=== PATIENT | male | born 1940 | race Caucasian/White ===

== ENCOUNTER 2022-03-16 10:32 | Outpatient (RCR) | payer MEDICARE, BC, SELFPAY ==
[2022-03-16 12:08] LABS: Albumin* 4.2 g/dL (3.3-5.0); Chloride* 103 mmol/L (96-114); Sodium* 138 mmol/L (135-149)
[2022-03-16 12:09] LABS: Potassium* 4.4 mmol/L (3.6-5.1)
[2022-03-16 12:11] LABS: Aspartate Amino Transferase* 19 U/L (12-35); Bilirubin Total* 0.5 mg/dL (0.1-1.5); Carbon Dioxide* 29 mmol/L (20-32); Creatinine* 1.4 mg/dL (0.5-1.5); Estimated Glomerular Filt Rate 50.18
[2022-03-16 12:12] LABS: Alanine Aminotransferase* 16 U/L (4-50); Alkaline Phosphatase* 149 U/L (40-150); Blood Urea Nitrogen* 24 mg/dL (7-30); Calcium* 9.8 mg/dL (8.4-10.6); Glucose* 114 mg/dL (60-115); Total Protein* 6.8 g/dL (6.0-8.3)
[2022-03-16 12:31] LABS: Hematocrit 33.7 % (37.0-53.0); Hemoglobin* 11.2 gm/dL (13.5-17.5); Lymphocytes Percent Auto 25.9 % (20-44); Mean Corpuscular HGB Conc 33 gm/dL (32-36); Mean Corpuscular Hemoglobin 31 pg (26-34); Mean Corpuscular Volume 92 fL (80-100); Monocytes Percent Auto 9.8 % (0.0-11.0); Neutrophils Percent Auto 61.7 % (42.0-72.0); Platelet Count* 242 K/uL (140-440); RDW Coefficient of Variation % 14.4 % (11.5-15.5); Red Blood Count 3.66 m/uL (4.30-5.90); White Blood Count* 7.65 K/uL (4.50-11.00)
[2022-03-16 12:32] LABS: Basophils Percent Auto 0.5 % (0.0-3.0); Slide Review Reflex No
[2022-03-16 21:57] LABS: PSA Diagnostic* 0.08 ng/mL (0.10-4.00)
--- NOTE | 2022-03-17 15:01 | ONC.NURNOTE ---
Patient called after hours 03/[address] Jacobson to call his doctor. Dr. Jacobson had already left for the day. attempted to call pt x4 to let him know. line busy x4.
== END 2022-04-03 23:59 | disposition home or self-care (01) ==
LOC: CCIC 10:32
PROVIDERS: PCP Surgery; Visit Provider Internal Medicine Hematology & Oncology
DX: C61 Malignant neoplasm of prostate (principal); C79.51 Secondary malignant neoplasm of bone; G47.00 Insomnia, unspecified; K86.9 Disease of pancreas, unspecified; R63.4 Abnormal weight loss
CPT/HCPCS: 36415; 80053; 84153; 85025; 99212; 99214

== ENCOUNTER 2022-05-23 13:31 | Outpatient (CLI) | payer MEDICARE, BC, SELFPAY ==
--- NOTE | 2022-05-23 13:45 | CRLHL7_ITS ---
For Patients: As a result of the Cures Act, medical imaging exams and procedure reports are released immediately into your electronic medical record. You may view this report before your referring provider. If you have questions, please contact your health care provider. INDICATION: Cystic lesion pancreas; followup. Comparison : MRCP and MRI of the abdomen January 28, 2022. TECHNIQUE: Precontrast T1 and T2 weighted imaging; T2 haste imaging; diffusion weighted imaging; in and out of phase imaging; postcontrast imaging. FINDINGS: A 2.2 x 1.4 cm septated cystic lesion with high signal on the T2 haste imaging involving the mid body of the pancreas. No nodularity or enhancement after intravenous injection of gadolinium. No clear-cut communication to the main pancreatic duct. No evidence of pancreatic ductal dilatation. No focal hepatic or splenic pathology. No peripancreatic inflammatory changes. Gallbladder is unremarkable. No adrenal pathology. Kidneys are unremarkable. Extrarenal pelves bilateral. Cortical cyst left kidney. No evidence of abdominal ascites. IMPRESSION: 1. A 2.2 x 1.4 cm septated cystic lesion midbody of the pancreas; rule out side branch IPMN; stable when compared to January 2022; followup MRCP and MRI of the pancreas in 12 months duration suggested. 2. Negative MR of the abdomen without and with intravenous gadolinium otherwise. Dictated by Yasmani Gusman MD @ 05/24/2022 1:56:38 PM (Electronically Signed)
== END 2022-05-23 13:32 | disposition home or self-care (01) ==
LOC: MRI 13:32
PROVIDERS: PCP Surgery; Visit Provider Internal Medicine Hematology & Oncology
DX: K86.89 Other specified diseases of pancreas (principal)
CPT/HCPCS: 74183; A9575

== ENCOUNTER 2022-09-07 11:00 | Outpatient (RCR) | payer MEDICARE, BC, SELFPAY ==
[2022-04-07 11:17] LABS: Basophils Absolute Auto 0.04 K/uL (0.00-0.30); Basophils Percent Auto 0.8 % (0.0-3.0); Eosinophils Absolute Auto 0.15 K/uL (0.00-0.50); Eosinophils Percent Auto 2.8 % (0.0-7.0); Hematocrit 35.2 % (37.0-53.0); Hemoglobin* 11.7 gm/dL (13.5-17.5); Immature Granulocytes Abs Auto 0.03 K/uL (0.00-0.30); Lymphocytes Absolute Auto 1.64 K/uL (0.90-2.90); Lymphocytes Percent Auto 30.8 % (20-44); Mean Corpuscular HGB Conc 33 gm/dL (32-36); Mean Corpuscular Hemoglobin 31 pg (26-34); Mean Corpuscular Volume 93 fL (80-100); Monocytes Percent Auto 9.4 % (0.0-11.0); Neutrophils Absolute Auto 2.97 K/uL (1.7-7.0); Neutrophils Percent Auto 55.6 % (42.0-72.0); Platelet Count* 254 K/uL (140-440); RDW Coefficient of Variation % 13.8 % (11.5-15.5); Red Blood Count 3.79 m/uL (4.30-5.90); White Blood Count* 5.33 K/uL (4.50-11.00)
[2022-04-07 11:33] LABS: Slide Review Reflex No
[2022-04-07 11:51] LABS: Albumin* 4.2 g/dL (3.3-5.0); Chloride* 105 mmol/L (96-114); Potassium* 4.4 mmol/L (3.6-5.1); Sodium* 137 mmol/L (135-149)
[2022-04-07 11:53] LABS: Bilirubin Total* 0.2 mg/dL (0.1-1.5); Creatinine* 1.2 mg/dL (0.5-1.5); Estimated Glomerular Filt Rate 60 ml/min
[2022-04-07 11:54] LABS: Alanine Aminotransferase* 17 U/L (4-50); Alkaline Phosphatase* 124 U/L (40-150); Aspartate Amino Transferase* 22 U/L (12-35); Blood Urea Nitrogen* 25 mg/dL (7-30); Calcium* 9.8 mg/dL (8.4-10.6); Carbon Dioxide* 26 mmol/L (20-32); Glucose* 160 mg/dL (60-115); Total Protein* 7.1 g/dL (6.0-8.3)
--- NOTE | 2022-04-07 13:32 | ONC.NURNOTE ---
Patient here one week early for scheduled monthly lab draw labs done and reviewed by RN to be called to [facility] for Dr Jacobson review next week calendar for next appts given to and patient
--- NOTE | 2022-04-11 13:58 | ONC.NURNOTE ---
Addendum entered by Sheyla Olvera RN 04/12/22 13:34: Dental release received from Oral Surgeon Original Note: Dental clearance form faxed to Oral Surgeon to complete [phone]
[2022-04-14 14:34] VITALS: BP 153/75; PULSE 77; RESP 16; TEMP 36.1; O2SAT 97
[2022-04-14] MEDS: DENOSUMAB 120 MG inj SUBCUT (14:51)
[2022-05-11 12:56] LABS: Basophils Absolute Auto 0.03 K/uL (0.00-0.30); Basophils Percent Auto 0.4 % (0.0-3.0); Eosinophils Absolute Auto 0.24 K/uL (0.00-0.50); Eosinophils Percent Auto 3.5 % (0.0-7.0); Hematocrit 37.4 % (37.0-53.0); Hemoglobin* 12.4 gm/dL (13.5-17.5); Immature Granulocytes Abs Auto 0.01 K/uL (0.00-0.30); Lymphocytes Absolute Auto 1.84 K/uL (0.90-2.90); Lymphocytes Percent Auto 26.6 % (20-44); Mean Corpuscular HGB Conc 33 gm/dL (32-36); Mean Corpuscular Hemoglobin 31 pg (26-34); Mean Corpuscular Volume 94 fL (80-100); Monocytes Percent Auto 8.7 % (0.0-11.0); Neutrophils Absolute Auto 4.19 K/uL (1.7-7.0); Neutrophils Percent Auto 60.7 % (42.0-72.0); Platelet Count* 246 K/uL (140-440); White Blood Count* 6.91 K/uL (4.50-11.00)
[2022-05-11 12:58] LABS: Slide Review Reflex No
[2022-05-11 13:12] LABS: Albumin* 4.5 g/dL (3.3-5.0); Chloride* 102 mmol/L (96-114)
[2022-05-11 13:13] LABS: Potassium* 4.5 mmol/L (3.6-5.1); Sodium* 140 mmol/L (135-149)
[2022-05-11 13:15] LABS: Aspartate Amino Transferase* 23 U/L (12-35); Bilirubin Total* 0.3 mg/dL (0.1-1.5); Carbon Dioxide* 28 mmol/L (20-32); Creatinine* 1.4 mg/dL (0.5-1.5); Estimated Glomerular Filt Rate 50 ml/min; Total Protein* 7.3 g/dL (6.0-8.3)
[2022-05-11 13:16] LABS: Alanine Aminotransferase* 20 U/L (4-50); Alkaline Phosphatase* 91 U/L (40-150); Blood Urea Nitrogen* 27 mg/dL (7-30); Calcium* 9.3 mg/dL (8.4-10.6); Glucose* 155 mg/dL (60-115)
[2022-05-11 14:04] LABS: PSA Diagnostic* < 0.06 ng/mL (0.10-4.00)
[2022-05-17 11:03] VITALS: BP 134/78; PULSE 76; RESP 16; TEMP 35.8; O2SAT 95
[2022-05-17] MEDS: DENOSUMAB 120 MG inj SUBCUT (11:16)
--- NOTE | 2022-06-01 15:11 | ONC.NURNOTE ---
Dr. Jacobson reviewed MRI done on 05/23/22. Per Dr. Jacobson scan is stable. Bulk Driver called pt with update.
--- NOTE | 2022-06-10 11:43 | ONC.NURNOTE ---
Authorization: User: Mare Salinas Date: 02/09/22 14:08 Type: Eligibility Determination Note... REceived request for prior auth for Denosumab ([id number]). Pt has medicare and [place]. Prior authorization is not required as services are based on medical necessity and follow medicare guidelines.
[2022-06-14 11:30] LABS: Basophils Absolute Auto 0.03 K/uL (0.00-0.30); Basophils Percent Auto 0.5 % (0.0-3.0); Eosinophils Absolute Auto 0.21 K/uL (0.00-0.50); Eosinophils Percent Auto 3.3 % (0.0-7.0); Hematocrit 38.9 % (37.0-53.0); Hemoglobin* 12.8 gm/dL (13.5-17.5); Immature Granulocytes Abs Auto 0.02 K/uL (0.00-0.30); Lymphocytes Absolute Auto 2.01 K/uL (0.90-2.90); Lymphocytes Percent Auto 31.8 % (20-44); Mean Corpuscular HGB Conc 33 gm/dL (32-36); Mean Corpuscular Hemoglobin 31 pg (26-34); Mean Corpuscular Volume 93 fL (80-100); Neutrophils Absolute Auto 3.48 K/uL (1.7-7.0); Neutrophils Percent Auto 55.1 % (42.0-72.0); Platelet Count* 263 K/uL (140-440); RDW Coefficient of Variation % 12.6 % (11.5-15.5); Red Blood Count 4.19 m/uL (4.30-5.90); White Blood Count* 6.32 K/uL (4.50-11.00)
[2022-06-14 11:34] VITALS: BP 125/80; PULSE 100; RESP 16; TEMP 35.5; O2SAT 96
[2022-06-14 11:38] LABS: Albumin* 4.6 g/dL (3.3-5.0); Chloride* 101 mmol/L (96-114); Potassium* 4.6 mmol/L (3.6-5.1); Sodium* 139 mmol/L (135-149)
[2022-06-14 11:40] LABS: Bilirubin Total* 0.4 mg/dL (0.1-1.5); Creatinine* 1.4 mg/dL (0.5-1.5); Estimated Glomerular Filt Rate 50 ml/min; Slide Review Reflex No
[2022-06-14 11:41] LABS: Alanine Aminotransferase* 19 U/L (4-50); Alkaline Phosphatase* 63 U/L (40-150); Aspartate Amino Transferase* 21 U/L (12-35); Blood Urea Nitrogen* 22 mg/dL (7-30); Calcium* 9.6 mg/dL (8.4-10.6); Carbon Dioxide* 29 mmol/L (20-32); Glucose* 185 mg/dL (60-115); Total Protein* 7.6 g/dL (6.0-8.3)
[2022-06-14] MEDS: DENOSUMAB 120 MG inj SUBCUT (12:26)
--- NOTE | 2022-06-15 14:22 | ONC.NURNOTE ---
Labs reviewed by Dr Jacobson and called to [facility] as stable continue same dosing XTANDI lab/Shankar/Dr Jacobson on 07/13/22 Patient offers no questions or concerns regarding Xtandi
[2022-07-13 12:59] LABS: Basophils Absolute Auto 0.03 K/uL (0.00-0.30); Basophils Percent Auto 0.4 % (0.0-3.0); Eosinophils Absolute Auto 0.14 K/uL (0.00-0.50); Eosinophils Percent Auto 2.1 % (0.0-7.0); Hematocrit 37.2 % (37.0-53.0); Hemoglobin* 12.3 gm/dL (13.5-17.5); Immature Granulocytes Abs Auto 0.02 K/uL (0.00-0.30); Immature Granulocytes Pct Auto 0.3 %; Lymphocytes Absolute Auto 1.97 K/uL (0.90-2.90); Lymphocytes Percent Auto 29.5 % (20-44); Mean Corpuscular HGB Conc 33 gm/dL (32-36); Mean Corpuscular Hemoglobin 30 pg (26-34); Mean Corpuscular Volume 92 fL (80-100); Monocytes Percent Auto 10.2 % (0.0-11.0); Neutrophils Absolute Auto 3.84 K/uL (1.7-7.0); Neutrophils Percent Auto 57.5 % (42.0-72.0); Platelet Count* 272 K/uL (140-440); Red Blood Count 4.04 m/uL (4.30-5.90); White Blood Count* 6.68 K/uL (4.50-11.00)
[2022-07-13 13:01] LABS: Slide Review Reflex No
[2022-07-13 13:15] LABS: Albumin* 4.5 g/dL (3.3-5.0); Chloride* 102 mmol/L (96-114)
[2022-07-13 13:16] LABS: Potassium* 4.6 mmol/L (3.6-5.1); Sodium* 138 mmol/L (135-149)
[2022-07-13 13:18] LABS: Aspartate Amino Transferase* 23 U/L (12-35); Bilirubin Total* 0.5 mg/dL (0.1-1.5); Carbon Dioxide* 26 mmol/L (20-32); Creatinine* 1.2 mg/dL (0.5-1.5); Estimated Glomerular Filt Rate 60 ml/min; Total Protein* 7.5 g/dL (6.0-8.3)
[2022-07-13 13:19] LABS: Alanine Aminotransferase* 23 U/L (4-50); Alkaline Phosphatase* 65 U/L (40-150); Blood Urea Nitrogen* 24 mg/dL (7-30); Calcium* 9.7 mg/dL (8.4-10.6); Glucose* 152 mg/dL (60-115)
[2022-07-13 13:51] LABS: PSA Diagnostic* < 0.06 ng/mL (0.10-4.00)
[2022-07-13] MEDS: DENOSUMAB 120 MG inj SUBCUT (14:32)
--- NOTE | 2022-07-21 16:11 | ONC.NURNOTE ---
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
[2022-08-10 11:15] VITALS: BP 151/79; TEMP 35.5
[2022-08-10 11:27] LABS: Basophils Absolute Auto 0.03 K/uL (0.00-0.30); Basophils Percent Auto 0.5 % (0.0-3.0); Eosinophils Absolute Auto 0.32 K/uL (0.00-0.50); Eosinophils Percent Auto 5.2 % (0.0-7.0); Hematocrit 35.3 % (37.0-53.0); Immature Granulocytes Abs Auto 0.02 K/uL (0.00-0.30); Immature Granulocytes Pct Auto 0.3 %; Lymphocytes Absolute Auto 1.93 K/uL (0.90-2.90); Lymphocytes Percent Auto 31.3 % (20-44); Mean Corpuscular HGB Conc 34 gm/dL (32-36); Mean Corpuscular Hemoglobin 31 pg (26-34); Mean Corpuscular Volume 91 fL (80-100); Monocytes Percent Auto 8.3 % (0.0-11.0); Neutrophils Absolute Auto 3.36 K/uL (1.7-7.0); Neutrophils Percent Auto 54.4 % (42.0-72.0); Platelet Count* 270 K/uL (140-440); RDW Coefficient of Variation % 13.2 % (11.5-15.5); Red Blood Count 3.87 m/uL (4.30-5.90); White Blood Count* 6.17 K/uL (4.50-11.00)
[2022-08-10 11:28] LABS: Slide Review Reflex No
[2022-08-10 11:44] LABS: Chloride* 106 mmol/L (96-114)
[2022-08-10 11:45] LABS: Albumin* 4.5 g/dL (3.3-5.0); Potassium* 4.8 mmol/L (3.6-5.1); Sodium* 139 mmol/L (135-149)
[2022-08-10 11:47] LABS: Creatinine* 1.3 mg/dL (0.5-1.5); Estimated Glomerular Filt Rate 55 ml/min
[2022-08-10 11:48] VITALS: BP 151/79; PULSE 86; RESP 16; TEMP 35.4; O2SAT 94
[2022-08-10 11:48] LABS: Alanine Aminotransferase* 23 U/L (4-50); Alkaline Phosphatase* 64 U/L (40-150); Aspartate Amino Transferase* 21 U/L (12-35); Bilirubin Total* 0.4 mg/dL (0.1-1.5); Blood Urea Nitrogen* 22 mg/dL (7-30); Carbon Dioxide* 26 mmol/L (20-32); Glucose* 193 mg/dL (60-115); Total Protein* 7.3 g/dL (6.0-8.3)
[2022-08-10 11:49] LABS: Calcium* 9.3 mg/dL (8.4-10.6)
[2022-08-10] MEDS: DENOSUMAB 120 MG inj SUBCUT (12:12)
[2022-08-10 12:26] LABS: PSA Diagnostic* < 0.06 ng/mL (0.10-4.00)
--- NOTE | 2022-08-15 09:22 | ONC.NURNOTE ---
Re enrolled in [employer] PAP from 07/27-09/03/23 will continue to receive Xtandi through the [facility] ph [phone]
[2022-09-07 11:11] LABS: Basophils Absolute Auto 0.03 K/uL (0.00-0.30); Basophils Percent Auto 0.4 % (0.0-3.0); Eosinophils Absolute Auto 0.24 K/uL (0.00-0.50); Eosinophils Percent Auto 3.2 % (0.0-7.0); Hematocrit 36.8 % (37.0-53.0); Hemoglobin* 12.4 gm/dL (13.5-17.5); Immature Granulocytes Abs Auto 0.06 K/uL (0.00-0.30); Immature Granulocytes Pct Auto 0.8 %; Lymphocytes Absolute Auto 1.95 K/uL (0.90-2.90); Mean Corpuscular HGB Conc 34 gm/dL (32-36); Mean Corpuscular Hemoglobin 31 pg (26-34); Mean Corpuscular Volume 92 fL (80-100); Monocytes Percent Auto 10.1 % (0.0-11.0); Neutrophils Absolute Auto 4.45 K/uL (1.7-7.0); Neutrophils Percent Auto 59.5 % (42.0-72.0); Platelet Count* 306 K/uL (140-440); RDW Coefficient of Variation % 13.1 % (11.5-15.5); Red Blood Count 4.02 m/uL (4.30-5.90); White Blood Count* 7.49 K/uL (4.50-11.00)
[2022-09-07 11:13] LABS: Slide Review Reflex No
[2022-09-07 11:20] LABS: Albumin* 4.6 g/dL (3.3-5.0); Chloride* 104 mmol/L (96-114)
[2022-09-07 11:21] LABS: Potassium* 4.7 mmol/L (3.6-5.1); Sodium* 139 mmol/L (135-149)
[2022-09-07 11:23] LABS: Aspartate Amino Transferase* 21 U/L (12-35); Bilirubin Total* 0.5 mg/dL (0.1-1.5); Carbon Dioxide* 27 mmol/L (20-32); Creatinine* 1.3 mg/dL (0.5-1.5); Estimated Glomerular Filt Rate 55 ml/min; Total Protein* 7.7 g/dL (6.0-8.3)
[2022-09-07 11:24] LABS: Alanine Aminotransferase* 22 U/L (4-50); Alkaline Phosphatase* 60 U/L (40-150); Blood Urea Nitrogen* 24 mg/dL (7-30); Calcium* 9.8 mg/dL (8.4-10.6); Glucose* 121 mg/dL (60-115)
[2022-09-07 11:54] VITALS: BP 151/82; PULSE 84; RESP 16; TEMP 36.5; O2SAT 96
[2022-09-07 12:01] LABS: PSA Diagnostic* < 0.06 ng/mL (0.10-4.00)
[2022-09-07] MEDS: DENOSUMAB 120 MG inj SUBCUT (12:08)
== END 2022-10-04 23:59 | disposition home or self-care (01) ==
LOC: CCIC 11:00
PROVIDERS: Clinical Nurse Specialist; PCP Surgery; Referring Provider Surgery; Visit Provider Internal Medicine Hematology & Oncology
DX: C61 Malignant neoplasm of prostate (principal); C79.51 Secondary malignant neoplasm of bone
CPT/HCPCS: 36415; 80053; 84153; 85025; 96372; 96401; 99212; 99214; J0897

== ENCOUNTER 2023-03-21 14:00 | Outpatient (RCR) | payer MEDICARE, BC, SELFPAY ==
[2022-10-05 11:13] LABS: Basophils Absolute Auto 0.04 K/uL (0.00-0.30); Basophils Percent Auto 0.6 % (0.0-3.0); Eosinophils Percent Auto 6.9 % (0.0-7.0); Hematocrit 38.8 % (37.0-53.0); Hemoglobin* 12.7 gm/dL (13.5-17.5); Immature Granulocytes Abs Auto 0.01 K/uL (0.00-0.30); Immature Granulocytes Pct Auto 0.1 %; Lymphocytes Absolute Auto 2.05 K/uL (0.90-2.90); Lymphocytes Percent Auto 28.3 % (20-44); Mean Corpuscular HGB Conc 33 gm/dL (32-36); Mean Corpuscular Hemoglobin 30 pg (26-34); Mean Corpuscular Volume 93 fL (80-100); Monocytes Percent Auto 9.4 % (0.0-11.0); Neutrophils Absolute Auto 3.96 K/uL (1.7-7.0); Neutrophils Percent Auto 54.7 % (42.0-72.0); Platelet Count* 276 K/uL (140-440); RDW Coefficient of Variation % 13.3 % (11.5-15.5); Red Blood Count 4.19 m/uL (4.30-5.90); White Blood Count* 7.24 K/uL (4.50-11.00)
[2022-10-05 11:16] LABS: Slide Review Reflex No
[2022-10-05 11:23] VITALS: BP 153/88; PULSE 72; RESP 20; TEMP 36.3; O2SAT 97
[2022-10-05 11:27] LABS: Albumin* 4.4 g/dL (3.3-5.0); Chloride* 103 mmol/L (96-114)
[2022-10-05 11:28] LABS: Potassium* 4.4 mmol/L (3.6-5.1); Sodium* 140 mmol/L (135-149)
[2022-10-05 11:30] VITALS: BP 123/76
[2022-10-05 11:30] LABS: Alkaline Phosphatase* 48 U/L (40-150); Aspartate Amino Transferase* 22 U/L (12-35); Bilirubin Total* 0.4 mg/dL (0.1-1.5); Carbon Dioxide* 30 mmol/L (20-32); Creatinine* 1.5 mg/dL (0.5-1.5); Est. Creatinine Clearance* 27.75; Estimated Glomerular Filt Rate 46 ml/min; Total Protein* 7.7 g/dL (6.0-8.3)
[2022-10-05 11:31] LABS: Alanine Aminotransferase* 23 U/L (4-50); Blood Urea Nitrogen* 31 mg/dL (7-30); Calcium* 9.7 mg/dL (8.4-10.6); Glucose* 165 mg/dL (60-115)
[2022-10-05] MEDS: DENOSUMAB 120 MG inj SUBCUT (11:54)
[2022-11-02 11:51] LABS: Basophils Absolute Auto 0.03 K/uL (0.00-0.30); Basophils Percent Auto 0.4 % (0.0-3.0); Eosinophils Absolute Auto 0.27 K/uL (0.00-0.50); Hematocrit 36.5 % (37.0-53.0); Hemoglobin* 12.2 gm/dL (13.5-17.5); Immature Granulocytes Abs Auto 0.03 K/uL (0.00-0.30); Immature Granulocytes Pct Auto 0.4 %; Lymphocytes Absolute Auto 1.83 K/uL (0.90-2.90); Mean Corpuscular HGB Conc 33 gm/dL (32-36); Mean Corpuscular Hemoglobin 30 pg (26-34); Mean Corpuscular Volume 90 fL (80-100); Monocytes Percent Auto 8.3 % (0.0-11.0); Neutrophils Absolute Auto 4.05 K/uL (1.7-7.0); Neutrophils Percent Auto 59.9 % (42.0-72.0); Platelet Count* 254 K/uL (140-440); Red Blood Count 4.05 m/uL (4.30-5.90); White Blood Count* 6.77 K/uL (4.50-11.00)
[2022-11-02 11:55] LABS: Slide Review Reflex No
[2022-11-02 11:59] VITALS: BP 136/81; PULSE 80; RESP 16; TEMP 36.2; O2SAT 97
[2022-11-02 12:04] LABS: Chloride* 104 mmol/L (96-114)
[2022-11-02 12:05] LABS: Albumin* 4.2 g/dL (3.3-5.0); Potassium* 4.5 mmol/L (3.6-5.1); Sodium* 137 mmol/L (135-149)
[2022-11-02 12:08] LABS: Alanine Aminotransferase* 24 U/L (4-50); Alkaline Phosphatase* 45 U/L (40-150); Aspartate Amino Transferase* 20 U/L (12-35); Bilirubin Total* 0.4 mg/dL (0.1-1.5); Blood Urea Nitrogen* 17 mg/dL (7-30); Calcium* 9.8 mg/dL (8.4-10.6); Carbon Dioxide* 27 mmol/L (20-32); Creatinine* 1.2 mg/dL (0.5-1.5); Estimated Glomerular Filt Rate 60 ml/min; Glucose* 162 mg/dL (60-115); Total Protein* 7.4 g/dL (6.0-8.3)
[2022-11-02] MEDS: DENOSUMAB 120 MG inj SUBCUT (12:37)
[2022-12-01 10:45] LABS: Basophils Absolute Auto 0.05 K/uL (0.00-0.30); Basophils Percent Auto 0.6 % (0.0-3.0); Eosinophils Absolute Auto 0.26 K/uL (0.00-0.50); Eosinophils Percent Auto 3.3 % (0.0-7.0); Hematocrit 39.2 % (37.0-53.0); Immature Granulocytes Abs Auto 0.08 K/uL (0.00-0.30); Lymphocytes Absolute Auto 1.81 K/uL (0.90-2.90); Lymphocytes Percent Auto 23.3 % (20-44); Mean Corpuscular HGB Conc 33 gm/dL (32-36); Mean Corpuscular Hemoglobin 30 pg (26-34); Mean Corpuscular Volume 91 fL (80-100); Monocytes Percent Auto 8.6 % (0.0-11.0); Neutrophils Percent Auto 63.2 % (42.0-72.0); Platelet Count* 283 K/uL (140-440); RDW Coefficient of Variation % 13.2 % (11.5-15.5); Red Blood Count 4.31 m/uL (4.30-5.90); White Blood Count* 7.77 K/uL (4.50-11.00)
[2022-12-01 10:52] LABS: Slide Review Reflex No
[2022-12-01 10:59] LABS: Albumin* 4.5 g/dL (3.3-5.0)
[2022-12-01 11:00] LABS: Chloride* 102 mmol/L (96-114); Potassium* 4.4 mmol/L (3.6-5.1); Sodium* 139 mmol/L (135-149)
[2022-12-01 11:02] LABS: Aspartate Amino Transferase* 22 U/L (12-35); Bilirubin Total* 0.5 mg/dL (0.1-1.5); Carbon Dioxide* 29 mmol/L (20-32); Creatinine* 1.3 mg/dL (0.5-1.5); Est. Creatinine Clearance* 45.24; Estimated Glomerular Filt Rate 55 ml/min; Total Protein* 7.9 g/dL (6.0-8.3)
[2022-12-01 11:03] LABS: Alanine Aminotransferase* 24 U/L (4-50); Alkaline Phosphatase* 50 U/L (40-150); Blood Urea Nitrogen* 25 mg/dL (7-30); Calcium* 10.1 mg/dL (8.4-10.6); Glucose* 180 mg/dL (60-115)
[2022-12-01 11:29] LABS: PSA Diagnostic* < 0.06 ng/mL (0.10-4.00)
[2022-12-01] MEDS: DENOSUMAB 120 MG inj SUBCUT (12:26)
[2023-03-02] MEDS: DENOSUMAB 120 MG inj SUBCUT (12:30)
[2023-03-02 12:38] LABS: Basophils Absolute Auto 0.02 K/uL (0.00-0.30); Basophils Percent Auto 0.4 % (0.0-3.0); Eosinophils Absolute Auto 0.28 K/uL (0.00-0.50); Eosinophils Percent Auto 5.1 % (0.0-7.0); Hematocrit 36.8 % (37.0-53.0); Hemoglobin* 12.3 gm/dL (13.5-17.5); Immature Granulocytes Abs Auto 0.01 K/uL (0.00-0.30); Immature Granulocytes Pct Auto 0.2 %; Lymphocytes Absolute Auto 1.87 K/uL (0.90-2.90); Lymphocytes Percent Auto 34.3 % (20-44); Mean Corpuscular HGB Conc 33 gm/dL (32-36); Mean Corpuscular Hemoglobin 30 pg (26-34); Mean Corpuscular Volume 91 fL (80-100); Monocytes Percent Auto 9.5 % (0.0-11.0); Neutrophils Absolute Auto 2.75 K/uL (1.7-7.0); Neutrophils Percent Auto 50.5 % (42.0-72.0); Platelet Count* 228 K/uL (140-440); RDW Coefficient of Variation % 13.5 % (11.5-15.5); Red Blood Count 4.06 m/uL (4.30-5.90); White Blood Count* 5.45 K/uL (4.50-11.00)
[2023-03-02 12:43] LABS: Slide Review Reflex No
[2023-03-02 12:58] LABS: Albumin* 4.3 g/dL (3.3-5.0)
[2023-03-02 12:59] LABS: Chloride* 102 mmol/L (96-114); Potassium* 4.4 mmol/L (3.6-5.1); Sodium* 140 mmol/L (135-149)
[2023-03-02 13:01] LABS: Creatinine* 1.3 mg/dL (0.5-1.5); Est. Creatinine Clearance* 44.46; Estimated Glomerular Filt Rate 55 ml/min
[2023-03-02 13:02] LABS: Alanine Aminotransferase* 22 U/L (4-50); Alkaline Phosphatase* 46 U/L (40-150); Aspartate Amino Transferase* 22 U/L (12-35); Bilirubin Total* 0.5 mg/dL (0.1-1.5); Blood Urea Nitrogen* 26 mg/dL (7-30); Calcium* 9.8 mg/dL (8.4-10.6); Carbon Dioxide* 30 mmol/L (20-32); Glucose* 118 mg/dL (60-115); Total Protein* 7.4 g/dL (6.0-8.3)
[2023-03-03 13:56] LABS: Testosterone, Adult Male <3 ng/dL (300-720)
--- NOTE | 2023-03-08 10:54 | ONC.NURNOTE ---
[employer] faxed lab orders to [facility] per patients request.
--- NOTE | 2023-03-17 11:19 | URNOTE ---
Request received for authorization for Shivam ([id number]). Prior authorization is not required as services are based on medical necessity and follow Medicare guidelines.
--- NOTE | 2023-03-17 12:55 | ONC.NURNOTE ---
Dr[facility]. Pt aware.
[2023-03-21 14:45] VITALS: PULSE 66; RESP 18; TEMP 36.2; O2SAT 95
== END 2023-04-03 23:59 | disposition home or self-care (01) ==
LOC: CCIC 14:00
PROVIDERS: Clinical Nurse Specialist; Internal Medicine Hematology & Oncology; PCP Surgery; Referring Provider Surgery; Visit Provider Physician Assistant
DX: C61 Malignant neoplasm of prostate (principal)
CPT/HCPCS: 36415; 80053; 84153; 84403; 85025; 96372; 96401; 99212; 99214; 99215; J0897; J9217

== ENCOUNTER 2023-05-23 12:39 | Outpatient (CLI) | payer MEDICARE, BC, SELFPAY ==
--- NOTE | 2023-05-23 13:00 | CRLHL7_ITS ---
For Patients: As a result of the Century Cures Act, medical imaging exams and procedure reports are released immediately into your electronic medical record. You may view this report before your referring provider. If you have questions, please contact your health care provider. INDICATION: Pancreatic cyst; followup. COMPARISON: MRI of the abdomen January 28, 2022 and May 23, 2022. TECHNIQUE: MRCP; precontrast T1 and T2 weighted imaging; T2 haste imaging; diffusion weighted imaging; in and out of phase imaging; postcontrast imaging including subtraction ; 20 cc of dotarem contrast was injected. Findings: A 1.8 x 1.2 cm septated cystic lesion distal body of the pancreas ; High signal on the precontrast T2 haste imaging and low signal on the precontrast T1 weighted imaging without any enhancement postcontrast administration. No evidence of pancreatic ductal dilatation. Diffuse fatty infiltration of the liver. No focal hepatic or splenic pathology. No pancreatic ductal dilatation. Gallbladder is unremarkable. No adrenal pathology. Cortical cyst is both kidneys. IMPRESSION: 1. cystic lesions tail of the pancreas measuring 1.8 x 1.2 cm ; Side branch IPMN ; Followup MRCP and MRI of the abdomen in 12 months duration suggested. 2. Fatty infiltration of the liver. Dictated by Yasmani Gusman MD @ 05/28/2023 1:54:43 PM (Electronically Signed)
== END 2023-05-23 12:40 | disposition home or self-care (01) ==
LOC: MRI 12:44
PROVIDERS: PCP Surgery; Visit Provider Physician Assistant
DX: D49.0 Neoplasm of unspecified behavior of digestive system (principal); K86.2 Cyst of pancreas; K76.0 Fatty (change of) liver, not elsewhere classified
CPT/HCPCS: 74183; A9575

== ENCOUNTER 2023-07-02 12:34 | Observation (INO) | payer MEDICARE, BC, SELFPAY ==
[2023-07-02] VITALS (37 sets, daily range): BP systolic 118–169; BP diastolic 58–98; PULSE 92–132; RESP 18–29; TEMP 36.4–36.7; O2SAT 88–97; BMI 34.2; BMI 34.7
--- NOTE | 2023-07-02 13:00 | CRLHL7_ITS ---
For Patients: As a result of the Cures Act, medical imaging exams and procedure reports are released immediately into your electronic medical record. You may view this report before your referring provider. If you have questions, please contact your health care provider. INDICATION: 01/11/2017 COMPARISON: None. TECHNIQUE: PA and lateral 2 view chest radiograph. FINDINGS: The lungs are well expanded. No focal consolidations. No pulmonary edema. No pleural effusion. No pneumothorax. No pneumomediastinum. Normal cardiomediastinal silhouette. Atherosclerotic vascular calcifications. Median sternotomy wires. Bones: L1 superior endplate compression fracture with about 30 percent loss of height anteriorly. This is unchanged compared to prior. No acute appearing worrisome abnormalities in the bones. IMPRESSION: Lungs are clear. No acute findings. Dictated by Jeannine Jenkins MD @ 07/02/2023 1:55:06 PM (Electronically Signed)
--- NOTE | 2023-07-02 13:42 | ED.GENADULT ---
HPI - General Adult General Chief complaint: Weakness Stated complaint: No energy, cant sleep Time Seen by Provider: 07/02/23 12:36 Source: patient and family Limitations: no limitations History of Present Illness HPI narrative: 83-year-old male presenting today with concerns about weakness and not sleeping well. Patient states that he did not sleep at all last night was tossing and turning most of the night and today he felt so weak needed help getting around which is unusual for him. He denies chest pain but he does feel short of breath. No fevers or chills. No recent illnesses. Appetite has been normal and he has been drinking need usual amount which is about a qt of ice tea per day. His states that he is not himself. She states that he seems weaker, has no energy like he usually does and she just feels like something is off. He denies any abdominal discomfort. States that he had 2 episodes of diarrhea couple days ago otherwise normal bowel movement. He denies any urinary symptoms. Medical history is complex and significant for prostate cancer with bony metastasis, coronary artery disease, diabetes, hypertension. Related Data Home Medications Medication Instructions Recorded Confirmed amlodipine 10 mg tablet 10 mg PO DAILY 03/14/22 07/02/23 furosemide 20 mg tablet 20 mg PO DAILY 03/14/22 07/02/23 losartan 100 mg tablet 100 mg PO DAILY 03/14/22 07/02/23 rosuvastatin 10 mg tablet 10 mg PO HS 03/14/22 07/02/23 metformin 1,000 mg tablet 1,000 mg PO BID 05/11/22 07/02/23 multivitamin 1 tab PO QAM 05/11/22 07/02/23 calcium carbonate 600 mg-vitamin 1 tab PO BID 07/13/22 07/02/23 D3 10 mcg (400 unit) tablet (Calcium with Vitamin D) spironolactone 25 mg tablet 25 mg PO QAM 10/05/22 07/02/23 ammonium lactate 12 % topical cream 1 applic topical DAILY PRN 07/02/23 07/02/23 carvedilol 12.5 mg tablet 12.5 mg PO BID 07/02/23 07/02/23 cetirizine 10 mg tablet 10 mg PO DAILY PRN 07/02/23 07/02/23 cinnamon bark 500 mg capsule 500 mg PO BID 07/02/23 07/02/23 glucosamine-chondroitin 250 mg-200 2 tab PO DAILY 07/02/23 07/02/23 mg tablet (Osteo Bi-Flex) magnesium oxide 400 mg PO DAILY 07/02/23 07/02/23 melatonin 1 mg tablet 1 mg PO HS PRN 07/02/23 07/02/23 mirtazapine 15 mg tablet 15 mg PO QPM 07/02/23 07/02/23 Previous Rx's Medication Instructions Recorded enzalutamide 40 mg capsule 160 mg (4 x 40 mg) PO Q24H #120 06/19/23 caps Allergies Allergy/AdvReac Type Severity Reaction Status Date / Time house dust Allergy Verified 03/02/23 13:05 cocaine Allergy Uncoded 05/17/22 11:15 feathers Allergy Uncoded 05/17/22 11:15 flu shot Allergy Uncoded 05/17/22 11:15 grain/feed dust Allergy Uncoded 05/17/22 11:15 tobacco Allergy Uncoded 05/17/22 11:15 Review of Systems Status of ROS: Reports: 10 or more systems reviewed and unremarkable except as noted in History and below [facility] Medical History Bone metastasis ?C79.51 - Secondary malignant neoplasm of bone (ICD-10) Social History Smoking Status: Former smoker Do you use any of these nicotine containing products: None Second hand tobacco smoke exposure: No How often do you have a drink containing alcohol: 2-4 times a month How many standard drinks containing alcohol do you have on a typical day: 1 or 2 How often do you have six or more drinks on one occasion: Never AUDIT-C Alcohol total score: 2 Non-prescribed substance use: denies use service: No Exam Narrative: Exam Narrative: Overweight, well-developed patient. Alert and oriented x3. Answers questions appropriately but is not a very good historian. He has trouble describing symptoms. Mood is normal, affect is slightly flat. Thoughts are goal oriented and rational. No tangential or magical thinking noted. Patient speaks in full sentences without needing to catch his breath. HEENT: Normocephalic atraumatic. Pupils are equally round reactive to light. Extraocular muscles are intact. Conjunctivae are moist without any icterus noted. Very dry mucous membranes. Posterior pharynx is normal. Neck is soft. Cardiovascular: Tachycardic but regular rhythm. S1-S2 present without murmurs. Lungs: Clear to auscultation bilaterally no wheezes rhonchi or rales are appreciated. Patient takes deep breaths without any discomfort. Abdomen: Soft and nontender nondistended with normal bowel sounds. Protuberant. Extremities: Right lower extremity has trace edema, left lower extremity without edema. Skin: Well perfused without any obvious rashes. Const: Vital Signs, click to edit/add: Vital Signs - 24 hr 07/02/23 12:47 07/02/23 13:00 07/02/23 13:00 Pulse Rate 128 H Pulse Rate [Femora l] 129 H Respiratory Rate 29 H Blood Pressure Blood Pressure [Ri ght Upper Arm] 160/98 H Pulse Oximetry 91 90 92 Oxygen Delivery Me thod Room Air Oxygen Flow Rate 07/02/23 13:02 07/02/23 13:24 07/02/23 13:39 Pulse Rate 130 H 131 H 123 H Pulse Rate [Femora l] Respiratory Rate Blood Pressure 168/92 H Blood Pressure [Ri ght Upper Arm] Pulse Oximetry 92 90 95 Oxygen Delivery Me thod Oxygen Flow Rate 07/02/23 13:51 07/02/23 13:53 07/02/23 14:00 Pulse Rate 132 H 130 H 124 H Pulse Rate [Femora l] Respiratory Rate Blood Pressure 169/85 H Blood Pressure [Ri ght Upper Arm] Pulse Oximetry 92 93 94 Oxygen Delivery Me thod Oxygen Flow Rate 07/02/23 14:02 07/02/23 14:15 07/02/23 14:23 Pulse Rate 123 H 120 H 122 H Pulse Rate [Femora l] Respiratory Rate Blood Pressure 131/65 153/70 H Blood Pressure [Ri ght Upper Arm] Pulse Oximetry 94 95 95 Oxygen Delivery Me thod Oxygen Flow Rate 07/02/23 14:30 07/02/23 14:32 07/02/23 14:33 Pulse Rate 113 H 115 H 115 H Pulse Rate [Femora l] Respiratory Rate Blood Pressure 135/62 Blood Pressure [Ri ght Upper Arm] Pulse Oximetry 96 96 97 Oxygen Delivery Me thod Oxygen Flow Rate 07/02/23 14:45 07/02/23 15:12 07/02/23 15:15 Pulse Rate 110 H 114 H 111 H Pulse Rate [Femora l] Respiratory Rate Blood Pressure Blood Pressure [Ri ght Upper Arm] Pulse Oximetry 97 94 96 Oxygen Delivery Me thod Oxygen Flow Rate 07/02/23 15:29 07/02/23 15:30 07/02/23 15:32 Pulse Rate 111 H 109 H Pulse Rate [Femora l] Respiratory Rate Blood Pressure 121/61 Blood Pressure [Ri ght Upper Arm] Pulse Oximetry 95 97 96 Oxygen Delivery Me thod Nasal Cannula Oxygen Flow Rate 2 07/02/23 15:48 07/02/23 16:00 07/02/23 16:02 Pulse Rate 109 H 104 H 107 H Pulse Rate [Femora l] Respiratory Rate Blood Pressure 128/58 L Blood Pressure [Ri ght Upper Arm] Pulse Oximetry 96 96 96 Oxygen Delivery Me thod Oxygen Flow Rate Course Course ED Course: EKG, read by me, shows sinus tachycardia with PVCs and fusion complexes, pulse 129. IV is established fluids were started. 1 L of normal saline ordered over 2 hours. Chest x-ray, read by me, does not show any acute pathology. He does have a known L1 compression fracture. Initial point of care troponin 0.1. White blood cell count is elevated at 18.55. Lactate is elevated at 2.2. CRP elevated at 3.3. D-dimer slightly elevated at 0.63. Triple swab negative. Because his abnormal blood work we did proceed with both a chest and abdominal CT: Both unremarkable for any evidence of PE or for infection. He does have bony lesions that are thought to be secondary to metastasis, these were recently discovered at an Oncology appointment. Patient did respond to fluids, his pulse went down to the low 100s. He was slightly hypoxic ranging from 90-92% on room air, therefore he was placed on 2 L nasal cannula and remain in the mid to upper 90s. Repeat EKG showing sinus tachycardia with a pulse of 108, repeat troponin 0.02. At this time patient will be admitted for further management. Vital Signs Vital signs: Initial Vital Signs Temperature Source Temporal Artery Scan 07/02/23 12:47 Pulse Rate 129 H 07/02/23 12:47 Pulse Rhythm Regular 07/02/23 12:47 Respiratory Rate 29 H 07/02/23 12:47 Blood Pressure 160/98 H 07/02/23 12:47 Blood Pressure Mean 118 H 07/02/23 12:47 Blood Pressure Position Supine 07/02/23 12:47 Pulse Oximetry 91 07/02/23 12:47 Oxygen Delivery Method Room Air 07/02/23 12:47 Vital Signs Pulse Rate 129 H 07/02/23 12:47 Respiratory Rate 29 H 07/02/23 12:47 Blood Pressure 160/98 H 07/02/23 12:47 Pulse Oximetry 91 07/02/23 12:47 Oxygen Delivery Method Room Air 07/02/23 12:47 Pulse Rate 107 H 07/02/23 16:02 Respiratory Rate 29 H 07/02/23 12:47 Blood Pressure 128/58 L 07/02/23 16:02 Pulse Oximetry 96 07/02/23 16:02 Oxygen Delivery Method Nasal Cannula 07/02/23 15:29 Oxygen Flow Rate 2 07/02/23 15:29 Medical Decision Making MDM Narrative Medical decision making narrative: 83-year-old male with weakness, leukocytosis of unclear etiology. Blood cultures and urine cultures pending at this time. Patient will be admitted for further management. Medical Records Medical records reviewed: Yes I reviewed the patient's medical records Lab Data Lab results reviewed: Yes I reviewed the patient's lab results Labs: Lab Results 07/02/23 07/02/23 07/02/23 Range/Units 13:01 13:35 13:35 WBC 18.55 H (4.50-11.00) K/uL RBC 4.32 (4.30-5.90) m/uL Hgb 13.3 L (13.5-17.5) gm/dL Hct 39.0 (37.0-53.0) % MCV 90 (80-100) fL MCH 31 (26-34) pg MCHC 34 (32-36) gm/dL RDW Coeff of Abrahan 13.4 (11.5-15.5) % Plt Count 234 (140-440) K/uL Neut % (Auto) 91.5 H (42.0-72.0) % Lymph % (Auto) 3.4 L (20-44) % [facility] % (Auto) 3.8 (0.0-11.0) % Eos % (Auto) 0.1 (0.0-7.0) % Baso % (Auto) 0.1 (0.0-3.0) % Neut # (Auto) 17.00 H (1.7-7.0) K/uL Lymph # (Auto) 0.60 L (0.90-2.90) K/uL [facility] # (Auto) 0.70 (0.00-0.90) K/UL Eos # (Auto) 0.00 (0.00-0.50) K/uL Baso # (Auto) 0.00 (0.00-0.30) K/uL Abs Immat Gran (auto) 0.20 (0.00-0.30) K/uL Imm/Tot Granulo (auto) 1.1 % D-Dimer Quant (PE/DVT) 0.63 H (0.00-0.50) ug/ml VBG pH 7.441 H Cancelled (7.32-7.43) VBG pCO2 40 (40-50) mmHG VBG pO2 (25-47) mmHG VBG HCO3 (21-28) mmol/L Sodium (135-149) mmol/L Potassium (3.6-5.1) mmol/L Chloride (96-114) mmol/L Carbon Dioxide (20-32) mmol/L Anion Gap (7-15) mEq/L BUN (7-30) mg/dL Creatinine (0.5-1.5) mg/dL Estimated Creat Clear Estimated GFR ml/min Glucose (60-115) mg/dL Lactate (0.5-1.9) mmol/L Calcium (8.4-10.6) mg/dL Magnesium (1.5-2.6) mg/dL Total Bilirubin (0.1-1.5) mg/dL Direct Bilirubin (0.0-0.5) mg/dL AST (12-35) U/L ALT (4-50) U/L Alkaline Phosphatase (40-150) U/L Troponin I (0.01-0.04) ng/mL C-Reactive Protein (0.5-1.0) mg/dL NT-Pro-B Natriuret Pep pg/mL Total Protein (6.0-8.3) g/dL Albumin (3.3-5.0) g/dL Urine Color (Yellow) Urine Appearance (Clear) Urine pH (5.0-8.5) Ur Specific [place] (1.000-1.030) Urine Protein (Negative) Urine Glucose (UA) (Negative) Urine Ketones (Negative) Urine Blood (Negative) Urine Nitrite (Negative) Urine Bilirubin (Negative) Urine Urobilinogen (0.2-1.0) Ur Leukocyte Esterase (Negative) Urine RBC (0-2) Urine WBC (0-5) Ur Squamous Epith Cells (None-Few) Urine Bacteria (None) SARS-CoV-2 (PCR) (Negative) Influenza Type A (PCR) (Negative) Influenza Type B (PCR) (Negative) RSV (PCR) (Negative) POC Troponin I 0.01 (0.01-0.04) ng/ml 07/02/23 07/02/23 07/02/23 Range/Units 13:35 13:35 13:35 WBC (4.50-11.00) K/uL RBC (4.30-5.90) m/uL Hgb (13.5-17.5) gm/dL Hct (37.0-53.0) % MCV (80-100) fL MCH (26-34) pg MCHC (32-36) gm/dL RDW Coeff of Abrahan (11.5-15.5) % Plt Count (140-440) K/uL Neut % (Auto) (42.0-72.0) % Lymph % (Auto) (20-44) % [facility] % (Auto) (0.0-11.0) % Eos % (Auto) (0.0-7.0) % Baso % (Auto) (0.0-3.0) % Neut # (Auto) (1.7-7.0) K/uL Lymph # (Auto) (0.90-2.90) K/uL [facility] # (Auto) (0.00-0.90) K/UL Eos # (Auto) (0.00-0.50) K/uL Baso # (Auto) (0.00-0.30) K/uL Abs Immat Gran (auto) (0.00-0.30) K/uL Imm/Tot Granulo (auto) % D-Dimer Quant (PE/DVT) (0.00-0.50) ug/ml VBG pH (7.32-7.43) VBG pCO2 Cancelled (40-50) mmHG VBG pO2 56.7 H Cancelled (25-47) mmHG VBG HCO3 27 Cancelled (21-28) mmol/L Sodium 136 (135-149) mmol/L Potassium 4.6 (3.6-5.1) mmol/L Chloride 102 (96-114) mmol/L Carbon Dioxide 26 (20-32) mmol/L Anion Gap 8 (7-15) mEq/L BUN 27 (7-30) mg/dL Creatinine 1.1 (0.5-1.5) mg/dL Estimated Creat Clear 50.88 Estimated GFR 67 ml/min Glucose 190 H (60-115) mg/dL Lactate 2.2 H (0.5-1.9) mmol/L Calcium 10.0 (8.4-10.6) mg/dL Magnesium 2.1 (1.5-2.6) mg/dL Total Bilirubin 0.9 (0.1-1.5) mg/dL Direct Bilirubin 0.1 (0.0-0.5) mg/dL AST 39 H (12-35) U/L ALT 21 (4-50) U/L Alkaline Phosphatase 39 L (40-150) U/L Troponin I < 0.01 L (0.01-0.04) ng/mL C-Reactive Protein 3.3 H (0.5-1.0) mg/dL NT-Pro-B Natriuret Pep 426 pg/mL Total Protein 8.0 (6.0-8.3) g/dL Albumin 4.5 (3.3-5.0) g/dL Urine Color (Yellow) Urine Appearance (Clear) Urine pH (5.0-8.5) Ur Specific [place] (1.000-1.030) Urine Protein (Negative) Urine Glucose (UA) (Negative) Urine Ketones (Negative) Urine Blood (Negative) Urine Nitrite (Negative) Urine Bilirubin (Negative) Urine Urobilinogen (0.2-1.0) Ur Leukocyte Esterase (Negative) Urine RBC (0-2) Urine WBC (0-5) Ur Squamous Epith Cells (None-Few) Urine Bacteria (None) SARS-CoV-2 (PCR) (Negative) Influenza Type A (PCR) (Negative) Influenza Type B (PCR) (Negative) RSV (PCR) (Negative) POC Troponin I (0.01-0.04) ng/ml 10/29/23 10/29/23 Range/Units 13:50 15:35 WBC (4.50-11.00) K/uL RBC (4.30-5.90) m/uL Hgb (13.5-17.5) gm/dL Hct (37.0-53.0) % MCV (80-100) fL MCH (26-34) pg MCHC (32-36) gm/dL RDW Coeff of Abrahan (11.5-15.5) % Plt Count (140-440) K/uL Neut % (Auto) (42.0-72.0) % Lymph % (Auto) (20-44) % [facility] % (Auto) (0.0-11.0) % Eos % (Auto) (0.0-7.0) % Baso % (Auto) (0.0-3.0) % Neut # (Auto) (1.7-7.0) K/uL Lymph # (Auto) (0.90-2.90) K/uL [facility] # (Auto) (0.00-0.90) K/UL Eos # (Auto) (0.00-0.50) K/uL Baso # (Auto) (0.00-0.30) K/uL Abs Immat Gran (auto) (0.00-0.30) K/uL Imm/Tot Granulo (auto) % D-Dimer Quant (PE/DVT) (0.00-0.50) ug/ml VBG pH (7.32-7.43) VBG pCO2 (40-50) mmHG VBG pO2 (25-47) mmHG VBG HCO3 (21-28) mmol/L Sodium (135-149) mmol/L Potassium (3.6-5.1) mmol/L Chloride (96-114) mmol/L Carbon Dioxide (20-32) mmol/L Anion Gap (7-15) mEq/L BUN (7-30) mg/dL Creatinine (0.5-1.5) mg/dL Estimated Creat Clear Estimated GFR ml/min Glucose (60-115) mg/dL Lactate (0.5-1.9) mmol/L Calcium (8.4-10.6) mg/dL Magnesium (1.5-2.6) mg/dL Total Bilirubin (0.1-1.5) mg/dL Direct Bilirubin (0.0-0.5) mg/dL AST (12-35) U/L ALT (4-50) U/L Alkaline Phosphatase (40-150) U/L Troponin I (0.01-0.04) ng/mL C-Reactive Protein (0.5-1.0) mg/dL NT-Pro-B Natriuret Pep pg/mL Total Protein (6.0-8.3) g/dL Albumin (3.3-5.0) g/dL Urine Color Yellow (Yellow) Urine Appearance Clear (Clear) Urine pH 6.5 (5.0-8.5) Ur Specific [place] 1.015 (1.000-1.030) Urine Protein Negative (Negative) Urine Glucose (UA) Negative (Negative) Urine Ketones Negative (Negative) Urine Blood Trace-intact A (Negative) Urine Nitrite Negative (Negative) Urine Bilirubin Negative (Negative) Urine Urobilinogen 0.2 (0.2-1.0) Ur Leukocyte Esterase Negative (Negative) Urine RBC 0-2 (0-2) Urine WBC 0-2 (0-5) Ur Squamous Epith Cells Few (None-Few) Urine Bacteria None (None) SARS-CoV-2 (PCR) Negative SARS-CoV-2 (Negative) Influenza Type A (PCR) Negative PCR FLU A (Negative) Influenza Type B (PCR) Negative PCR FLU B (Negative) RSV (PCR) Negative PCR RSV (Negative) POC Troponin I 0.02 (0.01-0.04) ng/ml Imaging Data Chest x-ray: Attestation: I have reviewed the pertinent imaging results. Radiologist's impression: TECHNIQUE: PA and lateral 2 view chest radiograph. FINDINGS: The lungs are well expanded. No focal consolidations. No pulmonary edema. No pleural effusion. No pneumothorax. No pneumomediastinum. Normal cardiomediastinal silhouette. Atherosclerotic vascular calcifications. Median sternotomy wires. Bones: L1 superior endplate compression fracture with about 30 percent loss of height anteriorly. This is unchanged compared to prior. No acute appearing worrisome abnormalities in the bones. IMPRESSION: Lungs are clear. No acute findings. CT scan - abdomen: Attestation: I have reviewed the pertinent imaging results. Radiologist's impression: CT of the abdomen pelvis. Coronal/sagittal reconstruction images. 116 cc of [id number] IV. FINDINGS: Lung bases: Dense coronary artery calcifications. There is no pleural or pericardial effusion. Partially visualized median sternotomy changes. There is no acute airspace disease at either lung base. There is no basilar pneumothorax. Abdomen/pelvis: Liver morphology is non cirrhotic. There is no perihepatic ascites. No solid liver lesion. No inflammatory changes adjacent to the gallbladder. No adrenal mass. Spleen size is normal. 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 This is seen in the body of the pancreas, and is unchanged from previous. It measures 9 mm on image 50, series 2. No adrenal mass. No portal vein thrombosis. The hepatic veins, IVC, SMV, and splenic vein are patent. Benign left renal cyst. There is no solid renal mass. There is no perinephric fluid collection. Circumferential wall thickening of the urinary bladder, mild. Prostate appears absent. There is no evidence on CT for a small bowel or colonic obstruction. There is no mural thickening. There is no perienteric edema. There is no transition point. The appendix is normal. There is no inguinal or pelvic sidewall lymphadenopathy. Nonenlarged retroperitoneal and pelvic sidewall lymph nodes are present. No gastrohepatic ligament or jodie hepatis lymphadenopathy. Blastic bone lesions are present throughout the axial skeleton. 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 There is a fracture deformity involving the L1 vertebral body, which may be pathologic, given a large sclerotic lesion in the anterior aspect of the vertebral body, measuring 19 millimeters in craniocaudad dimension. Impression: 1. Osteoblastic metastases throughout the axial skeleton. These are presumably from prostate cancer. 2. There is no bowel obstruction, pneumoperitoneum, or drainable fluid collection in the abdomen/pelvis. 3. Results of the chest CT and CT of the abdomen and pelvis were discussed with Dr. Goddard, ED, 07/02/23, [address] scan - chest: Attestation: I have reviewed the pertinent imaging results. Radiologist's impression: COMPARISON: MRI of the abdomen, 05/23/2023. Technique: CT pulmonary angiogram. Coronal/sagittal reconstruction images. 116 cc of Isovue 370 IV. Findings: The thyroid gland is symmetric. Postoperative changes of a median sternotomy, coronary artery bypass graft. There are extensive calcifications of the [place] epicardial coronary arteries. No findings to indicate an acute aortic syndrome. The brachiocephalic trunk, left common carotid artery, subclavian artery are normal. No mass at the thoracic inlet. Nonenlarged mediastinal lymph nodes. There is no mediastinal, hilar, or axillary lymphadenopathy by size criteria. No pulmonary emboli are demonstrated. There is no evidence to indicate right heart strain. There is no pleural or pericardial effusion. The lung windows demonstrate debris in the intrathoracic trachea. No endobronchial mass. There is no bronchiectasis. There is no peripheral reticulation. There is no honeycomb formation. There is no traction bronchiectasis. There is a calcified granuloma in the left upper lobe, which measures 5 millimeters on series 7, image 61. Mild centrilobular emphysema. There is no suspicious pulmonary nodule or acute airspace disease. Evaluation of the upper abdomen demonstrates a non cirrhotic liver morphology. There is no upper abdominal lymphadenopathy or ascites. Spleen size is normal. The bone windows demonstrate degenerative disc disease. No evidence to indicate a sternal dehiscence. No sternal wire fracture or migration is seen. Nonspecific left posterior rib lesion, which is indeterminate. This measures 8 millimeters on series 6, image 127. No pathologic fracture or soft tissue component. Additional sclerotic bone lesions in the lower thoracic spine, suspicious for blastic metastases. See series 3, image 188. Largest lesion measures 16 millimeters in dimension. Additional sclerotic bone lesions in the bilateral ribs, also suspicious for blastic metastases. Impression: 1. No pulmonary emboli. 2. No evidence on CT for right heart strain. No pulmonary infarct. 3. Sclerotic bone lesions throughout the axial skeleton. These are consistent with blastic metastases. This should be correlated with any history of prostate adenocarcinoma. ECG Data Attestation: I personally reviewed and interpreted this ECG as follows: Discharge Plan Discharge Clinical Impression: Leukocytosis, Weakness Patient Disposition: Admitted As Observation Condition: Stable Prescriptions: No Action multivitamin Tablet 1 tab PO QAM calcium carbonate-vitamin D3 [Calcium with Vitamin D] 600 mg-10 mcg (400 unit) tablet 1 tab PO BID furosemide 20 mg tablet 20 mg PO DAILY Patient Comments: Take 1 Tablet (20 mg) by mouth every morning. losartan 100 mg tablet 100 mg PO DAILY Patient Comments: Take 1 Tablet (100 mg) by mouth once daily. rosuvastatin 10 mg tablet 10 mg PO HS Patient Comments: Take 1 Tablet (10 mg) by mouth at bedtime. amlodipine 10 mg tablet 10 mg PO DAILY metformin 1,000 mg tablet 1,000 mg PO BID Patient Comments: Take 1 Tablet (1,000 mg) by mouth 2 times daily with meals. Rx Instructions: with meals carvedilol 12.5 mg tablet 12.5 mg PO BID mirtazapine 15 mg tablet 15 mg PO QPM ammonium lactate 12 % cream 1 applic topical DAILY PRN glucosamine-chondroitin [Osteo Bi-Flex] 250-200 mg tablet 2 tab PO DAILY Rx Instructions: give after food/meal melatonin 1 mg tablet 1 mg PO HS PRN magnesium oxide 400 mg magnesium tablet 400 mg PO DAILY cinnamon bark 500 mg capsule 500 mg PO BID cetirizine 10 mg tablet 10 mg PO DAILY PRN spironolactone 25 mg tablet 25 mg PO QAM Patient Comments: Take 1 Tablet (25 mg) by mouth every morning. enzalutamide 40 mg capsule 160 mg PO Q24H Qty: 120 11RF Follow Up/Referrals: Adria Valentine MD [Primary Care Provider] -
[2023-07-02 13:48] LABS: HCO3 VBG 27 mmol/L (21-28); Lactate* 2.2 mmol/L (0.5-1.9); PCO2 VBG 40 mmHG (40-50); PO2 VBG 56.7 mmHG (25-47); pH VBG 7.441 (7.32-7.43)
[2023-07-02 13:52] LABS: Basophils Percent Auto 0.1 % (0.0-3.0); Eosinophils Percent Auto 0.1 % (0.0-7.0); Hemoglobin* 13.3 gm/dL (13.5-17.5); Immature Granulocytes Pct Auto 1.1 %; Lymphocytes Percent Auto 3.4 % (20-44); Mean Corpuscular HGB Conc 34 gm/dL (32-36); Mean Corpuscular Hemoglobin 31 pg (26-34); Mean Corpuscular Volume 90 fL (80-100); Monocytes Percent Auto 3.8 % (0.0-11.0); Neutrophils Percent Auto 91.5 % (42.0-72.0); Platelet Count* 234 K/uL (140-440); RDW Coefficient of Variation % 13.4 % (11.5-15.5); Red Blood Count 4.32 m/uL (4.30-5.90); White Blood Count* 18.55 K/uL (4.50-11.00)
[2023-07-02 13:55] LABS: Slide Review Reflex No
[2023-07-02 13:57] LABS: Appearance Urine Clear (Clear); Bilirubin Urine Negative (Negative); Blood Urine Trace-intact (Negative); Color Urine Yellow (Yellow); Glucose Urine Negative (Negative); Ketones Urine Negative (Negative); Leukocyte Esterase Urine Negative (Negative); Nitrite Urine Negative (Negative); Protein Urine Negative (Negative); Specific Gravity Urine 1.015 (1.000-1.030); Urobilinogen Urine 0.2 (0.2-1.0); pH Urine 6.5 (5.0-8.5)
[2023-07-02 14:06] LABS: Albumin* 4.5 g/dL (3.3-5.0); Chloride* 102 mmol/L (96-114)
--- NOTE | 2023-07-02 14:06 | CRLHL7_ITS ---
For Patients: As a result of the 21st Century Cures Act, medical imaging exams and procedure reports are released immediately into your electronic medical record. You may view this report before your referring provider. If you have questions, please contact your health care provider. INDICATION: SOB WEAKNESS HISTORY: Shortness of breath and weakness. COMPARISON: MRI of the abdomen, 05/23/2023. Technique: CT pulmonary angiogram. Coronal/sagittal reconstruction images. 116 cc of Isovue 370 IV. Findings: The thyroid gland is symmetric. Postoperative changes of a median sternotomy, coronary artery bypass graft. There are extensive calcifications of the [place] epicardial coronary arteries. No findings to indicate an acute aortic syndrome. The brachiocephalic trunk, left common carotid artery, subclavian artery are normal. No mass at the thoracic inlet. Nonenlarged mediastinal lymph nodes. There is no mediastinal, hilar, or axillary lymphadenopathy by size criteria. No pulmonary emboli are demonstrated. There is no evidence to indicate right heart strain. There is no pleural or pericardial effusion. The lung windows demonstrate debris in the intrathoracic trachea. No endobronchial mass. There is no bronchiectasis. There is no peripheral reticulation. There is no honeycomb formation. There is no traction bronchiectasis. There is a calcified granuloma in the left upper lobe, which measures 5 millimeters on series 7, image 61. Mild centrilobular emphysema. There is no suspicious pulmonary nodule or acute airspace disease. Evaluation of the upper abdomen demonstrates a non cirrhotic liver morphology. There is no upper abdominal lymphadenopathy or ascites. Spleen size is normal. The bone windows demonstrate degenerative disc disease. No evidence to indicate a sternal dehiscence. No sternal wire fracture or migration is seen. Nonspecific left posterior rib lesion, which is indeterminate. This measures 8 millimeters on series 6, image 127. No pathologic fracture or soft tissue component. Additional sclerotic bone lesions in the lower thoracic spine, suspicious for blastic metastases. See series 3, image 188. Largest lesion measures 16 millimeters in dimension. Additional sclerotic bone lesions in the bilateral ribs, also suspicious for blastic metastases. Impression: 1. No pulmonary emboli. 2. No evidence on CT for right heart strain. No pulmonary infarct. 3. Sclerotic bone lesions throughout the axial skeleton. These are consistent with blastic metastases. This should be correlated with any history of prostate adenocarcinoma. Dictated by Gerardo Muniz MD @ 07/02/2023 4:09:26 PM Please note that all CT scans at this facility use dose modulation, iterative reconstruction, and/or weight-based dosing when appropriate to reduce radiation dose to as low as reasonably achievable. Dictated by: Gerardo Muniz MD @ 07/02/2023 16:09:32 (Electronically Signed)
[2023-07-02 14:07] LABS: Potassium* 4.6 mmol/L (3.6-5.1); Sodium* 136 mmol/L (135-149)
[2023-07-02] MEDS: ASPIRIN 81 MG TAB.CHEW 324 MG PO (14:07)
[2023-07-02] MEDS: 0.9 % SODIUM CHLORIDE 1000 ml 1,000 ML 500 ML IV (14:07)
--- NOTE | 2023-07-02 14:07 | CRLHL7_ITS ---
For Patients: As a result of the 21st Century Cures Act, medical imaging exams and procedure reports are released immediately into your electronic medical record. You may view this report before your referring provider. If you have questions, please contact your health care provider. INDICATION: SOB WEAKNESS HISTORY: Shortness of breath and weakness. Abdominal pain. COMPARISON: MRI of the abdomen, 05/23/2023. TECHNIQUE: CT of the abdomen pelvis. Coronal/sagittal reconstruction images. 116 cc of Isovue-370 IV. FINDINGS: Lung bases: Dense coronary artery calcifications. There is no pleural or pericardial effusion. Partially visualized median sternotomy changes. There is no acute airspace disease at either lung base. There is no basilar pneumothorax. Abdomen/pelvis: Liver morphology is non cirrhotic. There is no perihepatic ascites. No solid liver lesion. No inflammatory changes adjacent to the gallbladder. No adrenal mass. Spleen size is normal. 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 This is seen in the body of the pancreas, and is unchanged from previous. It measures 9 mm on image 50, series 2. No adrenal mass. No portal vein thrombosis. The hepatic veins, IVC, SMV, and splenic vein are patent. Benign left renal cyst. There is no solid renal mass. There is no perinephric fluid collection. Circumferential wall thickening of the urinary bladder, mild. Prostate appears absent. There is no evidence on CT for a small bowel or colonic obstruction. There is no mural thickening. There is no perienteric edema. There is no transition point. The appendix is normal. There is no inguinal or pelvic sidewall lymphadenopathy. Nonenlarged retroperitoneal and pelvic sidewall lymph nodes are present. No gastrohepatic ligament or jodie hepatis lymphadenopathy. Blastic bone lesions are present throughout the axial skeleton. 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 There is a fracture deformity involving the L1 vertebral body, which may be pathologic, given a large sclerotic lesion in the anterior aspect of the vertebral body, measuring 19 millimeters in craniocaudad dimension. Impression: 1. Osteoblastic metastases throughout the axial skeleton. These are presumably from prostate cancer. 2. There is no bowel obstruction, pneumoperitoneum, or drainable fluid collection in the abdomen/pelvis. 3. Results of the chest CT and CT of the abdomen and pelvis were discussed with Dr. Goddard, RADHA, 07/02/23, 1612 hours. Dictated by Gerardo Muniz MD @ 07/02/2023 4:17:31 PM Please note that all CT scans at this facility use dose modulation, iterative reconstruction, and/or weight-based dosing when appropriate to reduce radiation dose to as low as reasonably achievable. Dictated by: Gerardo Muniz MD @ 07/02/2023 16:17:37 (Electronically Signed)
[2023-07-02 14:09] LABS: Alanine Aminotransferase* 21 U/L (4-50); Alkaline Phosphatase* 39 U/L (40-150); Aspartate Amino Transferase* 39 U/L (12-35); Bilirubin Direct* 0.1 mg/dL (0.0-0.5); Bilirubin Total* 0.9 mg/dL (0.1-1.5); Creatinine* 1.1 mg/dL (0.5-1.5); Est. Creatinine Clearance* 50.88; Estimated Glomerular Filt Rate 67 ml/min; Magnesium* 2.1 mg/dL (1.5-2.6)
[2023-07-02 14:10] LABS: Anion Gap 8 mEq/L (7-15); Blood Urea Nitrogen* 27 mg/dL (7-30); Carbon Dioxide* 26 mmol/L (20-32); Glucose* 190 mg/dL (60-115)
[2023-07-02 14:12] LABS: D Dimer Quantitative* 0.63 ug/ml (0.00-0.50)
[2023-07-02 14:13] LABS: C Reactive Protein* 3.3 mg/dL (0.5-1.0)
[2023-07-02 14:21] LABS: NT Pro B Type NatriureticPept* 426 pg/mL; Troponin I* < 0.01 ng/mL (0.01-0.04)
[2023-07-02 14:24] LABS: RBC Urine 0-2 (0-2); Squamous Epithelial Cell Urine Few (None-Few); WBC Urine 0-2 (0-5)
[2023-07-02 14:27] LABS: Troponin, Point-of-Care* 0.01 ng/ml (0.01-0.04)
[2023-07-02 14:34] LABS: PCR FLU A Negative PCR FLU A (Negative); PCR FLU B Negative PCR FLU B (Negative); PCR RSV Negative PCR RSV (Negative)
[2023-07-02 14:35] LABS: SARS PCR* Negative SARS-CoV-2 (Negative)
[2023-07-02 16:09] LABS: Troponin, Point-of-Care* 0.02 ng/ml (0.01-0.04)
--- NOTE | 2023-07-02 18:02 | P.IMHP_ITS ---
Hospitalist- H&P: HPI History of Present Illness Time Seen by Provider: 17:45 Date Seen: 07/02/23 Chief complaint: No energy, can't sleep, weak Narrative: Hermann Garrett is a 83 year old man presents with roughly a 24 history of weakness such that he is hardly able to transfer or ambulate. Notes he could hardly sleep last night. Has chronic insomnia. Does use CPAP at night for his obstructive sleep apnea. insisted that he come to the emergency department for further assessment. No recent trauma or injury. No recent fall. No recent fevers, rigors, diaphoresis. Denies dysuria, urgency, frequency, hematuria. Acknowledges occasional urgency incontinence, which is chronic. Denies diarrhea, constipation, nausea, vomiting, abdominal pain, dyspepsia, dysphagia, odynophagia. Denies angina, anginal equivalent, syncope, near syncope. Denies orthostasis, dizziness, vertigo. Denies palpitations or chest fluttering. States appetite is fair. Even so, has not had anything to eat all day today. Denies myalgias or arthralgias. Denies any rashes or wounds. No focal motor neurologic deficits. Acknowledges baseline weakness with at times difficulty walking. Can usually walk around his home. Review of Systems Status of ROS: Reports: 10 or more systems reviewed and unremarkable except as noted in History and below Narrative: No recent travel. No recent illnesses. Blood sugars have been well controlled. No hypoglycemic agents. Denies hyperglycemia. No night sweats or weight loss. Following with his oncologist. Last PSA was 0.07 on 05/31/2023, prior to that it was 0.06. [facility] Medical History Former smoker, stopped smoking in distant past ?Z87.891 - Personal history of nicotine dependence (ICD-10) Obesity (BMI 30.0-34.9) ?E66.9 - Obesity, unspecified (ICD-10) Allergic rhinitis ?J30.9 - Allergic rhinitis, unspecified (ICD-10) Rhinitis medicamentosa ?J31.0 - Chronic rhinitis (ICD-10) ?T48.5X5A - Adverse effect of other [id number] drugs, initial encounter (ICD-10) Chronic systolic heart failure ?I50.22 - Chronic systolic (congestive) heart failure (ICD-10) Diabetes mellitus type 2 in obese ?E11.69 - Type 2 diabetes mellitus with other specified complication (ICD-10) ?E66.9 - Obesity, unspecified (ICD-10) History of atrial fibrillation ?Z86.79 - Personal history of other diseases of the circulatory system (ICD-10) Obstructive sleep apnea on CPAP ?G47.33 - Obstructive sleep apnea (adult) (pediatric) (ICD-10) Colon polyps ?K63.5 - Polyp of colon (ICD-10) Mixed hyperlipidemia ?E78.2 - Mixed hyperlipidemia (ICD-10) Essential hypertension ?I10 - Essential (primary) hypertension (ICD-10) Low back pain ?M54.50 - Low back pain, unspecified (ICD-10) Right hip pain ?M25.551 - Pain in right hip (ICD-10) Hydronephrosis, bilateral ?N13.30 - Unspecified hydronephrosis (ICD-10) IPMN (intraductal papillary mucinous neoplasm) ?D49.0 - Neoplasm of unspecified behavior of digestive system (ICD-10) Bone metastasis ?C79.51 - Secondary malignant neoplasm of bone (ICD-10) Surgical History History of vasectomy ?Z98.52 - Vasectomy status (ICD-10) History of radical prostatectomy ?Z90.79 - Acquired absence of other genital organ(s) (ICD-10) History of ankle surgery ?Z98.890 - Other specified postprocedural states (ICD-10) S/P hip replacement ?Z96.649 - Presence of unspecified artificial hip joint (ICD-10) H/O colonoscopy with polypectomy ?Z98.890 - Other specified postprocedural states (ICD-10) ?Z86.010 - Personal history of colonic polyps (ICD-10) Status post coronary artery bypass graft ?Z95.1 - Presence of aortocoronary bypass graft (ICD-10) Family History Mother Lung cancer Paternal Grandmother Leukemia Maternal Grandmother Diabetes Brother Heart disease Social History (Updated 07/02/23 @ 18:43 by Yunior Valdez MD) Narrative: for 62 years. Lives with , Brenda, whom he designates as his power of senior attorney for health should that be required. Desires full resuscitation in event of cardiopulmonary demise. Primary care physician is Dr. Adria Valentine. What is your current living situation?: I presently have a place to live Problems where you live: no known problems Problems where you live details: None noted In the past 12 months, utilities in danger of being shut off: no In past 12 months, lack of transportation kept you from medical appts, meetings, work, or getting things needed for daily living: no In the past 12 mos, have been you worried that your food would run out before you had money to buy more?: never true In the past 12 mos, the food you bought just didn't last and you didn't have money to buy more?: never true Highest level of school completed/degree received: 12th grade, no diploma Smoking Status: Former smoker What tobacco products do you use: cigarettes Smoking quit date/years: >15 years ago Do you use any of these nicotine containing products: None Second hand tobacco smoke exposure: No How often do you have a drink containing alcohol: 2-4 times a month Alcohol type: beer How many standard drinks containing alcohol do you have on a typical day: 1 or 2 How often do you have six or more drinks on one occasion: Never AUDIT-C Alcohol total score: 2 Non-prescribed substance use: denies use Caffeine: No How often does anyone, including family, friends and others, physically hurt you : never How often does anyone, including family, friends and others, insult or talk down to you: never How often does anyone, including family, friends and others, threaten you with harm: never How often does anyone, including family, friends and others, scream or curse at you: never service: No Meds Home Medications and Allergies Home Medications Medication Instructions Recorded Confirmed Type amlodipine 10 mg tablet 10 mg PO DAILY 03/14/22 07/02/23 History furosemide 20 mg tablet 20 mg PO DAILY 03/14/22 07/02/23 History losartan 100 mg tablet 100 mg PO DAILY 03/14/22 07/02/23 History rosuvastatin 10 mg tablet 10 mg PO HS 03/14/22 07/02/23 History metformin 1,000 mg tablet 1,000 mg PO BID 05/11/22 07/02/23 History multivitamin 1 tab PO QAM 05/11/22 07/02/23 History calcium carbonate 600 mg-vitamin 1 tab PO BID 07/13/22 07/02/23 History D3 10 mcg (400 unit) tablet (Calcium with Vitamin D) spironolactone 25 mg tablet 25 mg PO QAM 10/05/22 07/02/23 History ammonium lactate 12 % topical cream 1 applic topical DAILY PRN 07/02/23 07/02/23 History carvedilol 12.5 mg tablet 12.5 mg PO BID 07/02/23 07/02/23 History cetirizine 10 mg tablet 10 mg PO DAILY PRN 07/02/23 07/02/23 History cinnamon bark 500 mg capsule 500 mg PO BID 07/02/23 07/02/23 History glucosamine-chondroitin 250 mg-200 2 tab PO DAILY 07/02/23 07/02/23 History mg tablet (Osteo Bi-Flex) magnesium oxide 400 mg PO DAILY 07/02/23 07/02/23 History melatonin 1 mg tablet 1 mg PO HS PRN 07/02/23 07/02/23 History mirtazapine 15 mg tablet 15 mg PO QPM 07/02/23 07/02/23 History Allergies Allergy/AdvReac Type Severity Reaction Status Date / Time house dust Allergy Verified 03/02/23 13:05 cocaine Allergy Uncoded 05/17/22 11:15 feathers Allergy Uncoded 05/17/22 11:15 flu shot Allergy Uncoded 05/17/22 11:15 grain/feed dust Allergy Uncoded 05/17/22 11:15 tobacco Allergy Uncoded 05/17/22 11:15 Exam 2 Narrative: Exam Narrative: Examined patient emergency department. Appears comfortable and in no acute distress. Vision and hearing are adequate. Has received IV fluids in the emergency department, with heart rates decreasing from 130 down to 110 with this intervention. Has normal sinus rhythm. Room air oxygen saturations at rest 90% when he 1st presents. Continues to saturate well afterward. Alert and oriented to self, place, time, and in part to situation. Tells me he wants to go back home because he feels so much better, yet he can hardly transfer without assist of 1. Friendly, cooperative, articulate. Normal tympanic membranes bilaterally. Does not have icterus or conjunctival injection. Pupils equally round and reactive to light and accommodation. Conjugate gaze. Midline nasal septum. Dentition in fair repair. Dry buccal mucosa. Neck is supple. Midline trachea. No head and neck lymphadenopathy. No JVD or hepatojugular reflux. No carotid bruits. Lungs are clear to auscultation without wheezing, rhonchi, or rales. Chest wall excursions are full. Tachycardia with normal S1-S2, without murmur, gallop, rub. PMI not laterally displaced. Abdomen with active bowel sounds, soft, nontender. Obese. No rebound or guarding. Extremities without edema. Capillary refill less than 3 seconds in upper extremities. Moves all 4 extremities. Strength testing normal in upper and lower extremities. I do not have the patient stand at this time. No tremor, or asterixis, or ataxia. Cranial nerves 3-12 grossly normal. Vision is well preserved. Skin is warm, dry, intact without rashes, petechiae, cyanosis, or jaundice. Does have pale complexion. Const: Vital Signs, click to edit/add: Vital Signs - 24 hr 07/02/23 12:47 07/02/23 13:00 07/02/23 13:00 Pulse Rate 128 H Pulse Rate [Femora l] 129 H Respiratory Rate 29 H Blood Pressure Blood Pressure [Ri ght Upper Arm] 160/98 H Pulse Oximetry 91 90 92 Oxygen Delivery Me thod Room Air Oxygen Flow Rate 07/02/23 13:02 07/02/23 13:24 07/02/23 13:39 Pulse Rate 130 H 131 H 123 H Pulse Rate [Femora l] Respiratory Rate Blood Pressure 168/92 H Blood Pressure [Ri ght Upper Arm] Pulse Oximetry 92 90 95 Oxygen Delivery Me thod Oxygen Flow Rate 07/02/23 13:51 07/02/23 13:53 07/02/23 14:00 Pulse Rate 132 H 130 H 124 H Pulse Rate [Femora l] Respiratory Rate Blood Pressure 169/85 H Blood Pressure [Ri ght Upper Arm] Pulse Oximetry 92 93 94 Oxygen Delivery Me thod Oxygen Flow Rate 07/02/23 14:02 07/02/23 14:15 07/02/23 14:23 Pulse Rate 123 H 120 H 122 H Pulse Rate [Femora l] Respiratory Rate Blood Pressure 131/65 153/70 H Blood Pressure [Ri ght Upper Arm] Pulse Oximetry 94 95 95 Oxygen Delivery Me thod Oxygen Flow Rate 07/02/23 14:30 07/02/23 14:32 07/02/23 14:33 Pulse Rate 113 H 115 H 115 H Pulse Rate [Femora l] Respiratory Rate Blood Pressure 135/62 Blood Pressure [Ri ght Upper Arm] Pulse Oximetry 96 96 97 Oxygen Delivery Me thod Oxygen Flow Rate 07/02/23 14:45 07/02/23 15:12 07/02/23 15:15 Pulse Rate 110 H 114 H 111 H Pulse Rate [Femora l] Respiratory Rate Blood Pressure Blood Pressure [Ri ght Upper Arm] Pulse Oximetry 97 94 96 Oxygen Delivery Me thod Oxygen Flow Rate 07/02/23 15:29 07/02/23 15:30 07/02/23 15:32 Pulse Rate 111 H 109 H Pulse Rate [Femora l] Respiratory Rate Blood Pressure 121/61 Blood Pressure [Ri ght Upper Arm] Pulse Oximetry 95 97 96 Oxygen Delivery Me thod Nasal Cannula Oxygen Flow Rate 2 07/02/23 15:48 07/02/23 16:00 07/02/23 16:02 Pulse Rate 109 H 104 H 107 H Pulse Rate [Femora l] Respiratory Rate Blood Pressure 128/58 L Blood Pressure [Ri ght Upper Arm] Pulse Oximetry 96 96 96 Oxygen Delivery Me thod Oxygen Flow Rate 07/02/23 16:03 07/02/23 16:17 07/02/23 16:30 Pulse Rate 107 H 114 H 107 H Pulse Rate [Femora l] Respiratory Rate Blood Pressure Blood Pressure [Ri ght Upper Arm] Pulse Oximetry 96 96 96 Oxygen Delivery Me thod Oxygen Flow Rate 07/02/23 16:32 07/02/23 16:45 07/02/23 17:00 Pulse Rate 108 H 110 H 107 H Pulse Rate [Femora l] Respiratory Rate Blood Pressure 118/63 Blood Pressure [Ri ght Upper Arm] Pulse Oximetry 96 96 96 Oxygen Delivery Me thod Oxygen Flow Rate 07/02/23 17:02 07/02/23 17:15 Pulse Rate 106 H 108 H Pulse Rate [Femora l] Respiratory Rate Blood Pressure 121/64 Blood Pressure [Ri ght Upper Arm] Pulse Oximetry 96 97 Oxygen Delivery Me thod Oxygen Flow Rate Documenting provider has reviewed patient's vital signs: yes Hospitalist - H&P: Result Labs Labs: Short CBC 07/02/23 Range/Units 13:35 WBC 18.55 H (4.50-11.00) K/uL Hgb 13.3 L (13.5-17.5) gm/dL Hct 39.0 (37.0-53.0) % Plt Count 234 (140-440) K/uL BMP 07/02/23 13:35 Sodium 136 Potassium 4.6 Chloride 102 Carbon Dioxide 26 BUN 27 Creatinine 1.1 Glucose 190 H Calcium 10.0 Cardiac Enzymes 07/02/23 Range/Units 13:35 Troponin I < 0.01 L (0.01-0.04) ng/mL Liver Function 07/02/23 Range/Units 13:35 Total Bilirubin 0.9 (0.1-1.5) mg/dL Direct Bilirubin 0.1 (0.0-0.5) mg/dL AST 39 H (12-35) U/L ALT 21 (4-50) U/L Alkaline Phosphatase 39 L (40-150) U/L Albumin 4.5 (3.3-5.0) g/dL Urine 07/02/23 Range/Units 13:50 Urine Color Yellow (Yellow) Urine Appearance Clear (Clear) Urine pH 6.5 (5.0-8.5) Ur Specific [place] 1.015 (1.000-1.030) Urine Protein Negative (Negative) Urine Glucose (UA) Negative (Negative) ECG Attestation: I personally reviewed and interpreted this ECG as follows: ECG interpretation date: 07/02/23 ECG interpretation time: 17:45 Interpretation: Sinus tachycardia, 1st ECG with rate of about 132nd ECG with rate of about 110. Imaging CT scan of abdomen and pelvis: Attestation: I have reviewed the pertinent imaging results. Radiologist's impression: Impression: 1. Osteoblastic metastases throughout the axial skeleton. These are presumably from prostate cancer. 2. There is no bowel obstruction, pneumoperitoneum, or drainable fluid collection in the abdomen/pelvis. CT scan - chest: Attestation: I have reviewed the pertinent imaging results. Radiologist's impression: Impression: 1. No pulmonary emboli. 2. No evidence on CT for right heart strain. No pulmonary infarct. 3. Sclerotic bone lesions throughout the axial skeleton. These are consistent with blastic metastases. This should be correlated with any history of prostate adenocarcinoma. Chest x-ray: Attestation: I have reviewed the pertinent imaging results. Radiologist's impression: IMPRESSION: Lungs are clear. No acute findings. Assessment and Plan Assessment and plan (1) Weakness: Problem comment: - Multifactorial: Baseline physical debility, acute dehydration, consider adrenal insufficiency. - rehydrate, monitor orthostatic blood pressures and pulses, monitor weight. - physical therapy and occupational therapy consultation. - cosyntropin stim test in the morning with cortisol levels at 0, 30, and 60 minutes. Also measure baseline ACTH level at 0 minutes. Status: Acute (2) Dehydration: Problem comment: - Multifactorial from decreased oral intake and continued use of diuretics. - telemetry overnight, orthostatic blood pressures and pulses, hold furosemide and spironolactone tomorrow morning. Status: Acute (3) Sinus tachycardia: Problem comment: - Appropriate for level of dehydration. - telemetry overnight. Status: Acute (4) Leukocytosis: Problem comment: Presumably from dehydration, consider other causes, cultures obtained. Status: Acute (5) Prostate cancer metastatic to multiple sites: Problem comment: pT2b Nx Mx, [place] 3+4 = 7, S/P RRP, per Dr. Henry 07/02/01. Follows with oncology, Dr. Sera Jacobson. Last dose leuprolide 03/21/2023. Xtandi injections monthly. Enzlalutamide 160 mg daily - hold while in hospital. Xgeva injections every 3 months for bony metastases, last dose 05/31/23. Status: Acute (6) Bone metastasis: Problem comment: - CT scan of abdomen and pelvis 07/02/2023: FINDINGS: ... Blastic bone lesions are present throughout the axial skeleton. 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 There is a fracture deformity involving the L1 vertebral body, which may be pathologic, given a large sclerotic lesion in the anterior aspect of the vertebral body, measuring 19 millimeters in craniocaudad dimension. Impression: 1. Osteoblastic metastases throughout the axial skeleton. These are presumably from prostate cancer. - consider discussing with his oncologist. Status: Acute (7) Obesity (BMI 30.0-34.9): Status: Acute Plan 1. Reviewed with patient and . Answered their questions. 2. The agreeable with above stated plans and recommendations. 3. Consider outpatient PT and OT versus home care if warranted.
[2023-07-02 18:04] LABS: Lactate* 1.9 mmol/L (0.5-1.9)
[2023-07-02 18:37] LABS: Troponin I* 0.01 ng/mL (0.01-0.04)
--- NOTE | 2023-07-02 18:53 | PC.NURSE ---
End of Shift: Pt admitted to [facility] from ED with chief complaint of generalized weakness and difficulty sleeping, onset 07/01. [place] and is a [facility] pt. O2 saturations 91%. Ambulates well, steady, denies use of walker or cane at home. Denies pain. Tele ordered, sinus tach. Hx of left hip replacement. AO, some forgetfulness.
[2023-07-02 19:20] LABS: PSA Diagnostic* 0.12 ng/mL (0.10-4.00)
[2023-07-02] MEDS: MELATONIN 3 MG TABLET PO (21:29)
[2023-07-02] MEDS: carvediloL 6.25 MG TABLET 12.5 MG PO (21:29)
[2023-07-02] MEDS: ROSUVASTATIN CALCIUM 10 MG TABLET PO (21:29)
[2023-07-02] MEDS: ENOXAPARIN 30 MG/0.3ML INJ SUBCUT (21:30)
[2023-07-02] MEDS: MIRTAZAPINE 15 MG TABLET PO (21:30)
[2023-07-02] MEDS: SODIUM CHLORIDE 0.9 % (FLUSH) 10 ML SYRINGE 5 ML IVF (21:31)
[2023-07-02] MEDS: 0.9 % SODIUM CHLORIDE 1000 ml 1,000 ML 125 ML IV (21:35)
[2023-07-03 03:46] VITALS: BP 118/56; PULSE 101; RESP 18; TEMP 35.9; O2SAT 88
--- NOTE | 2023-07-03 06:25 | PC.NURSE ---
End of shift [id number]: A&O, pleasant and cooperative. VSS. Denies SOB. SBA. CPAP was not brought in for pt. Maintained sats on RA overnight. Denies pain. Pt appeared to rest comfortably throughout shift
[2023-07-03 06:42] LABS: HCO3 VBG 28 mmol/L (21-28); Lactate* 1.2 mmol/L (0.5-1.9); PCO2 VBG 43 mmHG (40-50); PO2 VBG 39.6 mmHG (25-47); pH VBG 7.418 (7.32-7.43)
[2023-07-03 06:46] LABS: Basophils Percent Auto 0.2 % (0.0-3.0); Hemoglobin* 11.5 gm/dL (13.5-17.5); Immature Granulocytes Pct Auto 0.2 %; Lymphocytes Percent Auto 11.1 % (20-44); Mean Corpuscular HGB Conc 33 gm/dL (32-36); Mean Corpuscular Hemoglobin 31 pg (26-34); Mean Corpuscular Volume 94 fL (80-100); Monocytes Percent Auto 4.4 % (0.0-11.0); Neutrophils Percent Auto 83.1 % (42.0-72.0); Platelet Count* 206 K/uL (140-440); RDW Coefficient of Variation % 13.9 % (11.5-15.5); Red Blood Count 3.74 m/uL (4.30-5.90); White Blood Count* 12.56 K/uL (4.50-11.00)
[2023-07-03 07:00] VITALS: BP 112/65; PULSE 92; RESP 20; TEMP 36.9; O2SAT 92
[2023-07-03 07:10] LABS: Slide Review Reflex No
[2023-07-03 07:11] LABS: Chloride* 106 mmol/L (96-114); Potassium* 4.1 mmol/L (3.6-5.1); Sodium* 137 mmol/L (135-149)
[2023-07-03 07:14] LABS: Anion Gap 6 mEq/L (7-15); Aspartate Amino Transferase* 33 U/L (12-35); Blood Urea Nitrogen* 24 mg/dL (7-30); Carbon Dioxide* 25 mmol/L (20-32); Creatinine* 1.2 mg/dL (0.5-1.5); Est. Creatinine Clearance* 46.64; Estimated Glomerular Filt Rate 60 ml/min; Glucose* 127 mg/dL (60-115); Phosphorus* 3.7 mg/dL (2.5-4.5)
[2023-07-03 07:15] LABS: Calcium* 9.1 mg/dL (8.4-10.6); Magnesium* 2.3 mg/dL (1.5-2.6)
[2023-07-03 07:25] LABS: Troponin I* 0.02 ng/mL (0.01-0.04)
[2023-07-03] MEDS: COSYNTROPIN 0.25 MG VIAL IVP (07:59)
[2023-07-03 08:12] VITALS: PULSE 91
[2023-07-03] MEDS: carvediloL 6.25 MG TABLET 12.5 MG PO (08:44)
[2023-07-03] MEDS: MAGNESIUM OXIDE 400 MG TABLET PO (08:44)
[2023-07-03] MEDS: LOSARTAN POTASSIUM 50 MG TABLET 100 MG PO (08:44)
[2023-07-03] MEDS: AMLODIPINE 10 MG TABLET PO (08:45)
[2023-07-03 09:00] VITALS: BP 120/62; BP 131/55; BP 135/60; PULSE 86; PULSE 91; PULSE 99
[2023-07-03] MEDS: METFORMIN 1,000 MG TABLET 1000 MG PO (10:12)
[2023-07-03] MEDS: SPIRONOLACTONE 25 MG TABLET PO (10:13)
[2023-07-03 11:00] VITALS: BP 131/55; PULSE 91
--- NOTE | 2023-07-03 11:48 | P.DS_ITS ---
DS: Providers Provider Date Seen: 07/03/23 Date of admission: 07/02/23 17:32 Primary care physician: Adria Valentine MD Admitting Clinician: Sarah Goddard MD Consults: 1 Attending Physician on discharge: Adams York MD Date of Discharge: 07/03/23 DS: Diagnosis Discharge Diagnosis (1) Weakness: Status: Acute Problem details: - Multifactorial: Baseline physical debility, acute dehydration, consider adrenal insufficiency, testing is pending. - rehydrate, monitor orthostatic blood pressures and pulses, monitor weight. On discharge patient reports being back to baseline. - physical therapy and occupational therapy consultation. Physical therapy deems the patient is back to baseline and independently ambulatory. (2) Insomnia: Status: Acute Problem details: Longstanding problem for the patient. He has CPAP but has not been using it is in the last couple days. Two nights ago he had a very poor night of sleep at home. Last night he slept poorly, but normal for him, in the hospital. (3) Sinus tachycardia: Status: Acute Problem details: On admission had sinus tachycardia. Suspected to be due to dehydration He was continued on his normal home meds including carvedilol. Vital signs are normal today. (4) Dehydration: Status: Acute Problem details: - Multifactorial from decreased oral intake and continued use of diuretics. - telemetry overnight, orthostatic blood pressures and pulses, hold furosemide and spironolactone tomorrow morning. (5) Leukocytosis: Status: Acute Problem details: On admission patient had a white count of 18.5, neutrophil predominant. Today white count is 12.5. There was no identified infection and no fever and no empiric treatment for infection (6) Prostate cancer metastatic to multiple sites: Status: Acute Problem details: pT2b Nx Mx, Adonis 3+4 = 7, S/P RRP, per Dr. Henry 07/02/01. Follows with oncology, Dr. Sera Jacobson. I reviewed his situation with Dr. Jacobson. He has metastatic disease with a low PSA. Fatigue and weakness could both be related to prostate cancer or his treatment for prostate cancer. Unlikely that this would cause acute changes however. He was acutely worse 2 days ago and acutely better today. He has follow-up to be arranged in oncology clinic this month. Last dose leuprolide 03/21/2023. Xtandi injections monthly. Enzlalutamide 160 mg daily - hold while in hospital. Xgeva injections every 3 months for bony metastases, last dose 05/31/23. (7) Obesity (BMI 30.0-34.9): Status: Acute DS: Summary Hospital Course Hospital Course: 83-year-old male admitted to the hospital with fatigue and weakness with onset approximately a day prior to admission. The night before admission he had not slept at all. He normally has insomnia and sleep apnea. Yesterday he was profoundly weak and tired leading to coming to the hospital. On admission he was found to be mildly tachycardic with an elevated white count. CT chest abdomen pelvis did not show any acute changes but did show metastatic prostate cancer. This had been known about in the past. His PSA has gone from 0.07-0.12 in the last month. He has had no recent change of therapy for his prostate cancer. Overnight in the hospital he reported having a normal night's sleep though by his description he only slept about 4 hours. He reports feeling like he is back to baseline today. His vitals are normal. He is eating normally. He he is having no significant symptoms of illness or pain today. He does report chronic low back/hip pain which is thought due to metastatic disease. I spoke at length with the patient and his about his current health status. The cause of his acute change in the last couple days is not entirely clear. Certainly not sleeping for a night is a significant contributor to his symptoms of being tired and weak. It is not clear that this is related to his cancer or cancer therapy as his symptoms acutely got worse and quickly got better without any obvious illness. His only treatment in the hospital with some IV fluids. No change in his medications on discharge. I did strongly encourage him to be more physically active turned the day which will help his sleep at night as well as his anticipated ongoing long-term decline from fatigue and weakness which I expect as a likely result of his cancer and cancer treatment. Status at Discharge Functional status at discharge: independent ambulation Overall status at discharge: patient is back to baseline Time Spent with Patient Time attestation: Total time spent providing and/or coordinating discharge services: Time spent: Greater than 30 minutes Exam Narrative: Exam Narrative: He is alert and appears in no distress. He is oriented to his circumstances and gives his own history with some additional details given by his . Head is normal eyes normal oropharynx with small airway otherwise normal neck is supple without mass or adenopathy. Respirations are clear to auscultation. Cardiovascular: S1, S2, regular rate and rhythm. No murmur gallop or rub. Abd omen is soft without tenderness or mass. Extremities without edema. He moves all 4 extremities well. No rash. Const: Vital Signs, click to edit/add: Vital Signs - 24 hr 07/02/23 12:47 07/02/23 13:00 07/02/23 13:00 Temperature Pulse Rate 128 H Pulse Rate [Femora l] 129 H Pulse Rate [Left P ulse Oximeter] Pulse Rate [orthos tatic lying Pulse Oximeter] Pulse Rate [orthos tatic sitting Puls e Oximeter] Pulse Rate [orthos tatic standing Pul se Oximeter] Respiratory Rate 29 H Blood Pressure Blood Pressure [Le ft Arm] Blood Pressure [Ri ght Upper Arm] 160/98 H Blood Pressure [or thostatic lying] Blood Pressure [or thostatic sitting] Blood Pressure [or thostatic standing ] Pulse Oximetry 91 90 92 Oxygen Delivery Me thod Room Air Oxygen Flow Rate 07/02/23 13:02 07/02/23 13:24 07/02/23 13:39 Temperature Pulse Rate 130 H 131 H 123 H Pulse Rate [Femora l] Pulse Rate [Left P ulse Oximeter] Pulse Rate [orthos tatic lying Pulse Oximeter] Pulse Rate [orthos tatic sitting Puls e Oximeter] Pulse Rate [orthos tatic standing Pul se Oximeter] Respiratory Rate Blood Pressure 168/92 H Blood Pressure [Le ft Arm] Blood Pressure [Ri ght Upper Arm] Blood Pressure [or thostatic lying] Blood Pressure [or thostatic sitting] Blood Pressure [or thostatic standing ] Pulse Oximetry 92 90 95 Oxygen Delivery Me thod Oxygen Flow Rate 07/02/23 13:51 07/02/23 13:53 07/02/23 14:00 Temperature Pulse Rate 132 H 130 H 124 H Pulse Rate [Femora l] Pulse Rate [Left P ulse Oximeter] Pulse Rate [orthos tatic lying Pulse Oximeter] Pulse Rate [orthos tatic sitting Puls e Oximeter] Pulse Rate [orthos tatic standing Pul se Oximeter] Respiratory Rate Blood Pressure 169/85 H Blood Pressure [Le ft Arm] Blood Pressure [Ri ght Upper Arm] Blood Pressure [or thostatic lying] Blood Pressure [or thostatic sitting] Blood Pressure [or thostatic standing ] Pulse Oximetry 92 93 94 Oxygen Delivery Me thod Oxygen Flow Rate 07/02/23 14:02 07/02/23 14:15 07/02/23 14:23 Temperature Pulse Rate 123 H 120 H 122 H Pulse Rate [Femora l] Pulse Rate [Left P ulse Oximeter] Pulse Rate [orthos tatic lying Pulse Oximeter] Pulse Rate [orthos tatic sitting Puls e Oximeter] Pulse Rate [orthos tatic standing Pul se Oximeter] Respiratory Rate Blood Pressure 131/65 153/70 H Blood Pressure [Le ft Arm] Blood Pressure [Ri ght Upper Arm] Blood Pressure [or thostatic lying] Blood Pressure [or thostatic sitting] Blood Pressure [or thostatic standing ] Pulse Oximetry 94 95 95 Oxygen Delivery Me thod Oxygen Flow Rate 07/02/23 14:30 07/02/23 14:32 07/02/23 14:33 Temperature Pulse Rate 113 H 115 H 115 H Pulse Rate [Femora l] Pulse Rate [Left P ulse Oximeter] Pulse Rate [orthos tatic lying Pulse Oximeter] Pulse Rate [orthos tatic sitting Puls e Oximeter] Pulse Rate [orthos tatic standing Pul se Oximeter] Respiratory Rate Blood Pressure 135/62 Blood Pressure [Le ft Arm] Blood Pressure [Ri ght Upper Arm] Blood Pressure [or thostatic lying] Blood Pressure [or thostatic sitting] Blood Pressure [or thostatic standing ] Pulse Oximetry 96 96 97 Oxygen Delivery Me thod Oxygen Flow Rate 07/02/23 14:45 07/02/23 15:12 07/02/23 15:15 Temperature Pulse Rate 110 H 114 H 111 H Pulse Rate [Femora l] Pulse Rate [Left P ulse Oximeter] Pulse Rate [orthos tatic lying Pulse Oximeter] Pulse Rate [orthos tatic sitting Puls e Oximeter] Pulse Rate [orthos tatic standing Pul se Oximeter] Respiratory Rate Blood Pressure Blood Pressure [Le ft Arm] Blood Pressure [Ri ght Upper Arm] Blood Pressure [or thostatic lying] Blood Pressure [or thostatic sitting] Blood Pressure [or thostatic standing ] Pulse Oximetry 97 94 96 Oxygen Delivery Me thod Oxygen Flow Rate 07/02/23 15:29 07/02/23 15:30 07/02/23 15:32 Temperature Pulse Rate 111 H 109 H Pulse Rate [Femora l] Pulse Rate [Left P ulse Oximeter] Pulse Rate [orthos tatic lying Pulse Oximeter] Pulse Rate [orthos tatic sitting Puls e Oximeter] Pulse Rate [orthos tatic standing Pul se Oximeter] Respiratory Rate Blood Pressure 121/61 Blood Pressure [Le ft Arm] Blood Pressure [Ri ght Upper Arm] Blood Pressure [or thostatic lying] Blood Pressure [or thostatic sitting] Blood Pressure [or thostatic standing ] Pulse Oximetry 95 97 96 Oxygen Delivery Me thod Nasal Cannula Oxygen Flow Rate 2 07/02/23 15:48 07/02/23 16:00 07/02/23 16:02 Temperature Pulse Rate 109 H 104 H 107 H Pulse Rate [Femora l] Pulse Rate [Left P ulse Oximeter] Pulse Rate [orthos tatic lying Pulse Oximeter] Pulse Rate [orthos tatic sitting Puls e Oximeter] Pulse Rate [orthos tatic standing Pul se Oximeter] Respiratory Rate Blood Pressure 128/58 L Blood Pressure [Le ft Arm] Blood Pressure [Ri ght Upper Arm] Blood Pressure [or thostatic lying] Blood Pressure [or thostatic sitting] Blood Pressure [or thostatic standing ] Pulse Oximetry 96 96 96 Oxygen Delivery Me thod Oxygen Flow Rate 07/02/23 16:03 07/02/23 16:17 07/02/23 16:30 Temperature Pulse Rate 107 H 114 H 107 H Pulse Rate [Femora l] Pulse Rate [Left P ulse Oximeter] Pulse Rate [orthos tatic lying Pulse Oximeter] Pulse Rate [orthos tatic sitting Puls e Oximeter] Pulse Rate [orthos tatic standing Pul se Oximeter] Respiratory Rate Blood Pressure Blood Pressure [Le ft Arm] Blood Pressure [Ri ght Upper Arm] Blood Pressure [or thostatic lying] Blood Pressure [or thostatic sitting] Blood Pressure [or thostatic standing ] Pulse Oximetry 96 96 96 Oxygen Delivery Me thod Oxygen Flow Rate 07/02/23 16:32 07/02/23 16:45 07/02/23 17:00 Temperature Pulse Rate 108 H 110 H 107 H Pulse Rate [Femora l] Pulse Rate [Left P ulse Oximeter] Pulse Rate [orthos tatic lying Pulse Oximeter] Pulse Rate [orthos tatic sitting Puls e Oximeter] Pulse Rate [orthos tatic standing Pul se Oximeter] Respiratory Rate Blood Pressure 118/63 Blood Pressure [Le ft Arm] Blood Pressure [Ri ght Upper Arm] Blood Pressure [or thostatic lying] Blood Pressure [or thostatic sitting] Blood Pressure [or thostatic standing ] Pulse Oximetry 96 96 96 Oxygen Delivery Me thod Oxygen Flow Rate 07/02/23 17:02 07/02/23 17:15 07/02/23 17:44 Temperature Pulse Rate 106 H 108 H 114 H Pulse Rate [Femora l] Pulse Rate [Left P ulse Oximeter] Pulse Rate [orthos tatic lying Pulse Oximeter] Pulse Rate [orthos tatic sitting Puls e Oximeter] Pulse Rate [orthos tatic standing Pul se Oximeter] Respiratory Rate Blood Pressure 121/64 Blood Pressure [Le ft Arm] Blood Pressure [Ri ght Upper Arm] Blood Pressure [or thostatic lying] Blood Pressure [or thostatic sitting] Blood Pressure [or thostatic standing ] Pulse Oximetry 96 97 Oxygen Delivery Me thod Oxygen Flow Rate 07/02/23 18:17 07/02/23 18:17 07/02/23 19:27 Temperature 98.1 F Pulse Rate Pulse Rate [Femora l] Pulse Rate [Left P ulse Oximeter] 108 H 108 H Pulse Rate [orthos tatic lying Pulse Oximeter] Pulse Rate [orthos tatic sitting Puls e Oximeter] Pulse Rate [orthos tatic standing Pul se Oximeter] Respiratory Rate 18 18 18 Blood Pressure Blood Pressure [Le ft Arm] 124/67 118/65 Blood Pressure [Ri ght Upper Arm] Blood Pressure [or thostatic lying] Blood Pressure [or thostatic sitting] Blood Pressure [or thostatic standing ] Pulse Oximetry 91 91 94 Oxygen Delivery Me thod Room Air Room Air Room Air Oxygen Flow Rate 07/02/23 19:28 07/02/23 23:00 07/02/23 23:00 Temperature 97.6 F Pulse Rate Pulse Rate [Femora l] Pulse Rate [Left P ulse Oximeter] 100 Pulse Rate [orthos tatic lying Pulse Oximeter] 108 H Pulse Rate [orthos tatic sitting Puls e Oximeter] 108 H Pulse Rate [orthos tatic standing Pul se Oximeter] 115 H Respiratory Rate 18 18 Blood Pressure Blood Pressure [Le ft Arm] 122/65 Blood Pressure [Ri ght Upper Arm] Blood Pressure [or thostatic lying] 118/65 Blood Pressure [or thostatic sitting] 129/65 Blood Pressure [or thostatic standing ] 138/68 Pulse Oximetry 88 88 Oxygen Delivery Me thod Room Air Room Air Oxygen Flow Rate 07/02/23 23:52 07/03/23 03:46 07/03/23 07:00 Temperature 96.6 F L 98.5 F Pulse Rate 92 Pulse Rate [Femora l] Pulse Rate [Left P ulse Oximeter] 101 H 92 Pulse Rate [orthos tatic lying Pulse Oximeter] Pulse Rate [orthos tatic sitting Puls e Oximeter] Pulse Rate [orthos tatic standing Pul se Oximeter] Respiratory Rate 18 20 Blood Pressure Blood Pressure [Le ft Arm] 118/56 L 112/65 Blood Pressure [Ri ght Upper Arm] Blood Pressure [or thostatic lying] Blood Pressure [or thostatic sitting] Blood Pressure [or thostatic standing ] Pulse Oximetry 88 92 Oxygen Delivery Me thod Room Air Room Air Oxygen Flow Rate 07/03/23 07:00 07/03/23 08:12 07/03/23 09:00 Temperature Pulse Rate 91 Pulse Rate [Femora l] Pulse Rate [Left P ulse Oximeter] Pulse Rate [orthos tatic lying Pulse Oximeter] 86 Pulse Rate [orthos tatic sitting Puls e Oximeter] 91 Pulse Rate [orthos tatic standing Pul se Oximeter] 99 Respiratory Rate 20 Blood Pressure Blood Pressure [Le ft Arm] Blood Pressure [Ri ght Upper Arm] Blood Pressure [or thostatic lying] 120/62 Blood Pressure [or thostatic sitting] 131/55 L Blood Pressure [or thostatic standing ] 135/60 Pulse Oximetry 92 Oxygen Delivery Me thod Room Air Oxygen Flow Rate 07/03/23 11:00 Temperature Pulse Rate Pulse Rate [Femora l] Pulse Rate [Left P ulse Oximeter] 91 Pulse Rate [orthos tatic lying Pulse Oximeter] Pulse Rate [orthos tatic sitting Puls e Oximeter] Pulse Rate [orthos tatic standing Pul se Oximeter] Respiratory Rate Blood Pressure Blood Pressure [Le ft Arm] 131/55 L Blood Pressure [Ri ght Upper Arm] Blood Pressure [or thostatic lying] Blood Pressure [or thostatic sitting] Blood Pressure [or thostatic standing ] Pulse Oximetry Oxygen Delivery Me thod Oxygen Flow Rate Documenting provider has reviewed patient's vital signs: yes DS: Data Data Completed and Pending Labs on day of discharge: Labs from last 24 hours 07/03/23 07/03/23 07/03/23 09:15 08:28 05:43 WBC 12.56 H RBC 3.74 L Hgb 11.5 L Hct 35.0 L MCV 94 MCH 31 MCHC 33 RDW Coeff of Abrahan 13.9 Plt Count 206 Neut % (Auto) 83.1 H Lymph % (Auto) 11.1 L [place] % (Auto) 4.4 Eos % (Auto) 1.0 Baso % (Auto) 0.2 Neut # (Auto) 10.40 H Lymph # (Auto) 1.40 [place] # (Auto) 0.60 Eos # (Auto) 0.10 Baso # (Auto) 0.00 Abs Immat Gran (auto) 0.00 Imm/Tot Granulo (auto) 0.2 D-Dimer Quant (PE/DVT) VBG pH 7.418 VBG pCO2 43 VBG pO2 39.6 VBG HCO3 28 Sodium 137 Potassium 4.1 Chloride 106 Carbon Dioxide 25 Anion Gap 6 L BUN 24 Creatinine 1.2 Estimated Creat Clear 46.64 Estimated GFR 60 Glucose 127 H Lactate 1.2 Calcium 9.1 Phosphorus 3.7 Magnesium 2.3 Total Bilirubin Direct Bilirubin AST 33 ALT Alkaline Phosphatase Troponin I 0.02 C-Reactive Protein NT-Pro-B Natriuret Pep Total Protein Albumin PSA Diagnostic TSH 1.090 Cortisol Pending Cortisol 30 Minute Pending Cortisol 60 Minute Pending Urine Color Urine Appearance Urine pH Ur Specific [place] Urine Protein Urine Glucose (UA) Urine Ketones Urine Blood Urine Nitrite Urine Bilirubin Urine Urobilinogen Ur Leukocyte Esterase Urine RBC Urine WBC Ur Squamous Epith Cells Urine Bacteria SARS-CoV-2 (PCR) Influenza Type A (PCR) Influenza Type B (PCR) RSV (PCR) Lab Acknowledgement POC Troponin I 07/02/23 07/02/23 07/02/23 18:06 18:00 15:35 WBC RBC Hgb Hct MCV MCH MCHC RDW Coeff of Abrahan Plt Count Neut % (Auto) Lymph % (Auto) [place] % (Auto) Eos % (Auto) Baso % (Auto) Neut # (Auto) Lymph # (Auto) [place] # (Auto) Eos # (Auto) Baso # (Auto) Abs Immat Gran (auto) Imm/Tot Granulo (auto) D-Dimer Quant (PE/DVT) VBG pH VBG pCO2 VBG pO2 VBG HCO3 Sodium Potassium Chloride Carbon Dioxide Anion Gap BUN Creatinine Estimated Creat Clear Estimated GFR Glucose Lactate 1.9 Calcium Phosphorus Magnesium Total Bilirubin Direct Bilirubin AST ALT Alkaline Phosphatase Troponin I 0.01 C-Reactive Protein NT-Pro-B Natriuret Pep Total Protein Albumin PSA Diagnostic TSH Cortisol Cortisol 30 Minute Cortisol 60 Minute Urine Color Urine Appearance Urine pH Ur Specific [place] Urine Protein Urine Glucose (UA) Urine Ketones Urine Blood Urine Nitrite Urine Bilirubin Urine Urobilinogen Ur Leukocyte Esterase Urine RBC Urine WBC Ur Squamous Epith Cells Urine Bacteria SARS-CoV-2 (PCR) Influenza Type A (PCR) Influenza Type B (PCR) RSV (PCR) Lab Acknowledgement Test Added POC Troponin I 0.02 07/02/23 07/02/23 07/02/23 13:50 13:35 13:35 WBC RBC Hgb Hct MCV MCH MCHC RDW Coeff of Abrahan Plt Count Neut % (Auto) Lymph % (Auto) [place] % (Auto) Eos % (Auto) Baso % (Auto) Neut # (Auto) Lymph # (Auto) [place] # (Auto) Eos # (Auto) Baso # (Auto) Abs Immat Gran (auto) Imm/Tot Granulo (auto) D-Dimer Quant (PE/DVT) VBG pH VBG pCO2 VBG pO2 Cancelled VBG HCO3 Cancelled 27 Sodium 136 Potassium 4.6 Chloride 102 Carbon Dioxide 26 Anion Gap 8 BUN 27 Creatinine 1.1 Estimated Creat Clear 50.88 Estimated GFR 67 Glucose 190 H Lactate 2.2 H Calcium 10.0 Phosphorus Magnesium 2.1 Total Bilirubin 0.9 Direct Bilirubin 0.1 AST 39 H ALT 21 Alkaline Phosphatase 39 L Troponin I < 0.01 L C-Reactive Protein 3.3 H NT-Pro-B Natriuret Pep 426 Total Protein 8.0 Albumin 4.5 PSA Diagnostic 0.12 TSH Cortisol Cortisol 30 Minute Cortisol 60 Minute Urine Color Yellow Urine Appearance Clear Urine pH 6.5 Ur Specific [place] 1.015 Urine Protein Negative Urine Glucose (UA) Negative Urine Ketones Negative Urine Blood Trace-intact A Urine Nitrite Negative Urine Bilirubin Negative Urine Urobilinogen 0.2 Ur Leukocyte Esterase Negative Urine RBC 0-2 Urine WBC 0-2 Ur Squamous Epith Cells Few Urine Bacteria None SARS-CoV-2 (PCR) Negative SARS-CoV-2 Influenza Type A (PCR) Negative PCR FLU A Influenza Type B (PCR) Negative PCR FLU B RSV (PCR) Negative PCR RSV Lab Acknowledgement POC Troponin I 07/02/23 07/02/23 07/02/23 13:35 13:35 13:35 WBC 18.55 H RBC 4.32 Hgb 13.3 L Hct 39.0 MCV 90 MCH 31 MCHC 34 RDW Coeff of Abrahan 13.4 Plt Count 234 Neut % (Auto) 91.5 H Lymph % (Auto) 3.4 L [place] % (Auto) 3.8 Eos % (Auto) 0.1 Baso % (Auto) 0.1 Neut # (Auto) 17.00 H Lymph # (Auto) 0.60 L [place] # (Auto) 0.70 Eos # (Auto) 0.00 Baso # (Auto) 0.00 Abs Immat Gran (auto) 0.20 Imm/Tot Granulo (auto) 1.1 D-Dimer Quant (PE/DVT) 0.63 H VBG pH Cancelled 7.441 H VBG pCO2 Cancelled 40 VBG pO2 56.7 H VBG HCO3 Sodium Potassium Chloride Carbon Dioxide Anion Gap BUN Creatinine Estimated Creat Clear Estimated GFR Glucose Lactate Calcium Phosphorus Magnesium Total Bilirubin Direct Bilirubin AST ALT Alkaline Phosphatase Troponin I C-Reactive Protein NT-Pro-B Natriuret Pep Total Protein Albumin PSA Diagnostic TSH Cortisol Cortisol 30 Minute Cortisol 60 Minute Urine Color Urine Appearance Urine pH Ur Specific [place] Urine Protein Urine Glucose (UA) Urine Ketones Urine Blood Urine Nitrite Urine Bilirubin Urine Urobilinogen Ur Leukocyte Esterase Urine RBC Urine WBC Ur Squamous Epith Cells Urine Bacteria SARS-CoV-2 (PCR) Influenza Type A (PCR) Influenza Type B (PCR) RSV (PCR) Lab Acknowledgement POC Troponin I 07/02/23 13:01 WBC RBC Hgb Hct MCV MCH MCHC RDW Coeff of Abrahan Plt Count Neut % (Auto) Lymph % (Auto) [place] % (Auto) Eos % (Auto) Baso % (Auto) Neut # (Auto) Lymph # (Auto) [place] # (Auto) Eos # (Auto) Baso # (Auto) Abs Immat Gran (auto) Imm/Tot Granulo (auto) D-Dimer Quant (PE/DVT) VBG pH VBG pCO2 VBG pO2 VBG HCO3 Sodium Potassium Chloride Carbon Dioxide Anion Gap BUN Creatinine Estimated Creat Clear Estimated GFR Glucose Lactate Calcium Phosphorus Magnesium Total Bilirubin Direct Bilirubin AST ALT Alkaline Phosphatase Troponin I C-Reactive Protein NT-Pro-B Natriuret Pep Total Protein Albumin PSA Diagnostic TSH Cortisol Cortisol 30 Minute Cortisol 60 Minute Urine Color Urine Appearance Urine pH Ur Specific [place] Urine Protein Urine Glucose (UA) Urine Ketones Urine Blood Urine Nitrite Urine Bilirubin Urine Urobilinogen Ur Leukocyte Esterase Urine RBC Urine WBC Ur Squamous Epith Cells Urine Bacteria SARS-CoV-2 (PCR) Influenza Type A (PCR) Influenza Type B (PCR) RSV (PCR) Lab Acknowledgement POC Troponin I 0.01 Preliminary micro results at discharge 07/02/23 13:50 Urine Culture - Preliminary Urine,Clean Catch NO GROWTH AFTER [address] scan - abdomen: Radiologist's impression: INDICATION: SOB WEAKNESS HISTORY: Shortness of breath and weakness. Abdominal pain. COMPARISON: MRI of the abdomen, 05/23/2023. TECHNIQUE: CT of the abdomen pelvis. Coronal/sagittal reconstruction images. 116 cc of [id number] IV. FINDINGS: Lung bases: Dense coronary artery calcifications. There is no pleural or pericardial effusion. Partially visualized median sternotomy changes. There is no acute airspace disease at either lung base. There is no basilar pneumothorax. Abdomen/pelvis: Liver morphology is non cirrhotic. There is no perihepatic ascites. No solid liver lesion. No inflammatory changes adjacent to the gallbladder. No adrenal mass. Spleen size is normal. 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 This is seen in the body of the pancreas, and is unchanged from previous. It measures 9 mm on image 50, series 2. No adrenal mass. No portal vein thrombosis. The hepatic veins, IVC, SMV, and splenic vein are patent. Benign left renal cyst. There is no solid renal mass. There is no perinephric fluid collection. Circumferential wall thickening of the urinary bladder, mild. Prostate appears absent. There is no evidence on CT for a small bowel or colonic obstruction. There is no mural thickening. There is no perienteric edema. There is no transition point. The appendix is normal. There is no inguinal or pelvic sidewall lymphadenopathy. Nonenlarged retroperitoneal and pelvic sidewall lymph nodes are present. No gastrohepatic ligament or jodie hepatis lymphadenopathy. Blastic bone lesions are present throughout the axial skeleton. 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 There is a fracture deformity involving the L1 vertebral body, which may be pathologic, given a large sclerotic lesion in the anterior aspect of the vertebral body, measuring 19 millimeters in craniocaudad dimension. Impression: 1. Osteoblastic metastases throughout the axial skeleton. These are presumably from prostate cancer. 2. There is no bowel obstruction, pneumoperitoneum, or drainable fluid collection in the abdomen/pelvis. 3. Results of the chest CT and CT of the abdomen and pelvis were discussed with Dr. Goddard, ED, 07/02/23, [address] scan - chest: Radiologist's impression: INDICATION: SOB WEAKNESS HISTORY: Shortness of breath and weakness. COMPARISON: MRI of the abdomen, 05/23/2023. Technique: CT pulmonary angiogram. Coronal/sagittal reconstruction images. 116 cc of Isovue 370 IV. Findings: The thyroid gland is symmetric. Postoperative changes of a median sternotomy, coronary artery bypass graft. There are extensive calcifications of the [place] epicardial coronary arteries. No findings to indicate an acute aortic syndrome. The brachiocephalic trunk, left common carotid artery, subclavian artery are normal. No mass at the thoracic inlet. Nonenlarged mediastinal lymph nodes. There is no mediastinal, hilar, or axillary lymphadenopathy by size criteria. No pulmonary emboli are demonstrated. There is no evidence to indicate right heart strain. There is no pleural or pericardial effusion. The lung windows demonstrate debris in the intrathoracic trachea. No endobronchial mass. There is no bronchiectasis. There is no peripheral reticulation. There is no honeycomb formation. There is no traction bronchiectasis. There is a calcified granuloma in the left upper lobe, which measures 5 millimeters on series 7, image 61. Mild centrilobular emphysema. There is no suspicious pulmonary nodule or acute airspace disease. Evaluation of the upper abdomen demonstrates a non cirrhotic liver morphology. There is no upper abdominal lymphadenopathy or ascites. Spleen size is normal. The bone windows demonstrate degenerative disc disease. No evidence to indicate a sternal dehiscence. No sternal wire fracture or migration is seen. Nonspecific left posterior rib lesion, which is indeterminate. This measures 8 millimeters on series 6, image 127. No pathologic fracture or soft tissue component. Additional sclerotic bone lesions in the lower thoracic spine, suspicious for blastic metastases. See series 3, image 188. Largest lesion measures 16 millimeters in dimension. Additional sclerotic bone lesions in the bilateral ribs, also suspicious for blastic metastases. Impression: 1. No pulmonary emboli. 2. No evidence on CT for right heart strain. No pulmonary infarct. 3. Sclerotic bone lesions throughout the axial skeleton. These are consistent with blastic metastases. This should be correlated with any history of prostate adenocarcinoma. Discharge Plan Discharge Disposition: Home, Self-Care Date of Admission: 07/02/23 17:32 Attending Provider on Discharge: Fabien York Primary Care Provider: Adria Valentine Condition: Stable Anticipated Discharge Date/Time: 07/03/23 11:21 Discharge Medications: Continued multivitamin Tablet 1 tab PO QAM calcium carbonate-vitamin D3 [Calcium with Vitamin D] 600 mg-10 mcg (400 unit) tablet 1 tab PO BID furosemide 20 mg tablet 20 mg PO DAILY Patient Comments: Take 1 Tablet (20 mg) by mouth every morning. losartan 100 mg tablet 100 mg PO DAILY Patient Comments: Take 1 Tablet (100 mg) by mouth once daily. rosuvastatin 10 mg tablet 10 mg PO HS Patient Comments: Take 1 Tablet (10 mg) by mouth at bedtime. amlodipine 10 mg tablet 10 mg PO DAILY metformin 1,000 mg tablet 1,000 mg PO BID Patient Comments: Take 1 Tablet (1,000 mg) by mouth 2 times daily with meals. Rx Instructions: with meals carvedilol 12.5 mg tablet 12.5 mg PO BID mirtazapine 15 mg tablet 15 mg PO HS ammonium lactate 12 % cream 1 applic topical DAILY PRN glucosamine-chondroitin [Osteo Bi-Flex] 250-200 mg tablet 2 tab PO DAILY Rx Instructions: give after food/meal melatonin 1 mg tablet 1 mg PO HS PRN magnesium oxide 400 mg magnesium tablet 400 mg PO DAILY cinnamon bark 500 mg capsule 500 mg PO BID cetirizine 10 mg tablet 10 mg PO DAILY PRN Eligard (6 month) 45 mg syringe 45 mg subcut [id number] Xgeva 120 mg/1.7 mL (70 mg/mL) solution 120 mg subcut Q90D spironolactone 25 mg tablet 25 mg PO QAM Patient Comments: Take 1 Tablet (25 mg) by mouth every morning. enzalutamide 40 mg capsule 160 mg PO Q24H Qty: 120 11RF Discharge Orders: Discharge Order (Routine); Ordered 07/03/23 Ordered By: Fabien York Patient Education: Weakness (DC) Additional Instructions: The cancer clinic will call you to arrange an appointment this month. You should also see your doctor about your insomnia. Stay as active as you can. Your cancer and treatment for cancer will cause fatigue. The more physical activity you do during the day the more you will help your fatigue and weakness. Physical activity will also help your insomnia. Activity Level: No Restrictions Discharge Diet: Regular Follow Up Appointments: Adria Valentine MD [Primary Care Provider] - 07/18/23 11:45 am (Kemal Le for follow-up.) Forms: [employer] Info Instructions
--- NOTE | 2023-07-03 11:52 | PC.NURSE ---
Addendum entered by Grace Chau RN 07/03/23 12:06: pt discharge at 12:05 Original Note: discharge- Pt alert, oriented, and cooperative during shift. Patient up with standby assist. Continent of bowel and bladder. Pt tolerating regular diet and RA. Pt discharging to home with .
== END 2023-07-03 12:05 | disposition home or self-care (01) ==
LOC: ED 16:57 → MEDSURG 17:37
PROVIDERS: Admitting Provider Family Medicine; Emergency Provider Family Medicine; PCP Surgery; Visit Provider Internal Medicine
DX: R53.1 Weakness (principal); E86.0 Dehydration; R00.0 Tachycardia, unspecified; D72.829 Elevated white blood cell count, unspecified; C61 Malignant neoplasm of prostate; C79.51 Secondary malignant neoplasm of bone; E66.9 Obesity, unspecified
CPT/HCPCS: 36415; 71046; 71275; 74177; 80048; 80076; 81001; 82533; 82803; 82962; 83605; 83735; 83880; 84100; 84153; 84443; 84450; 84484; 85025; 85379; 86140; 87040; 87086; 87631; 93005; 94761; 96361; 96372; 96374; 97116; 97162; 97165; 99285; G0378; A9270; J0834; J1650; J7030; Q9967

== ENCOUNTER 2023-11-20 13:45 | Outpatient (RCR) | payer MEDICARE, BC, SELFPAY ==
--- NOTE | 2023-05-15 14:41 | ONC.NURNOTE ---
lab results called to patient and no PSA since February- to do next month when he gets his labs here
[2023-05-31 13:42] LABS: Basophils Absolute Auto 0.03 K/uL (0.00-0.30); Basophils Percent Auto 0.5 % (0.0-3.0); Eosinophils Absolute Auto 0.14 K/uL (0.00-0.50); Eosinophils Percent Auto 2.4 % (0.0-7.0); Hematocrit 37.8 % (37.0-53.0); Hemoglobin* 12.6 gm/dL (13.5-17.5); Immature Granulocytes Abs Auto 0.01 K/uL (0.00-0.30); Immature Granulocytes Pct Auto 0.2 %; Lymphocytes Percent Auto 29.7 % (20-44); Mean Corpuscular HGB Conc 33 gm/dL (32-36); Mean Corpuscular Hemoglobin 30 pg (26-34); Mean Corpuscular Volume 91 fL (80-100); Monocytes Percent Auto 7.7 % (0.0-11.0); Neutrophils Percent Auto 59.5 % (42.0-72.0); Platelet Count* 237 K/uL (140-440); RDW Coefficient of Variation % 13.1 % (11.5-15.5); Red Blood Count 4.15 m/uL (4.30-5.90); White Blood Count* 5.72 K/uL (4.50-11.00)
[2023-05-31 13:49] LABS: Slide Review Reflex No
[2023-05-31 13:55] LABS: Albumin* 4.5 g/dL (3.3-5.0); Chloride* 101 mmol/L (96-114); Potassium* 4.5 mmol/L (3.6-5.1); Sodium* 140 mmol/L (135-149)
[2023-05-31 13:57] LABS: Anion Gap 11 mEq/L (7-15); Bilirubin Total* 0.6 mg/dL (0.1-1.5); Carbon Dioxide* 28 mmol/L (20-32); Creatinine* 1.3 mg/dL (0.5-1.5); Estimated Glomerular Filt Rate 55 ml/min
[2023-05-31 13:58] LABS: Alanine Aminotransferase* 23 U/L (4-50); Alkaline Phosphatase* 45 U/L (40-150); Aspartate Amino Transferase* 24 U/L (12-35); Blood Urea Nitrogen* 25 mg/dL (7-30); Calcium* 10.3 mg/dL (8.4-10.6); Glucose* 156 mg/dL (60-115); Total Protein* 7.8 g/dL (6.0-8.3)
[2023-05-31 14:22] VITALS: BP 135/81; PULSE 65; RESP 16; TEMP 36; O2SAT 96
[2023-05-31 14:29] LABS: PSA Diagnostic* 0.07 ng/mL (0.10-4.00)
[2023-05-31] MEDS: DENOSUMAB 120 MG inj SUBCUT (14:46)
--- NOTE | 2023-06-19 12:36 | ONC.NURNOTE ---
[employer] re enrollment for 2023 completed by submitting eRX by Dr Jacobson to [facility] per instructions on fax received from [employer]
[2023-06-29 09:17] LABS: Basophils Absolute Auto 0.03 K/uL (0.00-0.30); Basophils Percent Auto 0.5 % (0.0-3.0); Eosinophils Absolute Auto 0.17 K/uL (0.00-0.50); Eosinophils Percent Auto 2.9 % (0.0-7.0); Hematocrit 39.8 % (37.0-53.0); Immature Granulocytes Abs Auto 0.01 K/uL (0.00-0.30); Immature Granulocytes Pct Auto 0.2 %; Lymphocytes Absolute Auto 2.11 K/uL (0.90-2.90); Mean Corpuscular HGB Conc 33 gm/dL (32-36); Mean Corpuscular Hemoglobin 30 pg (26-34); Mean Corpuscular Volume 93 fL (80-100); Monocytes Percent Auto 8.7 % (0.0-11.0); Neutrophils Absolute Auto 3.03 K/uL (1.7-7.0); Neutrophils Percent Auto 51.7 % (42.0-72.0); Platelet Count* 226 K/uL (140-440); RDW Coefficient of Variation % 13.3 % (11.5-15.5); White Blood Count* 5.86 K/uL (4.50-11.00)
[2023-06-29 09:18] LABS: Slide Review Reflex No
[2023-06-29 09:26] LABS: Albumin* 4.2 g/dL (3.3-5.0); Chloride* 105 mmol/L (96-114); Sodium* 139 mmol/L (135-149)
[2023-06-29 09:27] LABS: Potassium* 4.2 mmol/L (3.6-5.1)
[2023-06-29 09:29] LABS: Alanine Aminotransferase* 19 U/L (4-50); Alkaline Phosphatase* 45 U/L (40-150); Anion Gap 9 mEq/L (7-15); Aspartate Amino Transferase* 32 U/L (12-35); Bilirubin Total* 0.5 mg/dL (0.1-1.5); Blood Urea Nitrogen* 28 mg/dL (7-30); Carbon Dioxide* 25 mmol/L (20-32); Creatinine* 1.1 mg/dL (0.5-1.5); Estimated Glomerular Filt Rate 67 ml/min; Glucose* 153 mg/dL (60-115); Total Protein* 7.4 g/dL (6.0-8.3)
[2023-06-29 09:30] LABS: Calcium* 9.4 mg/dL (8.4-10.6)
--- NOTE | 2023-07-06 13:27 | ONC.NURNOTE ---
Pt recently hospitalized. Rebeca Rangel PA-C would like pt to follow up with [facility] within a month vs 2 months. Pt called and scheduled. Urology referral faxed to [facility]. Pt has seen Dr. Reeder in the past, however, they do not want to drive to [facility].
--- NOTE | 2023-07-06 14:22 | ONC.NURNOTE ---
[employer] reenrolled thru 09/03/2024
--- NOTE | 2023-09-01 15:18 | URNOTE ---
Request received for authorization for Denosumab ([id number]), Eligard ([id number]). Prior authorization is not required as services are based on medical necessity and follow Medicare guidelines.
[2023-09-06 13:38] LABS: Basophils Absolute Auto 0.03 K/uL (0.00-0.30); Basophils Percent Auto 0.3 % (0.0-3.0); Eosinophils Absolute Auto 0.14 K/uL (0.00-0.50); Eosinophils Percent Auto 1.6 % (0.0-7.0); Hematocrit 37.9 % (37.0-53.0); Hemoglobin* 12.5 gm/dL (13.5-17.5); Immature Granulocytes Abs Auto 0.01 K/uL (0.00-0.30); Immature Granulocytes Pct Auto 0.1 %; Lymphocytes Absolute Auto 2.08 K/uL (0.90-2.90); Lymphocytes Percent Auto 23.5 % (20-44); Mean Corpuscular HGB Conc 33 gm/dL (32-36); Mean Corpuscular Hemoglobin 30 pg (26-34); Mean Corpuscular Volume 90 fL (80-100); Monocytes Percent Auto 7.1 % (0.0-11.0); Neutrophils Absolute Auto 5.95 K/uL (1.7-7.0); Neutrophils Percent Auto 67.4 % (42.0-72.0); Platelet Count* 288 K/uL (140-440); RDW Coefficient of Variation % 13.4 % (11.5-15.5); Red Blood Count 4.21 m/uL (4.30-5.90); Slide Review Reflex No; White Blood Count* 8.84 K/uL (4.50-11.00)
[2023-09-06 13:44] VITALS: BP 169/78; PULSE 88; RESP 16; TEMP 35.9; O2SAT 92
[2023-09-06 13:51] LABS: Albumin* 4.3 g/dL (3.3-5.0)
[2023-09-06 13:52] LABS: Chloride* 104 mmol/L (96-114); Potassium* 3.7 mmol/L (3.6-5.1); Sodium* 139 mmol/L (135-149)
[2023-09-06 13:54] LABS: Bilirubin Total* 0.6 mg/dL (0.1-1.5); Creatinine* 1.3 mg/dL (0.5-1.5); Estimated Glomerular Filt Rate 55 ml/min
[2023-09-06 13:55] LABS: Alanine Aminotransferase* 18 U/L (4-50); Alkaline Phosphatase* 59 U/L (40-150); Anion Gap 7 mEq/L (7-15); Aspartate Amino Transferase* 18 U/L (12-35); Blood Urea Nitrogen* 20 mg/dL (7-30); Calcium* 10.4 mg/dL (8.4-10.6); Carbon Dioxide* 28 mmol/L (20-32); Glucose* 159 mg/dL (60-115); Total Protein* 7.7 g/dL (6.0-8.3)
[2023-09-06 14:26] LABS: PSA Diagnostic* 0.34 ng/mL (0.10-4.00)
[2023-09-06] MEDS: DENOSUMAB 120 MG inj SUBCUT (14:30)
[2023-11-20 13:59] LABS: Basophils Absolute Auto 0.02 K/uL (0.00-0.30); Basophils Percent Auto 0.3 % (0.0-3.0); Eosinophils Absolute Auto 0.14 K/uL (0.00-0.50); Hematocrit 39.5 % (37.0-53.0); Immature Granulocytes Abs Auto 0.02 K/uL (0.00-0.30); Immature Granulocytes Pct Auto 0.3 %; Lymphocytes Absolute Auto 1.99 K/uL (0.90-2.90); Lymphocytes Percent Auto 28.4 % (20-44); Mean Corpuscular HGB Conc 33 gm/dL (32-36); Mean Corpuscular Hemoglobin 30 pg (26-34); Mean Corpuscular Volume 91 fL (80-100); Monocytes Percent Auto 8.7 % (0.0-11.0); Neutrophils Absolute Auto 4.22 K/uL (1.7-7.0); Neutrophils Percent Auto 60.3 % (42.0-72.0); Platelet Count* 257 K/uL (140-440); RDW Coefficient of Variation % 13.6 % (11.5-15.5); Red Blood Count 4.36 m/uL (4.30-5.90)
[2023-11-20 14:04] LABS: Slide Review Reflex No
[2023-11-20 14:16] LABS: Albumin* 4.5 g/dL (3.3-5.0); Chloride* 102 mmol/L (96-114)
[2023-11-20 14:17] LABS: Potassium* 4.5 mmol/L (3.6-5.1); Sodium* 138 mmol/L (135-149)
[2023-11-20 14:19] LABS: Alkaline Phosphatase* 58 U/L (40-150); Anion Gap 4 mEq/L (7-15); Aspartate Amino Transferase* 18 U/L (12-35); Bilirubin Total* 0.5 mg/dL (0.1-1.5); Blood Urea Nitrogen* 26 mg/dL (7-30); Carbon Dioxide* 32 mmol/L (20-32); Creatinine* 1.2 mg/dL (0.5-1.5); Estimated Glomerular Filt Rate 60 ml/min; Total Protein* 8.8 g/dL (6.0-8.3)
[2023-11-20 14:20] LABS: Alanine Aminotransferase* 13 U/L (4-50); Calcium* 10.2 mg/dL (8.4-10.6); Glucose* 134 mg/dL (60-115)
[2023-11-20 14:50] LABS: PSA Diagnostic* 0.48 ng/mL (0.10-4.00)
== END 2023-11-27 23:59 | disposition home or self-care (01) ==
LOC: CCIC 13:45
PROVIDERS: Clinical Nurse Specialist; Physician Assistant; PCP Surgery; Referring Provider Surgery; Visit Provider Internal Medicine Hematology & Oncology
DX: C61 Malignant neoplasm of prostate (principal); C79.51 Secondary malignant neoplasm of bone; G47.00 Insomnia, unspecified; K86.2 Cyst of pancreas
CPT/HCPCS: 36415; 72100; 73502; 80053; 84153; 85025; 96372; 96376; 96401; 99212; 99214; 99215; G0463; J0897; J9217

== ENCOUNTER 2024-04-05 12:21 | Outpatient (CLI) | payer MEDICARE, BC, SELFPAY ==
--- NOTE | 2024-04-05 13:00 | CRLHL7_ITS ---
For Patients: As a result of the Century Cures Act, medical imaging exams and procedure reports are released immediately into your electronic medical record. You may view this report before your referring provider. If you have questions, please contact your health care provider. INDICATION: Prostate cancer. COMPARISON: MRI lumbar spine 04/01/2024. TECHNIQUE: Sagittal T1, T2, and STIR sequences. Axial T2/gradient sequences. Post gadolinium T1 weighted sequences. FINDINGS: Normal vertebral body facet alignment. Compared to the previous MRI of the lumbar spine, stable chronic compression fracture nature wedging of the L1 vertebral body. No fractures of the thoracic spine. There is abnormal low T1 and T2 signal intensity lesion of the T12 vertebral body with mild enhancement. Finds consistent with metastasis. Additional smaller less conspicuous low T1 and T2 signal intensity lesions of the T7 and T8 vertebral bodies and T5 spinous process also likely represent metastases. There is however no definite corresponding enhancement suggesting posttreatment changes. No tumor extending into the epidural space. Normal cord signal. No intradural mass or lesion. Thoracic spondylosis. No prominent disc protrusions or herniations. No spinal canal or neural foraminal narrowing at all levels of the thoracic spine. Normal paraspinal soft tissues. IMPRESSION: 1. Normal alignment. Stable old chronic compression fracture of L1. No fractures the thoracic vertebral bodies. 2. 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 3. Smaller less conspicuous low T1 and T2 signal intensity lesions of T7, T8 and T5 spinous process which also likely represent metastases. 4. No tumor within the epidural space. 5. Grossly normal cord signal. 6. No severe spinal canal and neural foraminal narrowing at all levels Dictated by Vaughn Gannon MD @ 04/08/2024 12:40:35 PM (Electronically Signed)
--- NOTE | 2024-04-05 14:00 | CRLHL7_ITS ---
For Patients: As a result of the Century Cures Act, medical imaging exams and procedure reports are released immediately into your electronic medical record. You may view this report before your referring provider. If you have questions, please contact your health care provider. INDICATION: Prostate cancer. Evaluate for cervical neoplastic involvement. TECHNIQUE: Cervical spine MRI with and without contrast. 20 cc of Dotarem gadolinium based contrast administered. COMPARISON: : None. FINDINGS: : Slight cervical kyphosis. No recent compression fracture or marrow replacing process. Posterior fossa structures are normal. Cervical cord signal is normal. No intradural lesion. No abnormal enhancement within the cervical spinal cord, or the imaged spinal column and skull base. No extraspinal soft tissue abnormalities. Discs/endplates: Moderate disc height loss/disc desiccation C5-6. Mild cervical and upper thoracic disc degeneration elsewhere. Findings at individual levels as follows: Craniocervical junction: Alignment is maintained. C2-C3: Right uncovertebral and facet arthrosis contributes to moderate right neural foraminal stenosis. Left-sided facet arthrosis. No left neural foraminal stenosis or spinal canal stenosis. C3-C4: Shallow disc osteophyte complex minimally flattens the thecal sac without spinal canal stenosis. Bilateral uncovertebral and facet arthrosis with mild bilateral neural foraminal stenosis. C4-C5: Shallow disc osteophyte complex minimally flattens the thecal sac without spinal canal stenosis. Minimal bilateral uncovertebral arthrosis. High-grade left facet arthrosis. Mild bilateral neural foraminal stenosis. No spinal canal stenosis. C5-C6: Shallow disc osteophyte complex flattens the thecal sac. Mild spinal canal stenosis. Bilateral uncovertebral and facet arthrosis results in moderately advanced bilateral foraminal stenosis with impingement of the exiting C6 nerve roots. C6-C7: Shallow disc osteophyte complex flattens the thecal sac. Mild spinal canal stenosis. Bilateral uncovertebral and facet arthrosis with moderately advanced bilateral neural foraminal stenosis. Impingement of the exiting C7 nerve roots. C7-T1: Shallow disc osteophyte complex flattens the thecal sac. Mild spinal canal stenosis. Bilateral uncovertebral arthrosis and high-grade left facet arthrosis. Mild right and moderate left neural foraminal stenosis. T1-2: 4 millimeters anterolisthesis. Bilateral facet arthrosis. Moderate bilateral neural foraminal stenosis. No spinal canal stenosis. T2-3: A shallow central protrusion flattens the thecal sac. No spinal canal stenosis. Bilateral facet arthrosis with mild bilateral foraminal stenosis. IMPRESSION: : 1. No evidence of osseous, intraspinal or paraspinal metastatic disease. 2. Widespread cervical spondylosis as detailed above. High-grade neural foraminal stenosis at C5-6 and C6-7 bilaterally. Mild to moderate elsewhere. 3. No high-grade spinal canal stenosis or extrinsic cord deformity at any cervical level. Cervical cord signal is normal. Dictated by Say Concepcion MD @ 04/08/2024 6:55:51 AM (Electronically Signed)
== END 2024-04-05 12:22 | disposition home or self-care (01) ==
PROVIDERS: PCP Surgery; Visit Provider Internal Medicine Hematology & Oncology
DX: C61 Malignant neoplasm of prostate (principal); M47.892 Other spondylosis, cervical region
CPT/HCPCS: 72156; 72157; A9575

== ENCOUNTER 2024-06-17 12:00 | Outpatient (RCR) | payer MEDICARE, BC, SELFPAY ==
[2023-12-26 12:07] LABS: Basophils Absolute Auto 0.01 K/uL (0.00-0.30); Basophils Percent Auto 0.1 % (0.0-3.0); Eosinophils Absolute Auto 0.12 K/uL (0.00-0.50); Eosinophils Percent Auto 1.7 % (0.0-7.0); Hemoglobin* 13.3 gm/dL (13.5-17.5); Immature Granulocytes Abs Auto 0.04 K/uL (0.00-0.30); Immature Granulocytes Pct Auto 0.6 %; Mean Corpuscular HGB Conc 33 gm/dL (32-36); Mean Corpuscular Hemoglobin 30 pg (26-34); Mean Corpuscular Volume 91 fL (80-100); Monocytes Percent Auto 8.9 % (0.0-11.0); Neutrophils Absolute Auto 4.11 K/uL (1.7-7.0); Neutrophils Percent Auto 59.7 % (42.0-72.0); Platelet Count* 267 K/uL (140-440); RDW Coefficient of Variation % 13.9 % (11.5-15.5); Red Blood Count 4.39 m/uL (4.30-5.90); White Blood Count* 6.89 K/uL (4.50-11.00)
[2023-12-26 12:08] LABS: Slide Review Reflex No
[2023-12-26 12:33] LABS: Albumin* 4.5 g/dL (3.3-5.0); Chloride* 104 mmol/L (96-114)
[2023-12-26 12:34] LABS: Potassium* 4.5 mmol/L (3.6-5.1); Sodium* 139 mmol/L (135-149)
[2023-12-26 12:36] LABS: Alanine Aminotransferase* 14 U/L (4-50); Alkaline Phosphatase* 52 U/L (40-150); Anion Gap 6 mEq/L (7-15); Aspartate Amino Transferase* 18 U/L (12-35); Bilirubin Total* 0.6 mg/dL (0.1-1.5); Blood Urea Nitrogen* 24 mg/dL (7-30); Carbon Dioxide* 29 mmol/L (20-32); Creatinine* 1.1 mg/dL (0.5-1.5); Estimated Glomerular Filt Rate 67 ml/min; Glucose* 116 mg/dL (60-115); Total Protein* 8.2 g/dL (6.0-8.3)
[2023-12-26 12:37] LABS: Calcium* 9.9 mg/dL (8.4-10.6)
[2023-12-26 12:59] LABS: PSA Diagnostic* 0.47 ng/mL (0.10-4.00)
[2023-12-27] MEDS: DENOSUMAB 120 MG inj SUBCUT (14:43)
--- NOTE | 2024-01-16 12:28 | ONC.NURNOTE ---
Follow up call to Hermann regarding message that he was seen by Dr Valentine for left sided hip/back pain Hermann is using voltaren cream and heat with enough relief that he is able to stay active. The pain is managed with these interventions, is not getting worse. Patient understands that MRI was offered by Dr Valentine- patient denies at this time Patient understands to call with any further concerns, appt is in [address] Jacobson
[2024-02-22 13:34] VITALS: BP 144/81; PULSE 78; RESP 16; TEMP 36.2; O2SAT 97
[2024-03-28 13:13] LABS: Basophils Absolute Auto 0.02 K/uL (0.00-0.30); Basophils Percent Auto 0.3 % (0.0-3.0); Eosinophils Percent Auto 1.7 % (0.0-7.0); Hematocrit 36.9 % (37.0-53.0); Hemoglobin* 12.1 gm/dL (13.5-17.5); Immature Granulocytes Abs Auto 0.01 K/uL (0.00-0.30); Immature Granulocytes Pct Auto 0.2 %; Lymphocytes Absolute Auto 1.61 K/uL (0.90-2.90); Lymphocytes Percent Auto 27.7 % (20-44); Mean Corpuscular HGB Conc 33 gm/dL (32-36); Mean Corpuscular Hemoglobin 30 pg (26-34); Mean Corpuscular Volume 92 fL (80-100); Neutrophils Absolute Auto 3.55 K/uL (1.7-7.0); Neutrophils Percent Auto 61.1 % (42.0-72.0); Platelet Count* 252 K/uL (140-440); RDW Coefficient of Variation % 13.2 % (11.5-15.5); Red Blood Count 4.03 m/uL (4.30-5.90); White Blood Count* 5.81 K/uL (4.50-11.00)
[2024-03-28 13:18] LABS: Slide Review Reflex No
[2024-03-28 13:26] LABS: Albumin* 4.5 g/dL (3.3-5.0)
[2024-03-28 13:27] LABS: Chloride* 101 mmol/L (96-114); Potassium* 4.2 mmol/L (3.6-5.1); Sodium* 137 mmol/L (135-149)
[2024-03-28 13:29] LABS: Anion Gap 7 mEq/L (7-15); Aspartate Amino Transferase* 20 U/L (12-35); Bilirubin Total* 0.6 mg/dL (0.1-1.5); Carbon Dioxide* 29 mmol/L (20-32); Creatinine* 1.3 mg/dL (0.5-1.5); Estimated Glomerular Filt Rate 54 ml/min; Total Protein* 7.4 g/dL (6.0-8.3)
[2024-03-28 13:30] LABS: Alanine Aminotransferase* 17 U/L (4-50); Alkaline Phosphatase* 64 U/L (40-150); Blood Urea Nitrogen* 27 mg/dL (7-30); Calcium* 9.8 mg/dL (8.4-10.6); Glucose* 174 mg/dL (60-115)
[2024-03-28 14:00] LABS: PSA Diagnostic* 1.42 ng/mL (0.10-4.00)
[2024-04-01 14:36] LABS: Basophils Absolute Auto 0.01 K/uL (0.00-0.30); Basophils Percent Auto 0.2 % (0.0-3.0); Eosinophils Absolute Auto 0.01 K/uL (0.00-0.50); Eosinophils Percent Auto 0.2 % (0.0-7.0); Hematocrit 37.3 % (37.0-53.0); Hemoglobin* 12.3 gm/dL (13.5-17.5); Immature Granulocytes Abs Auto 0.02 K/uL (0.00-0.30); Immature Granulocytes Pct Auto 0.3 %; Lymphocytes Percent Auto 8.8 % (20-44); Mean Corpuscular HGB Conc 33 gm/dL (32-36); Mean Corpuscular Hemoglobin 30 pg (26-34); Mean Corpuscular Volume 91 fL (80-100); Monocytes Percent Auto 13.1 % (0.0-11.0); Neutrophils Percent Auto 77.4 % (42.0-72.0); Platelet Count* 202 K/uL (140-440); RDW Coefficient of Variation % 13.2 % (11.5-15.5); Red Blood Count 4.08 m/uL (4.30-5.90); White Blood Count* 6.48 K/uL (4.50-11.00)
[2024-04-01 14:48] LABS: Albumin* 4.7 g/dL (3.3-5.0)
[2024-04-01 14:49] LABS: Chloride* 101 mmol/L (96-114); Potassium* 4.1 mmol/L (3.6-5.1); Sodium* 137 mmol/L (135-149)
[2024-04-01 14:51] LABS: Anion Gap 9 mEq/L (7-15); Aspartate Amino Transferase* 32 U/L (12-35); Bilirubin Total* 0.5 mg/dL (0.1-1.5); Carbon Dioxide* 27 mmol/L (20-32); Creatinine* 1.3 mg/dL (0.5-1.5); Estimated Glomerular Filt Rate 54 ml/min
[2024-04-01 14:52] LABS: Alanine Aminotransferase* 19 U/L (4-50); Alkaline Phosphatase* 85 U/L (40-150); Blood Urea Nitrogen* 19 mg/dL (7-30); Calcium* 9.6 mg/dL (8.4-10.6); Glucose* 145 mg/dL (60-115); Total Protein* 7.8 g/dL (6.0-8.3)
[2024-04-01 14:56] LABS: Appearance Urine Clear (Clear); Bilirubin Urine Negative (Negative); Blood Urine Trace-intact (Negative); Color Urine Yellow (Yellow); Glucose Urine Negative (Negative); Ketones Urine Negative (Negative); Leukocyte Esterase Urine Negative (Negative); Nitrite Urine Negative (Negative); Protein Urine 1+ (Negative); Specific Gravity Urine 1.025 (1.000-1.030); Urobilinogen Urine 0.2 (0.2-1.0)
[2024-04-01 15:09] LABS: Slide Review Reflex No
[2024-04-01 16:27] LABS: WBC Urine 0-2 (0-5)
[2024-04-25 16:11] LABS: Basophils Absolute Auto 0.03 K/uL (0.00-0.30); Basophils Percent Auto 0.5 % (0.0-3.0); Eosinophils Percent Auto 3.4 % (0.0-7.0); Hematocrit 36.1 % (37.0-53.0); Hemoglobin* 11.6 gm/dL (13.5-17.5); Immature Granulocytes Abs Auto 0.02 K/uL (0.00-0.30); Immature Granulocytes Pct Auto 0.3 %; Lymphocytes Absolute Auto 1.34 K/uL (0.90-2.90); Lymphocytes Percent Auto 22.8 % (20-44); Mean Corpuscular HGB Conc 32 gm/dL (32-36); Mean Corpuscular Hemoglobin 29 pg (26-34); Mean Corpuscular Volume 91 fL (80-100); Monocytes Percent Auto 11.9 % (0.0-11.0); Neutrophils Absolute Auto 3.58 K/uL (1.7-7.0); Neutrophils Percent Auto 61.1 % (42.0-72.0); Platelet Count* 251 K/uL (140-440); RDW Coefficient of Variation % 13.9 % (11.5-15.5); Red Blood Count 3.95 m/uL (4.30-5.90); White Blood Count* 5.87 K/uL (4.50-11.00)
[2024-04-25 16:20] LABS: Slide Review Reflex No
[2024-04-25 16:26] LABS: Albumin* 4.5 g/dL (3.3-5.0); Chloride* 103 mmol/L (96-114)
[2024-04-25 16:27] LABS: Potassium* 4.3 mmol/L (3.6-5.1); Sodium* 137 mmol/L (135-149)
[2024-04-25 16:29] LABS: Alkaline Phosphatase* 81 U/L (40-150); Anion Gap 8 mEq/L (7-15); Aspartate Amino Transferase* 24 U/L (12-35); Bilirubin Total* 0.5 mg/dL (0.1-1.5); Blood Urea Nitrogen* 24 mg/dL (7-30); Carbon Dioxide* 26 mmol/L (20-32); Creatinine* 1.3 mg/dL (0.5-1.5); Estimated Glomerular Filt Rate 54 ml/min; Total Protein* 7.7 g/dL (6.0-8.3)
[2024-04-25 16:30] LABS: Alanine Aminotransferase* 16 U/L (4-50); Calcium* 9.6 mg/dL (8.4-10.6); Glucose* 143 mg/dL (60-115)
[2024-04-25 17:02] LABS: PSA Diagnostic* 2.11 ng/mL (0.10-4.00)
[2024-05-01] MEDS: DENOSUMAB 120 MG inj SUBCUT (11:19)
--- NOTE | 2024-05-03 12:36 | ONC.NURNOTE ---
Medication change to Erleada 240 mg/day New Rx faxed to [facility] approved 09/04/23-09/03/24 copay reported to be $3305.80 This was called to patient/ [facility] will be contacting patient on Monday if available copay grants for prostate cancer if none available then patient will need to be enrolled in [employer] free drug program
--- NOTE | 2024-05-13 15:30 | ONC.NURNOTE ---
Application faxed to [employer] Program on 05/10 Application refaxed today at fax # [phone] Copay is over $3000 and there are no foundations with available funding for prostate cancer
--- NOTE | 2024-05-16 12:08 | ONC.NURNOTE ---
Addendum entered by Sheyla Olvera RN 05/20/24 13:48: Erleada shipping from manufactorer today He is taking last dose of Xtandi today, and will start Erleada when he receives it either Monday or Monday Addendum entered by Sheyla Olvera RN 05/16/24 12:13: [facility] to dispense Original Note: Erleada/apalutamide enrolled in [facility] PAP for free drug [facility] PAP 05/16/24- 09/03/24 [phone] [facility] [phone] fax
--- NOTE | 2024-05-23 11:23 | PC.NURSE ---
Addendum entered by Jonelle Mendzoa RN 05/28/24 14:22: Called pt again today. No concerns. Confirmed next lab and NANCIE visit on 06/17. Encouraged pt to call with any questions or concerns. Original Note: Called pt to check after restarting his Erleada. Pt states no problems. He will call if anything arises. RN will call pt early next week to check in again.
[2024-06-17 12:35] LABS: Basophils Absolute Auto 0.03 K/uL (0.00-0.30); Basophils Percent Auto 0.5 % (0.0-3.0); Eosinophils Percent Auto 7.1 % (0.0-7.0); Hematocrit 33.4 % (37.0-53.0); Immature Granulocytes Abs Auto 0.02 K/uL (0.00-0.30); Immature Granulocytes Pct Auto 0.4 %; Lymphocytes Percent Auto 15.4 % (20-44); Mean Corpuscular HGB Conc 33 gm/dL (32-36); Mean Corpuscular Hemoglobin 31 pg (26-34); Mean Corpuscular Volume 93 fL (80-100); Monocytes Percent Auto 10.4 % (0.0-11.0); Neutrophils Absolute Auto 3.75 K/uL (1.7-7.0); Neutrophils Percent Auto 66.2 % (42.0-72.0); Platelet Count* 229 K/uL (140-440); RDW Coefficient of Variation % 15.4 % (11.5-15.5); White Blood Count* 5.66 K/uL (4.50-11.00)
[2024-06-17 12:41] LABS: Slide Review Reflex No
[2024-06-17 12:57] LABS: Albumin* 4.2 g/dL (3.3-5.0); Chloride* 102 mmol/L (96-114); Sodium* 136 mmol/L (135-149)
[2024-06-17 13:00] LABS: Alanine Aminotransferase* 16 U/L (4-50); Alkaline Phosphatase* 83 U/L (40-150); Anion Gap 8 mEq/L (7-15); Aspartate Amino Transferase* 19 U/L (12-35); Bilirubin Total* 0.1 mg/dL (0.1-1.5); Blood Urea Nitrogen* 21 mg/dL (7-30); Carbon Dioxide* 26 mmol/L (20-32); Creatinine* 1.3 mg/dL (0.5-1.5); Est. Creatinine Clearance* 43.68; Estimated Glomerular Filt Rate 54 ml/min; Total Protein* 7.1 g/dL (6.0-8.3)
[2024-06-17 13:01] LABS: Calcium* 9.1 mg/dL (8.4-10.6); Glucose* 180 mg/dL (60-115)
[2024-06-17 13:31] LABS: PSA Diagnostic* 1.78 ng/mL (0.10-4.00)
== END 2024-06-23 23:59 | disposition home or self-care (01) ==
LOC: CCIC 12:00
PROVIDERS: Clinical Nurse Specialist; Internal Medicine Hematology & Oncology; PCP Surgery; Referring Provider Surgery; Visit Provider Physician Assistant
DX: C61 Malignant neoplasm of prostate (principal); C79.51 Secondary malignant neoplasm of bone; Z19.2 Hormone resistant malignancy status; G47.00 Insomnia, unspecified; G47.33 Obstructive sleep apnea (adult) (pediatric)
CPT/HCPCS: 36415; 72158; 80053; 81001; 81003; 84153; 85025; 96372; 96401; 99214; 99215; G0463; A9575; J0897; J9217

== ENCOUNTER 2024-08-01 13:44 | Emergency (ER) | payer MEDICARE, BC, SELFPAY ==
[2024-08-01 13:52] VITALS: BP 189/108; PULSE 86; RESP 22; TEMP 35.8; O2SAT 96; BMI 35.0
--- NOTE | 2024-08-01 14:03 | CRLHL7_ITS ---
For Patients: As a result of the Century Cures Act, medical imaging exams and procedure reports are released immediately into your electronic medical record. You may view this report before your referring provider. If you have questions, please contact your health care provider. INDICATION: FALL, TRAUMA TO FACE TECHNIQUE: CT of the head without contrast. Coronal and sagittal reformats. Bone and soft tissue algorithms. COMPARISON: 01/28/2022 MRI FINDINGS: No acute intracranial hemorrhage or extra-axial collection. No evidence of acute cortical infarction. Chronic infarct in the left caudate nucleus. Prominent perivascular space in the right basal ganglia. No mass effect or midline shift. Moderate generalized parenchymal volume loss. Diffuse regions of decreased attenuation within the periventricular and subcortical white matter of both cerebral hemispheres most likely reflect chronic microvascular ischemic disease and age related change in this patient. Vascular calcifications within the carotid siphons. Orbital contents are normal. No calvarial fractures. No lytic or sclerotic osseous lesions within the calvarium or skull base. Scalp and other imaged soft tissue structures are normal. Mastoid air cells are clear. IMPRESSION: 1. No acute intracranial abnormality. 2. 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 3. Moderate parenchymal volume loss and chronic small vessel ischemic changes. Please note that all CT scans at this facility use dose modulation, iterative reconstruction, and/or weight-based dosing when appropriate to reduce radiation dose to as low as reasonably achievable. Dictated by Reinier Correa MD @ 08/01/2024 2:47:18 PM (Electronically Signed)
--- NOTE | 2024-08-01 14:06 | ED_ITS ---
HPI - General Adult General Chief complaint: Fall/Minor Trauma Stated complaint: fell from standing height, face lacerations Time Seen by Provider: 08/01/24 13:46 History of Present Illness HPI narrative: comes to ed with concerns of the effects of a fall. had tripped over a air hose that was close to his house. son brought him here. has abrasions ans laceration on his right side of his forehead and nose. abrasion on the right area below nose. did attempt to break the fall with his right hand which is a little sore. denies any loc. denies any other injuries. no blood thinners. is alert and oriented. gcs 15/15. 84-year-old man presenting to the emergency department after a fall. He is clear that he had tripped over an air hose and went down. He did try to catch himself with his right hand. He has sustained lacerations to his face. He denies loss of consciousness. Does have trouble with balance historically. Denies significant pain. Denies neck or back pain. Eyes chest pain or shortness of breath. Denies that this was a near syncopal event. He is not a nticoagulated. Teeth feel normal. Related Data Home Medications ?Medication ?Instructions ?Recorded ?Confirmed amlodipine 10 mg tablet 10 mg PO DAILY 03/14/22 08/05/24 losartan 100 mg tablet 100 mg PO DAILY 03/14/22 08/05/24 rosuvastatin 10 mg tablet 10 mg PO HS 03/14/22 08/05/24 metformin 1,000 mg tablet 1,000 mg PO BID 05/11/22 08/05/24 multivitamin 1 tab PO QAM 05/11/22 08/05/24 calcium 600 mg (as 1 tab PO BID 07/13/22 08/05/24 carbonate)-vitamin D3 10 mcg (400 unit) tablet (Calcium with Vitamin D) spironolactone 25 mg tablet 25 mg PO QAM 10/05/22 08/05/24 carvedilol 12.5 mg tablet 12.5 mg PO BID 07/02/23 08/05/24 cinnamon bark 500 mg capsule 500 mg PO BID 07/02/23 08/05/24 glucosamine-chondroitin 250 mg-200 2 tab PO DAILY 07/02/23 08/05/24 mg tablet (Osteo Bi-Flex) melatonin 1 mg tablet 1 mg PO HS PRN 07/02/23 08/05/24 denosumab 120 mg/1.7 mL (70 mg/mL) 120 mg subcut Q90D 07/03/23 08/05/24 subcutaneous solution (Xgeva) leuprolide acetate (6 month) 45 mg 45 mg subcut [id number] 07/03/23 08/05/24 (6 month) subcutaneous syringe (Eligard) magnesium oxide 400 mg PO BID 10/16/23 08/05/24 acetaminophen 500 mg tablet 1,000 - 2,000 mg PO Q6H PRN 01/30/24 08/05/24 (Tylenol Extra Strength) fexofenadine 60 mg tablet (Taya 60 mg PO DAILY 02/22/24 08/05/24 Allergy) furosemide 20 mg tablet 20 mg PO QDAY 06/17/24 08/05/24 Previous Rx's ?Medication ?Instructions ?Recorded mecobalamin (vitamin B12) 1,000 1,000 mcg PO QDAY #90 tabs 12/27/23 mcg chewable tablet apalutamide 60 mg tablet 240 mg (4 x 60 mg) PO QDAY #120 05/01/24 tabs Allergies Allergy/AdvReac Type Severity Reaction Status Date / Time house dust Allergy Verified 08/05/24 10:39 cocaine Allergy Uncoded 05/17/22 11:15 feathers Allergy Uncoded 05/17/22 11:15 flu shot Allergy Uncoded 05/17/22 11:15 grain/feed dust Allergy Uncoded 05/17/22 11:15 tobacco Allergy Uncoded 05/17/22 11:15 Review of Systems Status of ROS: Reports: 6 or more systems reviewed and unremarkable except as noted in History and below [facility] Medical History IPMN (intraductal papillary mucinous neoplasm) ?D49.0 - Neoplasm of unspecified behavior of digestive system (ICD-10) Insomnia ?G47.00 - Insomnia, unspecified (ICD-10) Former smoker, stopped smoking in distant past ?Z87.891 - Personal history of nicotine dependence (ICD-10) Obesity (BMI 30.0-34.9) ?E66.9 - Obesity, unspecified (ICD-10) Allergic rhinitis ?J30.9 - Allergic rhinitis, unspecified (ICD-10) Rhinitis medicamentosa ?J31.0 - Chronic rhinitis (ICD-10) ?T48.5X5A - Adverse effect of other [id number] drugs, initial encounter (ICD-10) Chronic systolic heart failure ?I50.22 - Chronic systolic (congestive) heart failure (ICD-10) Diabetes mellitus type 2 in obese ?E11.69 - Type 2 diabetes mellitus with other specified complication (ICD-10) ?E66.9 - Obesity, unspecified (ICD-10) History of atrial fibrillation ?Z86.79 - Personal history of other diseases of the circulatory system (ICD- 10) Obstructive sleep apnea on CPAP ?G47.33 - Obstructive sleep apnea (adult) (pediatric) (ICD-10) Colon polyps ?K63.5 - Polyp of colon (ICD-10) Mixed hyperlipidemia ?E78.2 - Mixed hyperlipidemia (ICD-10) Essential hypertension ?I10 - Essential (primary) hypertension (ICD-10) Low back pain ?M54.50 - Low back pain, unspecified (ICD-10) Right hip pain ?M25.551 - Pain in right hip (ICD-10) Hydronephrosis, bilateral ?N13.30 - Unspecified hydronephrosis (ICD-10) Surgical History History of vasectomy ?Z98.52 - Vasectomy status (ICD-10) History of radical prostatectomy ?Z90.79 - Acquired absence of other genital organ(s) (ICD-10) History of ankle surgery ?Z98.890 - Other specified postprocedural states (ICD-10) S/P hip replacement ?Z96.649 - Presence of unspecified artificial hip joint (ICD-10) H/O colonoscopy with polypectomy ?Z98.890 - Other specified postprocedural states (ICD-10) ?Z86.010 - Personal history of colonic polyps (ICD-10) Status post coronary artery bypass graft ?Z95.1 - Presence of aortocoronary bypass graft (ICD-10) Family History Mother Lung cancer Paternal Grandmother Leukemia Maternal Grandmother Diabetes Brother Heart disease Social History Narrative: for 62 years. 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 Desires full resuscitation in event of cardiopulmonary demise. Primary care physician is Dr. Adria Valentine. What is your current living situation?: I presently have a place to live Problems where you live: no known problems Problems where you live details: None noted In the past 12 months, utilities in danger of being shut off: no In the past 12 mos, have been you worried that your food would run out before you had money to buy more?: never true In the past 12 mos, the food you bought just didn't last and you didn't have money to buy more?: never true Highest level of school completed/degree received: 12th grade, no diploma Smoking Status: Former smoker What tobacco products do you use: cigarettes Smoking quit date/years: >15 years ago Do you use any of these nicotine containing products: None Second hand tobacco smoke exposure: No How often do you have a drink containing alcohol: 2-4 times a month Alcohol type: beer How many standard drinks containing alcohol do you have on a typical day: 1 or 2 How often do you have six or more drinks on one occasion: Never AUDIT-C Alcohol total score: 2 Non-prescribed substance use: denies use Caffeine: No How often does anyone, including family, friends and others, physically hurt you : never How often does anyone, including family, friends and others, insult or talk down to you: never How often does anyone, including family, friends and others, threaten you with harm: never How often does anyone, including family, friends and others, scream or curse at you: never service: No Exam Narrative: Exam Narrative: Pleasant. NAD. Breathing easily. There is dried blood about his face. There is a 1/2 inch laceration over the bridge of the nose. Bridge is not depressed. No septal hematoma. Inch and 1/2 inch laceration gapping at the right mid lateral brow, mostly horizontal. Musculature here looks intact. Eyebrow raise intact. Opens and closes eye without difficulty. Pupils are equal and appropriately reactive. Extraocular movements are intact. There is a quarter sized laceration at the right upper lip. Not bleeding. Dentition looks intact. No TMJ area pain. External ear canals are free of fluid. No Ortiz sign. Neck is supple nontender. Back nontender. Is sore to palpation about the right hand but no discrete a/isolated area of tenderness. Opens and closes all joints without difficulty. No pain to palpation of the clavicles or shoulder. Abdomen is soft nontender. Heart in regular rate and rhythm. Distant. Denies pain to palpation lower extremities. Lungs with trace clearing basilar crepitus Const: Vital Signs, click to edit/add: Vital Signs - 24 hr 08/01/24 13:52 Temperature 96.5 F L Pulse Rate [Pulse Oximeter] 86 Respiratory Rate 22 Blood Pressure [Ri ght Upper Arm] 189/108 H Pulse Oximetry 96 Oxygen Delivery Me thod Room Air Documenting provider has reviewed patient's vital signs: yes Course Vital Signs Vital signs: Initial Vital Signs Temperature 96.5 F L 08/01/24 13:52 Temperature Source Temporal Artery Scan 08/01/24 13:52 Pulse Rate 86 08/01/24 13:52 Pulse Rhythm Regular 08/01/24 13:52 Respiratory Rate 22 08/01/24 13:52 Blood Pressure 189/108 H 08/01/24 13:52 Blood Pressure Mean 135 H 08/01/24 13:52 Blood Pressure Position Supine 08/01/24 13:52 Pulse Oximetry 96 08/01/24 13:52 Oxygen Delivery Method Room Air 08/01/24 13:52 Vital Signs Temperature 96.5 F L 08/01/24 13:52 Pulse Rate 86 08/01/24 13:52 Respiratory Rate 22 08/01/24 13:52 Blood Pressure 189/108 H 08/01/24 13:52 Pulse Oximetry 96 08/01/24 13:52 Oxygen Delivery Method Room Air 08/01/24 13:52 Temperature 96.5 F L 08/01/24 13:52 Pulse Rate 75 08/01/24 15:42 Respiratory Rate 18 08/01/24 15:42 Blood Pressure 179/91 H 08/01/24 15:42 Pulse Oximetry 96 08/01/24 15:42 Oxygen Delivery Method Room Air 08/01/24 13:52 Medical Decision Making MDM Narrative Medical decision making narrative: Clearly alert enough to claim pain but notes a very high pain tolerance historically. Would face and head though. Would have concerns about nasal bone fracture as well. I do not feel disruption in the bone at the brow or in the maxilla. This does appear to have been a trip and fall event. Does have significant past medical though had blood work drawn 2 days ago with normal chemistries and hemoglobin. I review these. CT imaging of head and facial bones independently reviewed by me does show nondepressed, slightly displaced fracture of the nasal bone. Lacerations evident also the nose and the right brow. CT of head is without acute abnormality/bleed. Intact calvarium. Returned to anesthetize with lidocaine to the laceration at the nose and lidocaine with epinephrine into the brow. Very good anesthesia is achieved. Has already been cleaned with Hibiclens solution. I cleansed further with Shur- Clens. Closed these wounds with combination of 5 0 and 6 0 Ethilon interrupted sutures. Very good wound approximation and controlled bleeding achieved. Radiology over-reads as below Technique: Helical axial sections were obtained through the facial skeleton, mandible and adjacent structures without intravenous contrast material. Comparison: None Findings: Minimally displaced bilateral nasal bone fractures (series 6 image 118) and (series 6 image 106). Small laceration along the right anterior nose. There is a 1-2 millimeter focus of hyperattenuation in the subcutaneous fat adjacent to the laceration suggestive of radiopaque foreign body (series 2, image 123). Right forehead laceration and hematoma in the medial right forehead and periorbital soft tissues. The orbits and their contents are normal in appearance. There is no evidence for penetrating injury to the ocular globes. The lenses are situated in their normally expected anterior locations. No radiodense or metallic foreign body is demonstrated. No significant abnormality is demonstrated in the sinonasal cavities or adjacent structures. The sinonasal cavities are clear. The ostiomeatal complexes on each side are structurally normal and widely patent. Cerumen in the right external ear canal and left external ear canal. Unremarkable temporomandibular joints. The visualized portions of the brain are normal in appearance. Atherosclerotic calcifications at the carotid bifurcations. Multilevel cervical facet arthrosis. Impression: 1. Minimally displaced bilateral nasal bone fractures. 2. Small laceration along the right anterior nose. There is a 1-2 millimeter focus of hyperattenuation in the subcutaneous fat adjacent to the laceration suggestive of radiopaque foreign body (series 2, image 123). 3. Right forehead laceration and hematoma in the medial right forehead and periorbital soft tissues. TECHNIQUE: CT of the head without contrast. Coronal and sagittal reformats. Bone and soft tissue algorithms. COMPARISON: 01/28/2022 MRI FINDINGS: No acute intracranial hemorrhage or extra-axial collection. No evidence of acute cortical infarction. Chronic infarct in the left caudate nucleus. Prominent perivascular space in the right basal ganglia. No mass effect or midline shift. Moderate generalized parenchymal volume loss. Diffuse regions of decreased attenuation within the periventricular and subcortical white matter of both cerebral hemispheres most likely reflect chronic microvascular ischemic disease and age related change in this patient. Vascular calcifications within the carotid siphons. Orbital contents are normal. No calvarial fractures. No lytic or sclerotic osseous lesions within the calvarium or skull base. Scalp and other imaged soft tissue structures are normal. Mastoid air cells are clear. IMPRESSION: 1. No acute intracranial abnormality. 2. 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 3. Moderate parenchymal volume loss and chronic small vessel ischemic changes. No further events during time in the emergency department. Blood pressure was up just a little bit. Tolerated cares well. Anxious to leave. See patient discharge plan for further discussion Ice areas that hurt a few times daily over the next few days. sutures out in 7 days. antibiotic ointment for 4 days and then to a dry dressing. ok to get wet but try not to soak while sutures are in. for further scar reduction/wound healing if desired -- after the scab falls off, can apply daily vitamin e oil or something like maderma or silicone-containing ointments or bandaids daily. especially protect from sun exposure for the first 9 - 12 months. Watch for spreading redness after 2 days accompanied by heat, swelling, marked increase in pain, purulent drainage. Signs or symptoms of a concussion might be nausea or headache upon exertion which can also be an indication to back off that level of activity and reassess in a week.? Concussion can also be represented by smoldering nausea or smoldering headache, difficulty with concentration, mood lability, general somnolence, sense of persistent fog or dizziness/lightheadedness.? If these symptoms are becoming apparent and continuing beyond 7-10 days, be re-evaluated for further recommendations. Medical Records Medical records reviewed: Yes I reviewed the patient's medical records Discharge Plan Discharge Clinical Impression: Fracture of nasal bone, Closed head injury, Laceration of nose, Laceration of brow without complication, Abrasion Patient Disposition: Home w/ Parent or Adult Condition: Improved Instructions: Nasal Fracture (ED), Laceration (ED), Head Injury (ED) Additional Instructions: Ice areas that hurt a few times daily over the next few days. sutures out in 7 days. antibiotic ointment for 4 days and then to a dry dressing. ok to get wet but try not to soak while sutures are in. for further scar reduction/wound healing if desired -- after the scab falls off, can apply daily vitamin e oil or something like maderma or silicone-containing ointments or bandaids daily. especially protect from sun exposure for the first 9 - 12 months. Watch for spreading redness after 2 days accompanied by heat, swelling, marked increase in pain, purulent drainage. Signs or symptoms of a concussion might be nausea or headache upon exertion which can also be an indication to back off that level of activity and reassess in a week.? Concussion can also be represented by smoldering nausea or smoldering headache, difficulty with concentration, mood lability, general somnolence, sense of persistent fog or dizziness/lightheadedness.? If these symptoms are becoming apparent and continuing beyond 7-10 days, be re-evaluated for further recommendations. Prescriptions: No Action multivitamin Tablet 1 tab PO QAM acetaminophen [Tylenol Extra Strength] 500 mg tablet 1,000 - 2,000 mg PO Q6H PRN calcium carbonate-vitamin D3 [Calcium with Vitamin D] 600 mg-10 mcg (400 unit) tablet 1 tab PO BID mecobalamin (vitamin B12) 1,000 mcg tablet,chewable 1,000 mcg PO QDAY Qty: 90 1RF apalutamide 60 mg tablet 240 mg PO QDAY Qty: 120 1RF losartan 100 mg tablet 100 mg PO DAILY Patient Comments: Take 1 Tablet (100 mg) by mouth once daily. rosuvastatin 10 mg tablet 10 mg PO HS Patient Comments: Take 1 Tablet (10 mg) by mouth at bedtime. amlodipine 10 mg tablet 10 mg PO DAILY metformin 1,000 mg tablet 1,000 mg PO BID Patient Comments: Take 1 Tablet (1,000 mg) by mouth 2 times daily with meals. Rx Instructions: with meals furosemide 20 mg tablet 20 mg PO QDAY carvedilol 12.5 mg tablet 12.5 mg PO BID glucosamine-chondroitin [Osteo Bi-Flex] 250-200 mg tablet 2 tab PO DAILY Rx Instructions: give after food/meal melatonin 1 mg tablet 1 mg PO HS PRN cinnamon bark 500 mg capsule 500 mg PO BID Eligard (6 month) 45 mg syringe 45 mg subcut [id number] Xgeva 120 mg/1.7 mL (70 mg/mL) solution 120 mg subcut Q90D magnesium oxide 400 mg magnesium tablet 400 mg PO BID fexofenadine [Taya Allergy] 60 mg tablet 60 mg PO DAILY spironolactone 25 mg tablet 25 mg PO QAM Patient Comments: Take 1 Tablet (25 mg) by mouth every morning. Follow Up/Referrals: Adria Valentine MD [Primary Care Provider] - Stand Alone Forms: [facility] Info Instructions
--- NOTE | 2024-08-01 14:12 | CRLHL7_ITS ---
For Patients: As a result of the Century Cures Act, medical imaging exams and procedure reports are released immediately into your electronic medical record. You may view this report before your referring provider. If you have questions, please contact your health care provider. Indication: FALL, TRAUMA TO FACE Technique: Helical axial sections were obtained through the facial skeleton, mandible and adjacent structures without intravenous contrast material. Comparison: None Findings: Minimally displaced bilateral nasal bone fractures (series 6 image 118) and (series 6 image 106). Small laceration along the right anterior nose. There is a 1-2 millimeter focus of hyperattenuation in the subcutaneous fat adjacent to the laceration suggestive of radiopaque foreign body (series 2, image 123). Right forehead laceration and hematoma in the medial right forehead and periorbital soft tissues. The orbits and their contents are normal in appearance. There is no evidence for penetrating injury to the ocular globes. The lenses are situated in their normally expected anterior locations. No radiodense or metallic foreign body is demonstrated. No significant abnormality is demonstrated in the sinonasal cavities or adjacent structures. The sinonasal cavities are clear. The ostiomeatal complexes on each side are structurally normal and widely patent. Cerumen in the right external ear canal and left external ear canal. Unremarkable temporomandibular joints. The visualized portions of the brain are normal in appearance. Atherosclerotic calcifications at the carotid bifurcations. Multilevel cervical facet arthrosis. Impression: 1. Minimally displaced bilateral nasal bone fractures. 2. Small laceration along the right anterior nose. There is a 1-2 millimeter focus of hyperattenuation in the subcutaneous fat adjacent to the laceration suggestive of radiopaque foreign body (series 2, image 123). 3. Right forehead laceration and hematoma in the medial right forehead and periorbital soft tissues. Please note that all CT scans at this facility use dose modulation, iterative reconstruction, and/or weight-based dosing when appropriate to reduce radiation dose to as low as reasonably achievable. Dictated by Reinier Correa MD @ 08/01/2024 2:53:57 PM (Electronically Signed)
[2024-08-01 15:42] VITALS: BP 179/91; PULSE 75; RESP 18; O2SAT 96
== END 2024-08-01 15:52 | disposition home or self-care (01) ==
PROVIDERS: Emergency Provider Family Medicine; PCP Surgery
DX: S02.2XXB Fracture of nasal bones, initial encounter for open fracture (principal); S01.111A Laceration without foreign body of right eyelid and periocular area, initial encounter; S00.511A Abrasion of lip, initial encounter; W01.0XXA Fall on same level from slipping, tripping and stumbling without subsequent striking against object, initial encounter
CPT/HCPCS: 12011; 70450; 70486; 99283; 99284

== ENCOUNTER 2024-08-22 10:54 | Inpatient (IN) | payer MEDICARE, BC, SELFPAY ==
[2024-08-22] VITALS (23 sets, daily range): BP systolic 102–193; BP diastolic 42–94; PULSE 86–118; RESP 22–44; TEMP 36.6–37.2; O2SAT 85–95; BMI 35.1; BMI 30.7
--- NOTE | 2024-08-22 11:17 | ED_ITS ---
HPI - SOB/Dyspnea General Time Seen by Provider: 11:18 Date Seen: 08/22/24 Chief Complaint: Shortness of Breath/Dyspnea Stated Complaint: Shortness of Breath Time Seen by Provider: 08/22/24 11:11 Source: patient and RN notes reviewed Mode of arrival: ambulatory Limitations: no limitations History of Present Illness HPI Narrative: This 84-year-old male is coming in accompanied by and son with shortness of breath that started this morning. He notes that the shortness of breath started to come on this morning, notes dyspnea on exertion, symptoms were worsening. He notes no chest pain, no pain anywhere. He does have a baseline cough but has long-term seasonal allergies. His does not feel his cough is any different from his routine seasonal allergies. He fell to shortness of breath was worsening around 10:00 a.m. and they decided to make their way in here. He lives independently with his . He notes he slept poorly last night, is somewhat of a poor historian. He was noted to be incontinent of urine on arrival per nursing staff. Nursing staff noted that he has had a history of anemia that has required transfusion; he tells me that he does not recollect this. He is undergoing treatment for prostate cancer. He does have chronic heart failure as well. He has a history of atrial fibrillation but is not anticoagulated. 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 He is currently on Erleada and Lupron. He notes no leg swelling. He has not had any chills overnight. Denies any abdominal bloating, no abdominal symptoms. MD elicited complaint: shortness of breath Related Data Home Medications ?Medication ?Instructions ?Recorded ?Confirmed amlodipine 10 mg tablet 10 mg PO DAILY 03/14/22 08/05/24 losartan 100 mg tablet 100 mg PO DAILY 03/14/22 08/05/24 rosuvastatin 10 mg tablet 10 mg PO HS 03/14/22 08/05/24 metformin 1,000 mg tablet 1,000 mg PO BID 05/11/22 08/05/24 multivitamin 1 tab PO QAM 05/11/22 08/05/24 calcium 600 mg (as 1 tab PO BID 07/13/22 08/05/24 carbonate)-vitamin D3 10 mcg (400 unit) tablet (Calcium with Vitamin D) spironolactone 25 mg tablet 25 mg PO QAM 10/05/22 08/05/24 carvedilol 12.5 mg tablet 12.5 mg PO BID 07/02/23 08/05/24 cinnamon bark 500 mg capsule 500 mg PO BID 07/02/23 08/05/24 glucosamine-chondroitin 250 mg-200 2 tab PO DAILY 07/02/23 08/05/24 mg tablet (Osteo Bi-Flex) melatonin 1 mg tablet 1 mg PO HS PRN 07/02/23 08/05/24 denosumab 120 mg/1.7 mL (70 mg/mL) 120 mg subcut Q90D 07/03/23 08/05/24 subcutaneous solution (Xgeva) leuprolide acetate (6 month) 45 mg 45 mg subcut [id number] 07/03/23 08/05/24 (6 month) subcutaneous syringe (Eligard) magnesium oxide 400 mg PO BID 10/16/23 08/05/24 acetaminophen 500 mg tablet 1,000 - 2,000 mg PO Q6H PRN 01/30/24 08/05/24 (Tylenol Extra Strength) fexofenadine 60 mg tablet (Taya 60 mg PO DAILY 02/22/24 08/05/24 Allergy) furosemide 20 mg tablet 20 mg PO QDAY 06/17/24 08/05/24 Previous Rx's ?Medication ?Instructions ?Recorded mecobalamin (vitamin B12) 1,000 1,000 mcg PO QDAY #90 tabs 12/27/23 mcg chewable tablet apalutamide 60 mg tablet 240 mg (4 x 60 mg) PO QDAY #120 05/01/24 tabs Allergies Allergy/AdvReac Type Severity Reaction Status Date / Time house dust Allergy Verified 08/22/24 12:17 cocaine Allergy Uncoded 08/22/24 12:17 feathers Allergy Uncoded 08/22/24 12:17 flu shot Allergy Uncoded 08/22/24 12:17 grain/feed dust Allergy Uncoded 08/22/24 12:17 tobacco Allergy Uncoded 08/22/24 12:17 Review of Systems Status of ROS: Reports: 6 or more systems reviewed and unremarkable except as noted in History and below [facility] Medical History IPMN (intraductal papillary mucinous neoplasm) ?D49.0 - Neoplasm of unspecified behavior of digestive system (ICD-10) Insomnia ?G47.00 - Insomnia, unspecified (ICD-10) Former smoker, stopped smoking in distant past ?Z87.891 - Personal history of nicotine dependence (ICD-10) Obesity (BMI 30.0-34.9) ?E66.9 - Obesity, unspecified (ICD-10) Allergic rhinitis ?J30.9 - Allergic rhinitis, unspecified (ICD-10) Rhinitis medicamentosa ?J31.0 - Chronic rhinitis (ICD-10) ?T48.5X5A - Adverse effect of other [id number] drugs, initial encounter (ICD-10) Chronic systolic heart failure ?I50.22 - Chronic systolic (congestive) heart failure (ICD-10) Diabetes mellitus type 2 in obese ?E11.69 - Type 2 diabetes mellitus with other specified complication (ICD-10) ?E66.9 - Obesity, unspecified (ICD-10) History of atrial fibrillation ?Z86.79 - Personal history of other diseases of the circulatory system (ICD- 10) Obstructive sleep apnea on CPAP ?G47.33 - Obstructive sleep apnea (adult) (pediatric) (ICD-10) Colon polyps ?K63.5 - Polyp of colon (ICD-10) Mixed hyperlipidemia ?E78.2 - Mixed hyperlipidemia (ICD-10) Essential hypertension ?I10 - Essential (primary) hypertension (ICD-10) Low back pain ?M54.50 - Low back pain, unspecified (ICD-10) Right hip pain ?M25.551 - Pain in right hip (ICD-10) Hydronephrosis, bilateral ?N13.30 - Unspecified hydronephrosis (ICD-10) Surgical History History of vasectomy ?Z98.52 - Vasectomy status (ICD-10) History of radical prostatectomy ?Z90.79 - Acquired absence of other genital organ(s) (ICD-10) History of ankle surgery ?Z98.890 - Other specified postprocedural states (ICD-10) S/P hip replacement ?Z96.649 - Presence of unspecified artificial hip joint (ICD-10) H/O colonoscopy with polypectomy ?Z98.890 - Other specified postprocedural states (ICD-10) ?Z86.010 - Personal history of colonic polyps (ICD-10) Status post coronary artery bypass graft ?Z95.1 - Presence of aortocoronary bypass graft (ICD-10) Family History Mother Lung cancer Paternal Grandmother Leukemia Maternal Grandmother Diabetes Brother Heart disease Social History Narrative: for 62 years. Lives with , Brenda, whom he designates as his power of assistant prosecuting attorney for health should that be required. Desires full resuscitation in event of cardiopulmonary demise. Primary care physician is Dr. Adria Valentine. What is your current living situation?: I presently have a place to live Problems where you live: no known problems Problems where you live details: None noted In the past 12 months, utilities in danger of being shut off: no In past 12 months, lack of transportation kept you from medical appts, meetings, work, or getting things needed for daily living: no In the past 12 mos, have been you worried that your food would run out before you had money to buy more?: never true In the past 12 mos, the food you bought just didn't last and you didn't have money to buy more?: never true Highest level of school completed/degree received: 12th grade, no diploma Smoking Status: Former smoker What tobacco products do you use: cigarettes Smoking quit date/years: >15 years ago Do you use any of these nicotine containing products: None Second hand tobacco smoke exposure: No How often do you have a drink containing alcohol: 2-4 times a month Alcohol type: beer How many standard drinks containing alcohol do you have on a typical day: 1 or 2 How often do you have six or more drinks on one occasion: Never AUDIT-C Alcohol total score: 2 Non-prescribed substance use: denies use Caffeine: No How often does anyone, including family, friends and others, physically hurt you : never How often does anyone, including family, friends and others, insult or talk down to you: never How often does anyone, including family, friends and others, threaten you with harm: never How often does anyone, including family, friends and others, scream or curse at you: never service: No Exam Const: Vital Signs, click to edit/add: Vital Signs - 24 hr 08/22/24 11:11 08/22/24 11:20 08/22/24 11:30 Temperature 98.7 F Pulse Rate 117 H 118 H Pulse Rate [Pulse Oximeter] 117 H Respiratory Rate 44 H 32 H Blood Pressure Blood Pressure [Le ft Upper Arm] 193/94 H Pulse Oximetry 89 89 95 Oxygen Delivery Me thod Room Air Oxygen Flow Rate 08/22/24 11:34 08/22/24 11:45 08/22/24 12:09 Temperature Pulse Rate 97 114 H Pulse Rate [Pulse Oximeter] Respiratory Rate 29 H Blood Pressure Blood Pressure [Le ft Upper Arm] Pulse Oximetry 91 92 85 L Oxygen Delivery Me thod Room Air Oxygen Flow Rate 08/22/24 12:13 08/22/24 12:14 08/22/24 12:15 Temperature Pulse Rate 111 H 111 H 108 H Pulse Rate [Pulse Oximeter] Respiratory Rate Blood Pressure 154/73 H Blood Pressure [Le ft Upper Arm] Pulse Oximetry 86 L 86 L 86 L Oxygen Delivery Me thod Oxygen Flow Rate 2 2 08/22/24 12:30 08/22/24 12:49 Temperature Pulse Rate 102 H 102 H Pulse Rate [Pulse Oximeter] Respiratory Rate Blood Pressure Blood Pressure [Le ft Upper Arm] Pulse Oximetry 93 88 Oxygen Delivery Me thod Oxygen Flow Rate 2 2 This 84-year-old gentleman is resting in bed, mildly tachypneic, speaking in short phrases, voice is not hoarse. Sclera clear, conjugate gaze, symmetrical facial function. Neck supple, do not appreciate significant jugular venous distension, no neck masses noted. He is able to sit up with some assistance, lungs sound clear, no wheezing or crackles. No accessory muscle use noted. CV is fast, sounds regular, no significant murmur noted. Abdomen is soft, nontender, nondistended, no organomegaly. He has absolutely no lower extremity edema. Patient was 89% on arrival but was ambulating in, at rest in bed he is in the low 90s with a good waveform. Will continue to monitor. Documenting provider has reviewed patient's vital signs: yes Course Course ED Course: This is an 84-year-old male with increasing shortness of breath, tachycardia w ithout any subjective symptoms of infection. Will consider infectious etiology with such things as COVID, influenza, will do triple viral swab. Will proceed with chest CT PE protocol which will look at thromboembolic disease given his active prostate cancer treatment, will look at the lung parenchyma closely. Will get full complement of labs including proBNP. His chest CT imaging will certainly help us delineate congestive heart failure. Patient minimally hypoxic with exertion on coming in, will continue to monitor his pulse oximetry. Reevaluation(s) Time of Reevaluation #1: 12:25 Reevaluation #1: Nursing staff reports that when patient came back from CT, oxygen saturation was 85%; placed on nasal cannula oxygen with slow return per report, respiratory therapy has been called to evaluate as well. D dimer is elevated, awaiting chest CT to be read. Respiratory therapy was in to see patient. Patient is known obstructive sleep apnea, long-term noncompliance with CPAP, does not want to use it. Time of Reevaluation #2: 13:59 Reevaluation #2: Have updated patient and his . He is known diabetic and believes that he is on metformin. Reviewed that his HA1C is 7.6%. We have reviewed his CT imaging is not showing any evidence of infection, no pulmonary embolus. I do think his worsening shortness of breath and hypoxia may be from congestive heart failure. I do recommend hospitalization as we cannot get him oxygen at home and doubt he will do well with his oxygens as low as they have been. Will talk to the hospitalist. Consultations Consultation #1: Spoke with Dr. Carlton. She accepts patient. We will try 40 mg IV Lasix, see he is on 20 mg baseline per our notes. Time: 14:12 Vital Signs Vital signs: Initial Vital Signs Respiratory Effort Labored, Short of Breath, Tachypnea 08/22/24 10:59 Respiratory Depth Shallow 08/22/24 10:59 Respiratory Pattern Tachypnea 08/22/24 10:59 Vital Signs Temperature 98.7 F 08/22/24 11:11 Pulse Rate 117 H 08/22/24 11:11 Respiratory Rate 44 H 08/22/24 11:11 Blood Pressure 193/94 H 08/22/24 11:11 Pulse Oximetry 89 08/22/24 11:11 Oxygen Delivery Method Room Air 08/22/24 11:11 Temperature 98.7 F 08/22/24 11:11 Pulse Rate 102 H 08/22/24 12:49 Respiratory Rate 29 H 08/22/24 12:09 Blood Pressure 154/73 H 08/22/24 12:13 Pulse Oximetry 88 08/22/24 12:49 Oxygen Delivery Method Room Air 08/22/24 12:09 Oxygen Flow Rate 2 08/22/24 12:49 MDM - SOB/Dyspnea Lab Data Attestation: I reviewed the patient's lab results. Labs: Lab Results 08/22/24 08/22/24 Range/Units 11:50 12:54 WBC 13.96 H (4.50-11.00) K/uL RBC 3.83 L (4.30-5.90) m/uL Hgb 11.7 L (13.5-17.5) gm/dL Hct 36.0 L (37.0-53.0) % MCV 94 (80-100) fL MCH 31 (26-34) pg MCHC 33 (32-36) gm/dL RDW Coeff of Abrahan 13.6 (11.5-15.5) % Plt Count 253 (140-440) K/uL Neut % (Auto) 92.2 H (42.0-72.0) % Lymph % (Auto) 3.1 L (20-44) % Harlan % (Auto) 3.6 (0.0-11.0) % Eos % (Auto) 0.5 (0.0-7.0) % Baso % (Auto) 0.1 (0.0-3.0) % Neut # (Auto) 12.90 H (1.7-7.0) K/uL Lymph # (Auto) 0.40 L (0.90-2.90) K/uL Harlan # (Auto) 0.50 (0.00-0.90) K/UL Eos # (Auto) 0.10 (0.00-0.50) K/uL Baso # (Auto) 0.00 (0.00-0.30) K/uL Abs Immat Gran (auto) 0.10 (0.00-0.30) K/uL Imm/Tot Granulo (auto) 0.5 % D-Dimer Quant (PE/DVT) 2.08 H (0.00-0.50) ug/ml VBG pH 7.433 H (7.32-7.43) VBG pCO2 43 (40-50) mmHG VBG pO2 68.7 H (25-47) mmHG VBG HCO3 29 H (21-28) mmol/L Sodium 135 (135-149) mmol/L Potassium 4.5 (3.6-5.1) mmol/L Chloride 98 (96-114) mmol/L Carbon Dioxide 29 (20-32) mmol/L Anion Gap 8 (7-15) mEq/L BUN 25 (7-30) mg/dL Creatinine 1.3 (0.5-1.5) mg/dL Estimated Creat Clear 42.30 Estimated GFR 54 ml/min Glucose 188 H (60-115) mg/dL Hemoglobin A1c 7.6 H (0-5.6) % Lactate 2.3 H (0.5-1.9) mmol/L Calcium 10.2 (8.4-10.6) mg/dL Total Bilirubin 0.5 (0.1-1.5) mg/dL AST 24 (12-35) U/L ALT 17 (4-50) U/L Alkaline Phosphatase 114 (40-150) U/L Troponin I < 0.01 L (0.01-0.04) ng/mL C-Reactive Protein 1.2 H (0.5-1.0) mg/dL NT-Pro-B Natriuret Pep 726 pg/mL Total Protein 7.4 (6.0-8.3) g/dL Albumin 4.3 (3.3-5.0) g/dL Procalcitonin 0.24 (<0.50) ng/mL SARS-CoV-2 (PCR) Negative SARS-CoV-2 (Negative) Influenza Type A (PCR) Negative PCR FLU A (Negative) Influenza Type B (PCR) Negative PCR FLU B (Negative) RSV (PCR) Negative PCR RSV (Negative) Lab Acknowledgement Test Added Imaging Data CT scan - chest: Attestation: I have reviewed the pertinent imaging results. Radiologist's impression: Patient: VALENTINO MONTANEZ Facility:?[facility] Patient ID:?[id number] Site Patient ID:?[id number]. Site :?[id number] Study:?CT-Chest Angio 95CC ISOVUE 370-08/22/2024 12:16:45 PM Ordering Physician:Cal Smith Final Report: INDICATION: SOB, tachycardia. TECHNIQUE: CT chest PE was acquired with 95 cc Isovue 370 IV contrast. COMPARISON: 07/02/2023, 01/28/2022. FINDINGS: Heart and vasculature: Contrast opacification of the pulmonary arterial tree is adequate. No sign of pulmonary embolism. Heart size is normal. Thoracic aorta and pulmonary artery are normal in caliber. Coronary artery calcifications. Atherosclerotic calcifications of the aorta and branch vessels. Lungs and pleura: No suspicious nodules or infiltrates. Calcified granulomas. Mild subsegmental atelectasis. No pleural effusions, pleural thickening, or pneumothorax. Lymph nodes/mediastinum: No pathologic mediastinal, hilar, or axillary adenopathy. Chest wall: No masses. Upper abdomen: No acute or significant findings. Calcified splenic granulomas. Bones: No acute findings. Multiple osseous sclerotic lesions seen most prominently in the spine that were present on the 07/02/2023 exam, but not seen on the 01/28/[address]22 exam. Sternal wires in place. IMPRESSION: 1. No acute findings. Specifically, no evidence of pulmonary embolism. 2. Multiple osseous sclerotic lesions consistent with known prostate cancer metastases. Findings communicated to MD Cornel (ordering provider) by MD Alex (radiology) at 12:45p by phone. Please note that all CT scans at this facility use dose modulation, iterative reconstruction, and/or weight-based dosing when appropriate to reduce radiation dose to as low as reasonably achievable. Dictated by Reinier Johnson MD @ 08/22/2024 12:50:59 PM (Electronic Signature) ECG Data Attestation: I personally reviewed and interpreted this ECG as follows: (Sinus tachycardia, 117 beats per minute. Right bundle branch block flipped T-waves laterally 1 in aVL.) ECG interpretation date: 08/22/24 ECG interpretation time: 11:23 Prior ECG tracings: available for review (Does not appear to be significantly different from 2022.) Discharge Plan Discharge Clinical Impression: Hypoxia, Shortness of breath Congestive heart failure Qualifiers: Heart failure type: unspecified Heart failure chronicity: acute on chronic Qualified Code(s): I50.9 - Heart failure, unspecified Patient Disposition: Admitted As Observation Prescriptions: No Action multivitamin Tablet 1 tab PO QAM acetaminophen [Tylenol Extra Strength] 500 mg tablet 1,000 - 2,000 mg PO Q6H PRN calcium carbonate-vitamin D3 [Calcium with Vitamin D] 600 mg-10 mcg (400 unit) tablet 1 tab PO BID mecobalamin (vitamin B12) 1,000 mcg tablet,chewable 1,000 mcg PO QDAY Qty: 90 1RF apalutamide 60 mg tablet 240 mg PO QDAY Qty: 120 1RF losartan 100 mg tablet 100 mg PO DAILY Patient Comments: Take 1 Tablet (100 mg) by mouth once daily. rosuvastatin 10 mg tablet 10 mg PO HS Patient Comments: Take 1 Tablet (10 mg) by mouth at bedtime. amlodipine 10 mg tablet 10 mg PO DAILY metformin 1,000 mg tablet 1,000 mg PO BID Patient Comments: Take 1 Tablet (1,000 mg) by mouth 2 times daily with meals. Rx Instructions: with meals furosemide 20 mg tablet 20 mg PO QDAY carvedilol 12.5 mg tablet 12.5 mg PO BID glucosamine-chondroitin [Osteo Bi-Flex] 250-200 mg tablet 2 tab PO DAILY Rx Instructions: give after food/meal melatonin 1 mg tablet 1 mg PO HS PRN cinnamon bark 500 mg capsule 500 mg PO BID Eligard (6 month) 45 mg syringe 45 mg subcut [id number] Xgeva 120 mg/1.7 mL (70 mg/mL) solution 120 mg subcut Q90D magnesium oxide 400 mg magnesium tablet 400 mg PO BID fexofenadine [Taya Allergy] 60 mg tablet 60 mg PO DAILY spironolactone 25 mg tablet 25 mg PO QAM Patient Comments: Take 1 Tablet (25 mg) by mouth every morning. Follow Up/Referrals: Adria Valentine MD [Primary Care Provider] -
--- NOTE | 2024-08-22 11:34 | CRLHL7_ITS ---
For Patients: As a result of the Century Cures Act, medical imaging exams and procedure reports are released immediately into your electronic medical record. You may view this report before your referring provider. If you have questions, please contact your health care provider. INDICATION: SOB, tachycardia. TECHNIQUE: CT chest PE was acquired with 95 cc Isovue 370 IV contrast. COMPARISON: 07/02/2023, 01/28/2022. FINDINGS: Heart and vasculature: Contrast opacification of the pulmonary arterial tree is adequate. No sign of pulmonary embolism. Heart size is normal. Thoracic aorta and pulmonary artery are normal in caliber. Coronary artery calcifications. Atherosclerotic calcifications of the aorta and branch vessels. Lungs and pleura: No suspicious nodules or infiltrates. Calcified granulomas. Mild subsegmental atelectasis. No pleural effusions, pleural thickening, or pneumothorax. Lymph nodes/mediastinum: No pathologic mediastinal, hilar, or axillary adenopathy. Chest wall: No masses. Upper abdomen: No acute or significant findings. Calcified splenic granulomas. Bones: No acute findings. Multiple osseous sclerotic lesions seen most prominently in the spine that were present on the 07/02/2023 exam, but not seen on the 01/28/[address]22 exam. Sternal wires in place. IMPRESSION: 1. No acute findings. Specifically, no evidence of pulmonary embolism. 2. Multiple osseous sclerotic lesions consistent with known prostate cancer metastases. Findings communicated to MD Cornel (ordering provider) by MD Alex (radiology) at 12:45p by phone. Please note that all CT scans at this facility use dose modulation, iterative reconstruction, and/or weight-based dosing when appropriate to reduce radiation dose to as low as reasonably achievable. Dictated by Reinier Johnson MD @ 08/22/2024 12:50:59 PM (Electronically Signed)
[2024-08-22 12:04] LABS: Basophils Percent Auto 0.1 % (0.0-3.0); Eosinophils Percent Auto 0.5 % (0.0-7.0); Hemoglobin* 11.7 gm/dL (13.5-17.5); Immature Granulocytes Pct Auto 0.5 %; Lymphocytes Percent Auto 3.1 % (20-44); Mean Corpuscular HGB Conc 33 gm/dL (32-36); Mean Corpuscular Hemoglobin 31 pg (26-34); Mean Corpuscular Volume 94 fL (80-100); Monocytes Percent Auto 3.6 % (0.0-11.0); Neutrophils Percent Auto 92.2 % (42.0-72.0); Platelet Count* 253 K/uL (140-440); RDW Coefficient of Variation % 13.6 % (11.5-15.5); Red Blood Count 3.83 m/uL (4.30-5.90); White Blood Count* 13.96 K/uL (4.50-11.00)
[2024-08-22 12:05] LABS: Slide Review Reflex No
[2024-08-22 12:07] LABS: HCO3 VBG 29 mmol/L (21-28); Lactate* 2.3 mmol/L (0.5-1.9); PCO2 VBG 43 mmHG (40-50); PO2 VBG 68.7 mmHG (25-47); pH VBG 7.433 (7.32-7.43)
[2024-08-22 12:16] LABS: Albumin* 4.3 g/dL (3.3-5.0); Chloride* 98 mmol/L (96-114); Sodium* 135 mmol/L (135-149)
[2024-08-22 12:17] LABS: Potassium* 4.5 mmol/L (3.6-5.1)
[2024-08-22 12:18] LABS: Creatinine* 1.3 mg/dL (0.5-1.5); Estimated Glomerular Filt Rate 54 ml/min
[2024-08-22 12:19] LABS: Alanine Aminotransferase* 17 U/L (4-50); Alkaline Phosphatase* 114 U/L (40-150); Anion Gap 8 mEq/L (7-15); Aspartate Amino Transferase* 24 U/L (12-35); Bilirubin Total* 0.5 mg/dL (0.1-1.5); Blood Urea Nitrogen* 25 mg/dL (7-30); Carbon Dioxide* 29 mmol/L (20-32); Total Protein* 7.4 g/dL (6.0-8.3)
[2024-08-22 12:20] LABS: Calcium* 10.2 mg/dL (8.4-10.6); Glucose* 188 mg/dL (60-115)
[2024-08-22 12:22] LABS: C Reactive Protein* 1.2 mg/dL (0.5-1.0); D Dimer Quantitative* 2.08 ug/ml (0.00-0.50)
[2024-08-22 12:35] LABS: NT Pro B Type NatriureticPept* 726 pg/mL; Troponin I* < 0.01 ng/mL (0.01-0.04)
[2024-08-22 12:36] LABS: Procalcitonin* 0.24 ng/mL (<0.50)
[2024-08-22 12:44] LABS: PCR FLU A Negative PCR FLU A (Negative); PCR FLU B Negative PCR FLU B (Negative); PCR RSV Negative PCR RSV (Negative); SARS PCR* Negative SARS-CoV-2 (Negative)
[2024-08-22 13:25] LABS: Hemoglobin A1C* 7.6 % (0-5.6)
--- NOTE | 2024-08-22 14:30 | P.IMHP_ITS ---
Hospitalist- H&P: HPI History of Present Illness Date Seen: 08/22/24 Chief complaint: Shortness of Breath Narrative: Hermann Garrett is a 84 year old male who presented to the ER with dyspnea. States he's had a hard time catching his breath today. Wasn't doing anything specific when symptoms started. No accompanying chest pain, no cough, no nausea or other GI symptoms. No recent travel, no sick contacts, no concerning LE edema. History of HFpEF and VI (intolerant of CPAP, poor sleep chronically). Known prostate cancer with bone metastases, stable. ER Course and Findings: - 85% on RA - negative troponin, BNP 726 (was 246 06/26) - sinus tachycardia on EKG, nonspecific T-wave changes, RBBB - no acute abnormalities on CTA of chest - WBC 13, 92% PMNs Admitted for acute hypoxic respiratory failure with concern for CHF exacerbation. Histories reviewed, PCP is Dr. Valentine at the [facility]. Review of Systems Narrative: - chronic back pain, unchanged - chronically poor sleep, occasional orthopnea PFSH [facility] Medical History (Updated 08/22/24 @ 18:22 by Ivon Carlton MD) Metastasis to bone ?C79.51 - Secondary malignant neoplasm of bone (ICD-10) (HFpEF) heart failure with preserved ejection fraction ?I50.30 - Unspecified diastolic (congestive) heart failure (ICD-10) IPMN (intraductal papillary mucinous neoplasm) ?D49.0 - Neoplasm of unspecified behavior of digestive system (ICD-10) Insomnia ?G47.00 - Insomnia, unspecified (ICD-10) Former smoker, stopped smoking in distant past ?Z87.891 - Personal history of nicotine dependence (ICD-10) Obesity (BMI 30.0-34.9) ?E66.9 - Obesity, unspecified (ICD-10) Allergic rhinitis ?J30.9 - Allergic rhinitis, unspecified (ICD-10) Rhinitis medicamentosa ?J31.0 - Chronic rhinitis (ICD-10) ?T48.5X5A - Adverse effect of other chdt-gdrfdk-tjbu drugs, initial encounter (ICD-10) Diabetes mellitus type 2 in obese ?E11.69 - Type 2 diabetes mellitus with other specified complication (ICD-10) ?E66.9 - Obesity, unspecified (ICD-10) History of atrial fibrillation ?Z86.79 - Personal history of other diseases of the circulatory system (ICD- 10) Obstructive sleep apnea on CPAP ?G47.33 - Obstructive sleep apnea (adult) (pediatric) (ICD-10) Colon polyps ?K63.5 - Polyp of colon (ICD-10) Mixed hyperlipidemia ?E78.2 - Mixed hyperlipidemia (ICD-10) Essential hypertension ?I10 - Essential (primary) hypertension (ICD-10) Low back pain ?M54.50 - Low back pain, unspecified (ICD-10) Right hip pain ?M25.551 - Pain in right hip (ICD-10) Hydronephrosis, bilateral ?N13.30 - Unspecified hydronephrosis (ICD-10) Surgical History History of vasectomy ?Z98.52 - Vasectomy status (ICD-10) History of radical prostatectomy ?Z90.79 - Acquired absence of other genital organ(s) (ICD-10) History of ankle surgery ?Z98.890 - Other specified postprocedural states (ICD-10) S/P hip replacement ?Z96.649 - Presence of unspecified artificial hip joint (ICD-10) H/O colonoscopy with polypectomy ?Z98.890 - Other specified postprocedural states (ICD-10) ?Z86.010 - Personal history of colonic polyps (ICD-10) Status post coronary artery bypass graft ?Z95.1 - Presence of aortocoronary bypass graft (ICD-10) Family History Mother Lung cancer Paternal Grandmother Leukemia Maternal Grandmother Diabetes Brother Heart disease Social History Narrative: for 62 years. 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 Desires full resuscitation in event of cardiopulmonary demise. Primary care physician is Dr. Adria Valentine. What is your current living situation?: I presently have a place to live Problems where you live: no known problems Problems where you live details: N/A In the past 12 months, utilities in danger of being shut off: no In past 12 months, lack of transportation kept you from medical appts, meetings, work, or getting things needed for daily living: no In the past 12 mos, have been you worried that your food would run out before you had money to buy more?: never true In the past 12 mos, the food you bought just didn't last and you didn't have money to buy more?: never true Highest level of school completed/degree received: 12th grade, no diploma Smoking Status: Former smoker What tobacco products do you use: cigarettes Smoking quit date/years: >15 years ago Do you use any of these nicotine containing products: None Second hand tobacco smoke exposure: No How often do you have a drink containing alcohol: 2-4 times a month Alcohol type: beer How many standard drinks containing alcohol do you have on a typical day: 1 or 2 How often do you have six or more drinks on one occasion: Never AUDIT-C Alcohol total score: 2 Non-prescribed substance use: denies use Caffeine: No How often does anyone, including family, friends and others, physically hurt you : never How often does anyone, including family, friends and others, insult or talk down to you: never How often does anyone, including family, friends and others, threaten you with harm: never How often does anyone, including family, friends and others, scream or curse at you: never service: No Meds Home Medications and Allergies Home Medications ?Medication ?Instructions ?Recorded ?Confirmed ?Type losartan 100 mg tablet 100 mg PO DAILY 03/14/22 08/22/24 History metformin 1,000 mg tablet 1,000 mg PO BID 05/11/22 08/22/24 History multivitamin 1 tab PO QAM 05/11/22 08/22/24 History calcium 600 mg (as 1 tab PO BID 07/13/22 08/22/24 History carbonate)-vitamin D3 10 mcg (400 unit) tablet (Calcium with Vitamin D) spironolactone 25 mg tablet 25 mg PO QAM 10/05/22 08/22/24 History carvedilol 12.5 mg tablet 12.5 mg PO BID 07/02/23 08/22/24 History cinnamon bark 500 mg capsule 500 mg PO BID 07/02/23 08/22/24 History glucosamine-chondroitin 250 mg-200 2 tab PO DAILY 07/02/23 08/22/24 History mg tablet (Osteo Bi-Flex) denosumab 120 mg/1.7 mL (70 mg/mL) 120 mg subcut Q90D 07/03/23 08/22/24 History subcutaneous solution (Xgeva) leuprolide acetate (6 month) 45 mg 45 mg subcut [id number] 07/03/23 08/22/24 History (6 month) subcutaneous syringe (Eligard) magnesium oxide 400 mg PO DAILY 10/16/23 08/22/24 History acetaminophen 500 mg tablet 1,000 mg PO Q6H PRN 01/30/24 08/22/24 History (Tylenol Extra Strength) fexofenadine 60 mg tablet (Taya 60 mg PO HS 02/22/24 08/22/24 History Allergy) furosemide 20 mg tablet 40 mg PO DAILY 06/17/24 08/22/24 History apalutamide 60 mg tablet 240 mg PO DAILY 08/22/24 08/22/24 History diphenhydramine HCl 25 mg capsule 50 mg PO HS 08/22/24 08/22/24 History (Banophen) fluticasone propionate 50 1 spray intranasal HS 08/22/24 08/22/24 History mcg/actuation nasal spray,suspension (Allergy Relief (fluticasone)) ramelteon 8 mg tablet 8 mg PO HS 08/22/24 08/22/24 History rosuvastatin 20 mg tablet 20 mg PO HS 08/22/24 08/22/24 History Allergies Allergy/AdvReac Type Severity Reaction Status Date / Time house dust Allergy Verified 08/22/24 12:17 cocaine Allergy Uncoded 08/22/24 12:17 feathers Allergy Uncoded 08/22/24 12:17 flu shot Allergy Uncoded 08/22/24 12:17 grain/feed dust Allergy Uncoded 08/22/24 12:17 tobacco Allergy Uncoded 08/22/24 12:17 Exam Narrative: Exam Narrative: GEN: Alert and oriented, nontoxic, sitting comfortably in bedside chair and breathing normally HEENT: Normal external ears, EOMIs bilaterally, no scleral icterus CV: Heart rate in the 80s, irregular rhythm, no concerning murmurs R: Fine bibasilar crackles, no wheezing, air movement adequate Ext: wwp, trace ankle edema Skin: Scattered SKs, no other concerning skin lesions or rashes on exposed skin Neuro: Nonfocal Psych: Appropriate Const: Vital Signs, click to edit/add: Vital Signs - 24 hr 08/22/24 11:11 08/22/24 11:20 08/22/24 11:30 Temperature 98.7 F Pulse Rate 117 H 118 H Pulse Rate [Pulse Oximeter] 117 H Respiratory Rate 44 H 32 H Blood Pressure Blood Pressure [Le ft Upper Arm] 193/94 H Pulse Oximetry 89 89 95 Oxygen Delivery Me thod Room Air Oxygen Flow Rate 08/22/24 11:34 08/22/24 11:45 08/22/24 12:09 Temperature Pulse Rate 97 114 H Pulse Rate [Pulse Oximeter] Respiratory Rate 29 H Blood Pressure Blood Pressure [Le ft Upper Arm] Pulse Oximetry 91 92 85 L Oxygen Delivery Me thod Room Air Oxygen Flow Rate 08/22/24 12:13 08/22/24 12:14 08/22/24 12:15 Temperature Pulse Rate 111 H 111 H 108 H Pulse Rate [Pulse Oximeter] Respiratory Rate Blood Pressure 154/73 H Blood Pressure [Le ft Upper Arm] Pulse Oximetry 86 L 86 L 86 L Oxygen Delivery Me thod Oxygen Flow Rate 2 2 08/22/24 12:30 08/22/24 12:49 Temperature Pulse Rate 102 H 102 H Pulse Rate [Pulse Oximeter] Respiratory Rate Blood Pressure Blood Pressure [Le ft Upper Arm] Pulse Oximetry 93 88 Oxygen Delivery Me thod Oxygen Flow Rate 2 2 Hospitalist - H&P: Result Labs Labs: Short CBC 08/22/24 Range/Units 11:50 WBC 13.96 H (4.50-11.00) K/uL Hgb 11.7 L (13.5-17.5) gm/dL Hct 36.0 L (37.0-53.0) % Plt Count 253 (140-440) K/uL BMP 08/22/24 11:50 Sodium 135 Potassium 4.5 Chloride 98 Carbon Dioxide 29 BUN 25 Creatinine 1.3 Glucose 188 H Calcium 10.2 Cardiac Enzymes 08/22/24 Range/Units 11:50 Troponin I < 0.01 L (0.01-0.04) ng/mL Liver Function 08/22/24 Range/Units 11:50 Total Bilirubin 0.5 (0.1-1.5) mg/dL AST 24 (12-35) U/L ALT 17 (4-50) U/L Alkaline Phosphatase 114 (40-150) U/L Albumin 4.3 (3.3-5.0) g/dL Assessment and Plan Assessment and plan (1) Acute hypoxic respiratory failure: Problem comment: - likely CHF exacerbation, VI also a consideration - no evidence of PE, pleural effusion, or PNA on imaging - reassuring EKG and negative troponin, no chest pain - repeat TTE, follow on telemetry, PT/OT/Respiratory therapy evaluations - supplemental oxygen as needed - received 40mg IV Lasix in ER 08/22, will add an additional 20mg of Furosemide daily to home doses of Furosemide (40mg daily) and Spironolactone (25mg daily) - daily weights, Is/Os, lytes Status: Acute (2) (HFpEF) heart failure with preserved ejection fraction: Problem comment: - previous TTE 04/2024 below, will update given change in status - on BB, Losartan, Spironolactone as GDMT Final Impressions: 1. Normal LV size, mildly increased wall thickness, normal global systolic function with an estimated EF of 55 - 60%. 2. Entire apex is abnormal. 3. Echo contrast was administered to enhance visualization of all left ventricular segments. 4. Right ventricular cavity size is moderately enlarged, global systolic RV function is mildly reduced. 5. Normal left atrium size. 6. The aortic valve is sclerotic, no stenosis and trivial regurgitation. 7. The mitral valve is mild mitral annular calcification (posterior), trace mitral regurgitation. 8. Tricuspid valve is normal. 9. No pericardial effusion. Status: Acute (3) Diabetes mellitus type 2 in obese: Problem comment: - last A1C 7.6 on 08/22/24 - accuchecks and SSI - continue home dose of Metformin while eating/drinking normally Status: Acute (4) Prostate cancer metastatic to multiple sites: Problem comment: - pT2b Nx Mx, [place] 3+4 = 7, S/P RRP, per Dr. Henry 07/02/01 - on Apalutamide daily, Eligard R6gmceps, Xgeva Q90 days Status: Acute Plan - per above - Lovenox and SCD for ppx Total Time Spent Total Time Spent: 62 minutes in total, including patient interview, review of outside records, ER data, plan of care
[2024-08-22] MEDS: FUROSEMIDE 10 MG/ML inj 40 MG IVP (14:49)
[2024-08-22] MEDS: INSULIN ASPART 100 UNIT/ML SUBCUT ×2 (18:16→21:52)
[2024-08-22] MEDS: ROSUVASTATIN CALCIUM 10 MG TABLET 20 MG PO (21:50)
[2024-08-22] MEDS: SODIUM CHLORIDE 0.9 % (FLUSH) 10 ML SYRINGE 5 ML IVF (21:51)
[2024-08-22] MEDS: carvediloL 6.25 MG TABLET 12.5 MG PO (21:51)
[2024-08-22] MEDS: METFORMIN 1,000 MG TABLET 1000 MG PO (21:51)
[2024-08-22] MEDS: FLUTICASONE PROPIONATE NASAL 1 SPRAY NOSTRIL-B (21:51)
[2024-08-23] VITALS (9 sets, daily range): BP systolic 125–149; BP diastolic 67–82; PULSE 72–101; RESP 18–20; TEMP 36.3–36.6; O2SAT 91–96
--- NOTE | 2024-08-23 05:42 | PC.NURSE ---
End of shift report [id number]: Alert and oriented x 4. Denies any pain, shortness of breath or chest pain this shift. O2 sats maintained >90% on RA throughout the night. Lung sounds clear bilaterally with fine crackles in bases. Bowel sounds active x 4 quadrants, denies any nausea or vomiting. Transfers and ambulates with SBA with walker and gait belt. Reports insomnia, patient has been followed by sleep specialist, Dr. Carlton updated with patient's reports of difficultly sleeping. No new orders at this time.
[2024-08-23 06:48] LABS: HCO3 VBG 30 mmol/L (21-28); PCO2 VBG 44 mmHG (40-50); PO2 VBG 47.2 mmHG (25-47); pH VBG 7.443 (7.32-7.43)
[2024-08-23 07:01] LABS: Basophils Absolute Auto 0.02 K/uL (0.00-0.30); Basophils Percent Auto 0.2 % (0.0-3.0); Eosinophils Absolute Auto 0.17 K/uL (0.00-0.50); Eosinophils Percent Auto 1.9 % (0.0-7.0); Hematocrit 31.3 % (37.0-53.0); Hemoglobin* 10.3 gm/dL (13.5-17.5); Immature Granulocytes Abs Auto 0.02 K/uL (0.00-0.30); Immature Granulocytes Pct Auto 0.2 %; Lymphocytes Percent Auto 9.4 % (20-44); Mean Corpuscular HGB Conc 33 gm/dL (32-36); Mean Corpuscular Hemoglobin 31 pg (26-34); Mean Corpuscular Volume 93 fL (80-100); Neutrophils Percent Auto 82.3 % (42.0-72.0); Platelet Count* 233 K/uL (140-440); RDW Coefficient of Variation % 13.9 % (11.5-15.5); Red Blood Count 3.35 m/uL (4.30-5.90); White Blood Count* 9.16 K/uL (4.50-11.00)
[2024-08-23 07:02] LABS: Slide Review Reflex No
[2024-08-23 07:14] LABS: Chloride* 97 mmol/L (96-114); Sodium* 133 mmol/L (135-149)
[2024-08-23 07:15] LABS: Potassium* 3.8 mmol/L (3.6-5.1)
[2024-08-23 07:17] LABS: Anion Gap 9 mEq/L (7-15); Carbon Dioxide* 27 mmol/L (20-32); Creatinine* 1.8 mg/dL (0.5-1.5); Est. Creatinine Clearance* 30.55; Estimated Glomerular Filt Rate 37 ml/min
[2024-08-23 07:18] LABS: Blood Urea Nitrogen* 38 mg/dL (7-30); Calcium* 9.1 mg/dL (8.4-10.6); Glucose* 147 mg/dL (60-115)
[2024-08-23 07:29] LABS: NT Pro B Type NatriureticPept* 1650 pg/mL
[2024-08-23 08:24] LABS: Lactate* 1.4 mmol/L (0.5-1.9)
[2024-08-23] MEDS: SPIRONOLACTONE 25 MG TABLET PO (09:52)
[2024-08-23] MEDS: carvediloL 6.25 MG TABLET 12.5 MG PO ×2 (09:52→21:02)
[2024-08-23] MEDS: FUROSEMIDE 20 MG TABLET 60 MG PO (09:52)
[2024-08-23] MEDS: LOSARTAN POTASSIUM 50 MG TABLET 100 MG PO (09:52)
[2024-08-23] MEDS: METFORMIN 1,000 MG TABLET 1000 MG PO (09:52)
[2024-08-23] MEDS: SODIUM CHLORIDE 0.9 % (FLUSH) 10 ML SYRINGE 5 ML IVF ×2 (09:56→20:59)
--- NOTE | 2024-08-23 09:57 | PM.IMPN1 ---
Progress Note: A&P Assessment and plan (1) Acute hypoxic respiratory failure: Problem details: - likely CHF exacerbation, known untreated VI also a consideration - no evidence of PE, pleural effusion, or PNA on imaging - reassuring EKG and negative troponin, no chest pain - repeat TTE (pending), follow on telemetry, PT/OT/Respiratory therapy evaluations - supplemental oxygen as needed - received 40mg IV Lasix in ER 08/22, will add an additional 20mg of Furosemide daily to home doses of Furosemide (40mg daily) and Spironolactone (25mg daily) - Cr increased today, see below. May be new normal with increased diuretic dose. Recheck in am. If stable, can probably discharge home tomorrow. - daily weights, Is/Os, lytes Status: Resolved (2) (HFpEF) heart failure with preserved ejection fraction: Problem details: - previous TTE 04/2024 below, will update given change in status - on BB, Losartan, Spironolactone as GDMT Final Impressions: 1. Normal LV size, mildly increased wall thickness, normal global systolic function with an estimated EF of 55 - 60%. 2. Entire apex is abnormal. 3. Echo contrast was administered to enhance visualization of all left ventricular segments. 4. Right ventricular cavity size is moderately enlarged, global systolic RV function is mildly reduced. 5. Normal left atrium size. 6. The aortic valve is sclerotic, no stenosis and trivial regurgitation. 7. The mitral valve is mild mitral annular calcification (posterior), trace mitral regurgitation. 8. Tricuspid valve is normal. 9. No pericardial effusion. Status: Acute (3) Diabetes mellitus type 2 in obese: Problem details: - last A1C 7.6 on 08/22/24 - accuchecks and SSI - holding Metformin due to increase in Cr Status: Acute (4) Prostate cancer metastatic to multiple sites: Problem details: - pT2b Nx Mx, [place] 3+4 = 7, S/P RRP, per Dr. Henry 07/02/01 - on Apalutamide daily, Eligard [id number], Xgeva Q90 days Status: Chronic (5) Obstructive sleep apnea on CPAP: Problem details: - not compliant with CPAP, pre-contemplative - I've asked RT to see patient and for him to f/u with sleep medicine as outpatient to restart CPAP (may need readjustment) Status: Chronic (6) Essential hypertension: Problem details: - continue home meds Status: Chronic (7) Renal failure (ARF), acute on chronic: Problem details: - CKD stage 3, baseline Cr: 06/21/24 Cr 1.49 ([facility]) 07/30/24 Cr 1.3 08/22/24 Cr 1.3, was given extra furosemide and had CTA (IV contrast) - Cr elevated today 08/23/24 Cr 1.8. Maybe secondary to extra diuretic and IV contrast given yesterday vs new normal now with CHF, need for increased diuretic. Continue current diuretic doses (slight increase of oral furosemide from home dosing, already given this morning). Hold metformin for now and recheck Cr in am. Status: Acute Time Spent With Patient Total time spent: Today I spent 50minutes seeing the patient, reviewing [facility] and EPIC notes/diagnostics/labs, discussing the care plan with our care time that includes social work, PT/OT, pharmacy, RT, jail and documenting my impressions and plan in the medical record. I also called his and spoke with her, answered her questions and went back to see the patient to speak with him about my discussion with his . Subjective Time Seen by Provider: 08:55 Date Seen: 08/23/24 Interval history: Erv said he feels better and told me that he wants to go home and his is adamant that he go home today (she was not here yet today). We discussed hypoxia (which has resolved), ARF on CKD, CHF, VI, CPAP use. Exam Narrative: Exam Narrative: Weight noted, but appears to be inaccurate. General: No acute distress. Awake, alert, oriented x3. No pallor. No jaundice. Not currently on oxygen. Oropharynx: Clear. Mucous membranes moist. Cardiovascular: RRR. No murmurs, gallops, or rubs. Respiratory: No respiratory distress. Able to talk in complete sentences. Clear to auscultation bilaterally. No wheezes or crackles. Abdomen: Bowel sounds present. Soft, nondistended, nontender. Extremities: No lower extremity edema. Const: Vital Signs, click to edit/add: Vital Signs - 24 hr 08/22/24 11:11 08/22/24 11:20 08/22/24 11:30 Temperature 98.7 F Pulse Rate 117 H 118 H Pulse Rate [Pulse Oximeter] 117 H Pulse Rate [Radial ] Respiratory Rate 44 H 32 H Blood Pressure Blood Pressure [Le ft Arm] Blood Pressure [Le ft Upper Arm] 193/94 H Pulse Oximetry 89 89 95 Oxygen Delivery Me thod Room Air Oxygen Flow Rate 08/22/24 11:34 08/22/24 11:45 08/22/24 12:09 Temperature Pulse Rate 97 114 H Pulse Rate [Pulse Oximeter] Pulse Rate [Radial ] Respiratory Rate 29 H Blood Pressure Blood Pressure [Le ft Arm] Blood Pressure [Le ft Upper Arm] Pulse Oximetry 91 92 85 L Oxygen Delivery Me thod Room Air Oxygen Flow Rate 08/22/24 12:13 08/22/24 12:14 08/22/24 12:15 Temperature Pulse Rate 111 H 111 H 108 H Pulse Rate [Pulse Oximeter] Pulse Rate [Radial ] Respiratory Rate Blood Pressure 154/73 H Blood Pressure [Le ft Arm] Blood Pressure [Le ft Upper Arm] Pulse Oximetry 86 L 86 L 86 L Oxygen Delivery Me thod Oxygen Flow Rate 2 2 08/22/24 12:30 08/22/24 12:49 08/22/24 13:00 Temperature Pulse Rate 102 H 102 H 103 H Pulse Rate [Pulse Oximeter] Pulse Rate [Radial ] Respiratory Rate Blood Pressure Blood Pressure [Le ft Arm] Blood Pressure [Le ft Upper Arm] Pulse Oximetry 93 88 89 Oxygen Delivery Me thod Oxygen Flow Rate 2 2 08/22/24 13:15 08/22/24 13:30 08/22/24 13:45 Temperature Pulse Rate 88 107 H 90 Pulse Rate [Pulse Oximeter] Pulse Rate [Radial ] Respiratory Rate Blood Pressure Blood Pressure [Le ft Arm] Blood Pressure [Le ft Upper Arm] Pulse Oximetry 89 89 90 Oxygen Delivery Me thod Oxygen Flow Rate 08/22/24 14:00 08/22/24 14:44 08/22/24 14:45 Temperature Pulse Rate 101 H 94 Pulse Rate [Pulse Oximeter] Pulse Rate [Radial ] Respiratory Rate Blood Pressure 134/78 Blood Pressure [Le ft Arm] Blood Pressure [Le ft Upper Arm] Pulse Oximetry 90 88 Oxygen Delivery Me thod Oxygen Flow Rate 08/22/24 15:00 08/22/24 16:29 08/22/24 16:29 Temperature 97.8 F Pulse Rate 91 Pulse Rate [Pulse Oximeter] Pulse Rate [Radial ] 104 H Respiratory Rate 28 H 28 H Blood Pressure Blood Pressure [Le ft Arm] 142/78 H Blood Pressure [Le ft Upper Arm] Pulse Oximetry 89 91 91 Oxygen Delivery Me thod Room Air Room Air Oxygen Flow Rate 2 08/22/24 18:27 08/22/24 20:29 08/22/24 23:00 Temperature 99.0 F Pulse Rate 107 H 94 Pulse Rate [Pulse Oximeter] Pulse Rate [Radial ] 96 Respiratory Rate 22 Blood Pressure Blood Pressure [Le ft Arm] 115/66 Blood Pressure [Le ft Upper Arm] Pulse Oximetry 92 Oxygen Delivery Me thod Room Air Oxygen Flow Rate 08/22/24 23:00 08/22/24 23:00 08/22/24 23:00 Temperature 99.0 F Pulse Rate Pulse Rate [Pulse Oximeter] Pulse Rate [Radial ] 96 86 Respiratory Rate 22 22 22 Blood Pressure Blood Pressure [Le ft Arm] 102/42 L Blood Pressure [Le ft Upper Arm] Pulse Oximetry 92 92 Oxygen Delivery Me thod Room Air Room Air Oxygen Flow Rate 08/23/24 03:00 08/23/24 07:43 Temperature 97.8 F Pulse Rate 94 Pulse Rate [Pulse Oximeter] Pulse Rate [Radial ] 94 Respiratory Rate 18 Blood Pressure Blood Pressure [Le ft Arm] 136/69 Blood Pressure [Le ft Upper Arm] Pulse Oximetry 91 Oxygen Delivery Me thod Room Air Oxygen Flow Rate Labs Labs: Laboratory Results - last 24 hr 08/22/24 08/22/24 08/23/24 11:50 12:54 06:31 WBC 13.96 H 9.16 RBC 3.83 L 3.35 L Hgb 11.7 L 10.3 L Hct 36.0 L 31.3 L MCV 94 93 MCH 31 31 MCHC 33 33 RDW Coeff of Abrahan 13.6 13.9 Plt Count 253 233 Neut % (Auto) 92.2 H 82.3 H Lymph % (Auto) 3.1 L 9.4 L [place] % (Auto) 3.6 6.0 Eos % (Auto) 0.5 1.9 Baso % (Auto) 0.1 0.2 Neut # (Auto) 12.90 H 7.50 H Lymph # (Auto) 0.40 L 0.90 [place] # (Auto) 0.50 0.50 Eos # (Auto) 0.10 0.17 Baso # (Auto) 0.00 0.02 Abs Immat Gran (auto) 0.10 0.02 Imm/Tot Granulo (auto) 0.5 0.2 D-Dimer Quant (PE/DVT) 2.08 H VBG pH 7.433 H 7.443 H VBG pCO2 43 44 VBG pO2 68.7 H 47.2 H VBG HCO3 29 H 30 H Sodium 135 133 L Potassium 4.5 3.8 Chloride 98 97 Carbon Dioxide 29 27 Anion Gap 8 9 BUN 25 38 H Creatinine 1.3 1.8 H Estimated Creat Clear 42.30 30.55 Estimated GFR 54 37 Glucose 188 H 147 H Hemoglobin A1c 7.6 H Lactate 2.3 H Calcium 10.2 9.1 Total Bilirubin 0.5 AST 24 ALT 17 Alkaline Phosphatase 114 Troponin I < 0.01 L C-Reactive Protein 1.2 H NT-Pro-B Natriuret Pep 726 1650 Total Protein 7.4 Albumin 4.3 Procalcitonin 0.24 SARS-CoV-2 (PCR) Negative SARS-CoV-2 Influenza Type A (PCR) Negative PCR FLU A Influenza Type B (PCR) Negative PCR FLU B RSV (PCR) Negative PCR RSV Lab Acknowledgement Test Added 08/23/24 08:10 WBC RBC Hgb Hct MCV MCH MCHC RDW Coeff of Abrahan Plt Count Neut % (Auto) Lymph % (Auto) [place] % (Auto) Eos % (Auto) Baso % (Auto) Neut # (Auto) Lymph # (Auto) [place] # (Auto) Eos # (Auto) Baso # (Auto) Abs Immat Gran (auto) Imm/Tot Granulo (auto) D-Dimer Quant (PE/DVT) VBG pH VBG pCO2 VBG pO2 VBG HCO3 Sodium Potassium Chloride Carbon Dioxide Anion Gap BUN Creatinine Estimated Creat Clear Estimated GFR Glucose Hemoglobin A1c Lactate 1.4 Calcium Total Bilirubin AST ALT Alkaline Phosphatase Troponin I C-Reactive Protein NT-Pro-B Natriuret Pep Total Protein Albumin Procalcitonin SARS-CoV-2 (PCR) Influenza Type A (PCR) Influenza Type B (PCR) RSV (PCR) Lab Acknowledgement
--- NOTE | 2024-08-23 10:26 | RESP.RT ---
Patient has been non compliant with CPAP therapy stating that he finds the CPAP mask uncomfortable and will not sleep with it on. We reviewed the benefits and trouble shooting options to make the CPAP more comfortable.
[2024-08-23] MEDS: PERFLUTREN LIPID MICROSPHERES 2 ML VIAL IVP (12:59)
[2024-08-23] MEDS: INSULIN ASPART 100 UNIT/ML SUBCUT ×3 (13:27→20:57)
[2024-08-23] MEDS: ACETAMINOPHEN 325 MG TABLET 975 MG PO (14:39)
[2024-08-23] MEDS: LIDOCAINE 5% PATCH 1 PATCH TRANSDERMA (18:08)
[2024-08-23] MEDS: ROSUVASTATIN CALCIUM 10 MG TABLET 20 MG PO (20:55)
[2024-08-23] MEDS: diphenhydrAMINE 25 MG CAPSULE 50 MG PO (20:56)
[2024-08-23] MEDS: FLUTICASONE PROPIONATE NASAL 1 SPRAY NOSTRIL-B (20:56)
[2024-08-23] MEDS: ENOXAPARIN 40 MG/0.4 ML INJ SUBCUT (21:02)
[2024-08-24 03:00] VITALS: BP 128/71; PULSE 99; RESP 18; TEMP 36.9; O2SAT 91
--- NOTE | 2024-08-24 05:38 | PC.NURSE ---
Shift note: Pt is doing well ambulating with SBA in room and A1 with walker in hallway. Alert and oriented. He appeared to gain about 3Lb compared to last night. Denied SOB, chest pain and palpitation. Pt has been on room air throughout the shift and tolerating well. Pain level rated at 2 and no PRN med requested. Patient's sleep was interrupted with urinary frequency. He was up early at 0400.
[2024-08-24 06:39] LABS: Basophils Absolute Auto 0.03 K/uL (0.00-0.30); Basophils Percent Auto 0.4 % (0.0-3.0); Eosinophils Absolute Auto 0.23 K/uL (0.00-0.50); Eosinophils Percent Auto 3.4 % (0.0-7.0); Hematocrit 33.4 % (37.0-53.0); Immature Granulocytes Abs Auto 0.02 K/uL (0.00-0.30); Immature Granulocytes Pct Auto 0.3 %; Mean Corpuscular HGB Conc 33 gm/dL (32-36); Mean Corpuscular Hemoglobin 31 pg (26-34); Mean Corpuscular Volume 93 fL (80-100); Monocytes Percent Auto 9.6 % (0.0-11.0); Neutrophils Percent Auto 74.3 % (42.0-72.0); Platelet Count* 270 K/uL (140-440); RDW Coefficient of Variation % 13.7 % (11.5-15.5); Red Blood Count 3.59 m/uL (4.30-5.90); White Blood Count* 6.86 K/uL (4.50-11.00)
[2024-08-24 06:44] LABS: Slide Review Reflex No
[2024-08-24 06:49] LABS: Chloride* 101 mmol/L (96-114); Potassium* 3.9 mmol/L (3.6-5.1); Sodium* 134 mmol/L (135-149)
[2024-08-24 06:52] LABS: Anion Gap 8 mEq/L (7-15); Blood Urea Nitrogen* 38 mg/dL (7-30); Carbon Dioxide* 25 mmol/L (20-32); Creatinine* 1.8 mg/dL (0.5-1.5); Est. Creatinine Clearance* 30.55; Estimated Glomerular Filt Rate 37 ml/min; Glucose* 162 mg/dL (60-115)
[2024-08-24 08:00] VITALS: BP 131/75; PULSE 97; RESP 18; TEMP 36.7; O2SAT 93
[2024-08-24] MEDS: INSULIN ASPART 100 UNIT/ML SUBCUT (08:28)
[2024-08-24] MEDS: carvediloL 6.25 MG TABLET 12.5 MG PO (08:29)
[2024-08-24] MEDS: MULTIVITAMIN/MINERALS 1 TABLET 1 TAB PO (08:29)
[2024-08-24] MEDS: LOSARTAN POTASSIUM 50 MG TABLET 100 MG PO (08:29)
[2024-08-24] MEDS: SPIRONOLACTONE 25 MG TABLET PO (08:29)
[2024-08-24] MEDS: MAGNESIUM OXIDE 400 MG TABLET PO (08:29)
[2024-08-24] MEDS: FUROSEMIDE 20 MG TABLET 60 MG PO (08:32)
--- NOTE | 2024-08-24 12:00 | PM.DS1 ---
DS: Providers Provider Date Seen: 08/24/24 Date of admission: 08/22/24 16:42 Primary care physician: Adria Valentine MD Admitting Clinician: Ivon Carlton MD Attending Physician on discharge: Adams York MD Date of Discharge: 08/24/24 DS: Diagnosis Discharge Diagnosis (1) Acute hypoxic respiratory failure: Status: Resolved Problem details: - likely CHF exacerbation, known untreated VI also a consideration - no evidence of PE, pleural effusion, or PNA on imaging - reassuring EKG and negative troponin, no chest pain - repeat TTE (pending), follow on telemetry, PT/OT/Respiratory therapy evaluations - supplemental oxygen as needed - received 40mg IV Lasix in ER 08/22, will add an additional 20mg of Furosemide daily to home doses of Furosemide (40mg daily) and Spironolactone (25mg daily) - Cr increased today, see below. May be new normal with increased diuretic dose. Recheck in am. If stable, can probably discharge home tomorrow. - daily weights, Is/Os, lytes (2) (HFpEF) heart failure with preserved ejection fraction: Status: Acute Problem details: - previous TTE 04/2024 below, will update given change in status - on BB, Losartan, Spironolactone as GDMT Final Impressions: 1. Normal LV size, mildly increased wall thickness, normal global systolic function with an estimated EF of 55 - 60%. 2. Entire apex is abnormal. 3. Echo contrast was administered to enhance visualization of all left ventricular segments. 4. Right ventricular cavity size is moderately enlarged, global systolic RV function is mildly reduced. 5. Normal left atrium size. 6. The aortic valve is sclerotic, no stenosis and trivial regurgitation. 7. The mitral valve is mild mitral annular calcification (posterior), trace mitral regurgitation. 8. Tricuspid valve is normal. 9. No pericardial effusion. (3) Obstructive sleep apnea on CPAP: Status: Chronic Problem details: Has fairly severe sleep apnea. He reports very poor sleep and chronic daytime sleepiness and fatigue. Recent adjustments to pressures on CPAP have been done. He has not been compliant with CPAP. Does have an appointment with sleep medicine in the next week. (4) Renal failure (ARF), acute on chronic: Status: Acute Problem details: Baseline creatinine around 1.3. With diuresis increased to 1.8 and was stable. Close follow-up as an outpatient. This increase in creatinine appears to be related to diuresis. Reviewing records shows that he does have a history of bilateral hydronephrosis related to prostate cancer. If creatinine is not improving consider reimaging of his abdomen to evaluate for hydronephrosis. (5) Prostate cancer metastatic to multiple sites: Status: Chronic Problem details: - pT2b Nx Mx, [place] 3+4 = 7, S/P RRP, per Dr. Henry 07/02/01 - on Apalutamide daily, Eligard [id number], Xgeva Q90 days (6) Cancer associated pain: Status: Acute Problem details: Has ongoing back pain from metastatic prostate cancer. Very poor candidate for opioids given untreated sleep apnea. DS: Summary Hospital Course Hospital Course: Hermann Garrett is a 84 year old male who presented to the ER with dyspnea. States he's had a hard time catching his breath today. Wasn't doing anything specific when symptoms started. No accompanying chest pain, no cough, no nausea or other GI symptoms. No recent travel, no sick contacts, no concerning LE edema. History of HFpEF and VI (intolerant of CPAP, poor sleep chronically). Known prostate cancer with bone metastases, stable. Evaluation emergency department: - 85% on RA - negative troponin, BNP 726 (was 246 06/26) - sinus tachycardia on EKG, nonspecific T-wave changes, RBBB - no acute abnormalities on CTA of chest - WBC 13, 92% PMNs He was treated with intravenous furosemide for presumed heart failure. He had relatively rapid resolution of his hypoxia. On admission his creatinine was 1.3. With diuresis it went up to 1.8. It remained stable at 1.8 on discharge. Patient is discharged on increased dose of furosemide, increased from 40 mg to 60 mg daily. Close follow-up to reassess respiratory status, volume status and basic metabolic panel. Status at Discharge Overall status at discharge: patient is back to baseline Time Spent with Patient Time attestation: Total time spent providing and/or coordinating discharge services: 40 minutes in coordination of care on the day of discharge Time spent: Greater than 30 minutes Exam Narrative: Exam Narrative: He is alert and appears in no distress. Breathing room air. Respirations are clear to auscultation without wheezing rales or rhonchi. Cardiovascular: S1, S2, regular rate and rhythm. Abdomen is soft without tenderness. Extremities without edema. Const: Vital Signs, click to edit/add: Vital Signs - 24 hr 08/23/24 15:00 08/23/24 15:00 08/23/24 18:14 Temperature 98 F Pulse Rate 92 Pulse Rate [Radial ] 72 Respiratory Rate 20 18 Blood Pressure [Le ft Arm] 128/68 Pulse Oximetry 96 94 Oxygen Delivery Me thod Room Air Room Air Oxygen Flow Rate 08/23/24 19:00 08/23/24 22:42 08/23/24 22:42 Temperature 98 F Pulse Rate Pulse Rate [Radial ] 97 101 H Respiratory Rate 18 18 18 Blood Pressure [Le ft Arm] 149/70 H Pulse Oximetry 93 91 Oxygen Delivery Me thod Room Air Room Air Oxygen Flow Rate 2 08/23/24 22:42 08/23/24 23:00 08/24/24 03:00 Temperature 98 F 98.4 F Pulse Rate 99 Pulse Rate [Radial ] 101 H 99 Respiratory Rate 18 18 Blood Pressure [Le ft Arm] 125/67 128/71 Pulse Oximetry 91 91 Oxygen Delivery Me thod Room Air Room Air Oxygen Flow Rate Documenting provider has reviewed patient's vital signs: yes DS: Data Data Completed and Pending Labs on day of discharge: Labs from last 24 hours 08/24/24 06:31 WBC 6.86 RBC 3.59 L Hgb 11.0 L Hct 33.4 L MCV 93 MCH 31 MCHC 33 RDW Coeff of Abrahan 13.7 Plt Count 270 Neut % (Auto) 74.3 H Lymph % (Auto) 12.0 L Collin % (Auto) 9.6 Eos % (Auto) 3.4 Baso % (Auto) 0.4 Neut # (Auto) 5.10 Lymph # (Auto) 0.80 L Collin # (Auto) 0.70 Eos # (Auto) 0.23 Baso # (Auto) 0.03 Abs Immat Gran (auto) 0.02 Imm/Tot Granulo (auto) 0.3 Sodium 134 L Potassium 3.9 Chloride 101 Carbon Dioxide 25 Anion Gap 8 BUN 38 H Creatinine 1.8 H Estimated Creat Clear 30.55 Estimated GFR 37 Glucose 162 H Calcium 9.[address] scan - chest: Radiologist's impression: INDICATION: SOB, tachycardia. TECHNIQUE: CT chest PE was acquired with 95 cc Isovue 370 IV contrast. COMPARISON: 07/02/2023, 01/28/2022. FINDINGS: Heart and vasculature: Contrast opacification of the pulmonary arterial tree is adequate. No sign of pulmonary embolism. Heart size is normal. Thoracic aorta and pulmonary artery are normal in caliber. Coronary artery calcifications. Atherosclerotic calcifications of the aorta and branch vessels. Lungs and pleura: No suspicious nodules or infiltrates. Calcified granulomas. Mild subsegmental atelectasis. No pleural effusions, pleural thickening, or pneumothorax. Lymph nodes/mediastinum: No pathologic mediastinal, hilar, or axillary adenopathy. Chest wall: No masses. Upper abdomen: No acute or significant findings. Calcified splenic granulomas. Bones: No acute findings. Multiple osseous sclerotic lesions seen most prominently in the spine that were present on the 07/02/2023 exam, but not seen on the 01/28/[address]22 exam. Sternal wires in place. IMPRESSION: 1. No acute findings. Specifically, no evidence of pulmonary embolism. 2. Multiple osseous sclerotic lesions consistent with known prostate cancer metastases. Discharge Plan Discharge Disposition: Home, Self-Care Date of Admission: 08/22/24 16:42 Attending Provider on Discharge: Fabien York Primary Care Provider: Adria Valentine Condition: Improved Anticipated Discharge Date/Time: 08/24/24 10:00 Discharge Medications: New furosemide 20 mg Tablet 60 mg PO DAILY Qty: 90 0RF Continued multivitamin Tablet 1 tab PO QAM acetaminophen [Tylenol Extra Strength] 500 mg tablet 1,000 mg PO Q6H PRN Rx Instructions: TAKES 2 TABS IN THE EVENING OFTEN AND SOMETIMES 3 TABLETS, UNSURE OF STRENGHT OF TABLET calcium carbonate-vitamin D3 [Calcium with Vitamin D] 600 mg-10 mcg (400 unit) tablet 1 tab PO BID mecobalamin (vitamin B12) 1,000 mcg tablet,chewable 1,000 mcg PO QDAY Qty: 90 1RF losartan 100 mg tablet 100 mg PO DAILY Patient Comments: Take 1 Tablet (100 mg) by mouth once daily. metformin 1,000 mg tablet 1,000 mg PO BID Patient Comments: Take 1 Tablet (1,000 mg) by mouth 2 times daily with meals. Rx Instructions: with meals furosemide 20 mg tablet 40 mg PO DAILY carvedilol 12.5 mg tablet 12.5 mg PO BID glucosamine-chondroitin [Osteo Bi-Flex] 250-200 mg tablet 2 tab PO DAILY Rx Instructions: give after food/meal cinnamon bark 500 mg capsule 500 mg PO BID Eligard (6 month) 45 mg syringe 45 mg subcut [id number] Xgeva 120 mg/1.7 mL (70 mg/mL) solution 120 mg subcut Q90D magnesium oxide 400 mg magnesium tablet 400 mg PO DAILY fexofenadine [Taya Allergy] 60 mg tablet 60 mg PO HS Rx Instructions: UNSURE OF STRENGTH spironolactone 25 mg tablet 25 mg PO QAM Patient Comments: Take 1 Tablet (25 mg) by mouth every morning. rosuvastatin 20 mg tablet 20 mg PO HS apalutamide 60 mg tablet 240 mg PO DAILY ramelteon 8 mg tablet 8 mg PO HS fluticasone propionate [Allergy Relief (fluticasone)] 50 mcg/actuation spray,suspension 1 spray intranasal HS Rx Instructions: administer into each nostril diphenhydramine HCl [Banophen] 25 mg capsule 50 mg PO HS Discharge Orders: Discharge Order (Routine); Ordered 08/24/24 Ordered By: Fabien York Patient Education: Furosemide (By mouth), Heart Failure (DC) Additional Instructions: I have increased your furosemide dose from 40 mg to 60 mg daily. Please check your weight every day in the morning when you wake up and keep a record of this weight to show to your doctor. If your weight goes up 2 lb in a day or 3 lb in a week it may mean you are retaining fluid. I think your sleep apnea is the primary cause of your fatigue. If you can get your CPAP to work better and use it regularly I believe you will feel much better during the day and sleep better at night. Work with your doctor to get your CPAP working for you. Activity Level: Activity as Tolerated Discharge Diet: 2 gm Sodium Follow Up Appointments: Maico Feliz MD [Referring] - 08/26/24 11:15 am ([facility] for follow up and BMP draw. PCP was unavailable during desired time frame ) Adria Valentine MD [Primary Care Provider] - () Trav Guerrier MD [Referring] - () Forms: [facility] Info Instructions
== END 2024-08-24 11:07 | disposition home or self-care (01) | DRG 291 ==
LOC: ED 14:15 → MEDSURG 15:08
PROVIDERS: Family Medicine; Student in an Organized Health Care Education/Training Program; Admitting Provider Family Medicine; Emergency Provider Family Medicine; PCP Surgery; Visit Provider Family Medicine
DX: I13.0 Hypertensive heart and chronic kidney disease with heart failure and stage 1 through stage 4 chronic kidney disease, or unspecified chronic kidney disease (principal); I50.33 Acute on chronic diastolic (congestive) heart failure; J96.01 Acute respiratory failure with hypoxia; C79.51 Secondary malignant neoplasm of bone; N17.9 Acute kidney failure, unspecified; G47.33 Obstructive sleep apnea (adult) (pediatric); N18.9 Chronic kidney disease, unspecified; E11.22 Type 2 diabetes mellitus with diabetic chronic kidney disease; R32 Unspecified urinary incontinence; Z99.89 Dependence on other enabling machines and devices; C61 Malignant neoplasm of prostate; I48.91 Unspecified atrial fibrillation; E66.9 Obesity, unspecified; Z79.84 Long term (current) use of oral hypoglycemic drugs; Z87.891 Personal history of nicotine dependence; I45.10 Unspecified right bundle-branch block; E78.2 Mixed hyperlipidemia; G89.3 Neoplasm related pain (acute) (chronic)
CPT/HCPCS: 36415; 71275; 80048; 80053; 82803; 82962; 83036; 83605; 83880; 84145; 84484; 85025; 85379; 86140; 87631; 93005; 93306; 93308; 93321; 93325; 94761; 97116; 97161; 97165; 97535; 99284; 99285; A9153; A9270; J1650; J1940; Q9957; Q9967

== ENCOUNTER 2024-09-18 20:44 | Outpatient (CLI) | payer MEDICARE, BC, SELFPAY | END 2024-09-18 20:45 | disposition home or self-care (01) | LOC: SLEEP 20:45 | PROVIDERS: PCP Surgery; Visit Provider Internal Medicine | DX: G47.33 Obstructive sleep apnea (adult) (pediatric) (principal); R00.0 Tachycardia, unspecified | CPT/HCPCS: 95811; A9270 ==

== ENCOUNTER 2024-09-27 01:10 | Outpatient (CLI) | payer MEDICARE, BC, SELFPAY | END 2024-09-27 01:11 | disposition home or self-care (01) | LOC: AMB 10-06 05:28 | PROVIDERS: PCP Surgery; Visit Provider Internal Medicine | DX: R07.81 Pleurodynia (principal); R53.1 Weakness | CPT/HCPCS: A0425; A0427 ==

== ENCOUNTER 2024-09-27 01:44 | Emergency (ER) | payer MEDICARE, BC, SELFPAY ==
--- NOTE | 2024-09-27 01:56 | CRLHL7_ITS ---
For Patients: As a result of the Cures Act, medical imaging exams and procedure reports are released immediately into your electronic medical record. You may view this report before your referring provider. If you have questions, please contact your health care provider. INDICATION: Chest pain TECHNIQUE: Chest radiograph 1 view COMPARISON: 07/02/2023 FINDINGS: The sensitivity and specificity of the exam are severely limited by the patient`s body habitus. Mediastinum: Previous median sternotomy and coronary artery bypass grafting (CABG) noted. The heart silhouette is normal in size and morphology. Lung: There is a 4 mm calcified granuloma present in the left lobe without change. Small lung volumes are present with mild left basilar atelectasis and pulmonary vascular congestion. No sign of pleural effusion seen. No pneumothorax is identified. Bone and Soft tissue: Unremarkable for age. IMPRESSION: 1. Small lung volumes are present with mild left basilar atelectasis and pulmonary vascular congestion. Dictated by Glenn Bustos MD @ 09/27/2024 2:21:42 AM Dictated by: Glenn Bustos MD @ 09/27/2024 02:21:43 (Electronically Signed)
--- NOTE | 2024-09-27 01:57 | ED_ITS ---
HPI - General Adult General Chief complaint: Weakness Stated complaint: Weakness Time Seen by Provider: 09/27/24 01:56 History of Present Illness HPI narrative: Patient is a 84-year-old gentleman who presents after having chest pain 2 hours ago while on the toilet. Patient has a history of coronary disease as well as heart failure with preserved ejection fraction. He does use CPAP for sleep apnea has renal insufficiency. The pain is severe and right-sided in the lower chest wall. He was able take some deep breaths and with assistance get off the toilet. Patient called for an ambulance and upon arrival his pain began to subside significantly. Initially the pain was just with motion. He had no overt chest pain shortness a breath orthopnea no PND no nausea no vomiting. Patient now is feeling fine he can move his chest without any difficulty. EKG upon arrival upon my review shows no acute ST or T-wave changes. Chronic appearing right bundle branch block noted. Related Data Home Medications ?Medication ?Instructions ?Recorded ?Confirmed losartan 100 mg tablet 100 mg PO DAILY 03/14/22 09/16/24 metformin 1,000 mg tablet 1,000 mg PO BID 05/11/22 09/16/24 multivitamin 1 tab PO QAM 05/11/22 09/16/24 calcium 600 mg (as 1 tab PO BID 07/13/22 09/16/24 carbonate)-vitamin D3 10 mcg (400 unit) tablet (Calcium with Vitamin D) spironolactone 25 mg tablet 25 mg PO QAM 10/05/22 09/16/24 carvedilol 12.5 mg tablet 12.5 mg PO BID 07/02/23 09/16/24 cinnamon bark 500 mg capsule 500 mg PO BID 07/02/23 09/16/24 glucosamine-chondroitin 250 mg-200 2 tab PO DAILY 07/02/23 09/16/24 mg tablet (Osteo Bi-Flex) denosumab 120 mg/1.7 mL (70 mg/mL) 120 mg subcut Q90D 07/03/23 09/16/24 subcutaneous solution (Xgeva) leuprolide acetate (6 month) 45 mg 45 mg subcut [id number] 07/03/23 09/16/24 (6 month) subcutaneous syringe (E[employer]) magnesium oxide 400 mg PO DAILY 10/16/23 09/16/24 acetaminophen 500 mg tablet 1,000 mg PO Q6H PRN 01/30/24 09/16/24 (Tylenol Extra Strength) fexofenadine 60 mg tablet (Taya 60 mg PO HS 02/22/24 09/16/24 Allergy) apalutamide 60 mg tablet 240 mg PO DAILY 08/22/24 09/16/24 diphenhydramine HCl 25 mg capsule 50 mg PO HS 08/22/24 09/16/24 (Banophen) fluticasone propionate 50 1 spray intranasal HS 08/22/24 09/16/24 mcg/actuation nasal spray,suspension (Allergy Relief (fluticasone)) ramelteon 8 mg tablet 8 mg PO HS 08/22/24 09/16/24 rosuvastatin 20 mg tablet 20 mg PO HS 08/22/24 09/16/24 Previous Rx's ?Medication ?Instructions ?Recorded mecobalamin (vitamin B12) 1,000 1,000 mcg PO QDAY #90 tabs 12/27/23 mcg chewable tablet furosemide 20 mg tablet 60 mg (3 x 20 mg) PO DAILY #90 tabs 08/24/24 Allergies Allergy/AdvReac Type Severity Reaction Status Date / Time house dust Allergy Verified 09/16/24 14:31 cocaine Allergy Uncoded 08/22/24 12:17 feathers Allergy Uncoded 08/22/24 12:17 flu shot Allergy Uncoded 08/22/24 12:17 grain/feed dust Allergy Uncoded 08/22/24 12:17 tobacco Allergy Uncoded 08/22/24 12:17 Review of Systems Status of ROS: Reports: 10 or more systems reviewed and unremarkable except as noted in History and below [facility] Medical History Metastasis to bone ?C79.51 - Secondary malignant neoplasm of bone (ICD-10) (HFpEF) heart failure with preserved ejection fraction ?I50.30 - Unspecified diastolic (congestive) heart failure (ICD-10) IPMN (intraductal papillary mucinous neoplasm) ?D49.0 - Neoplasm of unspecified behavior of digestive system (ICD-10) Insomnia ?G47.00 - Insomnia, unspecified (ICD-10) Former smoker, stopped smoking in distant past ?Z87.891 - Personal history of nicotine dependence (ICD-10) Obesity (BMI 30.0-34.9) ?E66.9 - Obesity, unspecified (ICD-10) Allergic rhinitis ?J30.9 - Allergic rhinitis, unspecified (ICD-10) Rhinitis medicamentosa ?J31.0 - Chronic rhinitis (ICD-10) ?T48.5X5A - Adverse effect of other xfbo-vlajpm-wyuf drugs, initial encounter (ICD-10) Diabetes mellitus type 2 in obese ?E11.69 - Type 2 diabetes mellitus with other specified complication (ICD-10) ?E66.9 - Obesity, unspecified (ICD-10) History of atrial fibrillation ?Z86.79 - Personal history of other diseases of the circulatory system (ICD- 10) Obstructive sleep apnea on CPAP ?G47.33 - Obstructive sleep apnea (adult) (pediatric) (ICD-10) Colon polyps ?K63.5 - Polyp of colon (ICD-10) Mixed hyperlipidemia ?E78.2 - Mixed hyperlipidemia (ICD-10) Essential hypertension ?I10 - Essential (primary) hypertension (ICD-10) Low back pain ?M54.50 - Low back pain, unspecified (ICD-10) Right hip pain ?M25.551 - Pain in right hip (ICD-10) Hydronephrosis, bilateral ?N13.30 - Unspecified hydronephrosis (ICD-10) Surgical History History of vasectomy ?Z98.52 - Vasectomy status (ICD-10) History of radical prostatectomy ?Z90.79 - Acquired absence of other genital organ(s) (ICD-10) History of ankle surgery ?Z98.890 - Other specified postprocedural states (ICD-10) S/P hip replacement ?Z96.649 - Presence of unspecified artificial hip joint (ICD-10) H/O colonoscopy with polypectomy ?Z98.890 - Other specified postprocedural states (ICD-10) ?Z86.010 - Personal history of colonic polyps (ICD-10) Status post coronary artery bypass graft ?Z95.1 - Presence of aortocoronary bypass graft (ICD-10) Family History Mother Lung cancer Paternal Grandmother Leukemia Maternal Grandmother Diabetes Brother Heart disease Social History Narrative: for 62 years. Lives with , Brenda, whom he designates as his power of criminal attorney for health should that be required. Desires full resuscitation in event of cardiopulmonary demise. Primary care physician is Dr. Adria Valentine. What is your current living situation?: I presently have a place to live Problems where you live: no known problems Problems where you live details: N/A In the past 12 months, utilities in danger of being shut off: no In past 12 months, lack of transportation kept you from medical appts, meetings, work, or getting things needed for daily living: no In the past 12 mos, have been you worried that your food would run out before you had money to buy more?: never true In the past 12 mos, the food you bought just didn't last and you didn't have money to buy more?: never true Highest level of school completed/degree received: 12th grade, no diploma Smoking Status: Former smoker What tobacco products do you use: cigarettes Smoking quit date/years: >15 years ago Do you use any of these nicotine containing products: None Second hand tobacco smoke exposure: No How often do you have a drink containing alcohol: 2-4 times a month Alcohol type: beer How many standard drinks containing alcohol do you have on a typical day: 1 or 2 How often do you have six or more drinks on one occasion: Never AUDIT-C Alcohol total score: 2 Non-prescribed substance use: denies use Caffeine: No How often does anyone, including family, friends and others, physically hurt you : never How often does anyone, including family, friends and others, insult or talk down to you: never How often does anyone, including family, friends and others, threaten you with harm: never How often does anyone, including family, friends and others, scream or curse at you: never service: No Exam Narrative: Exam Narrative: EXAM GENERAL: Patient appears comfortable and well. EYES: No scleral icterus. ENT: Tympanic membranes and oropharynx normal. THYROID: no thyroid nodules or thyromegaly. LYMPH: No supraclavicular or cervical lymphadenopathy. SKIN: Visible skin seen during exam normal or with benign process only. EXT: No dependent lower extremity pedal edema. HEART: Regular rate and rhythm with no murmurs, rubs, or gallops. LUNGS: Clear to auscultation bilaterally with no crackles or wheezes. ABD: Soft, non tender, non distended. PSYCH: Good eye contact, speech is not pressured. Const: Vital Signs, click to edit/add: Vital Signs - 24 hr 09/27/24 02:01 Temperature 97.9 F Pulse Rate [Pulse Oximeter] 85 Respiratory Rate 16 Blood Pressure [Ri ght Upper Arm] 146/89 H Pulse Oximetry 97 Oxygen Delivery Me thod Room Air Course Course ED Course: Troponin CBC basic metabolic panel chest x-ray pending. Vital Signs Vital signs: Initial Vital Signs Temperature 97.9 F 09/27/24 02:01 Temperature Source Temporal Artery Scan 09/27/24 02:01 Pulse Rate 85 09/27/24 02:01 Respiratory Rate 16 09/27/24 02:01 Blood Pressure 146/89 H 09/27/24 02:01 Blood Pressure Mean 108 H 09/27/24 02:01 Blood Pressure Position Supine 09/27/24 02:01 Pulse Oximetry 97 09/27/24 02:01 Oxygen Delivery Method Room Air 09/27/24 02:01 Vital Signs Temperature 97.9 F 09/27/24 02:01 Pulse Rate 85 09/27/24 02:01 Respiratory Rate 16 09/27/24 02:01 Blood Pressure 146/89 H 09/27/24 02:01 Pulse Oximetry 97 09/27/24 02:01 Oxygen Delivery Method Room Air 09/27/24 02:01 Temperature 97.9 F 09/27/24 02:01 Pulse Rate 85 09/27/24 02:01 Respiratory Rate 16 09/27/24 02:01 Blood Pressure 146/89 H 09/27/24 02:01 Pulse Oximetry 97 09/27/24 02:01 Oxygen Delivery Method Room Air 09/27/24 02:01 Medical Decision Making [facility] Narrative Medical decision making narrative: Patient presents with transient right-sided chest pain occurred while he is sitting on the toilet. He has had resolution of his symptoms now feels well. His symptoms occurred approximately 2 hours prior to coming in and troponin was negative EKG showed no acute abnormalities electrolytes and CBC were stable. I gave no medication and he is asymptomatic. No other concerns noted. Differential diagnosis includes but not limited to muscle strain cardiac pain chest wall strain pulmonary embolism pneumonia pneumothorax. I did not do a D- dimer as the patient has chronic renal sufficiency a think the clinical scenario does not fit with pulmonary embolism. Who treated symptomatically plenty of rest Tylenol Motrin follow-up as needed. Lab Data Labs: Lab Results 09/27/24 09/27/24 Range/Units 01:59 02:07 WBC 6.01 (4.50-11.00) K/uL RBC 3.36 L (4.30-5.90) m/uL Hgb 10.3 L (13.5-17.5) gm/dL Hct 31.4 L (37.0-53.0) % MCV 94 (80-100) fL MCH 31 (26-34) pg MCHC 33 (32-36) gm/dL RDW Coeff of Abrahan 13.8 (11.5-15.5) % Plt Count 220 (140-440) K/uL Neut % (Auto) 68.2 (42.0-72.0) % Lymph % (Auto) 17.3 L (20-44) % [place] % (Auto) 11.3 H (0.0-11.0) % Eos % (Auto) 2.0 (0.0-7.0) % Baso % (Auto) 0.5 (0.0-3.0) % Neut # (Auto) 4.10 (1.7-7.0) K/uL Lymph # (Auto) 1.00 (0.90-2.90) K/uL [place] # (Auto) 0.70 (0.00-0.90) K/UL Eos # (Auto) 0.12 (0.00-0.50) K/uL Baso # (Auto) 0.03 (0.00-0.30) K/uL Abs Immat Gran (auto) 0.04 (0.00-0.30) K/uL Imm/Tot Granulo (auto) 0.7 % Sodium 139 (135-149) mmol/L Potassium 3.9 (3.6-5.1) mmol/L Chloride 100 (96-114) mmol/L Carbon Dioxide 32 (20-32) mmol/L Anion Gap 7 (7-15) mEq/L BUN 30 (7-30) mg/dL Creatinine 1.5 (0.5-1.5) mg/dL Estimated Creat Clear 36.66 Estimated GFR 46 ml/min Glucose 132 H (60-115) mg/dL Calcium 9.6 (8.4-10.6) mg/dL Troponin I < 0.01 L (0.01-0.04) ng/mL SARS-CoV-2 (PCR) Negative SARS-CoV-2 (Negative) Influenza Type A (PCR) Negative PCR FLU A (Negative) Influenza Type B (PCR) Negative PCR FLU B (Negative) RSV (PCR) Negative PCR RSV (Negative) Discharge Plan Discharge Clinical Impression: Acute chest wall pain Patient Disposition: Home, Self-Care Condition: Stable Instructions: Chest Wall Pain (ED) Additional Instructions: Tylenol Ice Rest Follow-up as needed. Activity Level: No Restrictions Discharge Diet: Regular Prescriptions: No Action multivitamin Tablet 1 tab PO QAM acetaminophen [Tylenol Extra Strength] 500 mg tablet 1,000 mg PO Q6H PRN Rx Instructions: TAKES 2 TABS IN THE EVENING OFTEN AND SOMETIMES 3 TABLETS, UNSURE OF STRENGHT OF TABLET calcium carbonate-vitamin D3 [Calcium with Vitamin D] 600 mg-10 mcg (400 unit) tablet 1 tab PO BID mecobalamin (vitamin B12) 1,000 mcg tablet,chewable 1,000 mcg PO QDAY Qty: 90 1RF losartan 100 mg tablet 100 mg PO DAILY Patient Comments: Take 1 Tablet (100 mg) by mouth once daily. metformin 1,000 mg tablet 1,000 mg PO BID Patient Comments: Take 1 Tablet (1,000 mg) by mouth 2 times daily with meals. Rx Instructions: with meals carvedilol 12.5 mg tablet 12.5 mg PO BID glucosamine-chondroitin [Osteo Bi-Flex] 250-200 mg tablet 2 tab PO DAILY Rx Instructions: give after food/meal cinnamon bark 500 mg capsule 500 mg PO BID Eligard (6 month) 45 mg syringe 45 mg subcut [id number] Xgeva 120 mg/1.7 mL (70 mg/mL) solution 120 mg subcut Q90D magnesium oxide 400 mg magnesium tablet 400 mg PO DAILY fexofenadine [Taya Allergy] 60 mg tablet 60 mg PO HS Rx Instructions: UNSURE OF STRENGTH spironolactone 25 mg tablet 25 mg PO QAM Patient Comments: Take 1 Tablet (25 mg) by mouth every morning. rosuvastatin 20 mg tablet 20 mg PO HS apalutamide 60 mg tablet 240 mg PO DAILY ramelteon 8 mg tablet 8 mg PO HS fluticasone propionate [Allergy Relief (fluticasone)] 50 mcg/actuation spray,suspension 1 spray intranasal HS Rx Instructions: administer into each nostril diphenhydramine HCl [Banophen] 25 mg capsule 50 mg PO HS furosemide 20 mg Tablet 60 mg PO DAILY Qty: 90 0RF Follow Up/Referrals: Adria Valentine MD [Primary Care Provider] - Stand Alone Forms: Recurve Info Instructions
[2024-09-27 02:01] VITALS: BP 146/89; PULSE 85; RESP 16; TEMP 36.6; O2SAT 97; BMI 32.5
[2024-09-27 02:10] LABS: Basophils Absolute Auto 0.03 K/uL (0.00-0.30); Basophils Percent Auto 0.5 % (0.0-3.0); Eosinophils Absolute Auto 0.12 K/uL (0.00-0.50); Hematocrit 31.4 % (37.0-53.0); Hemoglobin* 10.3 gm/dL (13.5-17.5); Immature Granulocytes Abs Auto 0.04 K/uL (0.00-0.30); Immature Granulocytes Pct Auto 0.7 %; Lymphocytes Percent Auto 17.3 % (20-44); Mean Corpuscular HGB Conc 33 gm/dL (32-36); Mean Corpuscular Hemoglobin 31 pg (26-34); Mean Corpuscular Volume 94 fL (80-100); Monocytes Percent Auto 11.3 % (0.0-11.0); Neutrophils Percent Auto 68.2 % (42.0-72.0); Platelet Count* 220 K/uL (140-440); RDW Coefficient of Variation % 13.8 % (11.5-15.5); Red Blood Count 3.36 m/uL (4.30-5.90); White Blood Count* 6.01 K/uL (4.50-11.00)
[2024-09-27 02:15] LABS: Slide Review Reflex No
[2024-09-27 02:28] LABS: Chloride* 100 mmol/L (96-114); Potassium* 3.9 mmol/L (3.6-5.1); Sodium* 139 mmol/L (135-149)
[2024-09-27 02:31] LABS: Anion Gap 7 mEq/L (7-15); Blood Urea Nitrogen* 30 mg/dL (7-30); Carbon Dioxide* 32 mmol/L (20-32); Creatinine* 1.5 mg/dL (0.5-1.5); Est. Creatinine Clearance* 36.66; Estimated Glomerular Filt Rate 46 ml/min
[2024-09-27 02:32] LABS: Calcium* 9.6 mg/dL (8.4-10.6); Glucose* 132 mg/dL (60-115)
[2024-09-27 02:37] LABS: PCR FLU A Negative PCR FLU A (Negative); PCR FLU B Negative PCR FLU B (Negative); PCR RSV Negative PCR RSV (Negative); SARS PCR* Negative SARS-CoV-2 (Negative)
[2024-09-27 02:45] LABS: Troponin I* < 0.01 ng/mL (0.01-0.04)
== END 2024-09-27 03:10 | disposition home or self-care (01) ==
PROVIDERS: Emergency Provider Internal Medicine; PCP Surgery
DX: R07.89 Other chest pain (principal)
CPT/HCPCS: 36415; 71045; 72197; 80048; 84484; 85025; 87631; 99283; 99284; A9575

== ENCOUNTER 2024-09-27 03:07 | Outpatient (CLI) | payer MEDICARE, BC, SELFPAY | END 2024-09-27 03:08 | disposition home or self-care (01) | LOC: AMB 10-16 07:29 | PROVIDERS: PCP Surgery; Visit Provider Family Medicine | DX: R07.89 Other chest pain (principal) | CPT/HCPCS: A0425; A0428 ==

== ENCOUNTER 2024-09-27 09:27 | Outpatient (CLI) | payer MEDICARE, BC, SELFPAY ==
--- NOTE | 2024-09-27 10:00 | CRLHL7_ITS ---
For Patients: As a result of the Century Cures Act, medical imaging exams and procedure reports are released immediately into your electronic medical record. You may view this report before your referring provider. If you have questions, please contact your health care provider. EXAM: MRI OF THE PELVIS, WITHOUT AND WITH IV CONTRAST CLINICAL INDICATION: Metastatic prostate carcinoma. COMPARISON PLAIN FILMS: 03/05/2014. COMPARISON CROSS-SECTIONAL IMAGING STUDIES: 07/09/2024 whole-body bone scan. 07/02/2023 CT abdomen pelvis. 11/05/2013 left hip MRI. TECHNICAL: Axial, sagittal and coronal T1, PD FS and STIR images of the pelvis precontrast. Postcontrast T1 weighted imaging with fat saturation. Contrast: Dotarem, 20 mL IV. FINDINGS: HIP JOINTS: Right: No joint effusion. No subchondral edema or cystic change. Left: Left hip arthroplasty. No joint effusion or juxta-articular fluid collection. OSSEOUS STRUCTURES: Multiple lesions throughout the lumbosacral spine, pelvis and right femur. Findings consistent with osseous metastases. The number of metastases has increased in the interval. There is a new lesion in the right intertrochanteric region that measures 3.7 x 1.8 x 1.4 cm in size and accounts for greater than half of the intramedullary width. No cortical involvement. Multiple additional smaller metastases in the femoral head and intertrochanteric region. The largest mass with soft tissue extension is present in the right ilium posteriorly. No pathologic fractures or stress reaction. No evidence for avascular necrosis. MUSCULOTENDINOUS STRUCTURES AND BURSAE: Gluteus Minimus and Medius: No tendon tear or tendinopathy. No muscle atrophy or edema. Bursae: No trochanteric or iliopsoas bursitis. Common Hamstrings: No tendon tear or tendinopathy. Other: Tendons and myotendinous junctions are intact. No muscle atrophy or edema. SOFT TISSUES: No subcutaneous edema, hematoma or fluid collection. OTHER JOINTS: Sacroiliac joints are maintained. Pubic symphysis is maintained. INTRAPELVIC CONTENTS: Prostatectomy and lymphadenectomy. No inguinal hernia. NEUROVASCULAR STRUCTURES: No abnormality of the proximal femoral or sciatic nerves. No aneurysmal dilatation of the visualize distal aorta. IMPRESSION: 1. Osseous metastases have increased since the prior bone scan. 2. New intramedullary metastases in the right intertrochanteric region. 3. No pathologic fracture or stress reaction. 4. Prostatectomy with lymphadenectomy. Dictated by Chico Dillon MD @ 09/30/2024 11:13:53 AM (Electronically Signed)
== END 2024-09-27 09:28 | disposition home or self-care (01) ==
LOC: MRI 09:28
PROVIDERS: PCP Surgery; Visit Provider Internal Medicine
DX: C79.51 Secondary malignant neoplasm of bone (principal)
CPT/HCPCS: 72197; A9575

== ENCOUNTER 2024-12-05 10:21 | Emergency (ER) | payer MEDICARE, BC, SELFPAY ==
--- OUTSIDE RECORDS SUMMARY | 2024-12-05 10:24 | XMS_ITS | Encounter Summary ---
Author Organization [facility] Address [address] [place] [address] Care Team Providers Care Hog Ringer Name Role Phone Unavailable Primary Care Provider Unavailabl e Encounter Details Date Type Department Care Team (Late st Contact Info) Description 10/14/2024 Orders Only Department of Radiation Oncology in [place], [place] [address] [place] [address] Yaya Zamudio M.D. 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 [address] [place] [address] 12/09/2024 1:30 PM CDT Appointment Department of Radiation Oncology in [place], [place] [address] [place] [phone] Yaya Zamudio M.D. [address] [place] [phone] 12/11/2024 2:30 PM CDT Appointment Department of Radiology in [place], [place] [address] [place] [phone] Yaya Zamudio M.D. [address] [place] [phone] documented as of this encounter Visit Diagnoses Not on filedocumented in this encounter
--- OUTSIDE RECORDS SUMMARY | 2024-12-05 10:24 | XMS_ITS | Encounter Summary ---
Author Organization [facility] Address [address] [place] [address] Care Team Providers Care Taker Off Braker Machine Name Role Phone Unavailable Primary Care Provider Unavailabl e Encounter Details Date Type Department Care Team (Latest Contact Info) Description 10/25/2024 2:51 PM TOPOGRAPHICAL ENGINEER - 10/25/2024 11:59 PM [facility] Hospital Encounter Department of Radiation Oncology in [place], [place] [address] [place] [phone] Peg Price M.D. [address] [place] [phone] Yaya Zamudio M.D. 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 carvediloL (COREG) 12.5 mg tablet Take 1 Tablet (12.5 mg) by mouth two times daily with meals.* cetirizine (ZyrTEC) 10 mg tablet Take 10 mg by mouth at bedtime as needed. cinnamon bark 500 mg capsule Take 1 capsule by mouth 2 (two) times a day. 11/04/2019 daridorexant 25 mg tablet Take 1 tablet by mouth at bedtime. 09/24/2024 denosumab (Xgeva) 120 mg/1.7 mL injection Inject 120 mg under the skin. 07/03/2023 diphenhydrAMINE (BENADRYL) 25 mg tablet Take 50 mg by mouth at bedtime as needed. 03/16/2015 Erleada 60 mg tablet Take 240 mg by mouth daily. fexofenadine-pseudo ephedrine (AGATHA-D 24) 180-240 mg per 24 hr tablet Take 1 tablet by mouth daily. 01/18/2022 furosemide (LASIX) 20 mg tablet 40 mg. glucosam-chondroit- C-manganese 500-400-2-0.33 mg capsule Take by mouth. 12/22/2020 hydrocortisone 2.5 % ointment Sparingly apply to lip TID. 05/24/2017 ketoconazole (NIZORAL) 2 % cream Apply to affected areas in armpits once to twice daily until resolved then as needed for flares. 30 day supply. 02/21/2020 leuprolide (Eligard 6 Month) 45 mg injection Inject 45 mg under the skin. 07/03/2023 LORazepam (Ativan) 0.5 mg tablet Take 1 tablet (0.5 mg total) by mouth See Admin Instructions. 1 tablet 1 hour before scans. Bring along to take 2nd tablet if needed for anxiety/claustr ophobia. 5 tablet 10/15/2024 losartan (COZAAR) 100 mg tablet Take 1 Tablet (100 mg) by mouth once daily.* magnesium 250 mg tablet Take 500 mg by mouth. mecobalamin, vitamin B12, 1,000 mcg tablet,chewable Chew. 12/27/2023 melatonin 10 mg tablet extended release Take by mouth. 11/12/2021 metFORMIN (GLUCOPHAGE) 1,000 mg tablet Take 1 Tablet (1,000 mg) by mouth two times daily with meals.* multivitamin tablet Take 1 tablet by mouth daily. ondansetron (Zofran) 4 mg tablet Take 1-2 tablets (4-8 mg total) by mouth every 8 (eight) hours as needed for nausea or vomiting. For treatment of and prevention of radiotherapy-in duced nausea/vomiting 10 tablet 04/17/2024 ondansetron ODT (ZOFRAN-ODT) 8 mg disintegrating tablet Dissolve 1 tablet (8 mg total) in the mouth every 8 (eight) hours as needed for nausea or vomiting. 4 tablet 09/28/2023 ramelteon (Rozerem) 8 mg tablet Take 8 mg by mouth at bedtime. 08/19/2024 rosuvastatin (CRESTOR) 10 mg tablet TAKE ONE TABLET BY MOUTH ONE TIME DAILY AT BEDTIME* spironolactone (ALDACTONE) 25 mg tablet Take 1 Tablet (25 mg) by mouth every morning.* tacrolimus (Protopic) 0.1 % ointment apply 1x daily to affected areas on the groin, ongoing.* 08/30/2024 triamcinolone (KENALOG) 0.1 % ointment 06/07/2018 turmeric root extract 500 mg capsule Take by mouth. 11/02/2016 documented as of this encounter Plan of Treatment Upcoming Encounters Date Type Department Care Team (Late st Contact Info) Description 12/09/2024 1:00 PM CDT Appointment Department of Radiation Oncology in [place], [place] [address] [place] [phone] Yaya Zamudio M.D. [address] [place] [phone] 12/09/2024 1:30 PM CDT Appointment Department of Radiation Oncology in [place], [place] [address] [place] [phone] Yaya Zamudio M.D. [address] [place] [phone] 12/11/2024 2:30 PM CDT Appointment Department of Radiology in [place], [place] [address] [place] [phone] Yaya Zamudio M.D. [address] [place] [phone] documented as of this encounter Visit Diagnoses Not on filedocumented in this encounter
--- OUTSIDE RECORDS SUMMARY | 2024-12-05 10:24 | XMS_ITS | Encounter Summary ---
Author Organization [facility] Address [address] [place] [id number] Care Team Providers Care Utilization Engineer Name Role Phone Unavailable Primary Care Provider Unavailabl e Encounter Details Date Type Department Care Team (Late st Contact Info) Description 10/15/2024 Clinical Communication Department of Radiation Oncology in [place], [place] [address] [place] [address] Yaya Zamudio M.D. 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 They went to the pharmacy and the prescription was not there so he wanted to make sure we knew what pharmacy to send itto. I assured him we had the correct pharmacy and that I would send a message to the care team. ING AND FINAL ASSEMBLY SUPERVISOR documented in this encounter Plan of Treatment Upcoming Encounters Date Type Department Care Team (Late st Contact Info) Description 12/09/2024 1:00 PM CDT Appointment Department of Radiation Oncology in [place], [place] [address] [place] [address] Yaya Zamudio M.D. [address] [place] [address] 12/09/2024 1:30 PM CDT Appointment Department of Radiation Oncology in [place], [place] [address] [place] [address] Yaya Zamudio M.D. [address] [place] [address] 12/11/2024 2:30 PM CDT Appointment Department of Radiology in [place], [place] [address] [place] [address] Yaya Zamudio M.D. [address] [place] [phone] documented as of this encounter Visit Diagnoses Not on filedocumented in this encounter
--- OUTSIDE RECORDS SUMMARY | 2024-12-05 10:24 | XMS_ITS | Clinical Summary ---
Author Organization [facility] Address [address] [place] [address] Care Team Providers Care Trimmer Helper Name Role Phone Unavailable Primary Care Provider Unavailabl e Source Comments Patient records contain information from all sites at [facility]. For routine questions regarding patient records, call [phone] during business hours, M-F 8:00 AM - 5:00 PM Central Time. Record requests for emergency care only can be directed to [phone] at any time.[facility] Allergies Active Allergy Reactions Criticality Noted Date Comments Cocaine Other (see comments) 11/29/2007 Blood pressure became elevated Cultivated Crop Pollen-[place] Itching 05/17/2022 Feathers Other (see comments) 05/17/2022 Influenza Virus Vaccines Headache 11/30/2006 Medications ammonium lactate (LAC-HYDRIN) 12 % lotion Apply topically at bedtime as needed. Active carvediloL (COREG) 12.5 mg tablet Take 1 Tablet (12.5 mg) by mouth two times daily with meals.* Active cetirizine (ZyrTEC) 10 mg tablet Take 10 mg by mouth at bedtime as needed. Active cinnamon bark 500 mg capsule Take 1 capsule by mouth 2 (two) times a day. 0 Active diphenhydrAMINE (BENADRYL) 25 mg tablet Take 50 mg by mouth at bedtime as needed. 5 Active fexofenadine-pseud oephedrine (AGATHA-D 24) 180-240 mg per 24 hr tablet Take 1 tablet by mouth daily. 2 Active furosemide (LASIX) 20 mg tablet 40 mg. Active glucosam-chondroit -C-manganese 500-400-2-0.33 mg capsule Take by mouth. 1 Active hydrocortisone 2.5 % ointment Sparingly apply to lip TID. 7 Active ketoconazole (NIZORAL) 2 % cream Apply to affected areas in armpits once to twice daily until resolved then as needed for flares. 30 day supply. 0 Active losartan (COZAAR) 100 mg tablet Take 1 Tablet (100 mg) by mouth once daily.* Active magnesium 250 mg tablet Take 500 mg by mouth. Active melatonin 10 mg tablet extended release Take by mouth. 2 Active metFORMIN (GLUCOPHAGE) 1,000 mg tablet Take 1 Tablet (1,000 mg) by mouth two times daily with meals.* Active multivitamin tablet Take 1 tablet by mouth daily. Active rosuvastatin (CRESTOR) 10 mg tablet TAKE ONE TABLET BY MOUTH ONE TIME DAILY AT BEDTIME* Active spironolactone (ALDACTONE) 25 mg tablet Take 1 Tablet (25 mg) by mouth every morning.* Active triamcinolone (KENALOG) 0.1 % ointment 8 Active turmeric root extract 500 mg capsule Take by mouth. 7 Active ondansetron ODT (ZOFRAN-ODT) 8 mg disintegrating tablet Dissolve 1 tablet (8 mg total) in the mouth every 8 (eight) hours as needed for nausea or vomiting. 4 tablet 4 Active ondansetron (Zofran) 4 mg tablet Take 1-2 tablets (4-8 mg total) by mouth every 8 (eight) hours as needed for nausea or vomiting. For treatment of and prevention of radiotherapy-i nduced nausea/vomitin g 10 tablet 4 Active Erleada 60 mg tablet Take 240 mg by mouth daily. Active daridorexant 25 mg tablet Take 1 tablet by mouth at bedtime. 5 Active denosumab (Xgeva) 120 mg/1.7 mL injection Inject 120 mg under the skin. 3 Active leuprolide (Eligard 6 Month) 45 mg injection Inject 45 mg under the skin. 3 Active mecobalamin, vitamin B12, 1,000 mcg tablet,chewable Chew. 4 Active ramelteon (Rozerem) 8 mg tablet Take 8 mg by mouth at bedtime. 4 Active tacrolimus (Protopic) 0.1 % ointment apply 1x daily to affected areas on the groin, ongoing.* 4 Active LORazepam (Ativan) 0.5 mg tablet Take 1 tablet (0.5 mg total) by mouth See Admin Instructions. 1 tablet 1 hour before scans. Bring along to take 2nd tablet if needed for anxiety/claust rophobia. 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 Secondary Malignant Neoplasm Pelvic Bone (HCC) (Primary Dx); Primary Osteoarthritis Knee Right; Secondary Malignant Neoplasm Bone (HCC) 11/12/2024 2:04 PM T Hospital Encounter Department of Radiation Oncology in [address] [address] Peg Price M.D. Leenstra, James L, M.D. 11/12/2024 Documentation Department of Radiation Oncology in [address] [address] Yaya Zamudio M.D. 11/08/2024 2:35 PM [facility] Hospital Encounter Department of Radiation Oncology in [address] [address] Peg Price M.D. Leenstra, James L M.D. 11/05/2024 1:33 PM ASSISTANT SCIENTIST - 11/05/2024 5:39 PM ASSISTANT SCIENTIST Hospital Encounter Department of Radiation Oncology in [address] [address] Yaya Zamudio M.D. Secondary Malignant Neoplasm Pelvic Bone (HCC) 11/05/2024 1:33 PM ASSISTANT SCIENTIST Hospital Encounter Department of Radiation Oncology in [address] [address] Peg Price M.D. Leenstra, James L, M.D. 11/01/2024 2:20 PM ASSISTANT SCIENTIST - 11/01/2024 11:59 PM ASSISTANT SCIENTIST Hospital Encounter Department of Radiation Oncology in [address] [address] Peg Price M.D. Leenstra, James L, M.D. Discharge Disposition: Home or Self Care 10/29/2024 2:49 PM ASSISTANT SCIENTIST - 10/29/2024 11:59 PM ASSISTANT SCIENTIST Hospital Encounter Department of Radiation Oncology in [address] [address] Peg Price M.D. Leenstra, James L, M.D. Discharge Disposition: Home or Self Care 10/25/2024 2:51 PM ASSISTANT SCIENTIST - 10/25/2024 11:59 PM ASSISTANT SCIENTIST Hospital Encounter Department of Radiation Oncology in [address] [address] Peg Price M.D. Leenstra, James L, M.D. Discharge Disposition: Home or Self Care 10/18/2024 11:00 AM ASSISTANT SCIENTIST - 10/18/2024 3:54 PM ASSISTANT SCIENTIST Hospital Encounter Department of Radiation Oncology in [address] [address] Yaya Zamudio M.D. Garces, Yolanda I., M.D. Primary Osteoarthritis Knee Right 10/18/2024 10:08 AM ASSISTANT SCIENTIST - 10/18/2024 10:59 AM ASSISTANT SCIENTIST Hospital Encounter Department of Radiation Oncology in [address] [address] Peg Price M.D. Leenstra, James L, M.D. Discharge Disposition: Home or Self Care 10/18/2024 Documentation Department of Radiation Oncology in [address] [address] Yaya Zamudio M.D. 10/16/2024 1:03 PM ASSISTANT SCIENTIST - 10/16/2024 4:26 PM ASSISTANT SCIENTIST Hospital Encounter Department of Radiation Oncology in [address] [address] Yaya Zamudio M.D. Primary Osteoarthritis Knee Right (Primary Dx); Secondary Malignant Neoplasm Pelvic Bone (HCC); Nicotine Dependence 10/16/2024 1:03 PM ASSISTANT SCIENTIST - 10/16/2024 11:59 PM ASSISTANT SCIENTIST Hospital Encounter Department of Radiation Oncology in [address] [address] Peg Price M.D. Leenstra, James L, M.D. Discharge Disposition: Home or Self Care 10/15/2024 Clinical Communication Department of Radiation Oncology in [address] [address] Yaya Zamudio M.D. 10/14/2024 2:07 PM ASSISTANT SCIENTIST - 10/14/2024 11:59 PM ASSISTANT SCIENTIST Hospital Encounter Department of Radiation Oncology in [address] [address] Peg Price M.D. Leenstra, James L, M.D. Discharge Disposition: Home or Self Care 10/14/2024 Orders Only Department of Radiation Oncology in [address] [address] Yaya Zamudio M.D. 10/11/2024 1:33 PM ASSISTANT SCIENTIST - 10/11/2024 11:59 PM ASSISTANT SCIENTIST Hospital Encounter Department of Radiation Oncology in [address] [address] Peg Price M.D. Leenstra, James L, M.D. Discharge Disposition: Home or Self Care 10/09/2024 2:44 PM ASSISTANT SCIENTIST - 10/09/2024 11:59 PM ASSISTANT SCIENTIST Hospital Encounter Department of Radiation Oncology in [address] [address] Peg Price M.D. Leenstra, James L, M.D. Discharge Disposition: Home or Self Care 10/07/2024 1:47 PM ASSISTANT SCIENTIST - 10/07/2024 4:39 PM ASSISTANT SCIENTIST Hospital Encounter Department of Radiation Oncology in [address] [address] Yaya Zamudio M.D. Pain Knee Right (Primary Dx); Secondary Malignant Neoplasm Pelvic Bone (HCC) 10/07/2024 1:13 PM ASSISTANT SCIENTIST - 10/07/2024 1:46 PM ASSISTANT SCIENTIST Hospital Encounter Department of Radiation Oncology in [address] [address] Peg Price M.D. Leenstra, James L, M.D. Discharge Disposition: Home or Self Care 09/27/2024 8:34 AM ASSISTANT SCIENTIST - 09/27/2024 11:44 AM ASSISTANT SCIENTIST Hospital Encounter Department of Radiation Oncology in [address] [address] Yaya Zamudio M.D. Secondary Malignant Neoplasm Pelvic Bone (HCC) 09/27/2024 Orders Only Department of Radiation Oncology in [address] [address] Yaya Zamudio M.D. Secondary Malignant Neoplasm Pelvic Bone (HCC) (Primary Dx) 09/26/2024 1:29 PM ASSISTANT SCIENTIST - 09/26/2024 4:08 PM ASSISTANT SCIENTIST Hospital Encounter Department of Radiation Oncology in [place], [place] [address] [place] [address] Yaya Zamudio M.D. Secondary Malignant Neoplasm Pelvic Bone (HCC) (Primary Dx); Primary Malignant Neoplasm Of Prostate (HCC) 09/24/2024 Orders Only Department of Radiation Oncology in [place], [place] [address] [place] [phone] Yaya Zamudio M.D. 09/23/2024 Orders Only Department of Radiation Oncology in [place], [place] [address] [place] [phone] Yaya Zamudio M.D. Secondary Malignant Neoplasm Pelvic Bone (HCC) (Primary Dx) 09/10/2024 10:58 AM ASSISTANT SCIENTIST - 09/10/2024 11:59 PM ASSISTANT SCIENTIST Hospital Encounter Department of Radiology in [place], [place] [address] [address] Sera Jacobson M.D. Primary Malignant Neoplasm Of Prostate (HCC) Discharge Disposition: Home or Self Care from Last 3 Months Family History Medical History Relation Name Comments Lung cancer Mother Leukemia Paternal Grandmother Relation Name Status Comments Mother Paternal Grandmother Social History Tobacco Use Types Packs/Day Years Used Date Smoking Tobacco: Never Assessed Dental Answer Date Recorded Dental: Regular Dentist Unknown 10/12/19 23 Sex and Gender Information Value Date Recorded Sex Assigned at Not on file Legal Sex Male 11:16 AM ASSISTANT SCIENTIST Gender Identity Not on file Sexual Orientation Not on file Last Filed Vital Signs Vital Sign Reading Time Taken Comments Blood Pressure 127/54 11/05/2024 2:15 PM ASSISTANT SCIENTIST Pulse 92 11/05/2024 2:15 PM ASSISTANT SCIENTIST Temperature 36.1 C (96.9 F) 11/05/2024 2:15 PM ASSISTANT SCIENTIST Respiratory Rate - - Oxygen Saturation - - Inhaled Oxygen Concentration - - Weight 97.1 kg (214 lb 1.1 oz) 11/05/2024 2:15 P M ASSISTANT SCIENTIST Height - - Body Mass Index - - Plan of Treatment Upcoming Encounters Date Type Department Care Team (Late st Contact Info) Description 12/09/2024 1:00 PM CDT Appointment Department of Radiation Oncology in [place], [place] [address] [place] [address] Yaya Zamudio M.D. [address] [place] [phone] 12/09/2024 1:30 PM CDT Appointment Department of Radiation Oncology in [place], [place] [address] [place] [phone] Yaya Zamudio M.D. [address] [place] [phone] 12/11/2024 2:30 PM CDT Appointment Department of Radiology in [place], [place] [address] [place] [address] Yaya Zamudio M.D. [address] [place] [phone] Health Maintenance Due Date Last Done Comments COVID-19 Vaccine (#1) 01/21/1945 Zoster Vaccines (1 of 2) 01/21/1959 DTaP,Tdap,and Td Vaccines (1 - Tdap) 12/20/2003 12/19/2003 Pneumococcal vaccine (50+ years) (2 of 2 - PCV) 05/05/2010 05/05/2009 RSV vaccine - (32-36 weeks) or 60+ years (1 - 1-dose 75+ series) 01/21/2015 Depression Screening (Annual PHQ-2) 09/04/2024 Fall Risk Screen (Annual) 09/04/2024 Creatinine Level (Kidney Function Test) 03/25/2025 03/25/2024, 03/02/2024, 11/14/2023, Additional history exists Potassium Level 03/25/2025 03/25/2024, 02/03, 11/14/2023, Additional history exists Sodium Level 03/25/2025 03/25/2024, 02/03, 11/14/2023, Additional history exists HPV Vaccines Aged Out No longer eligi ble based on patient's age to complete this topic IPV Vaccines Aged Out No longer eligi ble based on patient's age to complete this topic Procedures Procedure Name Priority Date/Time Associated Diagnosis Comments ARIA COURSE COMPLETE TREATMENT INFORMATION Routine 11/12/2024 2:22 PM CDT ARIA DAILY TREATMENT INFORMATION Routine 11/12/2024 2:22 PM CDT ARIA DAILY TREATMENT INFORMATION Routine 11/08/2024 3:10 PM ASSISTANT SCIENTIST ARIA DAILY TREATMENT INFORMATION Routine 11/05/2024 2:00 PM ASSISTANT SCIENTIST ARIA DAILY TREATMENT INFORMATION Routine 11/01/2024 2:48 PM ASSISTANT SCIENTIST ARIA DAILY TREATMENT INFORMATION Routine 10/29/2024 3:11 PM ASSISTANT SCIENTIST ARIA DAILY TREATMENT INFORMATION Routine 10/25/2024 3:24 PM ASSISTANT SCIENTIST INITIAL RAD ONC TREATMENT PLANNING CT SIMULATION Routine 10/18/2024 11:00 AM ASSISTANT SCIENTIST Primary Osteoarthritis Knee Right ARIA COURSE COMPLETE TREATMENT INFORMATION Routine 10/18/2024 10:45 AM ASSISTANT SCIENTIST ARIA DAILY TREATMENT INFORMATION Routine 10/18/2024 10:45 AM ASSISTANT SCIENTIST ARIA DAILY TREATMENT INFORMATION Routine 10/16/2024 2:28 PM ASSISTANT SCIENTIST ARIA DAILY TREATMENT INFORMATION Routine 10/16/2024 1:50 PM ASSISTANT SCIENTIST OUTSIDE DX SKELETAL Routine 10/16/2024 11:10 AM ASSISTANT SCIENTIST ARIA DAILY TREATMENT INFORMATION Routine 10/14/2024 3:03 PM ASSISTANT SCIENTIST ARIA DAILY TREATMENT INFORMATION Routine 10/11/2024 2:20 PM ASSISTANT SCIENTIST ARIA DAILY TREATMENT INFORMATION Routine 10/09/2024 3:31 PM ASSISTANT SCIENTIST ARIA DAILY TREATMENT INFORMATION Routine 10/07/2024 2:08 PM ASSISTANT SCIENTIST OUTSIDE MR BODY Routine 09/27/2024 10:15 AM ASSISTANT SCIENTIST INITIAL RAD ONC TREATMENT PLANNING CT SIMULATION Routine 09/27/2024 9:00 AM ASSISTANT SCIENTIST Secondary Malignant Neoplasm Pelvic Bone (HCC) PET CT SKULL TO THIGH PSMA RAD - Routine (most inpatients and all outpatients) 09/10/2024 12:31 PM ASSISTANT SCIENTIST Primary Malignant Neoplasm Of Prostate (HCC) from Last 3 Months Results * Aria Course Complete Treatment Information (11/12/2024 2:22 PM CDT) Only the most recent of2 resultswithin the time period is included. Course ID [id number] HERNANDEZ ARIA Course Start Date 5 08:08 CDT HERNANDEZ ARIA Course End Date 5 15:57 CDT HERNANDEZ ARIA First Treatment Date 5 15:23 CDT HERNANDEZ ARIA Last Treatment Date 5 14:22 CDT HERNANDEZ ARIA Treatment Elapsed Days 18 HERNANDEZ ARIA Reference Point [id number] nee HERNANDEZ ARIA Dosage Given to Date cGy 300 HERNANDEZ ARIA Plan ID [id number] HERNANDEZ ARIA Fractions Treated to Date 6 HERNANDEZ ARIA Planned Total Fractions 6 HERNANDEZ ARIA Prescribed Dose Per Fraction 50 HERNANDEZ ARIA Prescription Dose in cGy 300 HERNANDEZ ARIA Plan Primary Reference Point [id number] nee HERNANDEZ ARIA 11/12/2024 2:22 PM CDT us Provider Not In System RADIATION ONCOLOGY ORDERA BLES Final Result DAVID HUGHES na * Aria Daily Treatment Information (11/12/2024 2:22 PM CDT) Only the most recent of13 resultswithin the time period is included. Course ID [id number] HERNANDEZ ARIA Course Start Date 5 08:08 CDT HERNANDEZ ARIA First Treatment Date 5 15:23 CDT HERNANDEZ ARIA Last Treatment Date 5 14:22 CDT HERNANDEZ ARIA Treatment Elapsed Days 18 HERNANDEZ ARIA Reference Point [id number] nee HERNANDEZ ARIA Dosage Given to Date cGy 300 HERNANDEZ ARIA Session Dosage Given 50 HERNANDEZ ARIA Plan ID [id number] HERNANDEZ ARIA Fractions Treated to Date 6 HERNANDEZ ARIA Planned Total Fractions 6 HERNANDEZ ARIA Prescribed Dose Per Fraction 50 HERNANDEZ ARIA Prescription Dose in cGy 300 HERNANDEZ ARIA Plan Primary Reference Point [id number] nee HERNANDEZ ARIA 11/12/2024 2:22 PM CDT us Provider Not In System RADIATION ONCOLOGY ORDERA BLES Final Result DAVID HUGHES na * Initial Rad Onc Treatment Planning CT Simulation (10/18/2024 11:00 AM ASSISTANT SCIENTIST) Only the most recent of2 resultswithin the time period is included. Narrative HERNANDEZ ARIA - 10/18/2024 11:00 AM ASSISTANT SCIENTIST [place]y [place], RTT 10/18/2024 11:07 AM Initial Rad Onc Treatment Planning CT Simulation Performed by: Peg Price M.D. Authorized by: Yaya Zamudio M.D. us Yaya Zamudio M.D. RADIATION ONCOLOGY ORDERAB LES Final Result DAVID HUGHES na * Outside DX Skeletal (10/16/2024 11:10 AM ASSISTANT SCIENTIST) 10/17/2024 7:13 AM ASSISTANT SCIENTIST Addenda Addendum by [employer], Outside on 10/17/2024 7:13 AM ASSISTANT SCIENTIST BELOW REPORT RECEIVED BY [facility] ON 10/18/2024 07:46:03 [id number] For Patients: As a result of the Century Cures Act, medical imaging exams and procedure reports are released immediately into your electronic medical record. You may view this report before your referring provider. If you have questions, please contact your health care provider. INDICATION: Right knee pain TECHNIQUE: Standing AP and lateral views of the right knee as well as a sunrise view COMPARISON: 09/19/2013 FINDINGS: No obvious joint effusion. Moderate to advanced medial compartment osteoarthritis and mild patellofemoral joint osteoarthritis. No chondrocalcinosis. Impression: Osteoarthritis, as above Dictated by Fabien Casper MD @ 10/17/2024 7:13:18 AM (Electronically Signed) READ BY Fabien Casper RELEASED BY [facility] Addendum by [employer], Outside on 10/17/2024 7:13 AM ASSISTANT SCIENTIST BELOW REPORT RECEIVED BY [facility] ON 10/18/2024 07:45:33 [id number] For Patients: As a result of the Cures Act, medical imaging exams and procedure reports are released immediately into your electronic medical record. You may view this report before your referring provider. If you have questions, please contact your health care provider. INDICATION: Right knee pain TECHNIQUE: Standing AP and lateral views of the right knee as well as a sunrise view COMPARISON: 09/19/2013 FINDINGS: No obvious joint effusion. Moderate to advanced medial compartment osteoarthritis and mild patellofemoral joint osteoarthritis. No chondrocalcinosis. Impression: Osteoarthritis, as above Dictated by Fabien Casper MD @ 10/17/2024 7:13:18 AM (Electronically Signed) READ BY Fabien Casper RELEASED BY [employer] Narrative IMAGING - 10/18/2024 7:58 AM ASSISTANT SCIENTIST This order has been created and auto-finalized to support the import of outside images. If available, original interpretation can be found on the Media Tab in Chart Review, in Document Viewer, as an image in QREADS or as an Addendum. If a re-interpretation or overread is required please follow defined workflow. Procedure Note [employer], Outside - 10/18/2024 This order has been created and auto-finalized to support the import ofoutside images. If available, original interpretation can be found on theMedia Tab in Chart Review, in Document Viewer, as an image in QREADS or asan Addendum. If a re-interpretation or overread is required please follow definedworkflow. us Provider Not In System IMG DIAGNOSTIC IMAGING UT OCEDURES Edited Result - Final Performing Organization Address [facility] Co de Phone Number IMAGING NA * MR pelvis wo/w con-Outside MR Body (09/27/2024 10:15 AM ASSISTANT SCIENTIST) 09/27/2024 10:1 2 AM ASSISTANT SCIENTIST Narrative [facility] - 09/27/2024 12:27 PM ASSISTANT SCIENTIST This order has been created and auto-finalized to support the import of outside images. If available, original interpretation can be found on the Media Tab in Chart Review, in Document Viewer, as an image in QREADS or as an Addendum. If a re-interpretation or overread is required please follow defined workflow. us Provider Not In System IMG MRI PROCEDURES Final Result Performing Organization Address [facility] de Phone Number [facility]IMS NA * PET CT Skull to Thigh PSMA (09/10/2024 12:31 PM ASSISTANT SCIENTIST) Anatomical Region Laterality Modality Body, Nuclear Medicine PET R ST LOS, PET ARZ LOS, Nuclear Medicine PET FLA LOS, Nuclear Medicine N/A Positron Emission Tomography (PET) Impressions 09/10/2024 1:05 PM ASSISTANT SCIENTIST Interval progression of the PSMA avid osseous metastatic disease with increased uptake and number of metastatic lesions with the exception of lesions in the T12 and L3 vertebral bodies which were treated with interval radiation therapy and demonstrate decreased uptake. miPSMA expression score: 3. Narrative 09/10/2024 1:05 PM ASSISTANT SCIENTIST EXAM: PET CT SKULL TO THIGH PSMA COMPARISON: Multiple prior PSMA PET/CTs most recently 04/16/2024 INDICATION: Metastatic prostate cancer. Interval radiation therapy to the T12, L3, and right ilium. Subsequent treatment strategy. The patient reports no recent vaccinations. FINDINGS: PROSTATE GLAND: No radiotracer uptake in the surgical bed to suggest local recurrence. LYMPH NODES: No radiotracer avid lymph nodes. BONES: Increased number and uptake of PSMA avid osseous lesions. For example, a lesion in the posterior right acetabulum now has a SUV max of 7.2 (series 604, image 78), previously the SUV max was 3.2 and a lesion in the right iliac wing has markedly increased radiotracer uptake and new cortical breach with extension into the right iliacus muscle (series 604, image 110). Multiple additional new or increased radiotracer avid lesions involving the left acetabulum, left iliac wing, right hemisacrum, and left second rib. Similar radiotracer uptake in the right fifth rib. Decreased radiotracer uptake in the T12 vertebral body and L3 vertebral body at sites of radiation therapy. Multiple sclerotic osseous lesions without PSMA uptake are compatible with treated metastases. OTHER: N/A. Significant incidental findings on low-dose unenhanced CT fusion images: Calcified granuloma in the left upper lobe. Arterial calcifications, including advanced coronary artery calcifications. Sternotomy with CABG. A few colonic diverticula. Left GASTON. RADIOPHARMACEUTICAL/MEDS: Route: intravenous piflufolastat F 18 injection (Pylarify F-18),9.8 millicurie Procedure Note Adria Mcdonough M.D. - 09/10/2024 EXAM: PET CT SKULL TO THIGH PSMA COMPARISON: Multiple prior PSMA PET/CTs most recently 04/16/2024 INDICATION: Metastatic prostate cancer. Interval radiation therapy to theT12, L3, and right ilium. Subsequent treatment strategy. The patient reports no recent vaccinations. FINDINGS: PROSTATE GLAND: No radiotracer uptake in the surgical bed to suggest localrecurrence. LYMPH NODES: No radiotracer avid lymph nodes. BONES: Increased number and uptake of PSMA avid osseous lesions. For example, alesion in the posterior right acetabulum now has a SUV max of 7.2 ([id number], image 78), previously the SUV max was 3.2 and a lesion in the rightiliac wing has markedly increased radiotracer uptake and new cortical breach with extension into the rightiliacus muscle (series 604, image 110). Multiple additional new orincreased radiotracer avid lesions involving the left acetabulum, leftiliac wing, right hemisacrum, and left second rib. Similar radiotracer uptake in the right fifth rib. Decreased radiotracer uptake in the T12 vertebral body and L3 vertebralbody at sites of radiation therapy. Multiple sclerotic osseous lesions without PSMA uptake are compatible withtreated metastases. OTHER: N/A. Significant incidental findings on low-dose unenhanced CT fusion images:Calcified granuloma in the left upper lobe. Arterial calcifications,including advanced coronary artery calcifications. Sternotomy with CABG. Afew colonic diverticula. Left GASTON. RADIOPHARMACEUTICAL/MEDS: Route: intravenous piflufolastat F 18 injection (Pylarify F-18),9.8 millicurie IMPRESSION: Interval progression of the PSMA avid osseous metastatic disease withincreased uptake and number of metastatic lesions with the exception oflesions in the T12 and L3 vertebral bodies which were treated withinterval radiation therapy and demonstrate decreased uptake. miPSMA expression score: 3. Sera Jacobson M.D. IMG NM PROCEDURES Final Resu lt from Last 3 Months Insurance [facility] MEDICARE
--- OUTSIDE RECORDS SUMMARY | 2024-12-05 10:24 | XMS_ITS | Encounter Summary ---
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 [address] [place] [phone] Yaya Zamudio M.D. 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 [address] [place] [phone] 12/09/2024 1:30 PM CDT Appointment Department of Radiation Oncology in [place], [place] [address] [place] [phone] Yaay Zamudio M.D. [address] [place] [phone] 12/11/2024 2:30 PM CDT Appointment Department of Radiology in [place], [place] [address] [place] [address] Yaya Zamudio M.D. [address] [place] [phone] documented as of this encounter Visit Diagnoses Not on filedocumented in this encounter
--- OUTSIDE RECORDS SUMMARY | 2024-12-05 10:24 | XMS_ITS | Encounter Summary ---
Author Organization [facility] Address [address] [place] [address] Care Team Providers Care Housekeeping Aid Name Role Phone Unavailable Primary Care Provider Unavailabl e Reason for Referral * Outpatient (Routine) - Authorized Specialty Diagnoses / Procedures Referred By Contac t Referred To Contact Radiation Oncology Yaya Zamudio M.D. [address] [place] [address] Phone: tel: fax: [facility] Region Referral ID Status Reason Start Date Expiration Date V isits Requested Visits Authorized [id number] Authorized 12/04/2024 06/05/2026 1 1 Scheduling Instructions Sim same day, planning MRI could be the following day * MRI/CAT/PET Scan (Routine) - Authorized Specialty Diagnoses / Procedures Referred By Contac t Referred To Contact Radiology Diagnoses Secondary Malignant Neoplasm Bone (HCC) Procedures MR Lumbar Spine without and with IV Contrast Yaya Zamudio M.D. [address] [place] [address] Phone: tel: fax: [facility] Region Referral ID Status Reason Start Date Expiration Date V isits Requested Visits Authorized [id number] Authorized 12/04/2024 03/06/2026 1 1 * Radiation Therapy (Routine) - Authorized Specialty Diagnoses / Procedures Referred By Contac t Referred To Contact Diagnoses Secondary Malignant Neoplasm Bone (HCC) Procedures Management Visit Yaya Zamudio M.D. [address] [place] [phone] Phone: tel: fax: [facility] Region Referral ID Status Reason Start Date Expiration Date V isits Requested Visits Authorized [id number] Authorized 12/04/2024 03/06/2026 10 10 * Radiation Therapy (Routine) - Authorized Specialty Diagnoses / Procedures Referred By Contac t Referred To Contact Diagnoses Secondary Malignant Neoplasm Bone (HCC) Procedures Prior Auth Rad Tx Yaya Zamudio M.D. [address] [place] [phone] Phone: tel: fax: [facility] Referral ID Status Reason Start Date Expiration Date V isits Requested Visits Authorized [id number] Authorized 12/04/2024 03/06/2026 1 1 * Outpatient (Routine) - Authorized Specialty Diagnoses / Procedures Referred By Contac t Referred To Contact Radiation Oncology Yaya Zamudio M.D. [address] [place] [address] Phone: tel: fax: [facility] Region Referral ID Status Reason Start Date Expiration Date V isits Requested Visits Authorized [id number] Authorized 12/04/2024 06/05/2026 10 10 * Radiation Therapy (Routine) - Authorized Specialty Diagnoses / Procedures Referred By Contac t Referred To Contact Diagnoses Secondary Malignant Neoplasm Bone (HCC) Procedures Management Visit Yaya Zamudio M.D. [address] [place] [phone] Phone: tel: fax: [facility] Region Referral ID Status Reason Start Date Expiration Date V isits Requested Visits Authorized [id number] Authorized 12/04/2024 03/06/2026 10 10 * Radiation Therapy (Routine) - Authorized Specialty Diagnoses / Procedures Referred By Contac t Referred To Contact Diagnoses Secondary Malignant Neoplasm Bone (HCC) Procedures Initial Rad Onc Treatment Planning CT Simulation Yaya Zamudio M.D. [address] [place] [address] Phone: tel: fax: [facility] Region Referral ID Status Reason Start Date Expiration Date V isits Requested Visits Authorized [id number] Authorized 12/04/2024 03/06/2026 1 1 * Radiation Therapy (Routine) - Authorized Specialty Diagnoses / Procedures Referred By Contac t Referred To Contact Diagnoses Secondary Malignant Neoplasm Bone (HCC) Procedures Prior Auth Rad Tx Yaya Zamudio M.D. [address] [place] [address] Phone: tel: fax: [facility] Referral ID Status Reason Start Date Expiration Date V isits Requested Visits Authorized [id number] Authorized 12/04/2024 03/06/2026 1 1 * Outpatient (Routine) - Closed Specialty Diagnoses / Procedures Referred By Contac t Referred To Contact Radiation Oncology Yaya Zamudio M.D. [address] [place] [address] Phone: tel: fax: Yaya Zamudio M.D. [address] [place] [address] Phone: tel: fax: Referral ID Status Reason Start Date Expiration Date Visits Re quested Visits Authorized [id number] Closed 11/05/2024 05/07/2026 1 1 Scheduling Instructions Please schedule phone follow-up with Dr. Zamudio on either December 03 or . Thank you! Reason for Visit * Outpatient (Routine) - Closed Specialty Diagnoses / Procedures Referred By Citlali t Referred To Contact Radiation Oncology Yaya Zamudio M.D. [address] [place] [address] Phone: tel: fax: Yaya Zamudio M.D. [address] [place] [address] Phone: tel: fax: Referral ID Status Reason Start Date Expiration Date Visits Re quested Visits Authorized [id number] Closed 11/05/2024 05/07/2026 1 1 Encounter Details Date Type Department Care Team (Latest Contact Info) Description 12/04/2024 12:45 PM CDT - 12/04/2024 2:09 PM CDT Hospital Encounter Department of Radiation Oncology in [place], [place] [address] [place] [address] Yaya Zamudio M.D. 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 11/02/2016 documented as of this encounter Progress Notes * Yaya Zamudio M.D. - 12/04/2024 1:00 PM CDT SUBJECTIVE REASON FOR VISIT 1. Secondary Malignant Neoplasm Pelvic Bone (HCC) 2. Primary Osteoarthritis Knee Right [id number] PHONE VISIT This visit was performed by telephone call today. Call initiation: 1:22 p.m. Call completion: 1:31 p.m. Total duration: 9 minutes HISTORY OF PRESENT ILLNESS Mr. Hermann Garrett is an 84 y.o. male with metastatic prostate cancer. He completed palliativeradiotherapy to multiple bony metastases in the pelvis on October 18, 2024 and palliative radiotherapy to osteoarthritis of his right knee on November 12, 2024. Oncology History Primary Malignant Neoplasm Of Prostate (HCC) 07/02/2001 Surgery and Procedures Radical prostatectomy was performed by Dr. Gerardo Henry. Pathology of the prostate gland demonstrated prostatic adenocarcinoma, [place] grade 3, 4; score 7. Tumor focally present at left distal urethral margin. Tumor infiltrates into capsule and is present focally within 0.5 mm of the left superior inked margin. High-grade prostatic intraepithelial neoplasia. Nodular glandular hyperplasia. Seminal vesicles without pathologic alteration; no evidence of tumor involvement. Resection of the urinary bladder, bladder neck margin demonstrated no pathologic alteration and no evidence of tumor involvement. pT2b pNX pMX 05/15/2006 Other PSA was reported as never going undetectable following prostatectomy. 05/15/2006: PSA 0.16 ng/mL 04/04/2007: PSA 0.16 ng/mL 05/08/2008: PSA 0.26 ng/mL 04/02/2009: PSA 0.31 ng/mL 06/02/2010: PSA 0.34 ng/mL 06/28/2011: PSA 0.39 ng/mL 10/26/2012: PSA 0.61 ng/mL 09/16/2014: PSA 0.64 ng/mL 10/08/2015: PSA 0.76 ng/mL 10/13/2016: PSA 0.68 ng/mL 02/12/2018: PSA 0.50 ng/mL 10/08/2019: PSA 0.48 ng/mL 10/30/2020: PSA 1.80 ng/mL 12/17/2021: PSA 46.16 ng/mL 12/02/2015 Other Urology consultation with Dr. Jossue Reeder for a rising PSA following prostatectomy. Discussed that the patient has recurrence and discussed options including monitoring the PSA, pelvic radiation, or hormonal therapy. Recommended observation and if the PSA increases consider hormone therapy. 12/14/2020 Other Urology appointment with Dr. Reeder who recommended for the patient to stop taking testosterone supplement. 12/28/[address] Abdomen Pelvis Impression: Soft tissue nodularity is seen within the prostatectomy bed concerning for prostate cancer recurrence with concern for extension into the adjacent bladder wall, possibly seminal vesical and extendingposterior to the rectal vesicular pouch. Relationship to the rectum is unclear on this study, possible focal rectal wall thickening. Also, relationship to the adjacent sigmoid colon superiorly is unclear. Soft tissue nodularity extends into the bilateral distal ureters and appears to be at least partially obstructive with upstream moderate hydroureteronephrosis. Diffuse bony metastases best evaluated on comparison bone scan. 1.8 centimeter low-density bilobed lesion within the body of the pancreas, this can be followed up with MRI as clinically indicated in this patient. Mild compression deformity of L1 vertebral body, age indeterminate but may be chronic. Extensive and likely at least partially obstructing calcification of the right common femoral artery. Nuclear medicine whole-body bone scan demonstrated multiple focal areas of abnormally increased uptake consistent with skeletal metastases. Areas of involvement include multiple levels in the cervical, thoracic and lumbar spine, bilateral ribs, proximal right humerus, left scapula, medial left clavicle, sacrum, and bilaterally in the pelvis. 01/10/2022 Other Urology appointment with Dr. Reeder who recommended initiating hormone therapy. The patient was prescribed Casodex 50 mg daily for 30 days. 01/17/2022 - 07/2022 Biological/Targeted/Hormone Therapy 01/17/2022: Leuprolide 45 mg (6 month) injection 02/2022 Genetic Testing and Tumor Genotyping TEST PERFORMED: Prostate Cancer Panel/ Common Hereditary Cancers Panel (47 genes) via [employer] (56 total genes analyzed). See test report for details regarding genes analyzed and testing methodologies. RESULT: NEGATIVE No clinically-actionable (pathogenic) mutations or other reportable variants were detected in the genes analyzed. INTERPRETATION: A genetic predisposition to cancer has not been identified with this testing. 04/05/2022 Other 04/05/2022: PSA 0.14 ng/mL 12/01/2022: PSA < 0.06 ng/mL 03/01/2023: PSA 0.02 ng/mL 05/31/2023: PSA 0.07 ng/mL 07/02/2023: PSA 0.12 ng/mL Biological/Targeted/Hormone Therapy February 2022: Started Xtandi 04/07/2022: Started Xgeva 05/17/2024: Final dose of Xtandi, discontinued due to rising PSA and fatigue. 05/22/2024: Started apalutamide 240 mg 03/21/2023 - Biological/Targeted/Hormone Therapy ADT was re-initiated. 03/21/2023: Leuprolide 45 mg injection 09/06/2023: Leuprolide 45 mg injection 08/22/2023 Critical Imaging PSMA PET-CT IMPRESSION: 1. Radiotracer avid sclerotic lesions within the L3 vertebral body, right supra- acetabular iliac bone and left ischial tuberosity consistent with active metastatic prostate cancer. 2. Additional numerous sclerotic lesions throughout the axial and proximal appendicular skeleton without significant radiotracer uptake likely represent previously treated metastases. 3. Inferior endplate height loss along the L3 vertebral body may represent a Schmorl's node or pathologic fracture. Recommend correlation with prior imaging studies. 4. Patchy groundglass attenuation throughout the right upper lobe is favored to be infectious or inflammatory. 09/06/2023 Other 09/06/2023: PSA 0.34 ng/mL 04/25/2024: PSA 2.11 ng/mL 06/17/2024: PSA 1.78 ng/mL 07/30/2024: PSA 2.46 ng/mL 09/28/2023 - 09/28/2023 Radiation Therapy Radiation Therapy Treatment Details (09/28/2023 - 09/28/2023) Site: Bone--L3 vertebral body, the right supra-acetabular iliac bone, and the left ischial tuberosity Technique: 3D CREWMAN MAIN BATTLE TANK Dose: 800 cGy Fractions: 1 Goal: Palliative Planned Treatment Start Date: 09/27/2023 04/01/2024 Critical Imaging MR Lumbar Spine Impression: 1. Interval progression of metastatic disease relative to the 07/02/2023 CT abdomen and pelvis, with new lesion at the posterior L3 body, and new/progressed right iliac lesion with associated extraosseous spread of neoplasm encroaching upon the right iliacus muscle. 2. Stable chronic L1 superior endplate compression deformity. Pathologic enhancement of T12, L3, and right iliac lesions. 3. At L2-L3, moderate spinal canal stenosis. 4. At L3-L4, moderate bilateral neural foraminal stenosis, moderately severe spinal canal stenosis,and potential descending left L4 nerve root impingement along the lateral recess. 5. At L4-L5, moderate bilateral neural foraminal stenosis, and moderate spinal canal stenosis. 6. At L5-S1, moderately severe right and moderate left neural foraminal stenosis, with maiw-wkgrhnx-hbhk-right lateral recess stenosis, and potential impingement of the exiting right L5 and descending left S1 nerve roots. 04/16/2024 Critical Imaging PSMA PET/CT with a mixed metabolic response with multiple osseous lesions demonstrating increased radiotracer uptake including disease in the T12 vertebral body, the right lateral fifth and posteriorsixth ribs, a right iliac bone but other areas that had decreased treated tracer uptake including the left posterior acetabulum. No suspicious uptake in the prostatectomy bed or any abdominal or pelvic lymph nodes. 04/25/2024 - 05/01/2024 Radiation Therapy Radiation Therapy Treatment Details (04/25/2024 - 05/01/2024) Sites: Lumbar spine, Right Ilium Dose: 2000 cGy Technique: IMRT Fractions: 5 Goal: Palliative T12, L3, and Right Iliac 09/10/2024 Critical Imaging PSMA PET/CT: PROSTATE GLAND: No radiotracer uptake in the surgical bed to suggest local recurrence. LYMPH NODES: No radiotracer avid lymph nodes. BONES: Increased number and uptake of PSMA avid osseous lesions. For example, a lesion in the posterior right acetabulum now has a SUV max of 7.2 (series 604, image 78), previously the SUV max was 3.2 and alesion in the right iliac wing has markedly [...] PSMA uptake are compatible with treated metastases. 09/16/2024 Other 09/16/2024: PSA 5.49 ng/mL 10/14/2024: PSA 6.69 ng/mL 11/28/2024: PSA 11.10 ng/mL 10/07/2024 - 10/18/2024 Radiation Therapy Radiation Therapy Treatment Details (10/07/2024-10/18/2024) Sites: Bilateral ilium, L ischium, R pelvis Technique: SBRT Fractions: 3 Goal: Palliative Dose: 3000 cGy 10/25/2024 - 11/12/2024 Radiation Therapy Radiation Therapy Treatment Details (10/25/2024 - 11/12/2024) Site: Right Knee Fractions: 6 Technique: SBRT Dose: 300 cGy Goal: Palliative Planned Treatment Start Date: 10/25/2024 Secondary Malignant Neoplasm Pelvic Bone (HCC) 10/07/2024 - 10/18/2024 Radiation Therapy Radiation Therapy Treatment Details (10/07/2024-10/18/2024) Sites: Bilateral ilium, L ischium, R pelvis Technique: SBRT Fractions: 3 Goal: Palliative Dose: 3000 cGy 10/25/2024 - 11/12/2024 Radiation Therapy Radiation Therapy Treatment Details (10/25/2024 - 11/12/2024) Site: Right Knee Fractions: 6 Technique: SBRT Dose: 300 cGy Goal: Palliative Planned Treatment Start Date: 10/25/2024 ASSESSMENT / PLAN #1 pT2b, Adonis 3+4=7 adenocarcinoma of the prostate s/p prostatectomy on July 02, 2001 with a positive margin #2 PSA remained detectable following prostatectomy and increased to a value of 46.16 ng/mL on 2021 #3 Androgen deprivation therapy initiated with Casodex and a leuprolide 45 mg (6 month) injection on January 17, 2022; leuprolide re-initiated on March 21, 2023 #4 Xtandi started in February 2022 #5 Xgeva started on April 07, 2022 #6 PSMA PET/CT scan on August 22, 2023 demonstrated metastatic lesions within the L3 vertebral body, right supra-acetabular iliac bone, and left ischial tuberosity #7 Radiotherapy to the L3 vertebral body, the right supra-acetabular iliac bone, and the left ischial tuberosity delivered in a single fraction on September 28, 2023 #8 Disease progression on MRI of the lumbar spine on April 01, 2024 and on PSMA PET/CT scan on April 16, 2024 at T12, L3, and the right iliac bone #9 Back pain secondary to bony metastases #10 Palliative radiotherapy to L3 and whole vertebral body, T12 and whole vertebral body and right iliac initiated on April 25, 2024; completed on May 01, 2024 #11 Response to treated areas on PSMA PET/CT scan on September 10, 2024 but new progression in a lesion in the left ischium, 2 lesions in the right acetabulum, 2 lesions in the left iliac, and a lesion in the right iliac bones #12 Radiation to right and left ilium initiated on October 07, 2024; anticipated completion on October 11, 2024 #13 Right knee pain secondary to osteoarthritis #14 Radiation to the left ischium and right pelvis initiated on October 14, 2024; completion on October 18, 2024 #15 Radiation to the right knee initiated on October 25, 2024; anticipated completion on November The patient reports that the pain in his right knee is not much improved since he completed palliative radiotherapy. He is not experiencing any pelvic pain. Does have worsening pain in his mid to lowback likely at the area of his persistent disease at L3. This was treated with 8 Gy in 1 fraction in September of 2023 and then 20 Gy in 5 fractions finishing in late April of 2024. There is persistent PSMA uptake at that area on his most recent scan from September, so I suspect this is the source of his pain and possibly of his rising PSA. The pain is 0-1 at rest but increases to of 4 to 6/10 with movement and standing. He is taking Tylenol 1000 mg 2 or 3 times a day with some benefit. He would like for us to consider stereotactic body radiotherapy to the L3 lesion. We will get him in for that next week as well as a planning MRI and CT simulation. The patient verbalized satisfaction with thisplan, and was appreciative of the call. Signed by: Yaya Zamudio M.D. 12/04/24 1:35 PM CDT [facility] Radiation Therapy [facility] documented in this encounter Plan of Treatment Upcoming Encounters Date Type Department Care Team (Late st Contact Info) Description 12/09/2024 1:00 PM CDT Appointment Department of Radiation Oncology in [place], [place] [address] [place] [phone] Yaya Zamudio M.D. [address] [place] [phone] 12/09/2024 1:30 PM CDT Appointment Department of Radiation Oncology in [place], [place] [address] [place] [phone] Yaya Zamudio M.D. [address] [place] [phone] 12/11/2024 2:30 PM CDT Appointment Department of Radiology in [place], [place] [address] [place] [phone] Yaya Zamudio M.D. [address] [place] [phone] Scheduled Orders Name Type Priority Associated Diagnoses Order Schedule Prior Auth Rad Tx Radiation Oncology Routine Secondary Malignant Neoplasm Bone (HCC) Ordered: 12/04/2024 Management Visit Radiation Oncology Routine Secondary Malignant Neoplasm Bone (HCC) 10 Occurrences starting 12/04/2024 until 03/05/2026 Prior Auth Rad Tx Radiation Oncology Routine Secondary Malignant Neoplasm Bone (HCC) Ordered: 12/04/2024 Management Visit Radiation Oncology Routine Secondary Malignant Neoplasm Bone (HCC) 10 Occurrences starting 12/04/2024 until 12/04/2025 MR Lumbar Spine without and with IV Contrast Imaging RAD - Routine (most inpatients and all outpatients) Secondary Malignant Neoplasm Bone (HCC) Expected: 12/04/2024, Expires: 03/05/2026 Scheduled Referrals Name Type Priority Associated Diagnoses Order Schedule Radiation Oncology office visit (clinic) Outpatient Referral Routine Once for 1 Occurrences starting 12/04/2024 until 12/04/2024 Radiation Oncology nurse visit (clinic) Outpatient Referral Routine 10 Occurrenc es starting 12/04/2024 until 12/04/2025 Radiation Oncology office visit (clinic) Outpatient Referral Routine Expected: (Approximate), Expires: 12/04/2025 documented as of this encounter Visit Diagnoses Diagnosis Secondary Malignant Neoplasm Pelvic Bone (HCC)- Primary 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
--- OUTSIDE RECORDS SUMMARY | 2024-12-05 10:24 | XMS_ITS ---
Author Organization [facility] Address [address] [place] [address] Care Team Providers Care Floating Operator Name Role Phone Unavailable Primary Care Provider Unavailabl e Active Problems Problem Noted Date Diagnosed Date Primary Osteoarthritis Knee Right 10/16/2024 Secondary Malignant Neoplasm Pelvic Bone 025 Secondary Malignant Neoplasm Bone 04/02/2024 Primary Malignant Neoplasm Of Prostate Current Treatment and Therapy Plans No current plan information found. Past Treatment and Therapy Plans No past plan information found. Past Radiation Episodes * SBRT: Right KneeOverview* First Treatment Date Last Treatment Date Treatment Site Technique Goal Episode Provider 10/07/2024 11/12/2024 Right Knee SBRT Palliative * Linked Problems Secondary Malignant Neoplasm Pelvic Bone Treatment Courses* Course 4xKnee 10/25/2024 - 11/12/2024 Treatment Period Fraction Dose Fractions Total Dose Plans Planned A6YhrrI 10/25/2024 - 11/12/2024 50 cGy 6 3 00 cGy Reference Points Delivered [id number] 10/25/2024 - 11/12/2024 300 cGy * Course 3xMultiSiteSBRT 10/07/2024 - 10/18/2024 Treatment Period Fraction Dose Fractions Total Dose Plans Planned K7PezxjeoH 10/14/2024 - 10/18/2024 1,000 cGy 3 / 3 3 ,000 cGy D1WoxmuoC 10/14/2024 - 10/18/2024 1,000 cGy 3 / 3 3 ,000 cGy F7EtmkcR 10/07/2024 - 10/11/2024 1,000 cGy 3 / 3 3 ,000 cGy N2LgcbaI 10/07/2024 - 10/11/2024 1,000 cGy 3 / 3 3 ,000 cGy Reference Points Delivered dpv 3000x LIsch 10/14/2024 - 10/18/2024 3,000 cGy dpv 3000x RAcet 10/14/2024 - 10/18/2024 3,000 cGy dpv 3000x LIliac 10/07/2024 - 10/11/2024 3,000 cGy dpv 3000x RIliac 10/07/2024 - 10/11/2024 3,000 cGy * IMRT: Lumbar spine, Right IliumOverview* First Treatment Date Last Treatment Date Treatment Site Technique Goal Episode Provider 04/25/2024 05/01/2024 Lumbar spineRigh t Ilium IMRT Palliative * Linked Problems Primary Malignant Neoplasm O f ProstateSecondary Malignant Neoplasm Bone Treatment Courses* Course 2xMultiSite 04/25/2024 - 05/01/2024 Treatment Period Fraction Dose Fractions Total Dose Plans Planned E1ErmowG 04/25/2024 - 05/01/2024 400 cGy 5 / 5 2 ,000 cGy Q6TrgO3 04/25/2024 - 05/01/2024 400 cGy 5 / 5 2 ,000 cGy W1GtzY53 04/25/2024 - 05/01/2024 400 cGy 5 / 5 2 ,000 cGy Reference Points Delivered [id number] IlliumR 04/25/2024 - 05/01/2024 2,000 cGy SEO3269p L3 04/25/2024 - 05/01/2024 2,000 cGy QOV5826r SpnT12 04/25/2024 - 05/01/2024 2,000 cGy * 3D BOX LOADER: BoneOverview* First Treatment Date Last Treatment Date Treatment Site Technique Goal Episode Provider 09/28/2023 09/28/2023 Bone 3D BOX LOADER Palliative * Linked Problems Primary Malignant Neoplasm O f Prostate Treatment Courses* Course 1xMultiSite 09/28/2023 - 09/28/2023 Treatment Period Fraction Dose Fractions Total Dose Plans Planned O4VbccC 09/28/2023 - 09/28/2023 800 cGy 8 00 cGy G3GvvwmoeI 09/28/2023 - 09/28/2023 800 cGy 8 00 cGy T7UjsQ2 09/28/2023 - 09/28/2023 800 cGy 8 00 cGy Reference Points Delivered FLB897v AcetR 09/28/2023 - 09/28/2023 800 cGy LFL718n L3 09/28/2023 - 09/28/2023 800 cGy TOA041x Lisch 09/28/2023 - 09/28/2023 800 cGy
--- OUTSIDE RECORDS SUMMARY | 2024-12-05 10:24 | XMS_ITS | Encounter Summary ---
Author Organization [facility] Address [address] [place] [address] Care Team Providers Care Cnc Mechanic Name Role Phone Unavailable Primary Care Provider Unavailabl e Encounter Details Date Type Department Care Team (Late st Contact Info) Description 10/18/2024 Documentation Department of Radiation Oncology in [place], [place] [address] [place] [phone] Yaya Zamudio M.D. [address] [place] [phone] Social History Tobacco Use Types Packs/Day Years Used Date Smoking Tobacco: Never Assessed Dental Answer Date Recorded Dental: Regular Dentist Unknown 10/12/19 23 Sex and Gender Information Value Date Recorded Sex Assigned at Not on file Legal Sex Male 11:16 AM SECOND HAND Gender Identity Not on file Sexual Orientation Not on file documented as of this encounter Miscellaneous Notes * Radiation Completion Notes - Efraín Cordon, RClaudiaNClaudia - 10/18/2024 11:59 PM CST DIAGNOSIS: Secondary Malignant Neoplasm Pelvic Bone Attending Physician: Yaya Zamudio M.D. ([id number]) Treatment Intent: Palliative Concomitant Therapy: Hormonal Therapy Single Plan Treatment Course: 3xMultiSiteSBRT Plan ID Fractions Dose / Fraction (cGy) Dose Treated (cGy) Dose Planned (cGy) First Treatment Last Treatment Elapsed Days G0ArhfnP 1000 3000 3000 10/07/2024 10/11/2024 4 E7XgrwfB 3 / 3 1000 3000 3000 10/07/2024 10/11/2024 4 I1TvmgyglN 3 / 1000 3000 3000 10/14/2024 10/18/2024 4 U7HseeggC 3 / 3 1000 3000 3000 10/14/2024 10/18/2024 4 Course Summary 10/07/2024 10/18/2024 11 Radiation Modality: Photons CLINICAL SUMMARY Mr. Hermann Garrett completed radiation treatment as planned without interruptions. The course of treatment was tolerated well. The patient experienced no toxicities during radiation treatment. TREATMENT RESPONSE: Response to treatment will be determined by post-treatment imaging and/or laboratory work. RECOMMENDED FOLLOW UP: Primary Medical Oncologist - Dr. Jacobson Signed by: Cassandra Cordon R.N., 10/21/2024 9:17 AM SECOND HAND [facility] [address] [place] [address] Cosigned by Yaya Zamudio M.D. at 10/21/2024 4:20 PM SECOND HAND ND HAND ND HAND documented in this encounter Plan of Treatment Upcoming Encounters Date Type Department Care Team (Late st Contact Info) Description 12/09/2024 1:00 PM CDT Appointment Department of Radiation Oncology in [address] [phone] Yaya Zamudio M.D. [address] [place] [phone] 12/09/2024 1:30 PM CDT Appointment Department of Radiation Oncology in [address] [phone] Yaya Zamudio M.D. [address] [place] [phone] 12/11/2024 2:30 PM CDT Appointment Department of Radiology in [place], [place] [address] [place] [address] Yaya Zamudio M.D. [address] [place] [address] documented as of this encounter Visit Diagnoses Not on filedocumented in this encounter
--- OUTSIDE RECORDS SUMMARY | 2024-12-05 10:25 | XMS_ITS | Encounter Summary ---
Author Organization [facility] Address [address] [place] [address] Care Team Providers Care Vibration Technician Name Role Phone Unavailable Primary Care Provider Unavailabl e Encounter Details Date Type Department Care Team (Latest Contact Info) Description 11/01/2024 2:20 PM WARD ASSISTANT - 11/01/2024 11:59 PM [facility] Hospital Encounter Department of Radiation Oncology in [place], [place] [address] [place] [phone] Peg Price M.D. [address] [place] [phone] Yaya Zamudio M.D. [address] [place] [phone] Discharge Disposition: Home or Self Care Social History Tobacco Use Types Packs/Day Years Used Date Smoking Tobacco: Never Assessed Dental Answer Date Recorded Dental: Regular Dentist Unknown 10/12/19 23 Sex and Gender Information Value Date Recorded Sex Assigned at Not on file Legal Sex Male 11:16 AM WARD ASSISTANT Gender Identity Not on file Sexual [...] CDT Appointment Department of Radiation Oncology in [place], [place] [address] [place] [phone] Yaya Zamudio M.D. 200 [place] [phone] 12/09/2024 1:30 PM CDT Appointment Department of Radiation Oncology in [place], [place] [address] [place] [phone] Yaya Zamudio M.D. 200 [place] [phone] 12/11/2024 2:30 PM CDT Appointment Department of Radiology in [place], [place] [address] [place] [address] Yaya Zamudio M.D. [address] [place] [phone] documented as of this encounter Visit Diagnoses Not on filedocumented in this encounter
--- OUTSIDE RECORDS SUMMARY | 2024-12-05 10:25 | XMS_ITS | Encounter Summary ---
Author Organization [facility] Address [address] [place] [address] Care Team Providers Care Electrical Controls Assembler Name Role Phone Unavailable Primary Care Provider Unavailabl e Encounter Details Date Type Department Care Team (Late st Contact Info) Description 11/08/2024 2:35 PM RESEARCH SCIENTIST Hospital Encounter Department of Radiation Oncology in [address] [phone] Peg Price M.D. [address] [place] [phone] Yaya Zamudio M.D. [address] [place] [phone] Social History Tobacco Use Types Packs/Day Years Used Date Smoking Tobacco: Never Assessed Dental Answer Date Recorded Dental: Regular Dentist Unknown 10/12/19 23 Sex and Gender Information Value Date Recorded Sex Assigned at Not on file Legal Sex Male 11:16 AM RESEARCH SCIENTIST Gender Identity Not on file Sexual Orientation Not on file documented as of this encounter Plan of Treatment Upcoming Encounters Date Type Department Care Team (Late st Contact Info) Description 12/09/2024 1:00 PM CDT Appointment Department of Radiation Oncology in [address] [phone] Yaya Zamudio M.D. [address] [place] [phone] 12/09/2024 1:30 PM CDT Appointment Department of Radiation Oncology in [place], [place] [address] [place] [phone] Yaya Zamudio M.D. 200 [place] [phone] 12/11/2024 2:30 PM CDT Appointment Department of Radiology in [place], [place] [address] [place] [address] Yaya Zamudio M.D. 200 [place] [address] documented as of this encounter Visit Diagnoses Not on filedocumented in this encounter
--- OUTSIDE RECORDS SUMMARY | 2024-12-05 10:25 | XMS_ITS | Encounter Summary ---
Author Organization [facility] Address [address] [place] [address] Care Team Providers Care Scientific Photographer Name Role Phone Unavailable Primary Care Provider Unavailabl e Encounter Details Date Type Department Care Team (Late st Contact Info) Description 11/05/2024 1:33 PM OFFICE RENTAL CLERK Hospital Encounter Department of Radiation Oncology in [place], [place] [address] [place] [phone] Peg Price M.D. [address] [place] [phone] Yaya Zamudio M.D. [address] [place] [phone] Social History Tobacco Use Types Packs/Day Years Used Date Smoking Tobacco: Never Assessed Dental Answer Date Recorded Dental: Regular Dentist Unknown 10/12/19 23 Sex and Gender Information Value Date Recorded Sex Assigned at Not on file Legal Sex Male 11:16 AM OFFICE RENTAL CLERK Gender Identity Not on file Sexual Orientation Not on file documented as of this encounter Plan of Treatment Upcoming Encounters Date Type Department Care Team (Late st Contact Info) Description 12/09/2024 1:00 PM CDT Appointment Department of Radiation Oncology in [address] [phone] Yaya Zamudio M.D. [address] [place] [phone] 12/09/2024 1:30 PM CDT Appointment Department of Radiation Oncology in [place], [place] [address] [place] [phone] Yaya Zamudio M.D. 200 [place] [phone] 12/11/2024 2:30 PM CDT Appointment Department of Radiology in [place], [place] [address] [place] [address] Yaya Zamudio M.D. [address] [place] [phone] documented as of this encounter Visit Diagnoses Not on filedocumented in this encounter
--- OUTSIDE RECORDS SUMMARY | 2024-12-05 10:25 | XMS_ITS | Encounter Summary ---
Author [email or web address] Preferred Language ENG Marital Status [employer]aritan Affiliation Unknown Race White Ethnic Group Not or Lati no Author Organization [facility] Address [address] [place] [address] Care Team Providers Care Resident Program Specialist Name Role Phone Unavailable Primary Care Provider Unavailabl e Encounter Details Date Type Department Care Team (Late st Contact Info) Description 11/12/2024 2:04 PM CDT Hospital Encounter Department of Radiation Oncology in [place], [place] [address] [place] [phone] Peg Price M.D. [address] [place] [phone] Yaya Zamudio M.D. [address] [place] [phone] Social History Tobacco Use Types Packs/Day Years Used Date Smoking Tobacco: Never Assessed Dental Answer Date Recorded Dental: Regular Dentist Unknown 10/12/19 23 Sex and Gender Information Value Date Recorded Sex Assigned at Not on file Legal Sex Male 11:16 AM BOARD TURNER Gender Identity Not on file Sexual Orientation Not on file documented as of this encounter Plan of Treatment Upcoming Encounters Date Type Department Care Team (Late st Contact Info) Description 12/09/2024 1:00 PM CDT Appointment Department of Radiation Oncology in [place], [place] [address] [place] [phone] Yaya Zamudio M.D. [address] [place] [phone] 12/09/2024 1:30 PM CDT Appointment Department of Radiation Oncology in [place], [place] [address] [place] [phone] Yaya Zamudio M.D. [address] [place] [address] 12/11/2024 2:30 PM CDT Appointment Department of Radiology in [place], [place] [address] [place] [phone] Yaya Zamudio M.D. [address] [place] [phone] documented as of this encounter Visit Diagnoses Not on filedocumented in this encounter
--- OUTSIDE RECORDS SUMMARY | 2024-12-05 10:25 | XMS_ITS | Clinical Summary ---
Author Organization [email or web address] Address [address] [place] [id number] Care Team Providers Care Us Customs And Border Officer Name Role Phone Irish Guzman MD Unavailable + Maico Goetz MD Unavailable Unavailable Adria Valentine MD Primary Care Provider [phone] Baljit Maya MD Unavailable [phone] Nurses, Advanced Heart Failure Unavailable + Allergies Active Allergy Reactions Criticality Noted Date Comments Cocaine 11/29/2007 Blood pressure became elevated Cultivated Crop Pollen-[place] Runny Nose 05/17/2022 Feathers Runny Nose 05/17/2022 Influenza Virus Vaccines Headache 11/30/2006 Unlisted Allergen (Include Detail In Comments) Other - Describe In Comment Field Low 01/21/2022 Feathers, tobacco, dust in the air. Reaction is stuffed up nose. Medications turmeric root extract 500 mg cap Take by mouth 2 times daily. 0 017 Active multivitamin (MVI) tablet Take 1 tablet by mouth once daily. Active cetirizine (ZYRTEC) 10 mg tablet Take 10 mg by mouth at bedtime if needed for Other (Specify). Active hydrocortisone (HYTONE) 2.5 % ointment Sparingly apply to lip TID. 2 017 Active triamcinolone (ARISTOCORT) 0.1 % ointment 018 Active Cinnamon Bark (CINNAMON) 500 mg capsule Take 1 capsule by mouth 2 times daily. 0 020 Active ketoconazole 2% topical (NIZORAL) cream Apply to affected areas in armpits once to twice daily until resolved then as needed for flares. 30 day supply. Active glucosam-chondroi p-H-ffjvyzkwi 500-400-2-0.33 mg cap Take by mouth. 0 021 Active fexofenadine-pseu doephedrine, 180-240 MG, (Taya-D 24 Hour) 180-240 mg per tablet Take 1 Tablet by mouth once daily. 0 022 Active magnesium 250 mg tab Take 500 mg by mouth once daily. Active denosumab (XGEVA) 120 mg/1.7 mL (70 mg/mL) injection Inject 120 mg subcutaneous every 4 weeks. 023 Active leuprolide acetate, 6 month, (ELIGARD) 45 mg subcutaneous syringe Inject 45 mg subcutaneous EVERY 6 MONTHS. 023 Active Xtandi 40 mg capsule once daily. 4 tablets unsure of dosage Active carvediloL (COREG) 12.5 mg tabletIndications :Ischemic cardiomyopathy Take 1 Tablet (12.5 mg) by mouth two times daily with meals. 180 Tablet 3 024 Active losartan (COZAAR) 100 mg tabletIndications :Ischemic cardiomyopathy Take 1 Tablet (100 mg) by mouth once daily. 90 Tablet 3 024 Active metFORMIN (GLUCOPHAGE) 1,000 mg tabletIndications :Type 2 diabetes mellitus without complication, without long-term current use of insulin (HC) Take 1 Tablet (1,000 mg) by mouth two times daily with meals. 180 Tablet 3 024 Active spironolactone (ALDACTONE) 25 mg tabletIndications :Ischemic cardiomyopathy Take 1 Tablet (25 mg) by mouth once daily in the morning. 90 Tablet 3 024 Active Erleada 60 mg tablet Take 240 mg by mouth once daily. 024 Active mecobalamin, vitamin B12, 1,000 mcg chew Chew by mouth. 024 Active furosemide (LASIX) 20 mg tabletIndications :Chronic systolic heart failure (HC) Take 3 Tablets (60 mg) by mouth once daily in the morning. 024 Active rosuvastatin (CRESTOR) 40 mg tabletIndications :Ischemic cardiomyopathy,Mi xed hyperlipidemia Take 1 Tablet (40 mg) by mouth at bedtime. 90 Tablet 3 024 Active CPAPIndications:O SA (obstructive sleep apnea) CPAP machine for home use at pressure: 8 cmw , Heated humidifier x 1 q 5 yr, Humidifier chamber x 1 q 6 mo, nasal face mask x1 q 3mos, with cushion x 2 q mo, standard tubing x 1 q 3 mo, Headgear x 1 q 6 mo, Filters: Disposable x 2 q mo non-disposable filters x1 q 6mo, Length of Need: 99 months, Frequency of use: Daily 1 Each 11 025 Active furosemide (LASIX) 20 mg tabletIndications :Chronic systolic heart failure (HC) TAKE THREE TABLETS BY MOUTH DAILY 270 Tablet 1 025 Active diphenhydrAMINE (BENADRYL ALLERGY) 25 mg tablet Take 2 tablets by mouth at bedtime if needed. 0 015 2024 Discontinued(* Patient states no longer taking) furosemide (LASIX) 20 mg tabletIndications :Chronic systolic heart failure (HC) TAKE THREE TABLETS BY MOUTH DAILY 90 Tablet 025 2024 Discontinued Active Problems Patient Care Coordination No te Formatting of this note migh t be different from the original. HF/Structural/Prevention Research Eligibility Review Date: 11/01/19 Upcoming Visit Location: [facility] Age: 79 y.o. Research Purpose Insurance Type: Medicare/Medicaid Comments: This patient was indicated to be a potential candidate and pre-screened for the following studies: AltFlow: Potential Pending dyspnea, RHC from 2017 Problem Noted Date Diagnosed Date Prostate cancer metastatic to multiple sites 07/2024 Pancreatic lesion 02/03/2022 Overview (07/18/2023): Likely cystic on MRI 01/2022, stable 05/2022 and 05/2023 - repeat in 12 months Rhinitis medicamentosa 12/20/2021 Allergic rhinitis 12/20/2021 Chronic systolic heart failure 10/23/2018 Type 2 diabetes mellitus wit h hyperglycemia, without long-term current use of insulin 09/06/2018 History of atrial fibrillation 01/24/2017 Overview (04/05/2022): Off anticoagulation since 11/2020 S/P CABG x 3 2017 Overview (2017): Coronary artery bypass x3. Left internal mammary artery to LAD, saphenous vein to obtuse marginal, saphenous vein to posterior descending branch of right coronary artery--01/16/17 Dr. Mary LEBRON, 01/24/2005, AHI 94 08/18/2016 Colon polyps 06/02/2010 Overview (11/24/2020): colonoscopy 07/2006; to recheck in 3 years. Colonoscopy 07/2011 polyps repeat in 3 years Colonoscopy 10/2014 polyp repeat in 5 years Colonoscopy 11/2020 4 polyps, repeat in 3 years Unspecified essential hypertension 09/07/2007 Mixed hyperlipidemia 09/07/2007 Resolved Problems Problem Noted Date Diagnosed Date Resolved Date Anticoagulation monitoring, INR range 2-3 01/24/2017 04/05/2022 ACP (advance care planning) 01/12/2017 10/08/2019 Overview (01/12/2017): Patient has identified Health Care Agent(s): Yes Add Health Care Agents: Yes Health Care Agent(s): Primary Health Care Agent: Melissa Garrett Relationship: Secondary Health Care Agent: Chico Tami Relationship: son Conservator: Relationship: Phone: Guardian: Relationship: Phone: Patient has Advance Care Plan Documents (Health Care Directive, POLST): Yes Advance Care Plan Documents: Health Care Directive Patient has identified Specific Treatment Preferences: Yes Specific Treatment Preferences: a.) Code Status: CPR/Attempt Resuscitation Prostate cancer 12/02/2015 05/16/2024 Hip osteoarthritis 09/19/2013 0 Knee osteoarthritis 09/19/2013 10/08/19 20 Diabetes mellitus type II 11/30/2012 Routine general medical exam ination at a health care facility 06/02/2010 11/30/2012 Elevated glucose 04/03/2009 11/30/2012 Personal history of malignan t neoplasm of prostate 09/07/2007 10/08/2019 Overview (09/07/2007): Adonis 7 Unspecified sleep apnea 09/07/200712/2019 Congestive heart failure 12/2019 Encounters Date Type Department Care Team Description 12/05/[address] [address] Kemal Boyer MD Questions (Not getting sleep) 11/27/[address] [address] Kemal Boyer MD 11/14/[address] [address] Adria Valentine MD Refill Request (Furosemide) 11/08/2024 1:35 PM GAMING INVESTIGATOR Office Visit [address] [address] Adria Valentine MD Follow Up; Fatigue (Sleeping troubles); Ear Problem (ears feel plugged. both sides, mostly left ) 11/08/2024 Travel 10/23/2024 11:00 AM GAMING INVESTIGATOR Office Visit [address] [address] Kemal Boyer MD Sleep Follow-up 10/23/2024 Travel 10/22/2024 Orders Only [address] [address] Kemal Boyer MD 1 scan: (1-Ord) [facility], PSG REPORT, 09/18/2024 10/16/2024 11:30 AM GAMING INVESTIGATOR Ancillary Procedure [address] [address] 10/16/2024 Travel 10/11/2024 Transcribe Orders Customer Experience [facility] [phone] Yaya Zamudio MD 10/10/2024 Refill [facility] [address] [place] [address] Adria Valentine MD Refill Request (Furosemide) 09/27/2024 Orders Only [facility] Scanner 1 scan: (1-Ord) [facility], MR PELVIS WWO CONTRAST, 09/27/2024 09/27/2024 Orders Only [facility] Scanner 1 scan: (1-Ord) [place], CHEST 1V PORTABLE, 09/27/2024 09/26/2024 12:20 PM GAMING INVESTIGATOR Office Visit [facility] [address] [place] [address] Adria Valentine MD Diabetes 09/26/2024 Travel 09/23/2024 Telephone [facility] [address] [place] [address] Kemal Boyer MD Questions (daridorexant 25 mg tab) 09/23/2024 Orders Only [facility] [address] [place] [address] Kemal Boyer MD <No scans attached> 09/23/2024 Telephone [facility] [address] [place] [address] Kemal Boyer MD Results (sleep study) 09/19/2024 Telephone [facility] [address] [place] [address] Kemal Boyer MD Prescription for Belsomra 09/18/2024 9:40 PM GAMING INVESTIGATOR Procedure Only [facility] [address] [place] [address] Kemal Boyer MD 09/18/2024 Orders Only [facility] [address] [place] [address] Baljit Maya MD <No scans attached> 09/12/2024 11:30 AM GAMING INVESTIGATOR Office Visit [facility] [address] [place] [address] Kemal Boyer MD Sleep Follow-up 09/12/2024 Telephone [facility] [address] [place] [address] Chico Leggett MD Questions (injections ) 09/12/2024 Travel 09/09/2024 1:00 PM GAMING INVESTIGATOR Office Visit [facility] [address] [place] [address] Chico Leggett MD Musculoskeletal Problem (Follow up bilateral knee pain right is worse) 09/09/2024 Travel from Last 3 Months Immunizations Immunization Administration Dates Next Due Pneumococcal Poly,23-Valent (Pneumovax) 05/05/20 09 Td (Age >=7 Years) 12/19/2003 Family History Medical History Relation Name Comments Heart Disease Brother Claudy CABG Heart Disease Father Efrem failure Diabetes Maternal Grandmother Cancer Mother Kandice lung Heart Disease Paternal Grandfather [place]--70 s Cancer Paternal Grandmother leukemi a Anesthesia Problem No Family History Blood Disease No Family History Relation Name Status Comments Brother Claudy Alive Father Efrem (Age 72) Maternal Grandmother Mother Kandice (Age 60) Paternal Grandfather Paternal Grandmother Social History Tobacco Use Types Packs/Day Years Used Date Smoking Tobacco: Former Cigarettes Q uit: 09/04/1979 Smokeless Tobacco: Never Tobacco Cessation:Counseling Given: Yes Alcohol Use Standard Drinks/Week Comments Not Currently 0 (1 standard drink = 0.6 oz pur e alcohol) Once every couple weeks PHQ-2 Answer Date Recorded PHQ-2 TOTAL SCORE 0 05/16/2024 Social Connections Answer Date Recorded Do you often feel lonely or isolated from those around you? 0 05/16/2024 Financial Resource Strain Answer Date R ecorded Difficulty of Paying Living Expenses 3 05/16/2024 Difficulty of Paying Living Expenses Not on file 05/16/2024 Food Insecurity Answer Date Recorded Do you worry your food will run out before you are able to buy more? 1 05/16/2024 Transportation Needs Answer Date Record ed Does lack of transportation keep you from medica l appointments? 1 05/16/2024 Does lack of transportation keep you from work, meetings or getting things that you need? 1 05/16/2024 Housing Stability Answer Date Recorded What is your housing situation today? 1 05/16/2024 Utilities Answer Date Recorded Do you have trouble paying f or utilities (for example, heat, electricity, water, phone)? 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 file Not on file Not on file Not on file Not on file Not on file Not on file Obstetrics History Last Filed Vital Signs Vital Sign Reading Time Taken Comments Blood Pressure 138/76 11/08/2024 1:35 PM GAMING INVESTIGATOR Pulse 80 11/08/2024 1:35 PM GAMING INVESTIGATOR Temperature 36.3 C (97.4 F) 09/03/2024 1:10 PM GAMING INVESTIGATOR Respiratory Rate 20 03/02/2024 11:20 AM CDT Oxygen Saturation 96% 11/08/2024 1:35 PM GAMING INVESTIGATOR Inhaled Oxygen Concentration - - Weight 98.1 kg (216 lb 4.8 oz) 11/08/2024 1:35 P M GAMING INVESTIGATOR Height 175.5 cm (5' 9.09) 10/23/2024 11:[address] Body Mass Index 31.86 10/23/2024 11:04 AM GAMING INVESTIGATOR Plan of Treatment Upcoming Encounters Date Type Department Care Team (Late st Contact Info) Description 12/12/2024 11:15 AM CDT Office Visit [address] [phone] Franklin Carlson MD [address] [place] [address] 12/16/2024 1:25 PM CDT Office Visit [facility] [address] [place] [address] Adria Valentine MD [address] [place] [address] 01/06/2025 1:00 PM CDT Office Visit [facility] [address] [place] [address] Kemal Boyer MD [address] [place] [address] 01/29/2025 11:00 AM CDT Office Visit [facility] [address] [place] [address] Kemal Boyer MD [address] [place] [address] Health Maintenance Due Date Last Done Comments COVID-19 vaccine series (#1) 01/21/1945 Zoster (shingles) series for age 50+ (1 of 2) 01/21/1959 RSV vaccine for adults or (1 - 1-dose 75+ series) 01/21/2015 Medicare Wellness for age 65+ 05/17/2025, 05/12/2023, 04/05/2022, Additional history exists Depression screening for age 12+ 05/20/2025 05/20/2024, 05/17/2024, 05/17/2024, Additional history exists Tetanus booster 09/28/2025 09/28/2015, 12/19/2003 BMI (ht and wt on same day) for age 18+ 10/23/2025 10/23/2024, 09/12/2024, 05/16/2024, Additional history exists Pneumococcal series for age 50+ Completed 6, 05/05/2009 Tdap Completed 09/28/2015 Procedures Procedure Name Priority Date/Time Associated Diagnosis Comments XR KNEE 3 VIEWS RIGHT Routine 10/16/2024 11:18 AM GAMING INVESTIGATOR Pain in right knee SCAN-MRI INTERPRETATION 09/27/2024 12:00 AM GAMING INVESTIGATOR SCAN-RADIOLOGY REPORT 09/27/2024 12:00 AM GAMING INVESTIGATOR BASIC METABOLIC PANEL Routine 09/26/2024 12:21 PM GAMING INVESTIGATOR S/P CABG x 3 Chronic systolic heart failure (HC) BASIC METABOLIC PANEL Routine 09/26/2024 12:20 PM GAMING INVESTIGATOR Ischemic cardiomyopathy HEMOGLOBIN A1C MONITORING (POCT) Routine 09/26/2024 12:19 PM GAMING INVESTIGATOR Type 2 diabetes mellitus without complication, without long-term current use of insulin (HC) PRO-BNP Routine 09/26/2024 12:19 PM GAMING INVESTIGATOR Ischemic cardiomyopathy SLEEP STUDY PER PROTOCOL Routine 09/18/2024 12:00 AM GAMING INVESTIGATOR VI, 01/24/2005, AHI 94 from Last 3 Months Results * XR KNEE 3 VIEWS RIGHT (10/16/2024 11:18 AM GAMING INVESTIGATOR) Anatomical Region Laterality Modality KNEES, KNEE R Computed Radiogr aphy 10/17/2024 7:13 AM GAMING INVESTIGATOR Impressions 10/17/2024 7:13 AM GAMING INVESTIGATOR Osteoarthritis, as above Dictated by Fabien Casper MD @ 10/17/2024 7:13:18 AM (Electronically Signed) Narrative 10/17/2024 7:13 AM GAMING INVESTIGATOR For Patients: As a result of the [...] and mild patellofemoral joint osteoarthritis. No chondrocalcinosis. Procedure Note Fabien Casper MD - 10/17/2024 For Patients: As a result of the s Act, medical imagingexams and procedure reports are released immediately into your electronicmedical record. You may view this report before your referring provider.If you have questions, please contact your health care provider. INDICATION: Right knee pain TECHNIQUE: Standing AP and lateral views of the right knee as well as a sunriseview COMPARISON: 09/19/2013 FINDINGS: No obvious joint effusion. Moderate to advanced medial compartmentosteoarthritis and mild patellofemoral joint osteoarthritis. Nochondrocalcinosis. IMPRESSION: Osteoarthritis, as above Dictated by Fabien Casper MD @ 10/17/2024 7:13:18 AM (Electronically Signed) us Yaya Zamudio MD GENERAL IMAGING Final Result * SCAN-RADIOLOGY REPORT (09/27/2024 12:00 AM GAMING INVESTIGATOR) Anatomical Region Laterality Modality Other us Scanner OTHER Final Result * SCAN-MRI INTERPRETATION (09/27/2024 12:00 AM GAMING INVESTIGATOR) Anatomical Region Laterality Modality Other us Scanner OTHER Final Result * (ABNORMAL) BASIC METABOLIC PANEL (09/26/2024 12:21 PM GAMING INVESTIGATOR) Only the most recent of2 resultswithin the time period is included. GLUCOSE 205(H) 65 - 99 mg/dL [facility] Comment: Fasting reference interval For someone without known diabetes, a glucose value >125 mg/dL indicates that they may have diabetes and this should be confirmed with a follow-up test. UREA NITROGEN (BUN) 30(H) 7 - 25 mg/dL [facility] CREATININE 1.49(H) 0.70 - 1.22 mg/dL [facility] EGFR 46(L) > OR = 60 mL/min/1.7 3m2 [facility] BUN/CREATININE RATIO 20 6 - 22 (calc) [facility] SODIUM 138 135 - 146 mmol/L [facility] POTASSIUM 4.5 3.5 - 5.3 mmol/L [facility] CHLORIDE 101 98 - 110 mmol/L [facility] CARBON DIOXIDE 24 20 - 32 mmol/L [facility] ELECTROLYTE BALANCE 13 7 - 17 mmol/L (calc) [facility] CALCIUM 9.3 8.6 - 10.3 mg/dL [facility] Blood BLOOD SPECIMEN / Unknown 09/26/2024 12:21 PM GAMING INVESTIGATOR 09/26/2024 12:22 PM GAMING INVESTIGATOR Maico Feliz MD CHEMISTRY Final Result [employer] [facility] [address] [place] [address], [facility] [address] [place] [address] * (ABNORMAL) PRO-BNP (09/26/2024 12:19 PM GAMING INVESTIGATOR) Pathologist [facility] NT PROBNP 531(H) <450 pg/mL [facility] Blood BLOOD SPECIMEN / Unknown 09/26/2024 12:19 PM GAMING INVESTIGATOR 09/26/2024 12:19 PM GAMING INVESTIGATOR Baljit Maya MD SEND OUTS Final Res ult [facility] [place] [address] [facility] [place] [address], [facility] [address] [place] [address] * (ABNORMAL) POCT Hemoglobin A1C Monitoring (09/26/2024 12:19 PM GAMING INVESTIGATOR) [facility] POC HEMOGLOBIN A1C 7.2(H) <6.0 % OF TOTAL HGB [facility] Comment: Any point of care results exhibiting inconsistency with the patient's clinical status should be repeated using a different testing method. Blood BLOOD SPECIMEN / Unknown 09/26/2024 12:19 PM GAMING INVESTIGATOR 09/26/2024 12:20 PM GAMING INVESTIGATOR Adria Valentine MD CHEMISTRY Final Resu lt Performing Organization Address City/Special Care Hospital/ZIP Co de Phone Number [facility] [address] [place] [address], [facility] [address] [place] [address] * SLEEP STUDY PER PROTOCOL (09/18/2024 12:00 AM GAMING INVESTIGATOR) Kemal Boyer MD SLEEP CENTER Final Result from Last 3 Months Insurance BLUE CROSS TEJON BLUE HB ONLY MEDICARE PPS BLUE CROSS TEJON BLUE MR PB ONLY BLUE CROSS [place] BLUE HB ONLY MEDICARE PART B HB ONLY MEDICARE PART A HB ONLY Advance Directives Documents on File Type Date Recorded Patient Structural Draftsman Expl anation Healthcare Directive 12/15/2011 HEALTH CARE DIRECTIVE, [facility], 12/12/11 * Full Code (Latest Code Status on File) Date Activated Date Inactivated Comments 01/16/2017 6:12 PM 2017 4:15 PM * Full Code Date Activated Date Inactivated Comments 01/11/2017 2:56 PM 01/16/2017 6:12 PM * Full Code Date Activated Date Inactivated Comments 01/11/2017 10:59 AM 01/11/2017 2:56 PM Care Teams Us Customs And Border Officer Relationship Specialty Start Date End Date Adria Valentine MD [address] [place] [address] PCP - General Family Practice 01/07/14 Irish Guzman MD [address] [place] [address] Dermatology 06/24/11 Maico Goetz MD [address] [place] [address] Ophthalmology Surgery 10/26/12 Baljit Maya MD [address] [id number] Cardiovascular Disease 03/06/23 Nurses, Advanced Heart Failure [address] [place] [phone] Advanced Heart Failure/Transplant Card 03/06/23
--- OUTSIDE RECORDS SUMMARY | 2024-12-05 10:25 | XMS_ITS | Encounter Summary ---
Author Organization [facility] Address [address] [place] [address] Care Team Providers Care Asbestos Abatement Technician Name Role Phone Unavailable Primary Care Provider Unavailabl e Reason for Referral * Outpatient (Routine) - Closed Specialty Diagnoses / Procedures Referred By Citlali valero Referred To Contact Radiation Oncology Yaya Zamudio M.D. [address] [place] [address] Phone: tel: fax: Yaya Zamudio M.D. [address] [place] [address] Phone: tel: fax: Referral ID Status Reason Start Date Expiration Date Visits Re quested Visits Authorized [id number] Closed 11/05/2024 05/07/2026 1 1 Scheduling Instructions Please schedule phone follow-up with Dr. Zamudio on either December 03 or . Thank you! RY VENEER MACHINE OPERATOR * Radiation Therapy (Routine) - Authorized Specialty Diagnoses / Procedures Referred By Jeffac t Referred To Contact Diagnoses Secondary Malignant Neoplasm Pelvic Bone (HCC) Procedures Management Visit Yaya Zamudio M.D. [address] [place] [address] Phone: tel: fax: [facility] Region Referral ID Status Reason Start Date Expiration Date V isits Requested Visits Authorized [id number] Authorized 09/23/2024 12/24/2025 10 10 RY VENEER MACHINE OPERATOR Reason for Visit * Radiation Therapy (Routine) - Authorized Specialty Diagnoses / Procedures Referred By Contac t Referred To Contact Diagnoses Secondary Malignant Neoplasm Pelvic Bone (HCC) Procedures Management Visit Yaya Zamudio M.D. [address] [place] [address] Phone: tel: fax: [facility] Referral ID Status Reason Start Date Expiration Date V isits Requested Visits Authorized [id number] Authorized 09/23/2024 12/24/2025 10 10 Encounter Details Date Type Department Care Team (Latest Contact Info) Description 11/05/2024 1:33 PM ROTARY VENEER MACHINE OPERATOR - 11/05/2024 5:39 PM ROTARY VENEER MACHINE OPERATOR Hospital Encounter Department of Radiation Oncology in [place], [place] [address] [place] [phone] Yaya Zamudio M.D. [address] [place] [address] Secondary Malignant Neoplasm Pelvic Bone (HCC) Social History Tobacco Use Types Packs/Day Years Used Date Smoking Tobacco: Never Assessed Dental Answer Date Recorded Dental: Regular Dentist Unknown 10/12/19 23 Sex and Gender Information Value Date Recorded Sex Assigned at Not on file Legal Sex Male 11:16 AM ROTARY VENEER MACHINE OPERATOR Gender Identity Not on file Sexual Orientation Not on file documented as of this encounter Last Filed Vital Signs Vital Sign Reading Time Taken Comments Blood Pressure 127/54 11/05/2024 2:15 PM ROTARY VENEER MACHINE OPERATOR Pulse 92 11/05/2024 2:15 PM ROTARY VENEER MACHINE OPERATOR Temperature 36.1 C (96.9 F) 11/05/2024 2:15 PM ROTARY VENEER MACHINE OPERATOR Respiratory Rate - - Oxygen Saturation - - Inhaled Oxygen Concentration - - Weight 97.1 kg (214 lb 1.1 oz) 11/05/2024 2:15 P M ROTARY VENEER MACHINE OPERATOR Height - - Body Mass Index - - documented in this encounter Medications at Time of Discharge [...] Progress Notes * Yaya Zamudio M.D. - 11/05/2024 2:15 PM CST SUBJECTIVE REASON FOR VISIT Evaluation for side effects while receiving radiation treatment for 1. Secondary Malignant Neoplasm Pelvic Bone (HCC) SUPERVISED BY: Yaya Zamudio M.D. ([phone]) HISTORY OF PRESENT ILLNESS Mr. Hermann Garrett is an 84 y.o. male with metastatic prostate cancer currently undergoing radiation therapy to the right knee. Treatment Course: 4xKnee Plan ID Fractions Dose / Fraction (cGy) Dose Treated (cGy) Dose Planned (cGy) First Treatment Last Treatment Elapsed Days [id number] 50 200 300 10/25/2024 11/05/2024 11 Course Summary 10/25/2024 11/05/2024 11 Oncology History Primary Malignant Neoplasm Of Prostate (HCC) 07/02/2001 Surgery and Procedures Radical prostatectomy was performed by Dr. Gerardo Henry. Pathology of the prostate gland demonstrated prostatic adenocarcinoma, White[place] grade 3, 4; score 7. Tumor focally [...] Common Hereditary Cancers Panel (47 genes) via [employer] (56 total genes analyzed). See test report [...] Therapy Treatment Details (09/28/2023 - 09/28/2023) Site: Bone Fractions: 1 Technique: 3D STEEL FITTER Dose: 800 cGy Goal: Palliative Planned Treatment Start Date: 09/27/2023 [...] and moderate left neural foraminal stenosis, with kaix-zgbjvwl-beph-right lateral recess stenosis, and potential impingement of [...] metastases. 09/16/2024 Other 09/16/2024: PSA 5.49 ng/mL 10/07/2024 - 10/18/2024 Radiation Therapy Radiation Therapy Treatment Details (10/07/2024-10/18/2024) Sites: Bilateral ilium, L ischium, R pelvis Technique: SBRT Fractions: 3 Goal: Palliative Dose: 3000 cGy Secondary Malignant Neoplasm Pelvic Bone (HCC) 10/07/2024 - 10/18/2024 Radiation Therapy Radiation Therapy Treatment Details (10/07/2024-10/18/2024) Sites: Bilateral ilium, L ischium, R pelvis Technique: SBRT Fractions: 3 Goal: Palliative Dose: 3000 cGy The patient was seen and examined today with Dr. Zamudio. The patient reports treatment went well. He still endorses pain in these area. He utilizes Tylenol,Voltaren, and ice. He notes interventions make very little difference in the pain. He has been taking Ativan prior to treatment to help him lie still. He also reports severe insomnia. He is working with his primary physician to alleviate this issue. ANDROGEN DEPRIVATION THERAPY Erleada & Lupron (managed by Dr. Jacobson's team) PATIENT REPORTED SYMPTOM SCREEN FATIGUE (Scale: 0 = no fatigue; 10 = worst fatigue you can imagine): 6 PAIN (Scale: 0 = no pain; 10 = worst pain you can imagine): 6 OVERALL QUALITY OF LIFE (Scale: 0 = as bad as can be; 10 = as good as can be): 8 OBJECTIVE BP (!) 127/54 (BP Location: Right arm, Patient Position: Sitting, Cuff Size: Regular) Pulse 92 Temp 36.1 ??C (Temporal) Wt 97.1 kg PHYSICAL EXAM General: Alert and oriented in no apparent distress. He is here with his Melissa. ASSESSMENT / PLAN #1 pT2b, [place] 3+4=7 adenocarcinoma of the prostate s/p prostatectomy [...] 2024; anticipated completion on November The patient is tolerating radiation treatment well overall. We discussed potential radiation related side effects including fatigue and possible pain flare at treatment site. He was encouraged to take OTC medications as needed and reach out to our team if these measures are not effective. Dr. Zamudio was in for any questions or concerns. He will contact us with any questions or concerns. We willcontinue with radiation treatment as planned. FOLLOW UP Ongoing follow up with Dr. Jacobson 's team Phone visit with Dr. Zamudio in three weeks Signed by: Cassandra Cordon R.N. 11/05/2024 2:17 PM ROTARY VENEER MACHINE OPERATOR I saw and evaluated the patient and participated in the munoz portions of the service. I reviewed thedocumentation of Cassandra Cordon R.N. and agree with the findings and plan. The patient appears well on exam. He is here today with his Melissa. He has not yet experienced any pain relief from treatment. I explained that it can take up to 2 weeks after treatment for him to notice pain relief. He is tolerating treatment well. He will finish treatment as planned next week. I will have a phone follow-up with him in early December to check on his progress. The patient and his verbalized satisfaction with this plan. Signed by: Yaya Zamudio M.D. 11/05/2024 5:39 PM ROTARY VENEER MACHINE OPERATOR [facility] [address] [place] [address] RY VENEER MACHINE OPERATOR documented in this encounter Miscellaneous Notes * Addendum Note - Radha Aquino C.NAndrew - 11/05/2024 2:15 PM CSTEncounter addended by: Radha Aquino C.N.A. on: 11/06/2024 6:56 AM Actions taken: Letter saved RY VENEER MACHINE OPERATOR documented in this encounter Plan of Treatment Upcoming Encounters Date Type Department Care Team (Late st Contact Info) Description 12/09/2024 1:00 PM CDT Appointment Department of Radiation Oncology in [place], [place] [address] [place] [address] Yaya Zamudio M.D. [address] [place] [address] 12/09/2024 1:30 PM CDT Appointment Department of Radiation Oncology in [place], [place] [address] [place] [address] Yaya Zamudio M.D. [address] [place] [phone] 12/11/2024 2:30 PM CDT Appointment Department of Radiology in [place], [place] [address] [address] Yaya Zamudio M.D. [address] [place] [phone] Scheduled Orders Name Type Priority Associated Diagnoses Orde r Schedule Management Visit Radiation Oncology Routine Secondary Malignant Neoplasm Pelvic Bone (HCC) Once for 1 Occurrences starting 11/05/2024 until 11/05/2024 Scheduled Referrals Name Type Priority Associated Diagnoses Orde r Schedule Radiation Oncology office visit (clinic) Outpatient Referral Routine Expected: 12/03/2024, Expires: 02/05/2026 documented as of this encounter Visit Diagnoses Diagnosis Secondary Malignant Neoplasm Pelvic Bone (HCC) documented in this encounter
--- OUTSIDE RECORDS SUMMARY | 2024-12-05 10:25 | XMS_ITS | Encounter Summary ---
Author Organization [facility] Address [address] [place] [address] Care Team Providers Care Speedometer Mechanic Name Role Phone Unavailable Primary Care Provider Unavailabl e Encounter Details Date Type Department Care Team (Late st Contact Info) Description 11/12/2024 Documentation Department of Radiation Oncology in [place], [place] [address] [place] [address] Yaya Zamudio M.D. 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 ([phone]) Treatment Intent: Palliative Concomitant Therapy: None Single Plan Treatment Course: 4xKnee Plan ID Fractions Dose / Fraction (cGy) Dose Treated (cGy) Dose Planned (cGy) First Treatment Last Treatment Elapsed Days [id number] 50 300 300 10/25/2024 11/12/2024 18 Course Summary 10/25/2024 11/12/2024 Radiation Modality: Photons CLINICAL SUMMARY Mr. Hermann Garrett completed radiation treatment as planned without interruptions. The course of treatment was tolerated well. The patient experienced no toxicities during radiation treatment. TREATMENT RESPONSE: Response to treatment will be determined by post-treatment imaging and/or laboratory work. RECOMMENDED FOLLOW UP: Primary Medical Oncologist - Dr. Jacobson Signed by: Cassandra Cordon R.N., 11/12/2024 3:40 PM CDT [facility] [address] [place] [address] Cosigned by Yaya Zamudio M.D. at 11/18/2024 1:01 PM CDT documented in this encounter Plan of Treatment Upcoming Encounters Date Type Department Care Team (Late st Contact Info) Description 12/09/2024 1:00 PM CDT Appointment Department of Radiation Oncology in [place], [place] [address] [place] [phone] Yaya Zamudio M.D. [address] [place] [phone] 12/09/2024 1:30 PM CDT Appointment Department of Radiation Oncology in [place], [place] [address] [place] [phone] Yaya Zamudio M.D. [address] [place] [phone] 12/11/2024 2:30 PM CDT Appointment Department of Radiology in [place], [place] [address] [place] [address] Yaya Zamudio M.D. [address] [place] [phone] documented as of this encounter Visit Diagnoses Not on filedocumented in this encounter
[2024-12-05 10:29] VITALS: BP 131/77; PULSE 110; RESP 16; O2SAT 95; BMI 29.4
[2024-12-05 11:05] VITALS: TEMP 37.2
--- OUTSIDE RECORDS SUMMARY | 2024-12-05 11:18 | XMS_ITS | Clinical Summary ---
Author Organization [facility] Address [address] [place] [address] Care Team Providers Care Regulatory Affairs Intern Name Role Phone Unavailable Primary Care Provider Unavailabl e Source Comments Patient records contain information from all sites at [facility]. For routine questions regarding patient records, call [phone] during business hours, M-F 8:00 AM - 5:00 PM Central Time. Record requests for emergency care only can be directed to [phone] at any time.[facility] Allergies Active Allergy Reactions Criticality Noted Date Comments Cocaine Other (see comments) 11/29/2007 Blood pressure became elevated Cultivated Crop Pollen-Mentcle Itching 05/17/2022 Feathers Other (see comments) 05/17/2022 [...] Hospital Encounter Department of Radiation Oncology in [address] [address] Yaya Zamudio M.D. Secondary Malignant Neoplasm Pelvic Bone (HCC) (Primary Dx); Primary Osteoarthritis Knee Right; Secondary Malignant Neoplasm Bone (HCC) 11/12/2024 2:04 PM T Hospital Encounter Department of Radiation Oncology in [address] [address] Peg Price M.D. Leenstra, James L, M.D. 11/12/2024 Documentation Department of Radiation Oncology in [address] [address] Yaya Zamudio M.D. 11/08/2024 2:35 PM [facility] Hospital Encounter Department of Radiation Oncology in [address] [address] Peg Price M.D. Leenstra, James L M.D. 11/05/2024 1:33 PM OPERATING ROOM MANAGER - 11/05/2024 5:39 PM OPERATING ROOM MANAGER Hospital Encounter Department of Radiation Oncology in [address] [address] Yaya Zamudio M.D. Secondary Malignant Neoplasm Pelvic Bone (HCC) 11/05/2024 1:33 PM OPERATING ROOM MANAGER Hospital Encounter Department of Radiation Oncology in [address] [address] Peg Price M.D. Leenstra, James L, M.D. 11/01/2024 2:20 PM OPERATING ROOM MANAGER - 11/01/2024 11:59 PM OPERATING ROOM MANAGER Hospital Encounter Department of Radiation Oncology in [address] [address] Peg Price M.D. Leenstra, James L, M.D. Discharge Disposition: Home or Self Care 10/29/2024 2:49 PM OPERATING ROOM MANAGER - 10/29/2024 11:59 PM OPERATING ROOM MANAGER Hospital Encounter Department of Radiation Oncology in [address] [address] Peg Price M.D. Leenstra, James L, M.D. Discharge Disposition: Home or Self Care 10/25/2024 2:51 PM OPERATING ROOM MANAGER - 10/25/2024 11:59 PM OPERATING ROOM MANAGER Hospital Encounter Department of Radiation Oncology in [address] [address] Peg Price M.D. Leenstra, James L, M.D. Discharge Disposition: Home or Self Care 10/18/2024 11:00 AM OPERATING ROOM MANAGER - 10/18/2024 3:54 PM OPERATING ROOM MANAGER Hospital Encounter Department of Radiation Oncology in [address] [address] Yaya Zamudio M.D. Garces, Yolanda I., M.D. Primary Osteoarthritis Knee Right 10/18/2024 10:08 AM OPERATING ROOM MANAGER - 10/18/2024 10:59 AM OPERATING ROOM MANAGER Hospital Encounter Department of Radiation Oncology in [address] [address] Peg Price M.D. Leenstra, James L, M.D. Discharge Disposition: Home or Self Care 10/18/2024 Documentation Department of Radiation Oncology in [address] [address] Yaya Zamudio M.D. 10/16/2024 1:03 PM OPERATING ROOM MANAGER - 10/16/2024 4:26 PM OPERATING ROOM MANAGER Hospital Encounter Department of Radiation Oncology in [address] [address] Yaya Zamudio M.D. Primary Osteoarthritis Knee Right (Primary Dx); Secondary Malignant Neoplasm Pelvic Bone (HCC); Nicotine Dependence 10/16/2024 1:03 PM OPERATING ROOM MANAGER - 10/16/2024 11:59 PM OPERATING ROOM MANAGER Hospital Encounter Department of Radiation Oncology in [address] [address] Peg Prcie M.D. Leenstra, James L, M.D. Discharge Disposition: Home or Self Care 10/15/2024 Clinical Communication Department of Radiation Oncology in [address] [address] Yaya Zamudio M.D. 10/14/2024 2:07 PM OPERATING ROOM MANAGER - 10/14/2024 11:59 PM OPERATING ROOM MANAGER Hospital Encounter Department of Radiation Oncology in [address] [address] Peg Price M.D. Leenstra, James L, M.D. Discharge Disposition: Home or Self Care 10/14/2024 Orders Only Department of Radiation Oncology in [address] [address] Yaya Zamudio M.D. 10/11/2024 1:33 PM OPERATING ROOM MANAGER - 10/11/2024 11:59 PM OPERATING ROOM MANAGER Hospital Encounter Department of Radiation Oncology in [address] [address] Peg Price M.D. Leenstra, James L, M.D. Discharge Disposition: Home or Self Care 10/09/2024 2:44 PM OPERATING ROOM MANAGER - 10/09/2024 11:59 PM OPERATING ROOM MANAGER Hospital Encounter Department of Radiation Oncology in [address] [address] Peg Price M.D. Leenstra, James L, M.D. Discharge Disposition: Home or Self Care 10/07/2024 1:47 PM OPERATING ROOM MANAGER - 10/07/2024 4:39 PM OPERATING ROOM MANAGER Hospital Encounter Department of Radiation Oncology in [address] [address] Yaya Zamudio M.D. Pain Knee Right (Primary Dx); Secondary Malignant Neoplasm Pelvic Bone (HCC) 10/07/2024 1:13 PM OPERATING ROOM MANAGER - 10/07/2024 1:46 PM OPERATING ROOM MANAGER Hospital Encounter Department of Radiation Oncology in [address] [address] Peg Price M.D. Leenstra, James L, M.D. Discharge Disposition: Home or Self Care 09/27/2024 8:34 AM OPERATING ROOM MANAGER - 09/27/2024 11:44 AM OPERATING ROOM MANAGER Hospital Encounter Department of Radiation Oncology in [address] [address] Yaya Zamudio M.D. Secondary Malignant Neoplasm Pelvic Bone (HCC) 09/27/2024 Orders Only Department of Radiation Oncology in [address] [address] Yaya Zamudio M.D. Secondary Malignant Neoplasm Pelvic Bone (HCC) (Primary Dx) 09/26/2024 1:29 PM OPERATING ROOM MANAGER - 09/26/2024 4:08 PM OPERATING ROOM MANAGER Hospital Encounter Department of Radiation Oncology in [place], [place] [address] [place] [address] Yaya Zamudio M.D. Secondary Malignant Neoplasm Pelvic Bone (HCC) (Primary Dx); Primary Malignant Neoplasm Of Prostate (HCC) 09/24/2024 Orders Only Department of Radiation Oncology in [place], [place] [address] [place] [address] Yaya Zamudio M.D. 09/23/2024 Orders Only Department of Radiation Oncology in [place], [place] [address] [place] [address] Yaya Zamudio M.D. Secondary Malignant Neoplasm Pelvic Bone (HCC) (Primary Dx) 09/10/2024 10:58 AM OPERATING ROOM MANAGER - 09/10/2024 11:59 PM OPERATING ROOM MANAGER Hospital Encounter Department of Radiology in [place], [place] [address] [address] Sera Jacobson M.D. Primary Malignant Neoplasm Of [...] on file Legal Sex Male 11:16 AM OPERATING ROOM MANAGER Gender Identity Not on file Sexual Orientation Not on file Last Filed Vital Signs Vital Sign Reading Time Taken Comments Blood Pressure 127/54 11/05/2024 2:15 PM OPERATING ROOM MANAGER Pulse 92 11/05/2024 2:15 PM OPERATING ROOM MANAGER Temperature 36.1 C (96.9 F) 11/05/2024 2:15 PM OPERATING ROOM MANAGER Respiratory Rate - - Oxygen Saturation - - Inhaled Oxygen Concentration - - Weight 97.1 kg (214 lb 1.1 oz) 11/05/2024 2:15 P M OPERATING ROOM MANAGER Height - - Body Mass Index - - Plan of Treatment Upcoming Encounters Date Type Department Care Team (Late st Contact Info) Description 12/09/2024 1:00 PM CDT Appointment Department of Radiation Oncology in [place], [place] [address] [place] [address] Yaya Zamudio M.D. [address] [place] [phone] 12/09/2024 1:30 PM CDT Appointment Department of Radiation Oncology in [place], [place] [address] [place] [phone] Yaya Zamudio M.D. [address] [place] [phone] 12/11/2024 2:30 PM CDT Appointment Department of Radiology in [place], [place] [address] [place] [address] Yaya Zamudio M.D. [address] [place] [phone] Health Maintenance Due Date Last Done Comments [...] DAILY TREATMENT INFORMATION Routine 11/08/2024 3:10 PM OPERATING ROOM MANAGER ARIA DAILY TREATMENT INFORMATION Routine 11/05/2024 2:00 PM OPERATING ROOM MANAGER ARIA DAILY TREATMENT INFORMATION Routine 11/01/2024 2:48 PM OPERATING ROOM MANAGER ARIA DAILY TREATMENT INFORMATION Routine 10/29/2024 3:11 PM OPERATING ROOM MANAGER ARIA DAILY TREATMENT INFORMATION Routine 10/25/2024 3:24 PM OPERATING ROOM MANAGER INITIAL RAD ONC TREATMENT PLANNING CT SIMULATION Routine 10/18/2024 11:00 AM OPERATING ROOM MANAGER Primary Osteoarthritis Knee Right ARIA COURSE COMPLETE TREATMENT INFORMATION Routine 10/18/2024 10:45 AM OPERATING ROOM MANAGER ARIA DAILY TREATMENT INFORMATION Routine 10/18/2024 10:45 AM OPERATING ROOM MANAGER ARIA DAILY TREATMENT INFORMATION Routine 10/16/2024 2:28 PM OPERATING ROOM MANAGER ARIA DAILY TREATMENT INFORMATION Routine 10/16/2024 1:50 PM OPERATING ROOM MANAGER OUTSIDE DX SKELETAL Routine 10/16/2024 11:10 AM OPERATING ROOM MANAGER ARIA DAILY TREATMENT INFORMATION Routine 10/14/2024 3:03 PM OPERATING ROOM MANAGER ARIA DAILY TREATMENT INFORMATION Routine 10/11/2024 2:20 PM OPERATING ROOM MANAGER ARIA DAILY TREATMENT INFORMATION Routine 10/09/2024 3:31 PM OPERATING ROOM MANAGER ARIA DAILY TREATMENT INFORMATION Routine 10/07/2024 2:08 PM OPERATING ROOM MANAGER OUTSIDE MR BODY Routine 09/27/2024 10:15 AM OPERATING ROOM MANAGER INITIAL RAD ONC TREATMENT PLANNING CT SIMULATION Routine 09/27/2024 9:00 AM OPERATING ROOM MANAGER Secondary Malignant Neoplasm Pelvic Bone (HCC) PET CT SKULL TO THIGH PSMA RAD - Routine (most inpatients and all outpatients) 09/10/2024 12:31 PM OPERATING ROOM MANAGER Primary Malignant Neoplasm Of Prostate (HCC) from [...] Elapsed Days 18 HERNANDEZ ARIA Reference Point [id number] nee HERNANDEZ ARIA Dosage Given to Date cGy 300 HERNANDEZ ARIA Plan ID [id number] HERNANDEZ ARIA Fractions Treated to Date 6 HERNANDEZ ARIA Planned Total Fractions 6 HERNANDEZ ARIA Prescribed Dose Per Fraction 50 HERNANDEZ ARIA Prescription Dose in cGy 300 HERNANDEZ ARIA Plan Primary Reference Point [id number] nee HERNANDEZ ARIA 11/12/2024 2:22 PM CDT [...] Elapsed Days 18 HERNANDEZ ARIA Reference Point [id number] nee HERNANDEZ ARIA Dosage Given to Date cGy 300 HERNANDEZ ARIA Session Dosage Given 50 HERNANDEZ ARIA Plan ID [id number] HERNANDEZ ARIA Fractions Treated to Date 6 HERNANDEZ ARIA Planned Total Fractions 6 HERNANDEZ ARIA Prescribed Dose Per Fraction 50 HERNANDEZ ARIA Prescription Dose in cGy 300 HERNANDEZ ARIA Plan Primary Reference Point [id number] nee HERNANDEZ ARIA 11/12/2024 2:22 PM CDT us Provider Not In System RADIATION ONCOLOGY ORDERA BLES Final Result DAVID HUGHES na * Initial Rad Onc Treatment Planning CT Simulation (10/18/2024 11:00 AM OPERATING ROOM MANAGER) Only the most recent of2 resultswithin the time period is included. Narrative HERNANDEZ ARIA - 10/18/2024 11:00 AM OPERATING ROOM MANAGER Betsy [place], RTT 10/18/2024 11:07 AM Initial Rad Onc Treatment Planning CT Simulation Performed by: Peg Price M.D. Authorized by: Yaya Zamudio M.D. us Yaya Zamudio M.D. RADIATION ONCOLOGY ORDERAB LES Final Result DAVID HUGHES na * Outside DX Skeletal (10/16/2024 11:10 AM OPERATING ROOM MANAGER) 10/17/2024 7:13 AM OPERATING ROOM MANAGER Addenda Addendum by [employer], Outside on 10/17/2024 7:13 AM OPERATING ROOM MANAGER BELOW REPORT RECEIVED BY [facility] ON 10/18/2024 07:46:03 [id number] For Patients: As a result of the [...] Signed) READ BY Fabien Casper RELEASED BY [employer] Addendum by [employer], Outside on 10/17/2024 7:13 AM OPERATING ROOM MANAGER BELOW REPORT RECEIVED BY [facility] ON 10/18/2024 07:45:33 [id number] For Patients: As a result of the [...] Signed) READ BY Fabien Casper RELEASED BY [employer] Narrative IMAGING - 10/18/2024 7:58 AM OPERATING ROOM MANAGER This order has been created and auto-finalized to support the import of outside images. If available, original interpretation can be found on the Media Tab in Chart Review, in Document Viewer, as an image in QREADS or as an Addendum. If a re-interpretation or overread is required please follow defined workflow. Procedure Note [employer], Outside - 10/18/2024 This order has been created and auto-finalized to support the import ofoutside images. If available, original interpretation can be found on theMedia Tab in Chart Review, in Document Viewer, as an image in QREADS or asan Addendum. If a re-interpretation or overread is required please follow definedworkflow. us Provider Not In System IMG DIAGNOSTIC IMAGING CO OCEDURES Edited Result - Final Performing Organization Address [facility] Co de Phone Number IMAGING NA * MR pelvis wo/w con-Outside MR Body (09/27/2024 10:15 AM OPERATING ROOM MANAGER) 09/27/2024 10:1 2 AM OPERATING ROOM MANAGER Narrative IIMS - 09/27/2024 12:27 PM OPERATING ROOM MANAGER This order has been created and auto-finalized [...] MRI PROCEDURES Final Result Performing Organization Address [facility] de Phone Number IIMS NA * PET CT Skull to Thigh PSMA (09/10/2024 12:31 PM OPERATING ROOM MANAGER) Anatomical Region Laterality Modality Body, Nuclear Medicine PET R ST LOS, PET ARZ LOS, Nuclear Medicine PET FLA LOS, Nuclear Medicine N/A Positron Emission Tomography (PET) Impressions 09/10/2024 1:05 PM OPERATING ROOM MANAGER Interval progression of the PSMA avid osseous metastatic disease with increased uptake and number of metastatic lesions with the exception of lesions in the T12 and L3 vertebral bodies which were treated with interval radiation therapy and demonstrate decreased uptake. miPSMA expression score: 3. Narrative 09/10/2024 1:05 PM OPERATING ROOM MANAGER EXAM: PET CT SKULL TO THIGH PSMA [...] now has a SUV max of 7.2 ([id number], image 78), previously the SUV max was [...] Resu lt from Last 3 Months Insurance [facility]
--- OUTSIDE RECORDS SUMMARY | 2024-12-05 11:18 | XMS_ITS ---
Author Organization [facility] Address [address] [place] [address] Care Team Providers Care Engine Repair Supervisor Name Role Phone Unavailable Primary Care Provider [...] Fraction Dose Fractions Total Dose Plans Planned [id number] 10/25/2024 - 11/12/2024 50 cGy 6 3 00 cGy Reference Points Delivered [id number] 10/25/2024 - 11/12/2024 300 cGy * Course 3xMultiSiteSBRT 10/07/2024 - 10/18/2024 Treatment Period Fraction Dose Fractions Total Dose Plans Planned C6EhumzqqN 10/14/2024 - 10/18/2024 1,000 cGy 3 / 3 3 ,000 cGy P5CrvfsjX 10/14/2024 - 10/18/2024 1,000 cGy 3 / 3 3 ,000 cGy L8EihhcB 10/07/2024 - 10/11/2024 1,000 cGy 3 / 3 3 ,000 cGy R6XzkfuT 10/07/2024 - 10/11/2024 1,000 cGy 3 / [...] Fraction Dose Fractions Total Dose Plans Planned M1HdwrtB 04/25/2024 - 05/01/2024 400 cGy 5 / 5 2 ,000 cGy V9EojV7 04/25/2024 - 05/01/2024 400 cGy 5 / 5 2 ,000 cGy D0MqxO20 04/25/2024 - 05/01/2024 400 cGy 5 / 5 2 ,000 cGy Reference Points Delivered [id number] IlliumR 04/25/2024 - 05/01/2024 2,000 cGy [id number] L3 04/25/2024 - 05/01/2024 2,000 cGy PQO6110m SpnT12 04/25/2024 - 05/01/2024 2,000 cGy * 3D MRI CT TECH: BoneOverview* First Treatment Date Last Treatment Date Treatment Site Technique Goal Episode Provider 09/28/2023 09/28/[address] TECH Palliative * Linked Problems Primary Malignant Neoplasm O f Prostate Treatment Courses* Course 1xMultiSite 09/28/2023 - 09/28/2023 Treatment Period Fraction Dose Fractions Total Dose Plans Planned Q2VoakU 09/28/2023 - 09/28/2023 800 cGy 8 00 cGy L7NmmaxyiC 09/28/2023 - 09/28/2023 800 cGy 8 00 cGy B8PpiV8 09/28/2023 - 09/28/2023 800 cGy 8 00 cGy Reference Points Delivered [id number] AcetR 09/28/2023 - 09/28/2023 800 cGy IXW832l L3 09/28/2023 - 09/28/2023 800 cGy KOR004t Lisch 09/28/2023 - 09/28/2023 800 cGy
--- OUTSIDE RECORDS SUMMARY | 2024-12-05 11:19 | XMS_ITS | Encounter Summary ---
Author Organization [facility] Address [address] [place] [address] Care Team Providers Care Commercial Lending Relationship Manager Name Role Phone Unavailable Primary Care Provider Unavailabl e Encounter Details Date Type Department Care Team (Late st Contact Info) Description 10/14/2024 Orders Only Department of Radiation Oncology in [place], [place] [address] [place] [address] Yaya Zamudio M.D. [address] [place] [address] Social History Tobacco Use Types Packs/Day Years Used Date Smoking Tobacco: Never Assessed Dental Answer Date Recorded Dental: Regular Dentist Unknown 10/12/19 23 Sex and Gender Information Value Date Recorded Sex Assigned at Not on file Legal Sex Male 11:16 AM SPINNING SUPERVISOR Gender Identity Not on file Sexual Orientation Not on file documented as of this encounter Plan of Treatment Upcoming Encounters Date Type Department Care Team (Late st Contact Info) Description 12/09/2024 1:00 PM CDT Appointment Department of Radiation Oncology in [place], [place] [address] [place] [address] Yaya Zamudio M.D. [address] [place] [address] 12/09/2024 1:30 PM CDT Appointment Department of Radiation Oncology in [place], [place] [address] [place] [address] Yaya Zamudio M.D. [address] [place] [phone] 12/11/2024 2:30 PM CDT Appointment Department of Radiology in [place], [place] [address] [place] [phone] Yaya Zamudio M.D. [address] [place] [phone] documented as of this encounter Visit Diagnoses Not on filedocumented in this encounter
--- OUTSIDE RECORDS SUMMARY | 2024-12-05 11:19 | XMS_ITS | Encounter Summary ---
Author Organization [facility] Address [address] [place] [address] Care Team Providers Care Procedures Rn Name Role Phone Unavailable Primary Care Provider Unavailabl e Encounter Details Date Type Department Care Team (Late st Contact Info) Description 10/18/2024 Documentation Department of Radiation Oncology in [place], [place] [address] [place] [address] Yaya Zamudio M.D. [address] [place] [phone] Social History Tobacco Use Types Packs/Day Years Used Date Smoking Tobacco: Never Assessed Dental Answer Date Recorded Dental: Regular Dentist Unknown 10/12/19 23 Sex and Gender Information Value Date Recorded Sex Assigned at Not on file Legal Sex Male 11:16 AM PRORATE CLERK Gender Identity Not on file Sexual Orientation Not on file documented as of this encounter Miscellaneous Notes * Radiation Completion Notes - Efraín Cordon, RClaudiaNClaudia - 10/18/2024 11:59 PM CST DIAGNOSIS: Secondary Malignant Neoplasm Pelvic Bone Attending Physician: Yaya Zamudio M.D. ([phone]) Treatment Intent: Palliative Concomitant Therapy: Hormonal Therapy Single Plan Treatment Course: 3xMultiSiteSBRT Plan ID Fractions Dose / Fraction (cGy) Dose Treated (cGy) Dose Planned (cGy) First Treatment Last Treatment Elapsed Days S4PhfriS 1000 3000 3000 10/07/2024 10/11/2024 4 Y2DxmckP 3 / 3 1000 3000 3000 10/07/2024 10/11/2024 4 C9LawdokaJ 3 / 1000 3000 3000 10/14/2024 10/18/2024 4 L0UjvxkfO 3 / 3 1000 3000 3000 10/14/2024 [...] by: Cassandra Cordon R.N., 10/21/2024 9:17 AM PRORATE CLERK [facility] [address] [place] [id number] Cosigned by Yaya Zamudio M.D. at 10/21/2024 4:20 PM PRORATE CLERK ATE CLERK ATE CLERK documented in this encounter Plan of Treatment Upcoming Encounters Date Type Department Care Team (Late st Contact Info) Description 12/09/2024 1:00 PM CDT Appointment Department of Radiation Oncology in [address] [phone] Yaya Zamudio M.D. [address] [place] [phone] 12/09/2024 1:30 PM CDT Appointment Department of Radiation Oncology in [address] [phone] Yaya Zamudio M.D. [address] [place] [phone] 12/11/2024 2:30 PM CDT Appointment Department of Radiology in [place], [place] [address] [place] [address] Yaya Zamudio M.D. [address] [place] [address] documented as of this encounter Visit Diagnoses Not on filedocumented in this encounter
--- OUTSIDE RECORDS SUMMARY | 2024-12-05 11:19 | XMS_ITS | Encounter Summary ---
Author Organization [facility] Address [address] [place] [address] Care Team Providers Care Film Spooler Name Role Phone Unavailable Primary Care Provider Unavailabl e Encounter Details Date Type Department Care Team (Latest Contact Info) Description 10/25/2024 2:51 PM COACH OPERATOR - 10/25/2024 11:59 PM [facility] Hospital Encounter Department of Radiation Oncology in [place], [place] [address] [place] [address] Peg Price M.D. [address] [place] [phone] Yaya Zamudio M.D. [address] [place] [phone] Discharge Disposition: Home or Self Care Social History Tobacco Use Types Packs/Day Years Used Date Smoking Tobacco: Never Assessed Dental Answer Date Recorded Dental: Regular Dentist Unknown 10/12/19 23 Sex and Gender Information Value Date Recorded Sex Assigned at Not on file Legal Sex Male 11:16 AM COACH OPERATOR Gender Identity Not on file Sexual [...] CDT Appointment Department of Radiation Oncology in [place], [place] [address] [place] [address] Yaya Zamudio M.D. [address] [place] [phone] 12/09/2024 1:30 PM CDT Appointment Department of Radiation Oncology in [place], [place] [address] [place] [phone] Yaya Zamudio M.D. [address] [place] [phone] 12/11/2024 2:30 PM CDT Appointment Department of Radiology in [place], [place] [address] [place] [address] Yaya Zamudio M.D. [address] [place] [phone] documented as of this encounter Visit Diagnoses Not on filedocumented in this encounter
--- OUTSIDE RECORDS SUMMARY | 2024-12-05 11:19 | XMS_ITS | Encounter Summary ---
Author Organization [facility] Address [address] [place] [address] Care Team Providers Care Rotor Pilot Name Role Phone Unavailable Primary Care Provider Unavailabl e Encounter Details Date Type Department Care Team (Late st Contact Info) Description 10/15/2024 Clinical Communication Department of Radiation Oncology in [place], [place] [address] [place] [address] Yaya Zamudio M.D. [address] [place] [address] Social History Tobacco Use Types Packs/Day Years Used Date Smoking Tobacco: Never Assessed Dental Answer Date Recorded Dental: Regular Dentist Unknown 10/12/19 23 Sex and Gender Information Value Date Recorded Sex Assigned at Not on file Legal Sex Male 11:16 AM UPHOLSTERY TRIMMER Gender Identity Not on file Sexual Orientation [...] anti-nausea medication would be sent to the [facility] pharmacy in [place]. They went to the pharmacy and the prescription was not there so he wanted to make sure we knew what pharmacy to send itto. I assured him we had the correct pharmacy and that I would send a message to the care team. LSTERY TRIMMER documented in this encounter Plan of Treatment Upcoming Encounters Date Type Department Care Team (Late st Contact Info) Description 12/09/2024 1:00 PM CDT Appointment Department of Radiation Oncology in [place], [place] [address] [place] [address] Yaya Zamudio M.D. [address] [place] [address] 12/09/2024 1:30 PM CDT Appointment Department of Radiation Oncology in [place], [place] [address] [place] [address] Yaya Zamudio M.D. [address] [place] [address] 12/11/2024 2:30 PM CDT Appointment Department of Radiology in [place], [place] [address] [place] [address] Yaya Zamudio M.D. [address] [place] [phone] documented as of this encounter Visit Diagnoses Not on filedocumented in this encounter
--- OUTSIDE RECORDS SUMMARY | 2024-12-05 11:19 | XMS_ITS | Encounter Summary ---
Author Organization [facility] Address [address] [place] [address] Care Team Providers Care Cloud Engineer Name Role Phone Unavailable Primary Care Provider Unavailabl e Encounter Details Date Type Department Care Team (Latest Contact Info) Description 10/29/2024 2:49 PM MEAT MANAGER - 10/29/2024 11:59 PM [facility] Hospital Encounter Department of Radiation Oncology in [place], [place] [address] [place] [phone] Peg Price M.D. [address] [place] [phone] Yaya Zamudio M.D. [address] [place] [phone] Discharge Disposition: Home or Self Care Social History Tobacco Use Types Packs/Day Years Used Date Smoking Tobacco: Never Assessed Dental Answer Date Recorded Dental: Regular Dentist Unknown 10/12/19 23 Sex and Gender Information Value Date Recorded Sex Assigned at Not on file Legal Sex Male 11:16 AM MEAT MANAGER Gender Identity Not on file Sexual [...] CDT Appointment Department of Radiation Oncology in [place], [place] [address] [place] [phone] Yaya Zamudio M.D. 200 [place] [phone] 12/09/2024 1:30 PM CDT Appointment Department of Radiation Oncology in [place], [place] [address] [place] [phone] Yaya Zamudio M.D. 200 [place] [phone] 12/11/2024 2:30 PM CDT Appointment Department of Radiology in [place], [place] [address] [place] [phone] Yaya Zamudio M.D. [address] [place] [phone] documented as of this encounter Visit Diagnoses Not on filedocumented in this encounter
--- OUTSIDE RECORDS SUMMARY | 2024-12-05 11:20 | XMS_ITS | Encounter Summary ---
Author Organization [facility] Address [address] [place] [address] Care Team Providers Care Rehabilitation Services Aide Name Role Phone Unavailable Primary Care Provider Unavailabl e Encounter Details Date Type Department Care Team (Latest Contact Info) Description 11/01/2024 2:20 PM FUNDRAISING ASSISTANT - 11/01/2024 11:59 PM [facility] Hospital Encounter Department of Radiation Oncology in [place], [place] [address] [place] [phone] Peg Price M.D. [address] [place] [phone] Yaya Zamudio M.D. 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 200 [place] [phone] 12/09/2024 1:30 PM CDT Appointment Department of Radiation Oncology in [place], [place] [address] [place] [phone] Yaya Zamudio M.D. 200 [place] [phone] 12/11/2024 2:30 PM CDT Appointment Department of Radiology in [place], [place] [address] [place] [address] Yaya Zamudio M.D. [address] [place] [phone] documented as of this encounter Visit Diagnoses Not on filedocumented in this encounter
--- OUTSIDE RECORDS SUMMARY | 2024-12-05 11:20 | XMS_ITS | Encounter Summary ---
Author Organization [facility] Address [address] [place] [address] Care Team Providers Care Magazine Publisher Name Role Phone Unavailable Primary Care Provider Unavailabl e Encounter Details Date Type Department Care Team (Late st Contact Info) Description 11/12/2024 Documentation Department of Radiation Oncology in [place], [place] [address] [place] [address] Yaya Zamudio M.D. 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 ([id number]) Treatment Intent: Palliative Concomitant Therapy: None Single Plan Treatment Course: 4xKnee Plan ID Fractions Dose / Fraction (cGy) Dose Treated (cGy) Dose Planned (cGy) First Treatment Last Treatment Elapsed Days [id number] 50 300 300 10/25/2024 11/12/2024 18 Course [...] Cassandra Cordon R.N., 11/12/2024 3:40 PM CDT [facility] Radiation Therapy Center [address] [place] [address] Cosigned by Yaya Zamudio M.D. at 11/18/2024 1:01 PM CDT documented in this encounter Plan of Treatment Upcoming Encounters Date Type Department Care Team (Late st Contact Info) Description 12/09/2024 1:00 PM CDT Appointment Department of Radiation Oncology in [place], [place] [address] [place] [phone] Yaya Zamudio M.D. 200 [place] [phone] 12/09/2024 1:30 PM CDT Appointment Department of Radiation Oncology in [place], [place] [address] [place] [phone] Yaya Zamudio M.D. 200 [place] [phone] 12/11/2024 2:30 PM CDT Appointment Department of Radiology in [place], [place] [address] [place] [address] Yaya Zamudio M.D. [address] [place] [phone] documented as of this encounter Visit Diagnoses Not on filedocumented in this encounter
--- OUTSIDE RECORDS SUMMARY | 2024-12-05 11:20 | XMS_ITS | Encounter Summary ---
Author Organization [facility] Address [address] [place] [address] Care Team Providers Care Proposal Lead Writer Name Role Phone Unavailable Primary Care Provider Unavailabl e Encounter Details Date Type Department Care Team (Late st Contact Info) Description 11/12/2024 2:04 PM CDT Hospital Encounter Department of Radiation Oncology in [place], [place] [address] [place] [phone] Peg Price M.D. 200 [place] [phone] Yaya Zamudio M.D. 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 [address] [place] [phone] 12/09/2024 1:30 PM CDT Appointment Department of Radiation Oncology in [place], [place] [address] [place] [phone] Yaya Zamudio M.D. 200 [place] [address] 12/11/2024 2:30 PM CDT Appointment Department of Radiology in [place], [place] [address] [place] [phone] Yaya Zamudio M.D. [address] [place] [address] documented as of this encounter Visit Diagnoses Not on filedocumented in this encounter
--- OUTSIDE RECORDS SUMMARY | 2024-12-05 11:20 | XMS_ITS | Encounter Summary ---
Author Organization [facility] Address [address] [place] [address] Care Team Providers Care Ophthalmology Surgical Technician Name Role Phone Unavailable Primary Care Provider Unavailabl e Reason for Referral * Outpatient (Routine) - Authorized Specialty Diagnoses / Procedures Referred By Contac t Referred To Contact Radiation Oncology Yaya Zamudio M.D. 200 [place] [address] Phone: tel: fax: [facility] Region Referral ID Status Reason Start Date Expiration Date V isits Requested Visits Authorized [id number] Authorized 12/04/2024 06/05/2026 1 1 Scheduling Instructions Sim same day, planning MRI could be the following day * MRI/CAT/PET Scan (Routine) - Authorized Specialty Diagnoses / Procedures Referred By Contac t Referred To Contact Radiology Diagnoses Secondary Malignant Neoplasm Bone (HCC) Procedures MR Lumbar Spine without and with IV Contrast Yaya Zamudio M.D. 200 [place] [address] Phone: tel: fax: [facility] Region Referral ID Status Reason Start Date Expiration Date V isits Requested Visits Authorized [id number] Authorized 12/04/2024 03/06/2026 1 1 * Radiation Therapy (Routine) - Authorized Specialty Diagnoses / Procedures Referred By Contac t Referred To Contact Diagnoses Secondary Malignant Neoplasm Bone (HCC) Procedures Management Visit Yaya Zamudio M.D. [address] [place] [phone] Phone: tel: fax: [facility] Region Referral ID Status Reason Start Date Expiration Date V isits Requested Visits Authorized [id number] Authorized 12/04/2024 03/06/2026 10 10 * Radiation Therapy (Routine) - Authorized Specialty Diagnoses / Procedures Referred By Contac t Referred To Contact Diagnoses Secondary Malignant Neoplasm Bone (HCC) Procedures Prior Auth Rad Tx Yaya Zamudio M.D. [address] [place] [phone] Phone: tel: fax: [facility] Referral ID Status Reason Start Date Expiration Date V isits Requested Visits Authorized [id number] Authorized 12/04/2024 03/06/2026 1 1 * Outpatient (Routine) - Authorized Specialty Diagnoses / Procedures Referred By Contac t Referred To Contact Radiation Oncology Yaya Zamudio M.D. 200 [place] [address] Phone: tel: fax: [facility] Region Referral ID Status Reason Start Date Expiration Date V isits Requested Visits Authorized [id number] Authorized 12/04/2024 06/05/2026 10 10 * Radiation Therapy (Routine) - Authorized Specialty Diagnoses / Procedures Referred By Contac t Referred To Contact Diagnoses Secondary Malignant Neoplasm Bone (HCC) Procedures Management Visit Yaya Zamudio M.D. [address] [place] [phone] Phone: tel: fax: [facility] Region Referral ID Status Reason Start Date Expiration Date V isits Requested Visits Authorized [id number] Authorized 12/04/2024 03/06/2026 10 10 * Radiation Therapy (Routine) - Authorized Specialty Diagnoses / Procedures Referred By Contac t Referred To Contact Diagnoses Secondary Malignant Neoplasm Bone (HCC) Procedures Initial Rad Onc Treatment Planning CT Simulation Yaya Zamudio M.D. 200 [place] [address] Phone: tel: fax: [facility] Region Referral ID Status Reason Start Date Expiration Date V isits Requested Visits Authorized [id number] Authorized 12/04/2024 03/06/2026 1 1 * Radiation Therapy (Routine) - Authorized Specialty Diagnoses / Procedures Referred By Contac t Referred To Contact Diagnoses Secondary Malignant Neoplasm Bone (HCC) Procedures Prior Auth Rad Tx Yaya Zamudio M.D. 200 [place] [address] Phone: tel: fax: [facility] Referral ID Status Reason Start Date Expiration Date V isits Requested Visits Authorized [id number] Authorized 12/04/2024 03/06/2026 1 1 * Outpatient (Routine) - Closed Specialty Diagnoses / Procedures Referred By Contac t Referred To Contact Radiation Oncology Yaya Zamudio M.D. 200 [place] [address] Phone: tel: fax: Yaya Zamudio M.D. 200 [place] [address] Phone: tel: fax: Referral ID Status Reason Start Date Expiration Date Visits Re quested Visits Authorized [id number] Closed 11/05/2024 05/07/2026 1 1 Scheduling Instructions Please schedule phone follow-up with Dr. Zamudio on either December 03 or . Thank you! Reason for Visit * Outpatient (Routine) - Closed Specialty Diagnoses / Procedures Referred By Citlali t Referred To Contact Radiation Oncology Yaya Zamudio M.D. 200 [place] [address] Phone: tel: fax: Yaya Zamudio M.D. [address] [place] [address] Phone: tel: fax: Referral ID Status Reason Start Date Expiration Date Visits Re quested Visits Authorized [id number] Closed 11/05/2024 05/07/2026 1 1 Encounter Details Date Type Department Care Team (Latest Contact Info) Description 12/04/2024 12:45 PM CDT - 12/04/2024 2:09 PM CDT Hospital Encounter Department of Radiation Oncology in [place], [place] [address] [place] [address] Yaya Zamudio M.D. 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 Primary Osteoarthritis Knee Right [id number]-FACE PHONE VISIT This visit was performed by [...] of the prostate gland demonstrated prostatic adenocarcinoma, [place] grade 3, 4; score 7. Tumor focally [...] Common Hereditary Cancers Panel (47 genes) via [employer] (56 total genes analyzed). See test report [...] and the left ischial tuberosity Technique: 3D INTERPRETER AND TRANSLATOR Dose: 800 cGy Fractions: 1 Goal: Palliative [...] and moderate left neural foraminal stenosis, with onkp-hlbnssu-cwfg-right lateral recess stenosis, and potential impingement of [...] was appreciative of the call. Signed by: Yyaa Zamudio M.D. 12/04/24 1:35 PM CDT [facility] Radiation Therapy [facility] documented in this encounter Plan of Treatment Upcoming Encounters Date Type Department Care Team (Late st Contact Info) Description 12/09/2024 1:00 PM CDT Appointment Department of Radiation Oncology in [place], [place] [address] [place] [phone] Yaya Zamudio M.D. [address] [place] [phone] 12/09/2024 1:30 PM CDT Appointment Department of Radiation Oncology in [place], [place] [address] [place] [phone] Yaya Zamudio M.D. [address] [place] [phone] 12/11/2024 2:30 PM CDT Appointment Department of Radiology in [place], [place] [address] [place] [address] Yaya Zamudio M.D. [address] [place] [phone] Scheduled Orders Name Type Priority Associated Diagnoses [...]
--- OUTSIDE RECORDS SUMMARY | 2024-12-05 11:20 | XMS_ITS | Encounter Summary ---
Author Organization [facility] Address [address] [place] [address] Care Team Providers Care Hand Printed Circuit Board Assembler Name Role Phone Unavailable Primary Care Provider Unavailabl e Encounter Details Date Type Department Care Team (Late st Contact Info) Description 11/05/2024 1:33 PM BUSINESS CENTER REPRESENTATIVE Hospital Encounter Department of Radiation Oncology in [place], [place] [address] [place] [phone] Peg Price M.D. [address] [place] [phone] Yaya Zamudio M.D. 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 [address] [place] [address] 12/09/2024 1:30 PM CDT Appointment Department of Radiation Oncology in [place], [place] [address] [place] [phone] Yaya Zamudio M.D. 200 [place] [phone] 12/11/2024 2:30 PM CDT Appointment Department of Radiology in [place], [place] [address] [place] [address] Yaya Zamudio M.D. 200 [place] [address] documented as of this encounter Visit Diagnoses Not on filedocumented in this encounter
--- OUTSIDE RECORDS SUMMARY | 2024-12-05 11:21 | XMS_ITS | Encounter Summary ---
Author Organization [facility] Address [address] [place] [address] Care Team Providers Care Fitness Attendant Name Role Phone Unavailable Primary Care Provider Unavailabl e Reason for Referral * Outpatient (Routine) - Closed Specialty Diagnoses / Procedures Referred By Citlali valero Referred To Contact Radiation Oncology Yaya Zamudio M.D. 200 [place] [address] Phone: tel: fax: Yaya Zamudio M.D. 200 [place] [address] Phone: tel: fax: Referral ID Status Reason Start Date Expiration Date Visits Re quested Visits Authorized [id number] Closed 11/05/2024 05/07/2026 1 1 Scheduling Instructions Please schedule phone follow-up with Dr. Zamudio on either December 03 or . Thank you! RAL HELPER * Radiation Therapy (Routine) - Authorized Specialty Diagnoses / Procedures Referred By Jeffac t Referred To Contact Diagnoses Secondary Malignant Neoplasm Pelvic Bone (HCC) Procedures Management Visit Yaya Zamudio M.D. 200 [place] [address] Phone: tel: fax: [facility] Region Referral ID Status Reason Start Date Expiration Date V isits Requested Visits Authorized [id number] Authorized 09/23/2024 12/24/2025 10 10 RAL HELPER Reason for Visit * Radiation Therapy (Routine) - Authorized Specialty Diagnoses / Procedures Referred By Contac t Referred To Contact Diagnoses Secondary Malignant Neoplasm Pelvic Bone (HCC) Procedures Management Visit Yaya Zamudio M.D. [address] [place] [address] Phone: tel: fax: [facility] Referral ID Status Reason Start Date Expiration Date V isits Requested Visits Authorized [id number] Authorized 09/23/2024 12/24/2025 10 10 Encounter Details Date Type Department Care Team (Latest Contact Info) Description 11/05/2024 1:33 PM GENERAL HELPER - 11/05/2024 5:39 PM GENERAL HELPER Hospital Encounter Department of Radiation Oncology in [place], [place] [address] [place] [phone] Yaya Zamudio M.D. 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 ([id number]) HISTORY OF PRESENT ILLNESS Mr. Hermann Garrett is an 84 y.o. male with metastatic prostate cancer currently undergoing radiation therapy to the right knee. Treatment Course: 4xKnee Plan ID Fractions Dose / Fraction (cGy) Dose Treated (cGy) Dose Planned (cGy) First Treatment Last Treatment Elapsed Days [id number] 50 200 300 10/25/2024 11/05/2024 11 Course Summary 10/25/2024 11/05/2024 11 Oncology History Primary Malignant Neoplasm Of Prostate (HCC) 07/02/2001 Surgery and Procedures Radical prostatectomy was performed by Dr. Gerardo Henry. Pathology of the prostate gland demonstrated prostatic adenocarcinoma, [place] grade 3, 4; score 7. Tumor focally [...] Common Hereditary Cancers Panel (47 genes) via [employer] (56 total genes analyzed). See test report [...] 09/28/2023) Site: Bone Fractions: 1 Technique: 3D HOUSING COUNSELOR Dose: 800 cGy Goal: Palliative Planned Treatment [...] and moderate left neural foraminal stenosis, with dtmo-korhfhf-ycwt-right lateral recess stenosis, and potential impingement of [...] his Melissa. ASSESSMENT / PLAN #1 pT2b, [place] 3+4=7 adenocarcinoma of the prostate s/p prostatectomy [...] by: Cassandra Cordon R.N. 11/05/2024 2:17 PM GENERAL HELPER I saw and evaluated the patient and [...] by: Yaya Zamudio M.D. 11/05/2024 5:39 PM GENERAL HELPER [facility] Radiation Therapy Center [address] [place] [address] RAL HELPER documented in this encounter Miscellaneous Notes * Addendum Note - Radha Aquino C.NAndrew - 11/05/2024 2:15 PM CSTEncounter addended by: Radha Aquino C.N.A. on: 11/06/2024 6:56 AM Actions taken: Letter saved RAL HELPER documented in this encounter Plan of Treatment Upcoming Encounters Date Type Department Care Team (Late st Contact Info) Description 12/09/2024 1:00 PM CDT Appointment Department of Radiation Oncology in [place], [place] [address] [place] [address] Yaya Zamudio M.D. [address] [place] [address] 12/09/2024 1:30 PM CDT Appointment Department of Radiation Oncology in [place], [place] [address] [place] [address] Yaya Zamudio M.D. [address] [place] [phone] 12/11/2024 2:30 PM CDT Appointment Department of Radiology in [place], [place] [address], [place] [address] Yaya Zamudio M.D. [address] [place] [phone] Scheduled Orders Name Type Priority Associated Diagnoses [...]
--- OUTSIDE RECORDS SUMMARY | 2024-12-05 11:21 | XMS_ITS | Clinical Summary ---
Author Organization [facility] Address [address] [place] [address] Care Team Providers Care Public Relations Studies Director Name Role Phone Irish Guzman MD Unavailable + Maico Goetz MD Unavailable Unavailable Adria Valentine MD Primary Care Provider [phone] Baljit Maya MD Unavailable [phone] Nurses, Advanced Heart Failure Unavailable + Allergies Active Allergy Reactions Criticality Noted Date Comments Cocaine 11/29/2007 Blood pressure became elevated Cultivated Crop Pollen-Sebeka Runny Nose 05/17/2022 Feathers Runny Nose 05/17/2022 [...] for flares. 30 day supply. Active glucosam-chondroi y-D-errrnxteo 500-400-2-0.33 mg cap Take by mouth. 0 [...] Type Department Care Team Description 12/05/[address] [address] Kemal Boyer MD Questions (Not getting sleep) 11/27/[address] [address] Kemal Boyer MD 11/14/[address] [address] Adria Valentine MD Refill Request (Furosemide) 11/08/2024 1:35 PM HEAVY EQUIPMENT SALES ASSOCIATE Office Visit [address] [address] Adria Valentine MD Follow Up; Fatigue (Sleeping troubles); Ear Problem (ears feel plugged. both sides, mostly left ) 11/08/2024 Travel 10/23/2024 11:00 AM HEAVY EQUIPMENT SALES ASSOCIATE Office Visit [address] [address] Kemal Boyer MD Sleep Follow-up 10/23/2024 Travel 10/22/2024 Orders Only [address] [address] Kemal Boyer MD 1 scan: (1-Ord) [facility]O [facility], PSG REPORT, 09/18/2024 10/16/2024 11:30 AM HEAVY EQUIPMENT SALES ASSOCIATE Ancillary Procedure [address] [address] 10/16/2024 Travel 10/11/2024 Transcribe Orders Customer Experience [facility] [phone] Yaya Zamudio MD 10/10/2024 Refill [facility] [address] [place] [address] Adria Valentine MD Refill Request (Furosemide) 09/27/2024 Orders Only [facility] Scanner 1 scan: (1-Ord) [facility], MR PELVIS WWO CONTRAST, 09/27/2024 09/27/2024 Orders Only [facility] Scanner 1 scan: (1-Ord) [place], CHEST 1V PORTABLE, 09/27/2024 09/26/2024 12:20 PM HEAVY EQUIPMENT SALES ASSOCIATE Office Visit [facility] [address] [place] [address] Adria Valentine MD Diabetes 09/26/2024 Travel 09/23/2024 Telephone [facility] [address] [place] [address] Kemal Boyer MD Questions (daridorexant 25 mg tab) 09/23/2024 Orders Only [facility] [address] [place] [address] Kemal Boyer MD <No scans attached> 09/23/2024 Telephone [facility] [address] [place] [address] Kemal Boyer MD Results (sleep study) 09/19/2024 Telephone [facility] [address] [place] [address] Kemal Boyer MD Prescription for Belsomra 09/18/2024 9:40 PM HEAVY EQUIPMENT SALES ASSOCIATE Procedure Only [facility] [address] [place] [address] Kemal Boyer MD 09/18/2024 Orders Only [facility] [address] [place] [address] Baljit Maya MD <No scans attached> 09/12/2024 11:30 AM HEAVY EQUIPMENT SALES ASSOCIATE Office Visit [facility] [address] [place] [address] Kemal Boyer MD Sleep Follow-up 09/12/2024 Telephone [facility] [address] [place] [address] Chico Leggett MD Questions (injections ) 09/12/2024 Travel 09/09/2024 1:00 PM HEAVY EQUIPMENT SALES ASSOCIATE Office Visit [facility] [address] [place] [address] Chico Leggett MD Musculoskeletal Problem (Follow up bilateral knee pain right is worse) 09/09/2024 Travel from Last 3 Months Immunizations Immunization Administration Dates Next Due Pneumococcal Poly,23-Valent (Pneumovax) 05/05/20 09 Td (Age >=7 Years) 12/19/2003 Family History Medical History Relation Name Comments Heart Disease Brother Claudy CABG Heart Disease Father Efrem failure Diabetes Maternal Grandmother Cancer Mother Kandice lung Heart Disease Paternal Grandfather RI--70 s Cancer Paternal Grandmother leukemi a Anesthesia [...] on file Legal Sex Male 6:05 AM HEAVY EQUIPMENT SALES ASSOCIATE Gender Identity Not on file Sexual Orientation Not on file 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 Not on file Not on file Not on file Not on file Not on file Not on file Not on file Obstetrics History Last Filed Vital Signs Vital Sign Reading Time Taken Comments Blood Pressure 138/76 11/08/2024 1:35 PM HEAVY EQUIPMENT SALES ASSOCIATE Pulse 80 11/08/2024 1:35 PM HEAVY EQUIPMENT SALES ASSOCIATE Temperature 36.3 C (97.4 F) 09/03/2024 1:10 PM HEAVY EQUIPMENT SALES ASSOCIATE Respiratory Rate 20 03/02/2024 11:20 AM CDT Oxygen Saturation 96% 11/08/2024 1:35 PM HEAVY EQUIPMENT SALES ASSOCIATE Inhaled Oxygen Concentration - - Weight 98.1 kg (216 lb 4.8 oz) 11/08/2024 1:35 P M HEAVY EQUIPMENT SALES ASSOCIATE Height 175.5 cm (5' 9.09) 10/23/2024 11:[address] Body Mass Index 31.86 10/23/2024 11:04 AM HEAVY EQUIPMENT SALES ASSOCIATE Plan of Treatment Upcoming Encounters Date Type Department Care Team (Late st Contact Info) Description 12/12/2024 11:15 AM CDT Office Visit [address] [phone] Franklin Carlson MD [address] [place] [address] 12/16/2024 1:25 PM CDT Office Visit [facility] [address] [place] [address] Adria Valentine MD [address] [place] [address] 01/06/2025 1:00 PM CDT Office Visit [facility] [address] [place] [address] Kemal Boyer MD [address] [place] [address] 01/29/2025 11:00 AM CDT Office Visit [facility] [address] [place] [address] Kemal Boyer MD [address] [place] [address] Health Maintenance Due Date Last Done Comments [...] 3 VIEWS RIGHT Routine 10/16/2024 11:18 AM HEAVY EQUIPMENT SALES ASSOCIATE Pain in right knee SCAN-MRI INTERPRETATION 09/27/2024 12:00 AM HEAVY EQUIPMENT SALES ASSOCIATE SCAN-RADIOLOGY REPORT 09/27/2024 12:00 AM HEAVY EQUIPMENT SALES ASSOCIATE BASIC METABOLIC PANEL Routine 09/26/2024 12:21 PM HEAVY EQUIPMENT SALES ASSOCIATE S/P CABG x 3 Chronic systolic heart failure (HC) BASIC METABOLIC PANEL Routine 09/26/2024 12:20 PM HEAVY EQUIPMENT SALES ASSOCIATE Ischemic cardiomyopathy HEMOGLOBIN A1C MONITORING (POCT) Routine 09/26/2024 12:19 PM HEAVY EQUIPMENT SALES ASSOCIATE Type 2 diabetes mellitus without complication, without long-term current use of insulin (HC) PRO-BNP Routine 09/26/2024 12:19 PM HEAVY EQUIPMENT SALES ASSOCIATE Ischemic cardiomyopathy SLEEP STUDY PER PROTOCOL Routine 09/18/2024 12:00 AM HEAVY EQUIPMENT SALES ASSOCIATE VI, 01/24/2005, AHI 94 from Last 3 Months Results * XR KNEE 3 VIEWS RIGHT (10/16/2024 11:18 AM HEAVY EQUIPMENT SALES ASSOCIATE) Anatomical Region Laterality Modality KNEES, KNEE R Computed Radiogr aphy 10/17/2024 7:13 AM HEAVY EQUIPMENT SALES ASSOCIATE Impressions 10/17/2024 7:13 AM HEAVY EQUIPMENT SALES ASSOCIATE Osteoarthritis, as above Dictated by Fabien Casper MD @ 10/17/2024 7:13:18 AM (Electronically Signed) Narrative 10/17/2024 7:13 AM HEAVY EQUIPMENT SALES ASSOCIATE For Patients: As a result of the [...] Result * SCAN-RADIOLOGY REPORT (09/27/2024 12:00 AM HEAVY EQUIPMENT SALES ASSOCIATE) Anatomical Region Laterality Modality Other us Scanner OTHER Final Result * SCAN-MRI INTERPRETATION (09/27/2024 12:00 AM HEAVY EQUIPMENT SALES ASSOCIATE) Anatomical Region Laterality Modality Other us Scanner OTHER Final Result * (ABNORMAL) BASIC METABOLIC PANEL (09/26/2024 12:21 PM HEAVY EQUIPMENT SALES ASSOCIATE) Only the most recent of2 resultswithin the [...] BLOOD SPECIMEN / Unknown 09/26/2024 12:21 PM HEAVY EQUIPMENT SALES ASSOCIATE 09/26/2024 12:22 PM HEAVY EQUIPMENT SALES ASSOCIATE Maico Feliz MD CHEMISTRY Final Result [facility] [address] [place] [address], [facility] [address] [place] [address] * (ABNORMAL) PRO-BNP (09/26/2024 12:19 PM HEAVY EQUIPMENT SALES ASSOCIATE) Pathologist [facility] NT PROBNP 531(H) <450 pg/mL [facility] Blood BLOOD SPECIMEN / Unknown 09/26/2024 12:19 PM HEAVY EQUIPMENT SALES ASSOCIATE 09/26/2024 12:19 PM HEAVY EQUIPMENT SALES ASSOCIATE Baljit Maya MD SEND OUTS Final Res ult [address] [place] [address] [place] [address], [employer] [facility] [address] [place] [address] * (ABNORMAL) POCT Hemoglobin A1C Monitoring (09/26/2024 12:19 PM HEAVY EQUIPMENT SALES ASSOCIATE) [facility] POC HEMOGLOBIN A1C 7.2(H) <6.0 % OF TOTAL HGB [facility] Comment: Any point of care results exhibiting inconsistency with the patient's clinical status should be repeated using a different testing method. Blood BLOOD SPECIMEN / Unknown 09/26/2024 12:19 PM HEAVY EQUIPMENT SALES ASSOCIATE 09/26/2024 12:20 PM HEAVY EQUIPMENT SALES ASSOCIATE Adria Valentine MD CHEMISTRY Final Resu lt Performing Organization Address City/[facility]/ZIP Co de Phone Number [facility] [address] [place] [address], [facility] [address] [place] [address] * SLEEP STUDY PER PROTOCOL (09/18/2024 12:00 AM HEAVY EQUIPMENT SALES ASSOCIATE) Kemal Boyer MD SLEEP CENTER Final Result from Last 3 Months Insurance [employer] [place] BLUE HB ONLY MEDICARE PPS [employer] [place] [place] BLUE MR PB ONLY [employer] [place] BLUE HB ONLY MEDICARE PART B HB ONLY MEDICARE PART A HB ONLY Advance Directives Documents on File Type Date Recorded 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 Healthcare Directive 12/15/2011 HEALTH CARE DIRECTIVE, [facility], 12/12/11 * Full Code (Latest Code Status on File) Date Activated Date Inactivated Comments 01/16/2017 6:12 PM 2017 4:15 PM * Full Code Date Activated Date Inactivated Comments 01/11/2017 2:56 PM 01/16/2017 6:12 PM * Full Code Date Activated Date Inactivated Comments 01/11/2017 10:59 AM 01/11/2017 2:56 PM Care Teams Public Relations Studies Director Relationship Specialty Start Date End Date Adria Valentine MD [address] [place] [address] PCP - General Family Practice 01/07/14 Irish Guzman MD [address] [place] [address] Dermatology 06/24/11 Maico Goetz MD [address] [place] [address] Ophthalmology Surgery 10/26/12 Baljit Maya MD [address] [id number] Cardiovascular Disease 03/06/23 Nurses, Advanced Heart Failure [address] [place] [id number] Advanced Heart Failure/Transplant Card 03/06/23
--- OUTSIDE RECORDS SUMMARY | 2024-12-05 11:21 | XMS_ITS | Encounter Summary ---
Author Organization [facility] Address [address] [place] [address] Care Team Providers Care Ice Delivery Driver Name Role Phone Unavailable Primary Care Provider Unavailabl e Encounter Details Date Type Department Care Team (Late st Contact Info) Description 11/08/2024 2:35 PM POLYGRAPH EXAMINER Hospital Encounter Department of Radiation Oncology in [address] [phone] Peg Price M.D. [address] [place] [phone] Yaya Zamudio M.D. [address] [place] [phone] Social History Tobacco Use Types Packs/Day Years Used Date Smoking Tobacco: Never Assessed Dental Answer Date Recorded Dental: Regular Dentist Unknown 10/12/19 23 Sex and Gender Information Value Date Recorded Sex Assigned at Not on file Legal Sex Male 11:16 AM POLYGRAPH EXAMINER Gender Identity Not on file Sexual Orientation Not on file documented as of this encounter Plan of Treatment Upcoming Encounters Date Type Department Care Team (Late st Contact Info) Description 12/09/2024 1:00 PM CDT Appointment Department of Radiation Oncology in [address] [address] Yaya Zamudio M.D. [address] [place] [address] 12/09/2024 1:30 PM CDT Appointment Department of Radiation Oncology in [place], [place] [address] [place] [phone] Yaya Zamudio M.D. [address] [place] [phone] 12/11/2024 2:30 PM CDT Appointment Department of Radiology in [place], [place] [address] [place] [address] Yaya Zamudio M.D. [address] [place] [address] documented as of this encounter Visit Diagnoses Not on filedocumented in this encounter
--- NOTE | 2024-12-05 11:59 | REH.PT ---
PT Eval & treat orders received; Chart reviewed. Pt completes STS transfers from low surfaces with assist from spouse. Pt able to rise STS from the ED EOB without physical assistance. Able to demo ind gait with and without a 2ww ~200 feet at a time. Scoring 40/56 on Yusuf balance test. Recommended to pt and his spouse that they raise the height of seated surfaces in his home including their sofa with furniture risers. Pt appears at this baseline with functional mobility. Expect he will d/c home with assist from spouse with transfers. No further skilled PT warranted.
[2024-12-05] MEDS: OXYCODONE 5 MG TABLET PO (12:00)
--- NOTE | 2024-12-05 12:00 | ED_ITS ---
HPI - General Adult General Date Seen: 12/05/24 Chief complaint: Unspecified Complaint, Adult Stated complaint: severe insomnia Time Seen by Provider: 12/05/24 10:22 History of Present Illness HPI narrative: Patient is an 84-year-old here with his for evaluation of insomnia. He tells me he has had trouble sleeping for many years, he has a sleep specialist, Dr. Boyer, in addition to Dr. Valentine who is his primary care doctor. He says that both of them have tried various medications none of which have helped. He is not sure what medicines he has taken previously. His says that they have been told he could try stronger medicines now as he has metastatic prostate cancer and has been told he will likely in the next few months. Notably he does not take anything for pain aside from Tylenol. He does say that he has significant discomfort all the time. Otherwise he has no new complaints. Related Data Home Medications ?Medication ?Instructions ?Recorded ?Confirmed losartan 100 mg tablet 100 mg PO DAILY 03/14/22 11/28/24 metformin 1,000 mg tablet 1,000 mg PO BID 05/11/22 11/28/24 multivitamin 1 tab PO QAM 05/11/22 11/28/24 calcium 600 mg (as 1 tab PO BID 07/13/22 10/14/24 carbonate)-vitamin D3 10 mcg (400 unit) tablet (Calcium with Vitamin D) spironolactone 25 mg tablet 25 mg PO QAM 10/05/22 11/28/24 carvedilol 12.5 mg tablet 12.5 mg PO BID 07/02/23 11/28/24 cinnamon bark 500 mg capsule 500 mg PO BID 07/02/23 11/28/24 glucosamine-chondroitin 250 mg-200 2 tab PO DAILY 07/02/23 11/28/24 mg tablet (Osteo Bi-Flex) denosumab 120 mg/1.7 mL (70 mg/mL) 120 mg subcut Q90D 07/03/23 11/28/24 subcutaneous solution (Xgeva) leuprolide acetate (6 month) 45 mg 45 mg subcut [id number] 07/03/23 11/28/24 (6 month) subcutaneous syringe (Eligard) magnesium oxide 400 mg PO DAILY 10/16/23 11/28/24 acetaminophen 500 mg tablet 1,000 mg PO Q6H PRN 05/28/24 03/27/25 (Tylenol Extra Strength) fexofenadine 60 mg tablet (Taya 60 mg PO HS 02/22/24 11/28/24 Allergy) apalutamide 60 mg tablet 240 mg PO DAILY 08/22/24 11/28/24 fluticasone propionate 50 1 spray intranasal HS 08/22/24 11/28/24 mcg/actuation nasal spray,suspension (Allergy Relief (fluticasone)) rosuvastatin 20 mg tablet 20 mg PO HS 08/22/24 11/28/24 diphenhydramine HCl 25 mg capsule 50 mg PO HS PRN 10/14/24 11/28/24 (Banophen) Previous Rx's ?Medication ?Instructions ?Recorded mecobalamin (vitamin B12) 1,000 1,000 mcg PO QDAY #90 tabs 12/27/23 mcg chewable tablet furosemide 20 mg tablet 60 mg (3 x 20 mg) PO DAILY #90 tabs 08/24/24 Allergies Allergy/AdvReac Type Severity Reaction Status Date / Time feathers Allergy Verified 12/05/24 10:29 house dust Allergy Verified 12/05/24 10:29 cocaine AdvReac Severe hypertensive Verified 12/05/24 10:37 crisis Influenza Virus Vaccines AdvReac Intermediate Headache Verified 12/05/24 10:29 cigarette smoke AdvReac Unknown Verified 12/05/24 10:37 grain dust Allergy Uncoded 11/28/24 13:48 PFSH PFS Medical History Metastasis to bone ?C79.51 - Secondary malignant neoplasm of bone (ICD-10) (HFpEF) heart failure with preserved ejection fraction ?I50.30 - Unspecified diastolic (congestive) heart failure (ICD-10) IPMN (intraductal papillary mucinous neoplasm) ?D49.0 - Neoplasm of unspecified behavior of digestive system (ICD-10) Insomnia ?G47.00 - Insomnia, unspecified (ICD-10) Former smoker, stopped smoking in distant past ?Z87.891 - Personal history of nicotine dependence (ICD-10) Obesity (BMI 30.0-34.9) ?E66.9 - Obesity, unspecified (ICD-10) Allergic rhinitis ?J30.9 - Allergic rhinitis, unspecified (ICD-10) Rhinitis medicamentosa ?J31.0 - Chronic rhinitis (ICD-10) ?T48.5X5A - Adverse effect of other [id number] drugs, initial encounter (ICD-10) Diabetes mellitus type 2 in obese ?E11.69 - Type 2 diabetes mellitus with other specified complication (ICD-10) ?E66.9 - Obesity, unspecified (ICD-10) History of atrial fibrillation ?Z86.79 - Personal history of other diseases of the circulatory system (ICD- 10) Obstructive sleep apnea on CPAP ?G47.33 - Obstructive sleep apnea (adult) (pediatric) (ICD-10) Colon polyps ?K63.5 - Polyp of colon (ICD-10) Mixed hyperlipidemia ?E78.2 - Mixed hyperlipidemia (ICD-10) Essential hypertension ?I10 - Essential (primary) hypertension (ICD-10) Low back pain ?M54.50 - Low back pain, unspecified (ICD-10) Right hip pain ?M25.551 - Pain in right hip (ICD-10) Hydronephrosis, bilateral ?N13.30 - Unspecified hydronephrosis (ICD-10) Surgical History History of vasectomy ?Z98.52 - Vasectomy status (ICD-10) History of radical prostatectomy ?Z90.79 - Acquired absence of other genital organ(s) (ICD-10) History of ankle surgery ?Z98.890 - Other specified postprocedural states (ICD-10) S/P hip replacement ?Z96.649 - Presence of unspecified artificial hip joint (ICD-10) H/O colonoscopy with polypectomy ?Z98.890 - Other specified postprocedural states (ICD-10) ?Z86.010 - Personal history of colonic polyps (ICD-10) Status post coronary artery bypass graft ?Z95.1 - Presence of aortocoronary bypass graft (ICD-10) Family History Mother Lung cancer Paternal Grandmother Leukemia Maternal Grandmother Diabetes Brother Heart disease Social History Narrative: for 62 years. Lives with , Brenda, whom he designates as his power of workers compensation attorney for health should that be required. Desires full resuscitation in event of cardiopulmonary demise. Primary care physician is Dr. Adria Valentine. What is your current living situation?: I presently have a place to live Problems where you live: no known problems Problems where you live details: N/A In the past 12 months, utilities in danger of being shut off: no In past 12 months, lack of transportation kept you from medical appts, meetings, work, or getting things needed for daily living: no In the past 12 mos, have been you worried that your food would run out before you had money to buy more?: never true In the past 12 mos, the food you bought just didn't last and you didn't have money to buy more?: never true Highest level of school completed/degree received: 12th grade, no diploma Smoking Status: Former smoker What tobacco products do you use: cigarettes Smoking quit date/years: >15 years ago Do you use any of these nicotine containing products: None Second hand tobacco smoke exposure: No How often do you have a drink containing alcohol: 2-4 times a month Alcohol type: beer How many standard drinks containing alcohol do you have on a typical day: 1 or 2 How often do you have six or more drinks on one occasion: Never AUDIT-C Alcohol total score: 2 Non-prescribed substance use: denies use Caffeine: No How often does anyone, including family, friends and others, physically hurt you : never How often does anyone, including family, friends and others, insult or talk down to you: never How often does anyone, including family, friends and others, threaten you with harm: never How often does anyone, including family, friends and others, scream or curse at you: never service: No Exam Narrative: Exam Narrative: Vital signs reviewed In general, alert, nontoxic elderly male. Appears somewhat chronically ill, somewhat pale. Heart: Regular rate and rhythm new line lungs: Clear. Abdomen: Protuberant and soft. Neurologic: He is alert, answers questions, moves all extremities. Has significant difficulty getting out of bed and requires assistance from myself and his . Const: Vital Signs, click to edit/add: Vital Signs - 24 hr 12/05/24 10:29 12/05/24 11:05 Temperature 98.9 F Pulse Rate [Pulse Oximeter] 110 H Respiratory Rate 16 Blood Pressure [Ri ght Upper Arm] 131/77 Pulse Oximetry 95 Oxygen Delivery Me thod Room Air Course Course ED Course: Had a fairly long conversation with them about how to manage this. Absent knowing what has been tried previously it is difficult to know what to prescribed today in terms of sleep. I do wonder if pain might be contributing to his difficulty sleeping and so I suggested that we start by putting him on a stronger pain medication and see if that is at all helpful for him. In terms of further sleep medications, would defer to primary care and or his sleep specialist. He also has CPAP which he is supposed to wear but has not been wearing sick for the past few months secondary to a nose injury that has made the mask uncomfortable. He has trouble getting out of bed independently and his has to help him, he told me that he did not have a walker at home that fit him in he does not use 1. He also apparently has canes but does not use those either. Had Physical therapy evaluate him, they showed his how to adjust his walker so that it fits him better. They do feel he can be safely managed at home with his 's assistance. I gave him oxycodone 5 mg here which he tolerated well. I prescribed 10 tablets for home use. Primary care or sleep follow-up recommended in the next week for recheck. Vital Signs Vital signs: Initial Vital Signs Pulse Rate 110 H 12/05/24 10:29 Respiratory Rate 16 12/05/24 10:29 Blood Pressure 131/77 12/05/24 10:29 Blood Pressure Mean 95 12/05/24 10:29 Blood Pressure Position Sitting 12/05/24 10:29 Pulse Oximetry 95 12/05/24 10:29 Oxygen Delivery Method Room Air 12/05/24 10:29 Vital Signs Pulse Rate 110 H 12/05/24 10:29 Respiratory Rate 16 12/05/24 10:29 Blood Pressure 131/77 12/05/24 10:29 Pulse Oximetry 95 12/05/24 10:29 Oxygen Delivery Method Room Air 12/05/24 10:29 Temperature 98.9 F 12/05/24 11:05 Pulse Rate 110 H 12/05/24 10:29 Respiratory Rate 16 12/05/24 10:29 Blood Pressure 131/77 12/05/24 10:29 Pulse Oximetry 95 12/05/24 10:29 Oxygen Delivery Method Room Air 12/05/24 10:29 Discharge Plan Discharge Clinical Impression: Insomnia, Prostate cancer metastatic to bone Patient Disposition: Home, Self-Care Condition: Stable Additional Instructions: I have prescribed oxycodone today to use for pain. This is not specifically a sleep medication, but can be sedating, and it is possible that discomfort be contributing to your difficulty sleeping. I would recommend continuing your Tylenol 3 times a day, and then using oxycodone if needed for more severe pain. You may only need it at night. Talk with your sleep specialist about further recommendations, make sure that he knows that you have been prescribed oxycodone as combining this with other sleep medicines could be over sedating. As we discussed, make sure to use your walker if needed for stability, and as physical therapy recommended, raising the sofa may make it easier for you to get up with less assistance. Prescriptions: No Action multivitamin Tablet 1 tab PO QAM acetaminophen [Tylenol Extra Strength] 500 mg tablet 1,000 mg PO Q6H PRN Rx Instructions: TAKES 2 TABS IN THE EVENING OFTEN AND SOMETIMES 3 TABLETS, UNSURE OF STRENGHT OF TABLET calcium carbonate-vitamin D3 [Calcium with Vitamin D] 600 mg-10 mcg (400 unit) tablet 1 tab PO BID mecobalamin (vitamin B12) 1,000 mcg tablet,chewable 1,000 mcg PO QDAY Qty: 90 1RF losartan 100 mg tablet 100 mg PO DAILY Patient Comments: Take 1 Tablet (100 mg) by mouth once daily. metformin 1,000 mg tablet 1,000 mg PO BID Patient Comments: Take 1 Tablet (1,000 mg) by mouth 2 times daily with meals. Rx Instructions: with meals carvedilol 12.5 mg tablet 12.5 mg PO BID glucosamine-chondroitin [Osteo Bi-Flex] 250-200 mg tablet 2 tab PO DAILY Rx Instructions: give after food/meal cinnamon bark 500 mg capsule 500 mg PO BID Eligard (6 month) 45 mg syringe 45 mg subcut [id number] Xgeva 120 mg/1.7 mL (70 mg/mL) solution 120 mg subcut Q90D magnesium oxide 400 mg magnesium tablet 400 mg PO DAILY fexofenadine [Taya Allergy] 60 mg tablet 60 mg PO HS Rx Instructions: UNSURE OF STRENGTH spironolactone 25 mg tablet 25 mg PO QAM Patient Comments: Take 1 Tablet (25 mg) by mouth every morning. rosuvastatin 20 mg tablet 20 mg PO HS apalutamide 60 mg tablet 240 mg PO DAILY fluticasone propionate [Allergy Relief (fluticasone)] 50 mcg/actuation spray,suspension 1 spray intranasal HS Rx Instructions: administer into each nostril furosemide 20 mg Tablet 60 mg PO DAILY Qty: 90 0RF diphenhydramine HCl [Banophen] 25 mg capsule 50 mg PO HS PRN Follow Up/Referrals: Adria Valentine MD [Primary Care Provider] - Stand Alone Forms: [employer] Info Instructions
== END 2024-12-05 12:15 | disposition home or self-care (01) ==
PROVIDERS: Emergency Provider Emergency Medicine; PCP Surgery
DX: G47.00 Insomnia, unspecified (principal); C61 Malignant neoplasm of prostate; C79.51 Secondary malignant neoplasm of bone
CPT/HCPCS: 99284; A9270

== ENCOUNTER 2024-12-10 13:57 | Inpatient (IN) | payer MEDICARE, BC, SELFPAY ==
[2024-12-10 14:39] VITALS: BP 127/77; PULSE 107; RESP 22; TEMP 36.3; O2SAT 92; BMI 28.8
--- NOTE | 2024-12-10 15:12 | ED.GENADULT ---
HPI - General Adult General Chief complaint: Unspecified Complaint, Adult Stated complaint: Confusion Time Seen by Provider: 12/10/24 15:12 History of Present Illness HPI narrative: Patient states that over the past couple weeks he has become more restless, can't sit still. He also suffers from insomnia. Called his primary provider today and was triaged to come to the emergency department. None of his previous medications are working. States he has poor appetite and lost a lot of weight. Previous cancer treatments. 84-year-old man presenting to the emergency department with concern of confusion. 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 Apparently is pending an MRI of his spine tomorrow. Has been seeing sleep specialist as this continues to be difficult. I did ask why he was here and he says he is just restless and can not sit still. No dysuria, no fever, no shortness of breath. Primary care recommended to be evaluated. Has been receiving radiation as well as oral chemo. Seen at this facility 5 days ago and given oxycodone for possible pain. Were given 10 tabs and still have 3 or 4 left last taken yesterday evening. Spouse reports that he has been more confused lately including accusing her of deleting various emails. Perhaps this was more pronounced today. No falls or recent injury Does take twice a day calcium plus D supplementation. Related Data Home Medications ?Medication ?Instructions ?Recorded ?Confirmed losartan 100 mg tablet 100 mg PO DAILY 03/14/22 11/28/24 metformin 1,000 mg tablet 1,000 mg PO BID 05/11/22 11/28/24 multivitamin 1 tab PO QAM 05/11/22 11/28/24 calcium 600 mg (as 1 tab PO BID 07/13/22 10/14/24 carbonate)-vitamin D3 10 mcg (400 unit) tablet (Calcium with Vitamin D) spironolactone 25 mg tablet 25 mg PO QAM 10/05/22 11/28/24 carvedilol 12.5 mg tablet 12.5 mg PO BID 07/02/23 11/28/24 cinnamon bark 500 mg capsule 500 mg PO BID 07/02/23 11/28/24 glucosamine-chondroitin 250 mg-200 2 tab PO DAILY 07/02/23 11/28/24 mg tablet (Osteo Bi-Flex) denosumab 120 mg/1.7 mL (70 mg/mL) 120 mg subcut Q90D 07/03/23 11/28/24 subcutaneous solution (Xgeva) leuprolide acetate (6 month) 45 mg 45 mg subcut [id number] 07/03/23 11/28/24 (6 month) subcutaneous syringe (Eligard) magnesium oxide 400 mg PO DAILY 10/16/23 11/28/24 acetaminophen 500 mg tablet 1,000 mg PO Q6H PRN 01/30/24 11/28/24 (Tylenol Extra Strength) fexofenadine 60 mg tablet (Taya 60 mg PO HS 02/22/24 11/28/24 Allergy) apalutamide 60 mg tablet 240 mg PO DAILY 08/22/24 11/28/24 fluticasone propionate 50 1 spray intranasal HS 08/22/24 11/28/24 mcg/actuation nasal spray,suspension (Allergy Relief (fluticasone)) rosuvastatin 20 mg tablet 20 mg PO HS 08/22/24 11/28/24 diphenhydramine HCl 25 mg capsule 50 mg PO HS PRN 10/14/24 11/28/24 (Banophen) Previous Rx's ?Medication ?Instructions ?Recorded mecobalamin (vitamin B12) 1,000 1,000 mcg PO QDAY #90 tabs 12/27/23 mcg chewable tablet furosemide 20 mg tablet 60 mg (3 x 20 mg) PO DAILY #90 tabs 08/24/24 Allergies Allergy/AdvReac Type Severity Reaction Status Date / Time feathers Allergy Verified 12/05/24 10:29 house dust Allergy Verified 12/05/24 10:29 cocaine AdvReac Severe hypertensive Verified 12/05/24 10:37 crisis Influenza Virus Vaccines AdvReac Intermediate Headache Verified 12/05/24 10:29 cigarette smoke AdvReac Unknown Verified 12/05/24 10:37 grain dust Allergy Uncoded 11/28/24 13:48 Review of Systems Status of ROS: Reports: 6 or more systems reviewed and unremarkable except as noted in History and below [facility] Medical History (Updated 12/10/24 @ 22:07 by Kaila Maldonado MD) Metastasis to bone ?C79.51 - Secondary malignant neoplasm of bone (ICD-10) (HFpEF) heart failure with preserved ejection fraction ?I50.30 - Unspecified diastolic (congestive) heart failure (ICD-10) IPMN (intraductal papillary mucinous neoplasm) ?D49.0 - Neoplasm of unspecified behavior of digestive system (ICD-10) Insomnia ?G47.00 - Insomnia, unspecified (ICD-10) Former smoker, stopped smoking in distant past ?Z87.891 - Personal history of nicotine dependence (ICD-10) Obesity (BMI 30.0-34.9) ?E66.9 - Obesity, unspecified (ICD-10) Allergic rhinitis ?J30.9 - Allergic rhinitis, unspecified (ICD-10) Rhinitis medicamentosa ?J31.0 - Chronic rhinitis (ICD-10) ?T48.5X5A - Adverse effect of other ipns-crltef-ayco drugs, initial encounter (ICD-10) Diabetes mellitus type 2 in obese ?E11.69 - Type 2 diabetes mellitus with other specified complication (ICD-10) ?E66.9 - Obesity, unspecified (ICD-10) History of atrial fibrillation ?Z86.79 - Personal history of other diseases of the circulatory system (ICD-10) Obstructive sleep apnea on CPAP ?G47.33 - Obstructive sleep apnea (adult) (pediatric) (ICD-10) Colon polyps ?K63.5 - Polyp of colon (ICD-10) Mixed hyperlipidemia ?E78.2 - Mixed hyperlipidemia (ICD-10) Essential hypertension ?I10 - Essential (primary) hypertension (ICD-10) Low back pain ?M54.50 - Low back pain, unspecified (ICD-10) Right hip pain ?M25.551 - Pain in right hip (ICD-10) Hydronephrosis, bilateral ?N13.30 - Unspecified hydronephrosis (ICD-10) Surgical History History of vasectomy ?Z98.52 - Vasectomy status (ICD-10) History of radical prostatectomy ?Z90.79 - Acquired absence of other genital organ(s) (ICD-10) History of ankle surgery ?Z98.890 - Other specified postprocedural states (ICD-10) S/P hip replacement ?Z96.649 - Presence of unspecified artificial hip joint (ICD-10) H/O colonoscopy with polypectomy ?Z98.890 - Other specified postprocedural states (ICD-10) ?Z86.010 - Personal history of colonic polyps (ICD-10) Status post coronary artery bypass graft ?Z95.1 - Presence of aortocoronary bypass graft (ICD-10) Family History Mother Lung cancer Paternal Grandmother Leukemia Maternal Grandmother Diabetes Brother Heart disease Social History Narrative: for 62 years. Lives with , Brenda, whom he designates as his power of forensic anthropologist for health should that be required. Desires full resuscitation in event of cardiopulmonary demise. Primary care physician is Dr. Adria Valentine. What is your current living situation?: I presently have a place to live Problems where you live: no known problems Problems where you live details: N/A In the past 12 months, utilities in danger of being shut off: no In past 12 months, lack of transportation kept you from medical appts, meetings, work, or getting things needed for daily living: no In the past 12 mos, have been you worried that your food would run out before you had money to buy more?: never true In the past 12 mos, the food you bought just didn't last and you didn't have money to buy more?: never true Highest level of school completed/degree received: 12th grade, no diploma Smoking Status: Former smoker What tobacco products do you use: cigarettes Smoking quit date/years: >15 years ago Do you use any of these nicotine containing products: None Second hand tobacco smoke exposure: No How often do you have a drink containing alcohol: 2-4 times a month Alcohol type: beer How many standard drinks containing alcohol do you have on a typical day: 1 or 2 How often do you have six or more drinks on one occasion: Never AUDIT-C Alcohol total score: 2 Non-prescribed substance use: denies use Caffeine: No How often does anyone, including family, friends and others, physically hurt you: never How often does anyone, including family, friends and others, insult or talk down to you: never How often does anyone, including family, friends and others, threaten you with harm: never How often does anyone, including family, friends and others, scream or curse at you: never service: No Exam Narrative: Exam Narrative: Flatter affect. Speaks very quietly but clearly. Teeth look dry. Moving slowly. Seems to have decent recall but then later clearly repeating himself. Cranial nerves 2-12 to be intact. Generally weak but moving extremities without notable difficulty. Trace pretibial edema. Neck is supple. Lungs are clear. Heart in elevated but regular rate. Abdomen is protuberant soft nontender. Const: Vital Signs, click to edit/add: Vital Signs - 24 hr 12/10/24 14:39 12/10/24 19:30 Temperature 97.4 F L Pulse Rate [Pulse Oximeter] 107 H 100 Respiratory Rate 22 18 Blood Pressure [Ri ght Upper Arm] 127/77 113/84 Pulse Oximetry 92 Oxygen Delivery Me thod Room Air Documenting provider has reviewed patient's vital signs: yes Course Vital Signs Vital signs: Initial Vital Signs Temperature 97.4 F L 12/10/24 14:39 Temperature Source Temporal Artery Scan 12/10/24 14:39 Pulse Rate 107 H 12/10/24 14:39 Respiratory Rate 22 12/10/24 14:39 Blood Pressure 127/77 12/10/24 14:39 Blood Pressure Mean 93 12/10/24 14:39 Blood Pressure Position Sitting 12/10/24 14:39 Pulse Oximetry 92 12/10/24 14:39 Oxygen Delivery Method Room Air 12/10/24 14:39 Vital Signs Temperature 97.4 F L 12/10/24 14:39 Pulse Rate 107 H 12/10/24 14:39 Respiratory Rate 22 12/10/24 14:39 Blood Pressure 127/77 12/10/24 14:39 Pulse Oximetry 92 12/10/24 14:39 Oxygen Delivery Method Room Air 12/10/24 14:39 Temperature 97.4 F L 12/10/24 14:39 Pulse Rate 100 12/10/24 19:30 Respiratory Rate 18 12/10/24 19:30 Blood Pressure 113/84 12/10/24 19:30 Pulse Oximetry 92 12/10/24 14:39 Oxygen Delivery Method Room Air 12/10/24 14:39 Medications Administered Medications: Generic Name Dose Route Start Last Admin Trade Name Freq PRN Reason Stop Dose Admin Acetaminophen 1,300 mg 12/10/24 22:00 12/10/24 21:50 Acetaminophen 650 Mg Tablet Er PO 1,300 mg Q8H DEE DEE Administration Clonazepam 0.5 mg 12/10/24 21:37 12/10/24 21:48 Clonazepam 0.5 Mg Tablet PO 0.5 mg HS PRN Administration restless; pain Sodium Chloride 1,000 mls @ 150 mls/hr 12/10/24 21:04 12/10/24 21:48 0.9 % Sodium Chloride 1000 Ml IV 150 mls/hr .Q6H40M DEE DEE Administration Sodium Chloride 5 ml 12/10/24 21:00 12/10/24 21:48 Sodium Chloride 0.9 % (Flush) 10 Ml Syringe IVF 5 ml BID DEE DEE Administration Discontinued Medications Generic Name Dose Route Start Last Admin Trade Name Freq PRN Reason Stop Dose Admin Sodium Chloride 1,000 mls @ 1,000 mls/hr 12/10/24 15:47 12/10/24 19:34 0.9 % Sodium Chloride 1000 Ml IV 12/10/24 16:46 Infused .Q1H ONE Infusion Medical Decision Making MDM Narrative Medical decision making narrative: Perhaps stress over illness, opiates, diphenhydramine or other medication effect, infection certainly could be contributing as well. Primary sleep disturbance. Does have a history of sleep apnea apparently with history of CPAP which he does not use. Some mention was given to Stroke as possible cause; I would think this less likely but perhaps imaging would be beneficial of his brain in particular looking for metastases. Calcium is elevated at 12.2. At this level I think is less likely to be causing alterations in mental status as described. Likely elevated secondary to metastatic disease. Corrected calcium at 11.8. Hydrating with normal saline. Apparently does take furosemide and spironolactone I did review MRI images of brain. No significant asymmetry is noted. Delayed final read with Radiology report as below INDICATION: Confusion. TECHNIQUE: Brain MRI without contrast. COMPARISON: Head CT from 08/01/2024. Brain MRI from 01/28/2022. FINDINGS: No evidence of acute ischemia. No evidence of acute or chronic intracranial blood products. 1 centimeter focus of left posterior frontal centrum semiovale susceptibility artifact and T2 hypointense signal, likely reflecting area of hemorrhage. Chronic lacunar infarcts within the right putamen and left caudothalamic groove. Patchy FLAIR hyperintensities within the supratentorial white matter, typical for chronic microvascular ischemic change. Moderate generalized parenchymal volume loss. No mass effect or herniation. No hydrocephalus or extra-axial collections. The pituitary gland, parasellar structures and optic chiasm are normal. Posterior fossa is normal. All the major intracranial vascular structures demonstrate normal flow-related signal. The orbital contents are normal. No calvarial or skull base marrow replacing process. No obstructive sinus disease. No extracranial soft tissue findings. IMPRESSION: 1. A small 1 centimeter focus of hemorrhage within the left posterior frontal centrum semiovale. New since prior exams and likely acute to subacute. 2. No evidence of acute ischemia. 3. Mild chronic microvascular ischemic changes and several chronic lacunar infarcts. 4. Moderate generalized parenchymal volume loss. Dictated by Say Concepcion MD @ 12/10/2024 6:36:52 PM I am unconvinced that findings here in MRI are related to symptoms as well as timing I suspect to be more subacute although with increased confusion as described today through is possible has occurred today. Called to stroke neuro but ultimately discussed with acoustic intelligence specialist at [place] who was accepting to neuro ICU. Patient had already been reluctant to be admitted regardless and with spousal concern of travel to [place]. Doubtful to have any intervention this point and so offered hospitalization here which he accepted. Would anticipate repeat CT imaging 6 hours from prior imaging. I would favor medication effect as contributing to AMS Discussed with hospitalist for admission. Stable vitals during time in the emergency department. Continued to be restless and was willing to ambulate about with a wheeled walker. Medical Records Medical records reviewed: Yes I reviewed the patient's medical records Lab Data Lab results reviewed: Yes I reviewed the patient's lab results Labs: Lab Results 12/10/24 12/10/24 12/10/24 Range/Units 16:05 16:20 18:21 WBC 8.74 (4.50-11.00) K/uL RBC 3.54 L (4.30-5.90) m/uL Hgb 10.6 L (13.5-17.5) gm/dL Hct 32.8 L (37.0-53.0) % MCV 93 (80-100) fL MCH 30 (26-34) pg MCHC 32 (32-36) gm/dL RDW Coeff of Abrahan 15.0 (11.5-15.5) % Plt Count 317 (140-440) K/uL Neut % (Auto) 81.4 H (42.0-72.0) % Lymph % (Auto) 9.5 L (20-44) % Russell % (Auto) 7.3 (0.0-11.0) % Eos % (Auto) 0.6 (0.0-7.0) % Baso % (Auto) 0.3 (0.0-3.0) % Neut # (Auto) 7.10 H (1.7-7.0) K/uL Lymph # (Auto) 0.80 L (0.90-2.90) K/uL Russell # (Auto) 0.60 (0.00-0.90) K/UL Eos # (Auto) 0.05 (0.00-0.50) K/uL Baso # (Auto) 0.03 (0.00-0.30) K/uL Abs Immat Gran (auto) 0.08 (0.00-0.30) K/uL Imm/Tot Granulo (auto) 0.9 % Sodium 137 (135-149) mmol/L Potassium 4.5 (3.6-5.1) mmol/L Chloride 99 (96-114) mmol/L Carbon Dioxide 28 (20-32) mmol/L Anion Gap 10 (7-15) mEq/L BUN 30 (7-30) mg/dL Creatinine 1.2 (0.5-1.5) mg/dL Estimated Creat Clear 45.82 Estimated GFR 60 ml/min Glucose 139 H (60-115) mg/dL Calcium 12.2 H* (8.4-10.6) mg/dL C-Reactive Protein 3.6 H (0.5-1.0) mg/dL Albumin 4.4 (3.3-5.0) g/dL Urine Color Yellow (Yellow) Urine Appearance Clear (Clear) Urine pH 5.5 (5.0-8.5) Ur Specific Drayton 1.020 (1.000-1.030) Urine Protein Negative (Negative) Urine Glucose (UA) Negative (Negative) Urine Ketones Trace A (Negative) Urine Blood Negative (Negative) Urine Nitrite Negative (Negative) Urine Bilirubin Negative (Negative) Urine Urobilinogen 0.2 (0.2-1.0) Ur Leukocyte Esterase Negative (Negative) Urine RBC 0-2 (0-2) Urine WBC 0-2 (0-5) Ur Squamous Epith Cells Few (None-Few) Urine Bacteria None (None) Hyaline Casts Moderate A (None-Few) Lab Acknowledgement Test Added ECG Data Attestation: I personally reviewed and interpreted this ECG as follows: (Normal sinus rhythm with right bundle-branch block similar to prior. There are however inverted Ts and QRS complex of uncertain significance in lead 3) Critical Care Time Critical Care Time Critical Care Time: Yes Attestation: The patient required my highest level preparedness to intervene emergently and I personally spent this critical care time directly and personally managing the patient. This critical care time included: Obtaining a history; Examining the patient; Pulse oximetry; Ordering and reviewing of studies; Arranging urgent treatment with development of a management plan; Evaluation of patients response to treatment; Frequent reassessment discussions with other providers. This critical care time was performed to assess and manage the high probability of imminent life-threatening deterioration that could result in multiorgan failure. It was exclusive of separate billable procedures and treating other patients and teaching time. Total Critical Care Time in Minutes: 50 Discharge Plan Discharge Clinical Impression: CVA (cerebral vascular accident), Confusion Patient Disposition: Admitted As Observation Condition: Stable
--- NOTE | 2024-12-10 15:46 | CRLHL7_ITS ---
For Patients: As a result of the Century Cures Act, medical imaging exams and procedure reports are released immediately into your electronic medical record. You may view this report before your referring provider. If you have questions, please contact your health care provider. INDICATION: Confusion. TECHNIQUE: Brain MRI without contrast. COMPARISON: Head CT from 08/01/2024. Brain MRI from 01/28/2022. FINDINGS: No evidence of acute ischemia. No evidence of acute or chronic intracranial blood products. 1 centimeter focus of left posterior frontal centrum semiovale susceptibility artifact and T2 hypointense signal, likely reflecting area of hemorrhage. Chronic lacunar infarcts within the right putamen and left caudothalamic groove. Patchy FLAIR hyperintensities within the supratentorial white matter, typical for chronic microvascular ischemic change. Moderate generalized parenchymal volume loss. No mass effect or herniation. No hydrocephalus or extra-axial collections. The pituitary gland, parasellar structures and optic chiasm are normal. Posterior fossa is normal. All the major intracranial vascular structures demonstrate normal flow-related signal. The orbital contents are normal. No calvarial or skull base marrow replacing process. No obstructive sinus disease. No extracranial soft tissue findings. IMPRESSION: 1. A small 1 centimeter focus of hemorrhage within the left posterior frontal centrum semiovale. New since prior exams and likely acute to subacute. 2. No evidence of acute ischemia. 3. Mild chronic microvascular ischemic changes and several chronic lacunar infarcts. 4. Moderate generalized parenchymal volume loss. Dictated by Say Concepcion MD @ 12/10/2024 6:36:52 PM (Electronically Signed)
[2024-12-10 16:26] LABS: Appearance Urine Clear (Clear); Bilirubin Urine Negative (Negative); Blood Urine Negative (Negative); Color Urine Yellow (Yellow); Glucose Urine Negative (Negative); Ketones Urine Trace (Negative); Leukocyte Esterase Urine Negative (Negative); Nitrite Urine Negative (Negative); Protein Urine Negative (Negative); Urobilinogen Urine 0.2 (0.2-1.0); pH Urine 5.5 (5.0-8.5)
--- OUTSIDE RECORDS SUMMARY | 2024-12-10 16:27 | XMS_ITS | Clinical Summary ---
Author Organization [facility] Address [address] [place] [address] Care Team Providers Care Termite Exterminator Helper Name Role Phone Unavailable Primary Care Provider Unavailabl e Source Comments Patient records contain information from all sites at [facility]. For routine questions regarding patient records, call [phone] during business hours, M-F 8:00 AM - 5:00 PM Central Time. Record requests for emergency care only can be directed to [phone] at any time.[facility] Allergies Active Allergy Reactions Criticality Noted Date Comments Cocaine Other (see comments) 11/29/2007 Blood pressure became elevated Cultivated Crop Pollen-Savage Itching 05/17/2022 Feathers Other (see comments) 05/17/2022 [...] by mouth 2 (two) times a day. 11/04/19 20 Active diphenhydrAMINE (BENADRYL) 25 mg tablet Take 50 mg by mouth at bedtime as needed. 03/16/20 15 Active fexofenadine-pseu doephedrine (AGATHA-D 24) 180-240 mg per 24 hr tablet Take 1 tablet by mouth daily. 01/19/20 22 Active furosemide (LASIX) 20 mg tablet 40 mg. Active glucosam-chondroi f-M-bzfefqxui 500-400-2-0.33 mg capsule Take by mouth. 12/23/19 21 Active hydrocortisone 2.5 % ointment Sparingly apply to lip TID. 05/24/20 17 Active ketoconazole (NIZORAL) 2 % cream Apply to affected areas in armpits once to twice daily until resolved then as needed for flares. 30 day supply. 02/21/20 20 Active losartan (COZAAR) 100 mg tablet Take 1 Tablet (100 mg) by mouth once daily.* Active magnesium 250 mg tablet Take 500 mg by mouth. Active melatonin 10 mg tablet extended release Take by mouth. 11/13/19 22 Active metFORMIN (GLUCOPHAGE) 1,000 mg tablet Take [...] morning.* Active triamcinolone (KENALOG) 0.1 % ointment 06/07/20 18 Active turmeric root extract 500 mg capsule Take by mouth. 11/03/19 17 Active ondansetron ODT (ZOFRAN-ODT) 8 mg disintegrating tablet Dissolve 1 tablet (8 mg total) in the mouth every 8 (eight) hours as needed for nausea or vomiting. 4 tablet 09/28/19 24 Active Erleada 60 mg tablet Take 240 mg by mouth daily. Active daridorexant 25 mg tablet Take 1 tablet by mouth at bedtime. 09/24/19 25 Active denosumab (Xgeva) 120 mg/1.7 mL injection Inject 120 mg under the skin. 07/03/20 23 Active leuprolide (Eligard 6 Month) 45 mg injection Inject 45 mg under the skin. 07/03/20 23 Active mecobalamin, vitamin B12, 1,000 mcg tablet,chewable Chew. 12/27/19 24 Active ramelteon (Rozerem) 8 mg tablet Take 8 mg by mouth at bedtime. 08/19/20 24 Active tacrolimus (Protopic) 0.1 % ointment apply 1x daily to affected areas on the groin, ongoing.* 08/30/20 24 Active LORazepam (Ativan) 0.5 mg tablet Take 1 tablet (0.5 mg total) by mouth See Admin Instructions. 1 tablet 1 hour before scans. 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 5 tablet 10/15/19 25 Active oxyCODONE (Roxicodone) 5 mg immediate release tablet 12/06/19 25 Active enzalutamide (Xtandi) 40 mg capsule once daily. 4 tablets unsure of dosage 04/29/20 24 Active ondansetron (Zofran) 4 mg tabletIndications :Secondary Malignant Neoplasm Bone (HCC) Take 1 tablet (4 mg total) by mouth every 8 (eight) hours as needed for nausea or vomiting. Take 1 tablet 45 minutes prior to each radiation treatment. 5 tablet 1 12/11/19 25 Active ondansetron (Zofran) 4 mg tablet Take 1-2 tablets (4-8 mg total) by mouth every 8 (eight) hours as needed for nausea or vomiting. 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 12/10/2024 Clinical Communication Department of Radiation Oncology in [address] [phone] Yaya Zamudio M.D. 12/09/2024 12:52 PM CDT - 12/09/2024 3:51 PM CDT Hospital Encounter Department of Radiation Oncology in [address] [address] Yaya Zamudio M.D. Secondary Malignant Neoplasm Bone (HCC) 12/09/2024 12:38 PM CDT - 12/09/2024 12:51 PM CDT Hospital Encounter Department of Radiation Oncology in [address] [address] Yaya Zamudio M.D. Secondary Malignant Neoplasm Bone (HCC) (Primary Dx) 12/04/2024 12:45 PM CDT - 12/04/2024 2:09 PM CDT Hospital Encounter Department of Radiation Oncology in [address] [address] Yaya Zamudio M.D. Secondary Malignant Neoplasm Pelvic Bone (HCC) (Primary Dx); Primary Osteoarthritis Knee Right; Secondary Malignant Neoplasm Bone (HCC) 11/12/2024 2:04 PM CDT Hospital Encounter Department of Radiation Oncology in [address] [address] Peg Price M.D. Leenstra, James L, M.D. 11/12/2024 Documentation Department of Radiation Oncology in [address] [address] Yaya Zamudio M.D. 11/08/2024 2:35 PM DRAWER FITTER - 11/08/2024 11:59 PM DRAWER FITTER Hospital Encounter Department of Radiation Oncology in [address] [address] Peg Price M.D. Leenstra, James L, M.D. Discharge Disposition: Home or Self Care 11/05/2024 1:33 PM DRAWER FITTER - 11/05/2024 5:39 PM DRAWER FITTER Hospital Encounter Department of Radiation Oncology in [address] [address] Yaya Zamudio M.D. Secondary Malignant Neoplasm Pelvic Bone (HCC) 11/05/2024 1:33 PM DRAWER FITTER - 11/05/2024 11:59 PM DRAWER FITTER Hospital Encounter Department of Radiation Oncology in [address] [address] Peg Price M.D. Leenstra, James L, M.D. Discharge Disposition: Home or Self Care 11/01/2024 2:20 PM DRAWER FITTER - 11/01/2024 11:59 PM DRAWER FITTER Hospital Encounter Department of Radiation Oncology in [address] [address] Peg Price M.D. Leenstra, James L, M.D. Discharge Disposition: Home or Self Care 10/29/2024 2:49 PM DRAWER FITTER - 10/29/2024 11:59 PM DRAWER FITTER Hospital Encounter Department of Radiation Oncology in [address] [address] Peg Price M.D. Leenstra, James L, M.D. Discharge Disposition: Home or Self Care 10/25/2024 2:51 PM DRAWER FITTER - 10/25/2024 11:59 PM DRAWER FITTER Hospital Encounter Department of Radiation Oncology in [address] [address] Peg Price M.D. Leenstra, James L, M.D. Discharge Disposition: Home or Self Care 10/18/2024 11:00 AM DRAWER FITTER - 10/18/2024 3:54 PM DRAWER FITTER Hospital Encounter Department of Radiation Oncology in [address] [address] Yaya Zamudio M.D. Garces, Yolanda I., M.D. Primary Osteoarthritis Knee Right 10/18/2024 10:08 AM DRAWER FITTER - 10/18/2024 10:59 AM DRAWER FITTER Hospital Encounter Department of Radiation Oncology in [address] [address] Peg Price M.D. Leenstra, James L, M.D. Discharge Disposition: Home or Self Care 10/18/2024 Documentation Department of Radiation Oncology in [address] [address] Yaya Zamudio M.D. 10/16/2024 1:03 PM DRAWER FITTER - 10/16/2024 4:26 PM DRAWER FITTER Hospital Encounter Department of Radiation Oncology in [address] [address] Yaya Zamudio M.D. Primary Osteoarthritis Knee Right (Primary Dx); Secondary Malignant Neoplasm Pelvic Bone (HCC); Nicotine Dependence 10/16/2024 1:03 PM DRAWER FITTER - 10/16/2024 11:59 PM DRAWER FITTER Hospital Encounter Department of Radiation Oncology in [address] [address] Peg Price M.D. Leenstra, James L, M.D. Discharge Disposition: Home or Self Care 10/15/2024 Clinical Communication Department of Radiation Oncology in [address] [address] Yaya Zamudio M.D. 10/14/2024 2:07 PM DRAWER FITTER - 10/14/2024 11:59 PM DRAWER FITTER Hospital Encounter Department of Radiation Oncology in [address] [address] Peg Price M.D. Leenstra, James L, M.D. Discharge Disposition: Home or Self Care 10/14/2024 Orders Only Department of Radiation Oncology in [address] [address] Yaya Zamudio M.D. 10/11/2024 1:33 PM DRAWER FITTER - 10/11/2024 11:59 PM DRAWER FITTER Hospital Encounter Department of Radiation Oncology in [address] [address] Peg Price M.D. Leenstra, James L, M.D. Discharge Disposition: Home or Self Care 10/09/2024 2:44 PM DRAWER FITTER - 10/09/2024 11:59 PM DRAWER FITTER Hospital Encounter Department of Radiation Oncology in [address] [address] Peg Price M.D. Leenstra, James L, M.D. Discharge Disposition: Home or Self Care 10/07/2024 1:47 PM DRAWER FITTER - 10/07/2024 4:39 PM DRAWER FITTER Hospital Encounter Department of Radiation Oncology in [address] [address] Yaya Zamudio M.D. Pain Knee Right (Primary Dx); Secondary Malignant Neoplasm Pelvic Bone (HCC) 10/07/2024 1:13 PM DRAWER FITTER - 10/07/2024 1:46 PM DRAWER FITTER Hospital Encounter Department of Radiation Oncology in [address] [address] Peg Price M.D. Leenstra, James L, M.D. Discharge Disposition: Home or Self Care 09/27/2024 8:34 AM DRAWER FITTER - 09/27/2024 11:44 AM DRAWER FITTER Hospital Encounter Department of Radiation Oncology in [address] [address] Yaya Zamudio M.D. Secondary Malignant Neoplasm Pelvic Bone (HCC) 09/27/2024 Orders Only Department of Radiation Oncology in [address] [address] Yaya Zamudio M.D. Secondary Malignant Neoplasm Pelvic Bone (HCC) (Primary Dx) 09/26/2024 1:29 PM DRAWER FITTER - 09/26/2024 4:08 PM DRAWER FITTER Hospital Encounter Department of Radiation Oncology in [address] [address] Yaya Zamudio M.D. Secondary Malignant Neoplasm Pelvic Bone (HCC) (Primary Dx); Primary Malignant Neoplasm Of Prostate (HCC) 09/24/2024 Orders Only Department of Radiation Oncology in [address] [place] [address] Yaya Zamudio M.D. 09/23/2024 Orders Only Department of Radiation Oncology in [place], [place] [address] [place] [address] Yaya Zamudio M.D. Secondary Malignant Neoplasm Pelvic Bone (HCC) (Primary Dx) from Last 3 Months Family History Medical [...] on file Legal Sex Male 11:16 AM DRAWER FITTER Gender Identity Not on file Sexual Orientation Not on file Last Filed Vital Signs Vital Sign Reading Time Taken Comments Blood Pressure 128/79 12/09/2024 1:00 PM CDT Pulse 60 12/09/2024 1:00 PM CDT Temperature 35.9 C (96.7 F) 12/09/2024 1:00 PM CDT Respiratory Rate - - Oxygen Saturation - - Inhaled Oxygen Concentration - - Weight 89.4 kg (197 lb 1.5 oz) 12/09/2024 1:00 P M CDT Height - - Body Mass Index - - Plan of Treatment Upcoming Encounters Date Type Department Care Team (Late st Contact Info) Description 12/11/2024 2:30 PM CDT Appointment Department of Radiology in [place], [place] [address] [place] [address] Yaya Zamudio M.D. [address] [place] [phone] 12/17/2024 1:15 PM CDT Appointment Department of Radiation Oncology in [place], [place] [address] [place] [phone] Yaya Zamudio M.D. [address] [place] [phone] Health Maintenance Due Date Last Done Comments [...] Procedure Name Priority Date/Time Associated Diagnosis Comments INITIAL RAD ONC TREATMENT PLANNING CT SIMULATION Routine 12/09/2024 1:30 PM CDT Secondary Malignant Neoplasm Bone (HCC) ARIA COURSE COMPLETE TREATMENT INFORMATION Routine 11/12/2024 2:22 PM CDT ARIA DAILY TREATMENT INFORMATION Routine 11/12/2024 2:22 PM CDT ARIA DAILY TREATMENT INFORMATION Routine 11/08/2024 3:10 PM DRAWER FITTER ARIA DAILY TREATMENT INFORMATION Routine 11/05/2024 2:00 PM DRAWER FITTER ARIA DAILY TREATMENT INFORMATION Routine 11/01/2024 2:48 PM DRAWER FITTER ARIA DAILY TREATMENT INFORMATION Routine 10/29/2024 3:11 PM DRAWER FITTER ARIA DAILY TREATMENT INFORMATION Routine 10/25/2024 3:24 PM DRAWER FITTER INITIAL RAD ONC TREATMENT PLANNING CT SIMULATION Routine 10/18/2024 11:00 AM DRAWER FITTER Primary Osteoarthritis Knee Right ARIA COURSE COMPLETE TREATMENT INFORMATION Routine 10/18/2024 10:45 AM DRAWER FITTER ARIA DAILY TREATMENT INFORMATION Routine 10/18/2024 10:45 AM DRAWER FITTER ARIA DAILY TREATMENT INFORMATION Routine 10/16/2024 2:28 PM DRAWER FITTER ARIA DAILY TREATMENT INFORMATION Routine 10/16/2024 1:50 PM DRAWER FITTER OUTSIDE DX SKELETAL Routine 10/16/2024 1 1:10 AM DRAWER FITTER ARIA DAILY TREATMENT INFORMATION Routine 10/14/2024 3:03 PM DRAWER FITTER ARIA DAILY TREATMENT INFORMATION Routine 10/11/2024 2:20 PM DRAWER FITTER ARIA DAILY TREATMENT INFORMATION Routine 10/09/2024 3:31 PM DRAWER FITTER ARIA DAILY TREATMENT INFORMATION Routine 10/07/2024 2:08 PM DRAWER FITTER OUTSIDE MR BODY Routine 09/27/2024 10:15 AM DRAWER FITTER INITIAL RAD ONC TREATMENT PLANNING CT SIMULATION Routine 09/27/2024 9:00 AM DRAWER FITTER Secondary Malignant Neoplasm Pelvic Bone (HCC) from Last 3 Months Results * Initial Rad Onc Treatment Planning CT Simulation (12/09/2024 1:30 PM CDT) Only the most recent of3 resultswithin the time period is included. [facility] - 12/09/2024 1:30 PM CDT Yaya Zamudio M.D. 12/09/2024 3:50 PM Initial Rad Onc Treatment Planning CT Simulation Performed by: Yaya Zamudio M.D. Authorized by: Yaya Zamudio M.D. us Yaya Zamudio M.D. RADIATION ONCOLOGY ORDERAB LES Final Result DAVID HUGHES na * Aria Course Complete Treatment Information (11/12/2024 2:22 PM CDT) Only the most recent of2 resultswithin the time period is included. Course ID [id number] EHRNANDEZ ARIA Course Start Date 5 08:08 CDT HERNANDEZ ARIA Course End Date 5 15:57 CDT HERNANDEZ ARIA First Treatment Date 5 15:23 CDT HERNANDEZ ARIA Last Treatment Date 5 14:22 CDT HERNANDEZ ARIA Treatment Elapsed Days 18 HERNANDEZ ARIA Reference Point [id number] nee HERNANDEZ ARIA Dosage Given to Date cGy 300 HERNANDEZ ARIA Plan ID [id number] HERNANDEZ ARIA Fractions Treated to Date 6 HERNANDEZ ARIA Planned Total Fractions 6 HERNANDEZ ARIA Prescribed Dose Per Fraction 50 HERNANDEZ ARIA Prescription Dose in cGy 300 HERNANDEZ ARIA Plan Primary Reference Point [id number] nee HERNANDEZ ARIA 11/12/2024 2:22 PM CDT [...] Elapsed Days 18 HERNANDEZ ARIA Reference Point [id number] nee HERNANDEZ ARIA Dosage Given to Date cGy 300 HERNANDEZ ARIA Session Dosage Given 50 HERNANDEZ ARIA Plan ID [id number] HERNANDEZ ARIA Fractions Treated to Date 6 DAVID HUGHES Planned Total Fractions 6 HERNANDEZ ELLEN Prescribed Dose Per Fraction 50 [place] ELLEN Prescription Dose in cGy 300 DAVID HUGHES Plan Primary Reference Point [id number] nee DAVID HUGHES 11/12/2024 2:22 PM CDT us Provider Not In System RADIATION ONCOLOGY ORDERA BLES Final Result DAVID HUGHES na * Outside DX Skeletal (10/16/2024 11:10 AM DRAWER FITTER) 10/17/2024 7:13 AM DRAWER FITTER Addenda Addendum by Ellevation, Outside on 10/17/2024 7:13 AM DRAWER FITTER BELOW REPORT RECEIVED BY [facility] ON 10/18/2024 07:46:03 [id number] For Patients: As a result of the [...] Signed) READ BY Fabien Casper RELEASED BY JHONATHAN Addendum by Ellevation, Outside on 10/17/2024 7:13 AM DRAWER FITTER BELOW REPORT RECEIVED BY [facility] ON 10/18/2024 07:45:33 [id number] For Patients: As a result of the [...] Signed) READ BY Fabien Casper RELEASED BY JHONATHAN Narrative IMAGING - 10/18/2024 7:58 AM DRAWER FITTER This order has been created and auto-finalized to support the import of outside images. If available, original interpretation can be found on the Media Tab in Chart Review, in Document Viewer, as an image in QREADS or as an Addendum. If a re-interpretation or overread is required please follow defined workflow. Procedure Note Digital Media, Outside - 10/18/2024 This order has been created and auto-finalized to support the import ofoutside images. If available, original interpretation can be found on theMedia Tab in Chart Review, in Document Viewer, as an image in QREADS or asan Addendum. If a re-interpretation or overread is required please follow definedworkflow. us Provider Not In System IMG DIAGNOSTIC IMAGING NC OCEDURES Edited Result - Final Performing Organization Address City/[facility]/ZIP Co de Phone Number IMAGING NA * MR pelvis wo/w con-Outside MR Body (09/27/2024 10:15 AM DRAWER FITTER) 09/27/2024 10:1 2 AM DRAWER FITTER Narrative [facility] - 09/27/2024 12:27 PM DRAWER FITTER This order has been created and auto-finalized to support the import of outside images. If available, original interpretation can be found on the Media Tab in Chart Review, in Document Viewer, as an image in QREADS or as an Addendum. If a re-interpretation or overread is required please follow defined workflow. us Provider Not In System IMG MRI PROCEDURES Final Result [facility] NA from Last 3 Months Insurance [facility] MEDICARE
--- OUTSIDE RECORDS SUMMARY | 2024-12-10 16:27 | XMS_ITS | Encounter Summary ---
Author Organization [facility] Address [address] [place] [address] Care Team Providers Care Ink Maker Name Role Phone Unavailable Primary Care Provider Unavailabl e Encounter Details Date Type Department Care Team (Late st Contact Info) Description 10/14/2024 Orders Only Department of Radiation Oncology in [place], [place] [address] [place] [phone] Yaya Zamudio M.D. 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 [address] [place] [phone] 12/17/2024 1:15 PM CDT Appointment Department of Radiation Oncology in [place], [place] [address] [place] [address] Yaya Zamudio M.D. [address] [place] [address] documented as of this encounter Visit Diagnoses Not on filedocumented in this encounter
--- OUTSIDE RECORDS SUMMARY | 2024-12-10 16:27 | XMS_ITS | Encounter Summary ---
Author Organization [facility] Address [address] [place] [address] Care Team Providers Care Seam Taper Machine Name Role Phone Unavailable Primary Care Provider Unavailabl e Encounter Details Date Type Department Care Team (Late st Contact Info) Description 10/15/2024 Clinical Communication Department of Radiation Oncology in [place], [place] [address] [place] [address] Yaya Zamudio M.D. [address] [place] [address] Social History Tobacco Use Types Packs/Day Years Used Date Smoking Tobacco: Never Assessed Dental Answer Date Recorded Dental: Regular Dentist Unknown 10/12/19 23 Sex and Gender Information Value Date Recorded Sex Assigned at Not on file Legal Sex Male 11:16 AM RX SPECIALIST Gender Identity Not on file Sexual Orientation [...] anti-nausea medication would be sent to the [facility] pharmacy in [place]. They went to the pharmacy and the prescription was not there so he wanted to make sure we knew what pharmacy to send itto. I assured him we had the correct pharmacy and that I would send a message to the care team. SPECIALIST documented in this encounter Plan of Treatment Upcoming Encounters Date Type Department Care Team (Late st Contact Info) Description 12/11/2024 2:30 PM CDT Appointment Department of Radiology in [place], [place] [address] [place] [address] Yaya Zamudio M.D. [address] [place] [address] 12/17/2024 1:15 PM CDT Appointment Department of Radiation Oncology in [place], [place] [address] [place] [phone] Yaya Zamudio M.D. [address] [place] [address] documented as of this encounter Visit Diagnoses Not on filedocumented in this encounter
--- OUTSIDE RECORDS SUMMARY | 2024-12-10 16:27 | XMS_ITS ---
Author Organization [facility] Address [address] [place] [address] Care Team Providers Care Verification Clerk Name Role Phone Unavailable Primary Care Provider [...] Fraction Dose Fractions Total Dose Plans Planned [id number] 10/25/2024 - 11/12/2024 50 cGy 6 / 6 3 00 cGy Reference Points Delivered [id number] 10/25/2024 - 11/12/2024 300 cGy * Course 3xMultiSiteSBRT 10/07/2024 - 10/18/2024 Treatment Period Fraction Dose Fractions Total Dose Plans Planned [id number] 10/14/2024 - 10/18/2024 1,000 cGy 3 / 3 3 ,000 cGy [id number] 10/14/2024 - 10/18/2024 1,000 cGy 3 / 3 3 ,000 cGy [id number] 10/07/2024 - 10/11/2024 1,000 cGy 3 / 3 3 ,000 cGy M4AzefgO 10/07/2024 - 10/11/2024 1,000 cGy 3 / [...] Fraction Dose Fractions Total Dose Plans Planned [id number] 04/25/2024 - 05/01/2024 400 cGy 5 / 5 2 ,000 cGy O0RedO1 04/25/2024 - 05/01/2024 400 cGy 5 / 5 2 ,000 cGy [id number] 04/25/2024 - 05/01/2024 400 cGy 5 / 5 2 ,000 cGy Reference Points Delivered [id number] IlliumR 04/25/2024 - 05/01/2024 2,000 cGy [id number] L3 04/25/2024 - 05/01/2024 2,000 cGy [id number] SpnT12 04/25/2024 - 05/01/2024 2,000 cGy * 3D WEIGHT ANALYST: BoneOverview* First Treatment Date Last Treatment Date Treatment Site Technique Goal Episode Provider 09/28/2023 09/28/2023 Bone 3D WEIGHT ANALYST Palliative * Linked Problems Primary Malignant Neoplasm O f Prostate Treatment Courses* Course 1xMultiSite 09/28/2023 - 09/28/2023 Treatment Period Fraction Dose Fractions Total Dose Plans Planned U4JctsA 09/28/2023 - 09/28/2023 800 cGy 8 00 cGy O1YgyoppnN 09/28/2023 - 09/28/2023 800 cGy 8 00 cGy U8GbbB2 09/28/2023 - 09/28/2023 800 cGy 8 00 cGy Reference Points Delivered [id number] AcetR 09/28/2023 - 09/28/2023 800 cGy PHW627v L3 09/28/2023 - 09/28/2023 800 cGy OCU920m Lisch 09/28/2023 - 09/28/2023 800 cGy
--- OUTSIDE RECORDS SUMMARY | 2024-12-10 16:28 | XMS_ITS | Encounter Summary ---
Author Organization [facility] Address [address] [place] [address] Care Team Providers Care Television Newscast Director Name Role Phone Unavailable Primary Care Provider Unavailabl e Encounter Details Date Type Department Care Team (Late st Contact Info) Description 12/10/2024 Clinical Communication Department of Radiation Oncology in [place], [place] [address] [place] [address] Yaya Zamudio M.D. 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 The patient is not currently taking another medication for this same reason. If they are, name of medication: Dr. Zamudio said he would prescribe the med to have on hand in case the patient needed it. The MRI is scheduled for 12/11 at 2:30 pm in [place] The patient has previously discussed the medication they are requesting with their provider. Pharmacy to send the prescription to: [facility] in [place] Patient preferences for being notified when prescription is sent to the pharmacy: The patient does not wish to be notified. documented in this encounter Plan of Treatment Upcoming Encounters Date Type Department Care Team (Late st Contact Info) Description 12/11/2024 2:30 PM CDT Appointment Department of Radiology in [place], [place] [address], [place] [address] Yaya Zamudio M.D. [address] [place] [address] 12/17/2024 1:15 PM CDT Appointment Department of Radiation Oncology in [place], [place] [address] [place] [phone] Yaya Zamudio M.D. [address] [place] [phone] documented as of this encounter Visit Diagnoses Not on filedocumented in this encounter
--- OUTSIDE RECORDS SUMMARY | 2024-12-10 16:28 | XMS_ITS | Encounter Summary ---
Author Organization [facility] Address [address] [place] [address] Care Team Providers Care Auxiliary Power Equipment Operator Name Role Phone Unavailable Primary Care Provider Unavailabl e Reason for Referral * Radiation Therapy (Routine) - Closed Specialty Diagnoses / Procedures Referred By Contac t Referred To Contact Diagnoses Secondary Malignant Neoplasm Bone (HCC) Procedures Initial Rad Onc Treatment Planning CT Simulation Yaya Zamudio M.D. [address] [place] [address] Phone: tel: fax: [facility] Region Referral ID Status Reason Start Date Expiration Date Visits Re quested Visits Authorized [id number] Closed 12/04/2024 03/06/2026 1 1 Reason for Visit * Radiation Therapy (Routine) - Closed Specialty Diagnoses / Procedures Referred By Citlali valero Referred To Contact Diagnoses Secondary Malignant Neoplasm Bone (HCC) Procedures Initial Rad Onc Treatment Planning CT Simulation Yaya Zamudio M.D. [address] [place] [address] Phone: tel: fax: [facility] Region Referral ID Status Reason Start Date Expiration Date Visits Re quested Visits Authorized [id number] Closed 12/04/2024 03/06/2026 1 1 Encounter Details Date Type Department Care Team (Latest Contact Info) Description 12/09/2024 12:52 PM CDT - 12/09/2024 3:51 PM CDT Hospital Encounter Department of Radiation Oncology in [place], [place] [address] [place] [phone] Yaya Zamudio M.D. 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 03/16/2015 enzalutamide (Xtandi) 40 mg capsule once daily. 4 tablets unsure of dosage 04/29/2024 Erleada 60 mg tablet Take 240 mg [...] Take 1 tablet by mouth daily. ondansetron ODT (ZOFRAN-ODT) 8 mg disintegrating tablet Dissolve 1 tablet (8 mg total) in the mouth every 8 (eight) hours as needed for nausea or vomiting. 4 tablet 09/28/2023 oxyCODONE (Roxicodone) 5 mg immediate release tablet 12/05/2024 ramelteon (Rozerem) 8 mg tablet Take 8 [...] 500 mg capsule Take by mouth. 11/02/2016 ondansetron (Zofran) 4 mg tablet Take 1-2 tablets (4-8 mg total) by mouth every 8 (eight) hours as needed for nausea or vomiting. For treatment of and prevention of radiotherapy-in duced nausea/vomiting 10 tablet 04/17/2024 documented as of this encounter Procedure Notes * Merary Pena RTT - 12/09/2024 1:30 PM CDTAssociated Order(s): Initial Rad Onc Treatment Planning CT Simulation Pre-Procedure Diagnose(s): Secondary Malignant Neoplasm Bone (HCC) Post-Procedure Diagnose(s): Secondary Malignant Neoplasm Bone (HCC) Initial Rad Onc Treatment Planning CT Simulation Performed by: Yaya Zamudio M.D. Authorized by: Yaya Zamudio M.D. Simulation was performed under physician supervision based on physician order in preparation for radiation therapy. Physician was immediately available to provide assistance and direction throughout the procedure. Written consent for treatment was completed or confirmed. The patient was appropriately identified and placed in the treatment position using the necessary immobilization to ensure a reproducible treatment position. Reference h[place] were placed to facilitate marking of isocenter. Area scanned: L-Spine Contrast used for the simulation procedure: None Patient position: Head first supine Custom immobilization: Knee Cushion Motion management: None Bolus: No CT guidance: Following positioning of the patient, a series of slices was obtained to be utilized in treatment planning. CT images were transferred to the Eclipse treatment planning system, after a reference isocenter was determined and marked. Segmentation and treatment planning will take place prior to treatment delivery. Patient set up and imaging was appropriate and completed without incident. File System Installer use:No Cosigned by Yaya Zamudio M.D. at 12/09/2024 3:50 PM CDT Associated attestation - Yaya Zamudio M.D. - 12/09/2024 3:50 PM CDT I was available for the entirety of the procedure but only present for image review. Signed by: Yaya Zamudio M.D. 12/09/24 3:[address] [facility] [place] documented in this encounter Plan of Treatment Upcoming Encounters Date Type Department Care Team (Late st Contact Info) Description 12/11/2024 2:30 PM CDT Appointment Department of Radiology in [place], [place] [address] [place] [phone] Yaya Zamudio M.D. [address] [place] [address] 12/17/2024 1:15 PM CDT Appointment Department of Radiation Oncology in [place], [place] [address] [place] [address] Yaya Zamudio M.D. [address] [place] [address] documented as of this encounter Procedures Procedure Name Priority Date/Time Associated Diagnosis Comments INITIAL RAD ONC TREATMENT PLANNING CT SIMULATION Routine 12/09/2024 1:30 PM CDT Secondary Malignant Neoplasm Bone (HCC) documented in this encounter Results * Initial Rad Onc Treatment Planning CT Simulation (12/09/2024 1:30 PM CDT) Narrative DAVID HUGHES - 12/09/2024 1:30 PM CDT Yaya Zamudio M.D. 12/09/2024 3:50 PM Initial Rad Onc Treatment Planning CT Simulation Performed by: Yaya Zamudio M.D. Authorized by: Yaya Zamudio M.D. us Yaya Zamudio M.D. RADIATION ONCOLOGY ORDERAB LES Final Result DAVID HUGHES na documented in this encounter Visit Diagnoses Diagnosis Secondary Malignant Neoplasm Bone (HCC) documented in this encounter
--- OUTSIDE RECORDS SUMMARY | 2024-12-10 16:28 | XMS_ITS | Encounter Summary ---
Author Organization [facility] Address [address] [place] [address] Care Team Providers Care Crown And Bridge Technician Name Role Phone Unavailable Primary Care Provider Unavailabl e Encounter Details Date Type Department Care Team (Latest Contact Info) Description 10/29/2024 2:49 PM MEASUREMENT AND VERIFICATION ENGINEER - 10/29/2024 11:59 PM [facility] Hospital Encounter Department of Radiation Oncology in [place], [place] [address] [place] [phone] Peg Price M.D. [address] [place] [phone] Yaya Zamudio M.D. 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 [address] [place] [address] 12/17/2024 1:15 PM CDT Appointment Department of Radiation Oncology in [place], [place] [address] [place] [address] Yaya Zamudio M.D. [address] [place] [address] documented as of this encounter Visit Diagnoses Not on filedocumented in this encounter
--- OUTSIDE RECORDS SUMMARY | 2024-12-10 16:28 | XMS_ITS | Encounter Summary ---
Author Organization [facility] Address [address] [place] [address] Care Team Providers Care Adjuster Electrical Contacts Name Role Phone Unavailable Primary Care Provider Unavailabl e Reason for Referral * Medication Prior Authorization - Pending Review Specialty Diagnoses / Procedures Referred By Citlali t Referred To Contact Diagnoses Secondary Malignant Neoplasm Bone (HCC) Yaya Zamudio M.D. [address] [place] [address] Phone: tel: fax: Referral ID Status Reason Start Date Expiration Date V isits Requested Visits Authorized [id number] Pending Review 1 1 Encounter Details Date Type Department Care Team (Late st Contact Info) Description 12/10/2024 Clinical Communication Department of Radiation Oncology in [address] [phone] Efraín Cordon, R.N. 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 - 12/10/2024 1:01 PM CDT I called Melissa today to assess which medication that Hermann wanted filled prior to his MRI scan tomorrow. We established that the medication in question was ondansetron. A prescription was sent to the patient's pharmacy of choice. The phone call was cut short due to a call from another care provider. We will attempt to make contact with Melissa again tomorrow to make sure the plan of care is clear moving forward. LEEROY Trujillo [facility] Radiation Oncology documented in this encounter Plan of Treatment Upcoming Encounters Date Type Department Care Team (Late st Contact Info) Description 12/11/2024 2:30 PM CDT Appointment Department of Radiology in [place], [place] [address] [phone] Yaya Zamudio M.D. [address] [place] [phone] 12/17/2024 1:15 PM CDT Appointment Department of Radiation Oncology in [place], [place] [address] [place] [phone] Yaya Zamudio M.D. [address] [place] [address] documented as of this encounter Visit Diagnoses Diagnosis Secondary Malignant Neoplasm Bone (HCC)- Primary documented in this encounter
--- OUTSIDE RECORDS SUMMARY | 2024-12-10 16:28 | XMS_ITS | Encounter Summary ---
Author Organization [facility] Address [address] [place] [address] Care Team Providers Care Carry All Driver Name Role Phone Unavailable Primary Care Provider Unavailabl e Encounter Details Date Type Department Care Team (Latest Contact Info) Description 10/25/2024 2:51 PM MANAGER STRATEGY - 10/25/2024 11:59 PM [facility] Hospital Encounter Department of Radiation Oncology in [place], [place] [address] [place] [phone] Peg Price M.D. [address] [place] [phone] Yaya Zamudio M.D. 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 [address] [place] [address] 12/17/2024 1:15 PM CDT Appointment Department of Radiation Oncology in [place], [place] [address] [place] [address] Yaya Zamudio M.D. [address] [place] [address] documented as of this encounter Visit Diagnoses Not on filedocumented in this encounter
--- OUTSIDE RECORDS SUMMARY | 2024-12-10 16:28 | XMS_ITS | Encounter Summary ---
Author Organization [facility] Address [address] [place] [address] Care Team Providers Care Postal Support Employee Name Role Phone Unavailable Primary Care Provider Unavailabl e Reason for Referral * Outpatient (Routine) - Closed Specialty Diagnoses / Procedures Referred By Jeffac t Referred To Contact Radiation Oncology Yaya Zamudio M.D. [address] [place] [address] Phone: tel: [facility] Region Referral ID Status Reason Start Date Expiration Date Visits Re quested Visits Authorized [id number] Closed 12/04/2024 06/05/2026 1 1 Scheduling Instructions Sim same day, planning MRI could be the following day Reason for Visit * Outpatient (Routine) - Closed Specialty Diagnoses / Procedures Referred By Contac t Referred To Contact Radiation Oncology Yaya Zamudio M.D. [address] [place] [address] Phone: tel: [facility] Region Referral ID Status Reason Start Date Expiration Date Visits Re quested Visits Authorized [id number] Closed 12/04/2024 06/05/2026 1 1 Encounter Details Date Type Department Care Team (Latest Contact Info) Description 12/09/2024 12:38 PM CDT - 12/09/2024 12:51 PM CDT Hospital Encounter Department of Radiation Oncology in [place], [place] [address] [place] [phone] Yaya Zamudio M.D. 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 - 12/09/2024 1:00 PM CDT SUBJECTIVE REASON FOR VISIT 1. Secondary Malignant Neoplasm Bone (HCC) HISTORY OF PRESENT ILLNESS Mr. Hermann Garrett is an 84 y.o. male with metastatic prostate cancer. He completed palliative radiotherapy to multiple bony metastases in the pelvis on October 18, 2024 and palliative radiotherapy to osteoarthritis of his right knee on November 12, 2024. He has persistent low back pain with disease at L3. He returns today for consideration of further palliative radiotherapy to this area. Oncology History Primary Malignant Neoplasm Of Prostate (HCC) 07/02/2001 Surgery and Procedures Radical prostatectomy was performed by Dr. Gerardo Henry. Pathology of the prostate gland demonstrated prostatic adenocarcinoma, Adonis grade 3, 4; score 7. Tumor focally [...] Common Hereditary Cancers Panel (47 genes) via [employer] (56 total genes analyzed). See test report [...] and the left ischial tuberosity Technique: 3D EPIC SPECIALIST Dose: 800 cGy Fractions: 1 Goal: Palliative [...] and moderate left neural foraminal stenosis, with inri-gtmdkkn-sirs-right lateral recess stenosis, and potential impingement of [...] Goal: Palliative Planned Treatment Start Date: 10/25/2024 INTERVAL HISTORY The patient reports that the pain in his mid to low back is persistent. He rates it currently at 2 to 3/10 in severity. He takes Tylenol 1000 mg twice daily with an occasional extra 500 mg tablet. The pain does not radiate down his leg. It is worse with prolonged standing. He is not certain if his left knee pain is better though his thinks that it might be. His ECOG performance status is 2. PATIENT REPORTED SYMPTOM SCREEN FATIGUE (Scale: 0 = no fatigue; 10 = worst fatigue you can imagine): 3 PAIN (Scale: 0 = no pain; 10 = worst pain you can imagine): 3 OVERALL QUALITY OF LIFE (Scale: 0 = as bad as can be; 10 = as good as can be): 6 OBJECTIVE Blood pressure 128/79, pulse 60, temperature (!) 35.9 ??C, temperature source Temporal, weight 89.4kg. There is no height or weight on file to calculate BMI. General: Patient is awake, alert, and oriented to person. No apparent distress. He is here with hiswife Melissa. He is looking increasingly more frail. Spine: There is tenderness to palpation at approximately the L3 region. Lungs: Clear to auscultation bilaterally. Heart: Regular rate and rhythm. Normal S1 and S2. No murmurs. Abdomen: Soft, nontender, nondistended. Normal active bowel sounds are present. Extremities: No edema. Neurologic: Strength diminished but symmetric in both upper and lower extremities. Deep tendon reflexes are hyporeflexic bilaterally. Sensation is intact to light touch. Gait careful with small steps. The patient needs help getting from a sitting to a standing position. DIAGNOSTICS I reviewed the patient's PSMA PET/CT scans from April 16, 2024 and September 10, 2024 with the patient and his . These show persistent PSMA-avidity in the L3 vertebral body. ASSESSMENT / PLAN #1 pT2b, Adonis 3+4=7 [...] right knee initiated on October 25, 2024; completed on November 12, 2024 I believe that the patient's pain in his mid to low back is likely due to persistent disease at L3.This was treated with 8 Gy in 1 fraction in September of 2023 and then 20 Gy in 5 fractions finishingin late April of 2024. There is persistent PSMA uptake at that area on his most recent scan from September, so I suspect this is the source of his pain and possibly of his rising PSA. Because of his prior radiotherapy, stereotactic body radiotherapy will be necessary so as to spare high radiation dose to the adjacent cauda equina, kidneys, and bowel. I discussed the logistics as well as the possible acute and chronic side effects of treatment with the patient and his . These include: DURING ? These are common and usually get better in 4-6 weeks after treatment: Possible pain flare Diarrhea Increased frequency and urgency of bowel movements Gaseous bloating/discomfort Nausea/vomiting (prevented with pre-treatment ondansetron) Skin redness Muscle and joint discomfort during immobilization Fatigue (loss of energy) LATE - RARE: Occurrence of 1-5% or less: Small bowel obstruction Small bowel ulceration Radiation damage to the kidneys Radiation myelitis/damage to the spinal cord or cauda equina Bone/compression fracture Secondary cancer as a result of radiation exposure (<= 0.2% risk) I provided them with a written summary my recommendations. Their questions were answered to their verbalized satisfaction. The patient stated that he would like to proceed with treatment and signed the consent form. He will undergo CT simulation today and a planning MRI at [facility] tomorrow. We will endeavor to begin treatment on Tuesday, December 17, 2024. The patient verbalized satisfaction with this plan. I have spent 27 minutes caring for this patient including xadi-hc-olrp and pgb-isws-gd-face time. Consent Discussed the risks, benefits, alternatives, and the necessity of other members of the healthcare team participating in the procedure. All questions answered and consent given. Signed by: Yaya Zamudio M.D. 12/09/24 4:03 PM CDT [facility] Radiation Therapy [facility] documented in this encounter Miscellaneous Notes * Addendum Note - Radha Aquino C.N.A. - 12/09/2024 12:51 PM CDTEncounter addended by: Radha Aquino C.N.A. on: 12/10/2024 7:05 AM Actions taken: Letter saved documented in this encounter Plan of Treatment Upcoming Encounters Date Type Department Care Team (Late st Contact Info) Description 12/11/2024 2:30 PM CDT Appointment Department of Radiology in [place], [place] [address] [phone] Yaya Zamudio M.D. [address] [place] [address] 12/17/2024 1:15 PM CDT Appointment Department of Radiation Oncology in [place], [place] [address] [place] [phone] Yaya Zamudio M.D. [address] [place] [address] Scheduled Referrals Name Type Priority Associated Diagnoses Order Schedule Radiation Oncology office visit (clinic) Outpatient Referral Routine Once for 1 Occurrences starting 12/09/2024 until 12/09/2024 documented as of this encounter Visit Diagnoses Diagnosis Secondary Malignant Neoplasm Bone (HCC)- Primary documented in this encounter
[2024-12-10 16:29] LABS: Basophils Absolute Auto 0.03 K/uL (0.00-0.30); Basophils Percent Auto 0.3 % (0.0-3.0); Eosinophils Absolute Auto 0.05 K/uL (0.00-0.50); Eosinophils Percent Auto 0.6 % (0.0-7.0); Hematocrit 32.8 % (37.0-53.0); Hemoglobin* 10.6 gm/dL (13.5-17.5); Immature Granulocytes Abs Auto 0.08 K/uL (0.00-0.30); Immature Granulocytes Pct Auto 0.9 %; Lymphocytes Percent Auto 9.5 % (20-44); Mean Corpuscular HGB Conc 32 gm/dL (32-36); Mean Corpuscular Hemoglobin 30 pg (26-34); Mean Corpuscular Volume 93 fL (80-100); Monocytes Percent Auto 7.3 % (0.0-11.0); Neutrophils Percent Auto 81.4 % (42.0-72.0); Platelet Count* 317 K/uL (140-440); Red Blood Count 3.54 m/uL (4.30-5.90); White Blood Count* 8.74 K/uL (4.50-11.00)
[2024-12-10 16:30] LABS: Hyaline Casts Urine Moderate (None-Few); RBC Urine 0-2 (0-2); Squamous Epithelial Cell Urine Few (None-Few); WBC Urine 0-2 (0-5)
--- OUTSIDE RECORDS SUMMARY | 2024-12-10 16:30 | XMS_ITS | Clinical Summary ---
Author Organization [employer] [facility] Address [address] [place] [address] Care Team Providers Care Rubber Goods Repairer Name Role Phone Irish Guzman MD Unavailable + Maico Goetz MD Unavailable Unavailable Adria Valentine MD Primary Care Provider [phone] Baljit Maya MD Unavailable [phone] Nurses, Advanced Heart Failure Unavailable + Allergies Active Allergy Reactions Criticality Noted Date Comments Cocaine 11/29/2007 Blood pressure became elevated Cultivated Crop Pollen-Allison Runny Nose 05/17/2022 Feathers Runny Nose 05/17/2022 [...] for flares. 30 day supply. Active glucosam-chondroi d-I-tbtaqdacz 500-400-2-0.33 mg cap Take by mouth. 0 [...] MOUTH DAILY 270 Tablet 1 025 Active furosemide (LASIX) 20 mg tabletIndications [...] studies: AltFlow: Potential Pending dyspnea, RHC from 2016 Problem Noted Date Diagnosed Date Prostate cancer [...] descending branch of right coronary artery--01/16/17 Dr. Hernandez VI, 01/24/2005, AHI 94 08/18/2016 Colon polyps 06/02/2010 [...] neoplasm of prostate 09/07/2007 10/08/2019 Overview (09/07/2007): [facility] 7 Unspecified sleep apnea 09/07/200712/2019 Congestive heart failure 12/2019 Encounters Date Type Department Care Team Description 12/10/2024 Nurse Triage [facility] [address] [place] [address] Adria Valentine MD Call back (Patient behavior) 12/05/[address] [address] Kemal Boyer MD Questions (Not getting sleep) 11/27/[address] [address] Kemal Boyer MD 11/14/[address] [address] Adria Valentine MD Refill Request (Furosemide) 11/08/2024 1:35 PM SOUND DESIGNER Office Visit [address] [address] Adria Valentine MD Follow Up; Fatigue (Sleeping troubles); Ear Problem (ears feel plugged. both sides, mostly left ) 11/08/2024 Travel 10/23/2024 11:00 AM SOUND DESIGNER Office Visit [address] [address] Kemal Boyer MD Sleep Follow-up 10/23/2024 Travel 10/22/2024 Orders Only [address] [address] Kemal Boyer MD 1 scan: (1-Ord) [employer], PSG REPORT, 09/18/2024 10/16/2024 11:30 AM SOUND DESIGNER Ancillary Procedure [address] [address] 10/16/2024 Travel 10/11/2024 Transcribe Orders Customer [facility] [phone] Yaya Zamudio MD 10/10/2024 Refill [facility] [address] [place] [address] Adria Valentine MD Refill Request (Furosemide) 09/27/2024 Orders Only [facility] Scanner 1 scan: (1-Ord) [facility], MR PELVIS WWO CONTRAST, 09/27/2024 09/27/2024 Orders Only [facility] Scanner 1 scan: (1-Ord) [place], CHEST 1V PORTABLE, 09/27/2024 09/26/2024 12:20 PM SOUND DESIGNER Office Visit [facility] [address] [place] [address] Adria Valentine MD Diabetes 09/26/2024 Travel 09/23/2024 Telephone [facility] [address] [place] [address] Kemal Boyer MD Questions (daridorexant 25 mg tab) 09/23/2024 Orders Only [facility] [address] [place] [address] Kemal Boyer MD <No scans attached> 09/23/2024 Telephone [facility] [address] [place] [address] Kemal Boyer MD Results (sleep study) 09/19/2024 Telephone [facility] [address] [place] [address] Kemla Boyer MD Prescription for Belsomra 09/18/2024 9:40 PM SOUND DESIGNER Procedure Only [facility] [address] [place] [address] Kemal Boyer MD 09/18/[address] [facility] [address] [place] [address] Baljit Maya MD <No scans attached> 09/12/2024 11:30 AM SOUND DESIGNER Office Visit [facility] [address] [place] [address] Kemal Boyer MD Sleep Follow-up 09/12/2024 Telephone [facility] [address] [place] [address] Chico Leggett MD Questions (injections ) 09/12/2024 Travel from Last 3 Months Immunizations Immunization Administration Dates Next Due Pneumococcal Poly,23-Valent (Pneumovax) 05/05/20 09 Td (Age >=7 Years) 12/19/2003 Family History Medical History Relation Name Comments Heart Disease Brother Claudy CABG Heart Disease Father Efrem failure Diabetes Maternal Grandmother Cancer Mother Kandice lung Heart Disease Paternal Grandfather OK--70 s Cancer Paternal Grandmother leukemi a Anesthesia [...] on file Legal Sex Male 6:05 AM SOUND DESIGNER Gender Identity Not on file Sexual Orientation Not on file 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 Not on file Not on file Not on file Not on file Not on file Not on file Not on file Obstetrics History Last Filed Vital Signs Vital Sign Reading Time Taken Comments Blood Pressure 138/76 11/08/2024 1:35 PM SOUND DESIGNER Pulse 80 11/08/2024 1:35 PM SOUND DESIGNER Temperature 36.3 C (97.4 F) 09/03/2024 1:10 PM SOUND DESIGNER Respiratory Rate 20 03/02/2024 11:20 AM CDT Oxygen Saturation 96% 11/08/2024 1:35 PM SOUND DESIGNER Inhaled Oxygen Concentration - - Weight 98.1 kg (216 lb 4.8 oz) 11/08/2024 1:35 P M SOUND DESIGNER Height 175.5 cm (5' 9.09) 10/23/2024 11:[address] Body Mass Index 31.86 10/23/2024 11:04 AM SOUND DESIGNER Plan of Treatment Upcoming Encounters Date Type Department Care Team (Late st Contact Info) Description 12/12/2024 11:15 AM CDT Office Visit [address] [phone] Franklin Carlson MD [address] [place] [address] 12/16/2024 1:25 PM CDT Office Visit [facility] [address] [place] [address] Adria Valentine MD [address] [place] [address] 01/06/2025 1:00 PM CDT Office Visit [facility] [address] [place] [address] Kemal Boyer MD [address] [place] [address] 01/29/2025 11:00 AM CDT Office Visit [facility] [address] [place] [address] Kemal Boyer MD [address] [place] [address] Health Maintenance Due Date Last Done Comments [...] 3 VIEWS RIGHT Routine 10/16/2024 11:18 AM SOUND DESIGNER Pain in right knee SCAN-MRI INTERPRETATION 09/27/2024 12:00 AM SOUND DESIGNER SCAN-RADIOLOGY REPORT 09/27/2024 12:00 AM SOUND DESIGNER BASIC METABOLIC PANEL Routine 09/26/2024 12:21 PM SOUND DESIGNER S/P CABG x 3 Chronic systolic heart failure (HC) BASIC METABOLIC PANEL Routine 09/26/2024 12:20 PM SOUND DESIGNER Ischemic cardiomyopathy HEMOGLOBIN A1C MONITORING (POCT) Routine 09/26/2024 12:19 PM SOUND DESIGNER Type 2 diabetes mellitus without complication, without long-term current use of insulin (HC) PRO-BNP Routine 09/26/2024 12:19 PM SOUND DESIGNER Ischemic cardiomyopathy SLEEP STUDY PER PROTOCOL Routine 09/18/2024 12:00 AM SOUND DESIGNER VI, 01/24/2005, AHI 94 from Last 3 Months Results * XR KNEE 3 VIEWS RIGHT (10/16/2024 11:18 AM SOUND DESIGNER) Anatomical Region Laterality Modality KNEES, KNEE R Computed Radiogr aphy 10/17/2024 7:13 AM SOUND DESIGNER Impressions 10/17/2024 7:13 AM SOUND DESIGNER Osteoarthritis, as above Dictated by Fabien Casper MD @ 10/17/2024 7:13:18 AM (Electronically Signed) Narrative 10/17/2024 7:13 AM SOUND DESIGNER For Patients: As a result of the [...] a result of the Cures Act, medical imagingexams and procedure reports are [...] Result * SCAN-RADIOLOGY REPORT (09/27/2024 12:00 AM SOUND DESIGNER) Anatomical Region Laterality Modality Other us Scanner OTHER Final Result * SCAN-MRI INTERPRETATION (09/27/2024 12:00 AM SOUND DESIGNER) Anatomical Region Laterality Modality Other us Scanner OTHER Final Result * (ABNORMAL) BASIC METABOLIC PANEL (09/26/2024 12:21 PM SOUND DESIGNER) Only the most recent of2 resultswithin the time period is included. Pathologist [facility] GLUCOSE 205(H) 65 - 99 mg/dL [facility] Comment: Fasting reference interval For someone without known diabetes, a glucose value >125 mg/dL indicates that they may have diabetes and this should be confirmed with a follow-up test. UREA NITROGEN (BUN) 30(H) 7 - 25 mg/dL [facility] CREATININE 1.49(H) 0.70 - 1.22 [...] BLOOD SPECIMEN / Unknown 09/26/2024 12:21 PM SOUND DESIGNER 09/26/2024 12:22 PM SOUND DESIGNER Maico Feliz MD CHEMISTRY Final Result [facility] [address] [place] [address], [facility] [address] [place] [address] * (ABNORMAL) PRO-BNP (09/26/2024 12:19 PM SOUND DESIGNER) Pathologist [facility] NT PROBNP 531(H) <450 pg/mL [facility] Blood BLOOD SPECIMEN / Unknown 09/26/2024 12:19 PM SOUND DESIGNER 09/26/2024 12:19 PM SOUND DESIGNER Baljit Maya MD SEND OUTS Final Res ult [facility] [address] [place] [address], [facility] [address] [place] [address] * (ABNORMAL) POCT Hemoglobin A1C Monitoring (09/26/2024 12:19 PM SOUND DESIGNER) Pathologist [facility] POC HEMOGLOBIN A1C 7.2(H) <6.0 % OF TOTAL HGB [facility] Comment: Any point of care results exhibiting inconsistency with the patient's clinical status should be repeated using a different testing method. Blood BLOOD SPECIMEN / Unknown 09/26/2024 12:19 PM SOUND DESIGNER 09/26/2024 12:20 PM SOUND DESIGNER Adria Valentine MD CHEMISTRY Final Resu lt Performing Organization Address City/[facility]/ZIP Co de Phone Number [facility] [address] [place] [address], [facility] [address] [place] [address] * SLEEP STUDY PER PROTOCOL (09/18/2024 12:00 AM SOUND DESIGNER) Kemal Boyer MD SLEEP CENTER Final Result from Last 3 Months Insurance [place] BLUE HB ONLY MEDICARE PPS [place] BLUE MR PB ONLY [place] BLUE HB ONLY MEDICARE PART B HB ONLY MEDICARE PART A HB ONLY Advance Directives Documents on File Type Date Recorded Patient Hot Plate Plywood Press Feeder Expl anation Healthcare Directive 12/15/2011 HEALTH CARE DIRECTIVE, [facility], 12/12/11 * Full Code (Latest Code Status on File) Date Activated Date Inactivated Comments 01/16/2017 6:12 PM 2017 4:15 PM * Full Code Date Activated Date Inactivated Comments 01/11/2017 2:56 PM 01/16/2017 6:12 PM * Full Code Date Activated Date Inactivated Comments 01/11/2017 10:59 AM 01/11/2017 2:56 PM Care Teams Rubber Goods Repairer Relationship Specialty Start Date End Date Adria Valentine MD [address] [place] [address] PCP - General Family Practice 01/07/14 Irish Guzman MD [address] [place] [address] Dermatology 06/24/11 Maico Goetz MD [address] [place] [address] Ophthalmology Surgery 10/26/12 Baljit Maya MD [address] [place] [address] Cardiovascular Disease 03/06/23 Nurses, Advanced Heart Failure [address] [place] [address] Advanced Heart Failure/Transplant Card 03/06/23
--- OUTSIDE RECORDS SUMMARY | 2024-12-10 16:30 | XMS_ITS | Encounter Summary ---
Author Organization [facility] Address [address] [place] [address] Care Team Providers Care Firearms Inspector Name Role Phone Unavailable Primary Care Provider Unavailabl e Encounter Details Date Type Department Care Team (Latest Contact Info) Description 11/08/2024 2:35 PM ASSISTANT SURVEYOR - 11/08/2024 11:59 PM [facility] Hospital Encounter Department of Radiation Oncology in [place], [place] [address] [place] [phone] Peg Price M.D. [address] [place] [phone] Yaya Zamudio M.D. [address] [place] [phone] Discharge Disposition: Home or Self Care Social History Tobacco Use Types Packs/Day Years Used Date Smoking Tobacco: Never Assessed Dental Answer Date Recorded Dental: Regular Dentist Unknown 10/12/19 23 Sex and Gender Information Value Date Recorded Sex Assigned at Not on file Legal Sex Male 11:16 AM ASSISTANT SURVEYOR Gender Identity Not on file Sexual Orientation [...] PM CDT Appointment Department of Radiology in [place], [place] [address] [place] [phone] Yaya Zamudio M.D. 200 [place] [address] 12/17/2024 1:15 PM CDT Appointment Department of Radiation Oncology in [place], [place] [address] [place] [address] Yaya Zamudio M.D. 200 [place] [address] documented as of this encounter Visit Diagnoses Not on filedocumented in this encounter
--- OUTSIDE RECORDS SUMMARY | 2024-12-10 16:30 | XMS_ITS | Encounter Summary ---
Author Organization [facility] Address [address] [place] [address] Care Team Providers Care Machinery Cleaner Name Role Phone Unavailable Primary Care Provider Unavailabl e Encounter Details Date Type Department Care Team (Latest Contact Info) Description 11/05/2024 1:33 PM INSTRUCTOR ROBOTICS - 11/05/2024 11:59 PM [facility] Hospital Encounter Department of Radiation Oncology in [place], [place] [address] [place] [phone] Peg Price M.D. [address] [place] [phone] Yaya Zamudio M.D. [address] [place] [phone] Discharge Disposition: Home or Self Care Social History Tobacco Use Types Packs/Day Years Used Date Smoking Tobacco: Never Assessed Dental Answer Date Recorded Dental: Regular Dentist Unknown 10/12/19 23 Sex and Gender Information Value Date Recorded Sex Assigned at Not on file Legal Sex Male 11:16 AM INSTRUCTOR ROBOTICS Gender Identity Not on file Sexual Orientation [...] PM CDT Appointment Department of Radiology in [place], [place] [address] [place] [phone] Yaya Zamudio M.D. 200 [place] [address] 12/17/2024 1:15 PM CDT Appointment Department of Radiation Oncology in [place], [place] [address] [place] [address] Yaya Zamudio M.D. 200 [place] [address] documented as of this encounter Visit Diagnoses Not on filedocumented in this encounter
--- OUTSIDE RECORDS SUMMARY | 2024-12-10 16:30 | XMS_ITS | Encounter Summary ---
Author Organization [facility] Address [address] [place] [address] Care Team Providers Care Compounding Technician Name Role Phone Unavailable Primary Care Provider Unavailabl e Reason for Referral * Outpatient (Routine) - Closed Specialty Diagnoses / Procedures Referred By Citlali valero Referred To Contact Radiation Oncology Yaya Zamudio M.D. [address] [place] [address] Phone: tel: fax: Yaya Zamudio M.D. [address] [place] [address] Phone: tel: fax: Referral ID Status Reason Start Date Expiration Date Visits Re quested Visits Authorized [id number] Closed 11/05/2024 05/07/2026 1 1 Scheduling Instructions Please schedule phone follow-up with Dr. Zamudio on either December 03 or . Thank you! CONTROL/ANTI AIR WARFARE OFFICER * Radiation Therapy (Routine) - Authorized Specialty Diagnoses / Procedures Referred By Jeffac t Referred To Contact Diagnoses Secondary Malignant Neoplasm Pelvic Bone (HCC) Procedures Management Visit Yaya Zamudio M.D. [address] [place] [address] Phone: tel: fax: [facility] Region Referral ID Status Reason Start Date Expiration Date V isits Requested Visits Authorized [id number] Authorized 09/23/2024 12/24/2025 10 10 CONTROL/ANTI AIR WARFARE OFFICER Reason for Visit * Radiation Therapy (Routine) - Authorized Specialty Diagnoses / Procedures Referred By Contac t Referred To Contact Diagnoses Secondary Malignant Neoplasm Pelvic Bone (HCC) Procedures Management Visit Yaya Zamudio M.D. [address] [place] [address] Phone: tel: fax: [facility] Referral ID Status Reason Start Date Expiration Date V isits Requested Visits Authorized [id number] Authorized 09/23/2024 12/24/2025 10 10 Encounter Details Date Type Department Care Team (Latest Contact Info) Description 11/05/2024 1:33 PM AIR CONTROL/ANTI AIR WARFARE OFFICER - 11/05/2024 5:39 PM AIR CONTROL/ANTI AIR WARFARE OFFICER Hospital Encounter Department of Radiation Oncology in [place], [place] [address] [place] [phone] Yaya Zamudio M.D. [address] [place] [address] Secondary Malignant Neoplasm Pelvic Bone (HCC) Social History Tobacco Use Types Packs/Day Years Used Date Smoking Tobacco: Never Assessed Dental Answer Date Recorded Dental: Regular Dentist Unknown 10/12/19 23 Sex and Gender Information Value Date Recorded Sex Assigned at Not on file Legal Sex Male 11:16 AM AIR CONTROL/ANTI AIR WARFARE OFFICER Gender Identity Not on file Sexual Orientation Not on file documented as of this encounter Last Filed Vital Signs Vital Sign Reading Time Taken Comments Blood Pressure 127/54 11/05/2024 2:15 PM AIR CONTROL/ANTI AIR WARFARE OFFICER Pulse 92 11/05/2024 2:15 PM AIR CONTROL/ANTI AIR WARFARE OFFICER Temperature 36.1 C (96.9 F) 11/05/2024 2:15 PM AIR CONTROL/ANTI AIR WARFARE OFFICER Respiratory Rate - - Oxygen Saturation - - Inhaled Oxygen Concentration - - Weight 97.1 kg (214 lb 1.1 oz) 11/05/2024 2:15 P M AIR CONTROL/ANTI AIR WARFARE OFFICER Height - - Body Mass Index - [...] Bone (HCC) SUPERVISED BY: Yaya Zamudio M.D. ([phone]) HISTORY OF PRESENT ILLNESS Mr. Hermann Garrett is an 84 y.o. male with metastatic prostate cancer currently undergoing radiation therapy to the right knee. Treatment Course: 4xKnee Plan ID Fractions Dose / Fraction (cGy) Dose Treated (cGy) Dose Planned (cGy) First Treatment Last Treatment Elapsed Days [id number] 50 200 300 10/25/2024 11/05/2024 11 Course [...] Common Hereditary Cancers Panel (47 genes) via [employer] (56 total genes analyzed). See test report [...] 09/28/2023) Site: Bone Fractions: 1 Technique: 3D OUTSOLE CEMENTER Dose: 800 cGy Goal: Palliative Planned Treatment [...] and moderate left neural foraminal stenosis, with cngw-hiaiaxp-dtif-right lateral recess stenosis, and potential impingement of [...] his Melissa. ASSESSMENT / PLAN #1 pT2b, Adonis 3+4=7 [...] us with any questions or concerns. We will continue with radiation treatment as planned. FOLLOW UP Ongoing follow up with Dr. Jacobson 's team Phone visit with Dr. Zamudio in three weeks Signed by: Cassandra Cordon R.N. 11/05/2024 2:17 PM AIR CONTROL/ANTI AIR WARFARE OFFICER I saw and evaluated the patient and [...] by: Yaya Zamudio M.D. 11/05/2024 5:39 PM AIR CONTROL/ANTI AIR WARFARE OFFICER [facility] [address] [place] [address] CONTROL/ANTI AIR WARFARE OFFICER documented in this encounter Miscellaneous Notes * Addendum Note - Radha Aquino, C.N.A. - 11/05/2024 2:15 PM CSTEncounter addended by: Radha Aquino C.NAndrew on: 11/06/2024 6:56 AM Actions taken: Letter saved CONTROL/ANTI AIR WARFARE OFFICER documented in this encounter Plan of Treatment Upcoming Encounters Date Type Department Care Team (Late st Contact Info) Description 12/11/2024 2:30 PM CDT Appointment Department of Radiology in [place], [place] [address], [place] [address] Yaya Zamudio M.D. 200 [place] [address] 12/17/2024 1:15 PM CDT Appointment Department of Radiation Oncology in [place], [place] [address] [place] [phone] Yaya Zamudio M.D. [address] [place] [address] Scheduled Orders Name Type Priority Associated Diagnoses [...]
--- OUTSIDE RECORDS SUMMARY | 2024-12-10 16:30 | XMS_ITS | Encounter Summary ---
Author Organization [facility] Address [address] [place] [address] Care Team Providers Care Cash Register Balancer Name Role Phone Unavailable Primary Care Provider Unavailabl e Encounter Details Date Type Department Care Team (Late st Contact Info) Description 11/12/2024 2:04 PM CDT Hospital Encounter Department of Radiation Oncology in [place], [place] [address] [place] [phone] Peg Price M.D. [address] [place] [phone] Yaya Zamudio M.D. [address] [place] [phone] Social History Tobacco Use Types Packs/Day Years Used Date Smoking Tobacco: Never Assessed Dental Answer Date Recorded Dental: Regular Dentist Unknown 10/12/19 23 Sex and Gender Information Value Date Recorded Sex Assigned at Not on file Legal Sex Male 11:16 AM STUD SETTER Gender Identity Not on file Sexual Orientation Not on file documented as of this encounter Plan of Treatment Upcoming Encounters Date Type Department Care Team (Late st Contact Info) Description 12/11/2024 2:30 PM CDT Appointment Department of Radiology in [place], [place] [address] [place] [phone] Yaya Zamudio M.D. [address] [place] [address] 12/17/2024 1:15 PM CDT Appointment Department of Radiation Oncology in [place], [place] [address] [place] [phone] Yaya Zamudio M.D. [address] [place] [phone] documented as of this encounter Visit Diagnoses Not on filedocumented in this encounter
--- OUTSIDE RECORDS SUMMARY | 2024-12-10 16:30 | XMS_ITS | Encounter Summary ---
Author Organization [facility] Address [address] [place] [address] Care Team Providers Care Heel Sander Rubber Name Role Phone Unavailable Primary Care Provider Unavailabl e Encounter Details Date Type Department Care Team (Late st Contact Info) Description 11/12/2024 Documentation Department of Radiation Oncology in [place], [place] [address] [place] [address] Yaya Zamudio M.D. [address] [place] [phone] Social History Tobacco Use Types Packs/Day Years Used Date Smoking Tobacco: Never Assessed Dental Answer Date Recorded Dental: Regular Dentist Unknown 10/12/19 23 Sex and Gender Information Value Date Recorded Sex Assigned at Not on file Legal Sex Male 11:16 AM GLASS FURNACE OPERATOR Gender Identity Not on file Sexual Orientation Not on file documented as of this encounter Miscellaneous Notes * Radiation Completion Notes - Efraín Cordon, RClaudiaNClaudia - 11/12/2024 3:39 PM CDT DIAGNOSIS: Secondary Malignant Neoplasm Right Knee Attending Physician: Yaya Zamudio M.D. ([phone]) Treatment Intent: Palliative Concomitant Therapy: None Single Plan Treatment Course: 4xKnee Plan ID Fractions Dose / Fraction (cGy) Dose Treated (cGy) Dose Planned (cGy) First Treatment Last Treatment Elapsed Days [id number] 50 300 300 10/25/2024 11/12/2024 18 Course [...] Cassandra Cordon R.N., 11/12/2024 3:40 PM CDT [facility] [address] [place] [address] Cosigned by Yaya Zamudio M.D. at 11/18/2024 1:01 PM CDT documented in this encounter Plan of Treatment Upcoming Encounters Date Type Department Care Team (Late st Contact Info) Description 12/11/2024 2:30 PM CDT Appointment Department of Radiology in [place], [place] [address] [phone] Yaya Zamudio M.D. [address] [place] [phone] 12/17/2024 1:15 PM CDT Appointment Department of Radiation Oncology in [place], [place] [address] [place] [phone] Yaya Zamudio M.D. [address] [place] [phone] documented as of this encounter Visit Diagnoses Not on filedocumented in this encounter
--- OUTSIDE RECORDS SUMMARY | 2024-12-10 16:30 | XMS_ITS | Encounter Summary ---
Author Organization [facility] Address [address] [place] [address] Care Team Providers Care Electrical Control Assembler Name Role Phone Unavailable Primary Care Provider Unavailabl e Encounter Details Date Type Department Care Team (Latest Contact Info) Description 11/01/2024 2:20 PM BOILER/CHILLER TECHNICIAN - 11/01/2024 11:59 PM [facility] Hospital Encounter Department of Radiation Oncology in [place], [place] [address] [place] [phone] Peg Price M.D. [address] [place] [phone] Yaya Zamudio M.D. [address] [place] [phone] Discharge Disposition: Home or Self Care Social History Tobacco Use Types Packs/Day Years Used Date Smoking Tobacco: Never Assessed Dental Answer Date Recorded Dental: Regular Dentist Unknown 10/12/19 23 Sex and Gender Information Value Date Recorded Sex Assigned at Not on file Legal Sex Male 11:16 AM BOILER/CHILLER TECHNICIAN Gender Identity Not on file Sexual [...] PM CDT Appointment Department of Radiology in [place], [place] [address] [place] [phone] Yaya Zamudio M.D. 200 [place] [address] 12/17/2024 1:15 PM CDT Appointment Department of Radiation Oncology in [place], [place] [address] [place] [address] Yaya Zamudio M.D. 200 [place] [address] documented as of this encounter Visit Diagnoses Not on filedocumented in this encounter
--- OUTSIDE RECORDS SUMMARY | 2024-12-10 16:30 | XMS_ITS | Encounter Summary ---
Author Organization [facility] Address [address] [place] [address] Care Team Providers Care Tower Hoist Operator Name Role Phone Unavailable Primary Care Provider Unavailabl e Reason for Referral * Outpatient (Routine) - Closed Specialty Diagnoses / Procedures Referred By Jeffac t Referred To Contact Radiation Oncology Yaya Zamudio M.D. [address] [place] [address] Phone: tel: fax: [facility] Region Referral ID Status Reason Start Date Expiration Date Visits Re quested Visits Authorized [id number] Closed 12/04/2024 06/05/2026 1 1 Scheduling Instructions Sim same day, planning MRI could be the following day * MRI/CAT/PET Scan (Routine) - Authorized Specialty Diagnoses / Procedures Referred By Contac t Referred To Contact Radiology Diagnoses Secondary Malignant Neoplasm Bone (HCC) Procedures MR Lumbar Spine without and with IV Contrast Yaya Zamudio M.D. [address] [place] [address] Phone: tel: fax: [facility] Region Referral ID Status Reason Start Date Expiration Date V isits Requested Visits Authorized [id number] Authorized 12/04/2024 03/06/2026 1 1 * Radiation Therapy (Routine) - Authorized Specialty Diagnoses / Procedures Referred By Contac t Referred To Contact Diagnoses Secondary Malignant Neoplasm Bone (HCC) Procedures Management Visit Yaya Zamudio M.D. [address] [place] [phone] Phone: tel: fax: [facility] Region Referral ID Status Reason Start Date Expiration Date V isits Requested Visits Authorized [id number] Authorized 12/04/2024 03/06/2026 10 10 * Radiation Therapy (Routine) - Authorized Specialty Diagnoses / Procedures Referred By Contac t Referred To Contact Diagnoses Secondary Malignant Neoplasm Bone (HCC) Procedures Prior Auth Rad Tx Yaya Zamudio M.D. [address] [place] [phone] Phone: tel: fax: [facility] Referral ID Status Reason Start Date Expiration Date V isits Requested Visits Authorized [id number] Authorized 12/04/2024 03/06/2026 1 1 * Outpatient (Routine) - Authorized Specialty Diagnoses / Procedures Referred By Contac t Referred To Contact Radiation Oncology Yaya Zamudio M.D. [address] [place] [address] Phone: tel: fax: [facility] Region Referral ID Status Reason Start Date Expiration Date V isits Requested Visits Authorized [id number] Authorized 12/04/2024 06/05/2026 10 10 * Radiation Therapy (Routine) - Authorized Specialty Diagnoses / Procedures Referred By Contac t Referred To Contact Diagnoses Secondary Malignant Neoplasm Bone (HCC) Procedures Management Visit Yaya Zamudio M.D. [address] [place] [phone] Phone: tel: fax: [facility] Region Referral ID Status Reason Start Date Expiration Date V isits Requested Visits Authorized [id number] Authorized 12/04/2024 03/06/2026 10 10 * Radiation Therapy (Routine) - Closed Specialty Diagnoses / Procedures Referred By Contac t Referred To Contact Diagnoses Secondary Malignant Neoplasm Bone (HCC) Procedures Initial Rad Onc Treatment Planning CT Simulation Yaya Zamudio M.D. [address] [place] [address] Phone: tel: fax: [facility] Region Referral ID Status Reason Start Date Expiration Date Visits Re quested Visits Authorized [id number] Closed 12/04/2024 03/06/2026 1 1 * Radiation Therapy (Routine) - Authorized Specialty Diagnoses / Procedures Referred By Contac t Referred To Contact Diagnoses Secondary Malignant Neoplasm Bone (HCC) Procedures Prior Auth Rad Tx Yaya Zamudio M.D. [address] [place] [address] Phone: tel: fax: [place] [facility] Referral ID Status Reason Start Date Expiration Date V isits Requested Visits Authorized [id number] Authorized 12/04/2024 03/06/2026 1 1 * Outpatient (Routine) - Closed Specialty Diagnoses / Procedures Referred By Contac t Referred To Contact Radiation Oncology Yaya Zamudio M.D. [address] [place] [address] Phone: tel: fax: Yaya Zamudio M.D. [address] [place] [address] Phone: tel: fax: Referral ID Status Reason Start Date Expiration Date Visits Re quested Visits Authorized [id number] Closed 11/05/2024 05/07/2026 1 1 Scheduling Instructions Please schedule phone follow-up with Dr. Zamudio on either December 03 or . Thank you! Reason for Visit * Outpatient (Routine) - Closed Specialty Diagnoses / Procedures Referred By Citlali t Referred To Contact Radiation Oncology Yaya Zamudio M.D. [address] [place] [address] Phone: tel: fax: Yaya Zamudio M.D. [address] [place] [address] Phone: tel: fax: Referral ID Status Reason Start Date Expiration Date Visits Re quested Visits Authorized [id number] Closed 11/05/2024 05/07/2026 1 1 Encounter Details Date Type Department Care Team (Latest Contact Info) Description 12/04/2024 12:45 PM CDT - 12/04/2024 2:09 PM CDT Hospital Encounter Department of Radiation Oncology in [place], [place] [address] [place] [address] Yaya Zamudio M.D. 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 Tumor focally [...] Common Hereditary Cancers Panel (47 genes) via [employer] (56 total genes analyzed). See test report [...] and the left ischial tuberosity Technique: 3D YARN POLISHING MACHINE OPERATOR Dose: 800 cGy Fractions: 1 Goal: Palliative [...] and moderate left neural foraminal stenosis, with ycux-alvqgnm-hrmp-right lateral recess stenosis, and potential impingement of [...] Yaya Zamudio M.D. 12/04/24 1:35 PM CDT [facility] [place] documented in this encounter Plan of Treatment Upcoming Encounters Date Type Department Care Team (Late st Contact Info) Description 12/11/2024 2:30 PM CDT Appointment Department of Radiology in [place], [place] [address] [place] [address] Yaya Zamudio M.D. [address] [place] [address] 12/17/2024 1:15 PM CDT Appointment Department of Radiation Oncology in [place], [place] [address] [place] [phone] Yaya Zamudio M.D. [address] [place] [address] Scheduled Orders Name Type Priority Associated Diagnoses [...] Expires: 12/04/2025 documented as of this encounter Results * Initial Rad Onc Treatment Planning CT Simulation (12/09/2024 1:30 PM CDT) Narrative DAVID HUGHES - 12/09/2024 1:30 PM CDT Yaya Zamudio M.D. 12/09/2024 3:50 PM Initial Rad Onc Treatment Planning CT Simulation Performed by: Yaya Zamudio M.D. Authorized by: Yaya Zamudio M.D. Yaya Zamudio M.D. 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
[2024-12-10 16:50] LABS: Chloride* 99 mmol/L (96-114); Potassium* 4.5 mmol/L (3.6-5.1); Slide Review Reflex No; Sodium* 137 mmol/L (135-149)
[2024-12-10 16:53] LABS: Blood Urea Nitrogen* 30 mg/dL (7-30); Creatinine* 1.2 mg/dL (0.5-1.5); Est. Creatinine Clearance* 45.82; Estimated Glomerular Filt Rate 60 ml/min
[2024-12-10 16:54] LABS: Anion Gap 10 mEq/L (7-15); Carbon Dioxide* 28 mmol/L (20-32); Glucose* 139 mg/dL (60-115)
--- OUTSIDE RECORDS SUMMARY | 2024-12-10 16:55 | XMS_ITS ---
Author Organization [facility] Address [address] [place] [address] Care Team Providers Care Rejector Name Role Phone Unavailable Primary Care Provider [...] Fraction Dose Fractions Total Dose Plans Planned Z1WspyT 10/25/2024 - 11/12/2024 50 cGy 6 / 6 3 00 cGy Reference Points Delivered [id number] 10/25/2024 - 11/12/2024 300 cGy * Course 3xMultiSiteSBRT 10/07/2024 - 10/18/2024 Treatment Period Fraction Dose Fractions Total Dose Plans Planned C0JandvydN 10/14/2024 - 10/18/2024 1,000 cGy 3 / 3 3 ,000 cGy R1FndkinD 10/14/2024 - 10/18/2024 1,000 cGy 3 / 3 3 ,000 cGy U7ByoopX 10/07/2024 - 10/11/2024 1,000 cGy 3 / 3 3 ,000 cGy E0VyiveV 10/07/2024 - 10/11/2024 1,000 cGy 3 / [...] Fraction Dose Fractions Total Dose Plans Planned L0PnhuiX 04/25/2024 - 05/01/2024 400 cGy 5 / 5 2 ,000 cGy C1CarY5 04/25/2024 - 05/01/2024 400 cGy 5 / 5 2 ,000 cGy J3HwlQ57 04/25/2024 - 05/01/2024 400 cGy 5 / 5 2 ,000 cGy Reference Points Delivered [id number] IlliumR 04/25/2024 - 05/01/2024 2,000 cGy [id number] L3 04/25/2024 - 05/01/2024 2,000 cGy [id number] SpnT12 04/25/2024 - 05/01/2024 2,000 cGy * 3D DRAWER WAXER: BoneOverview* First Treatment Date Last Treatment Date Treatment Site Technique Goal Episode Provider 09/28/2023 09/28/2023 Bone 3D DRAWER WAXER Palliative * Linked Problems Primary Malignant Neoplasm O f Prostate Treatment Courses* Course 1xMultiSite 09/28/2023 - 09/28/2023 Treatment Period Fraction Dose Fractions Total Dose Plans Planned S1IvshI 09/28/2023 - 09/28/2023 800 cGy 8 00 cGy V9MvcjshmV 09/28/2023 - 09/28/2023 800 cGy 8 00 cGy Z6FqaA0 09/28/2023 - 09/28/2023 800 cGy 8 00 cGy Reference Points Delivered ZNY750v AcetR 09/28/2023 - 09/28/2023 800 cGy DIQ306u L3 09/28/2023 - 09/28/2023 800 cGy JJA780t Lisch 09/28/2023 - 09/28/2023 800 cGy
--- OUTSIDE RECORDS SUMMARY | 2024-12-10 16:55 | XMS_ITS | Encounter Summary ---
Author Organization [facility] Address [address] [place] [id number] Care Team Providers Care Criminalist Name Role Phone Unavailable Primary Care Provider Unavailabl e Encounter Details Date Type Department Care Team (Late st Contact Info) Description 10/15/2024 Clinical Communication Department of Radiation Oncology in [place], [place] [address] [place] [address] Yaya Zamudio M.D. 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 They went to the pharmacy and the prescription was not there so he wanted to make sure we knew what pharmacy to send itto. I assured him we had the correct pharmacy and that I would send a message to the care team. UCT DEVELOPMENT COORDINATOR documented in this encounter Plan of Treatment Upcoming Encounters Date Type Department Care Team (Late st Contact Info) Description 12/11/2024 2:30 PM CDT Appointment Department of Radiology in [place], [place] [address] [place] [address] Yaya Zamudio M.D. [address] [place] [address] 12/17/2024 1:15 PM CDT Appointment Department of Radiation Oncology in [place], [place] [address] [place] [phone] Yaya Zamudio M.D. [address] [place] [address] documented as of this encounter Visit Diagnoses Not on filedocumented in this encounter
--- OUTSIDE RECORDS SUMMARY | 2024-12-10 16:55 | XMS_ITS | Clinical Summary ---
Author Organization [facility] Address [address] [place] [address] Care Team Providers Care Twister Doffer Name Role Phone Unavailable Primary Care Provider Unavailabl e Source Comments Patient records contain information from all sites at [facility]. For routine questions regarding patient records, call [phone] during business hours, M-F 8:00 AM - 5:00 PM Central Time. Record requests for emergency care only can be directed to [phone] at any time.[facility] Allergies Active Allergy Reactions Criticality Noted Date Comments Cocaine Other (see comments) 11/29/2007 Blood pressure became elevated Cultivated Crop Pollen-[place] Itching 05/17/2022 Feathers Other (see comments) 05/17/2022 [...] 20 mg tablet 40 mg. Active glucosam-chondroi d-Z-rvxnqmisy 500-400-2-0.33 mg capsule Take by mouth. 12/23/19 [...] Clinical Communication Department of Radiation Oncology in [address] [phone] Efraín Cordon R.N. 12/10/2024 Clinical Communication Department of Radiation Oncology in [address] [phone] Yaya Zamudio M.D. 12/09/2024 12:52 PM CDT - 12/09/2024 3:51 PM CDT Hospital Encounter Department of Radiation Oncology in [address] [address] Yaya Zamudio M.D. Secondary Malignant Neoplasm Bone (HCC) 12/09/2024 12:38 PM CDT - 12/09/2024 12:51 PM CDT Hospital Encounter Department of Radiation Oncology in [address] [address] Yaya Zamudio M.D. Secondary Malignant Neoplasm Bone (HCC) (Primary Dx) 12/04/2024 12:45 PM CDT - 12/04/2024 2:09 PM CDT Hospital Encounter Department of Radiation Oncology in [address] [address] Yaya Zamudio M.D. Secondary Malignant Neoplasm Pelvic Bone (HCC) (Primary Dx); Primary Osteoarthritis Knee Right; Secondary Malignant Neoplasm Bone (HCC) 11/12/2024 2:04 PM CDT Hospital Encounter Department of Radiation Oncology in [address] [address] Peg Price M.D. Leenstra, James L, M.D. 11/12/2024 Documentation Department of Radiation Oncology in [address] [address] Yaya Zamudio M.D. 11/08/2024 2:35 PM SENIOR BUSINESS BROKER - 11/08/2024 11:59 PM SENIOR BUSINESS BROKER Hospital Encounter Department of Radiation Oncology in [address] [address] Peg Price M.D. Leenstra, James L, M.D. Discharge Disposition: Home or Self Care 11/05/2024 1:33 PM SENIOR BUSINESS BROKER - 11/05/2024 5:39 PM SENIOR BUSINESS BROKER Hospital Encounter Department of Radiation Oncology in [address] [address] Yaya Zamudio M.D. Secondary Malignant Neoplasm Pelvic Bone (HCC) 11/05/2024 1:33 PM SENIOR BUSINESS BROKER - 11/05/2024 11:59 PM SENIOR BUSINESS BROKER Hospital Encounter Department of Radiation Oncology in [address] [address] Peg Price M.D. Leenstra, James L, M.D. Discharge Disposition: Home or Self Care 11/01/2024 2:20 PM SENIOR BUSINESS BROKER - 11/01/2024 11:59 PM SENIOR BUSINESS BROKER Hospital Encounter Department of Radiation Oncology in [address] [address] Peg Price M.D. Leenstra, James L, M.D. Discharge Disposition: Home or Self Care 10/29/2024 2:49 PM SENIOR BUSINESS BROKER - 10/29/2024 11:59 PM SENIOR BUSINESS BROKER Hospital Encounter Department of Radiation Oncology in [address] [address] Peg Price M.D. Leenstra, James L, M.D. Discharge Disposition: Home or Self Care 10/25/2024 2:51 PM SENIOR BUSINESS BROKER - 10/25/2024 11:59 PM SENIOR BUSINESS BROKER Hospital Encounter Department of Radiation Oncology in [address] [address] Peg Price M.D. Leenstra, James L, M.D. Discharge Disposition: Home or Self Care 10/18/2024 11:00 AM SENIOR BUSINESS BROKER - 10/18/2024 3:54 PM SENIOR BUSINESS BROKER Hospital Encounter Department of Radiation Oncology in [address] [address] Yaya Zamudio M.D. Garces, Yolanda I., M.D. Primary Osteoarthritis Knee Right 10/18/2024 10:08 AM SENIOR BUSINESS BROKER - 10/18/2024 10:59 AM SENIOR BUSINESS BROKER Hospital Encounter Department of Radiation Oncology in [address] [address] Peg Price M.D. Leenstra, James L, M.D. Discharge Disposition: Home or Self Care 10/18/2024 Documentation Department of Radiation Oncology in [address] [address] Yaya Zamudio M.D. 10/16/2024 1:03 PM SENIOR BUSINESS BROKER - 10/16/2024 4:26 PM SENIOR BUSINESS BROKER Hospital Encounter Department of Radiation Oncology in [address] [address] Yaya Zamudio M.D. Primary Osteoarthritis Knee Right (Primary Dx); Secondary Malignant Neoplasm Pelvic Bone (HCC); Nicotine Dependence 10/16/2024 1:03 PM SENIOR BUSINESS BROKER - 10/16/2024 11:59 PM SENIOR BUSINESS BROKER Hospital Encounter Department of Radiation Oncology in [address] [address] Peg Price M.D. Leenstra, James L, M.D. Discharge Disposition: Home or Self Care 10/15/2024 Clinical Communication Department of Radiation Oncology in [address] [address] Yaya Zamudio M.D. 10/14/2024 2:07 PM SENIOR BUSINESS BROKER - 10/14/2024 11:59 PM SENIOR BUSINESS BROKER Hospital Encounter Department of Radiation Oncology in [address] [address] Peg Price M.D. Leenstra, James L, M.D. Discharge Disposition: Home or Self Care 10/14/2024 Orders Only Department of Radiation Oncology in [address] [address] Yaya Zamudio M.D. 10/11/2024 1:33 PM SENIOR BUSINESS BROKER - 10/11/2024 11:59 PM SENIOR BUSINESS BROKER Hospital Encounter Department of Radiation Oncology in [address] [address] Peg Price M.D. Leenstra, James L, M.D. Discharge Disposition: Home or Self Care 10/09/2024 2:44 PM SENIOR BUSINESS BROKER - 10/09/2024 11:59 PM SENIOR BUSINESS BROKER Hospital Encounter Department of Radiation Oncology in [address] [address] Peg Price M.D. Leenstra, James L, M.D. Discharge Disposition: Home or Self Care 10/07/2024 1:47 PM SENIOR BUSINESS BROKER - 10/07/2024 4:39 PM SENIOR BUSINESS BROKER Hospital Encounter Department of Radiation Oncology in [address] [address] Yaya Zamudio M.D. Pain Knee Right (Primary Dx); Secondary Malignant Neoplasm Pelvic Bone (HCC) 10/07/2024 1:13 PM SENIOR BUSINESS BROKER - 10/07/2024 1:46 PM SENIOR BUSINESS BROKER Hospital Encounter Department of Radiation Oncology in [address] [address] Peg Price M.D. Leenstra, James L, M.D. Discharge Disposition: Home or Self Care 09/27/2024 8:34 AM SENIOR BUSINESS BROKER - 09/27/2024 11:44 AM SENIOR BUSINESS BROKER Hospital Encounter Department of Radiation Oncology in [address] [address] Yaya Zamudio M.D. Secondary Malignant Neoplasm Pelvic Bone (HCC) 09/27/2024 Orders Only Department of Radiation Oncology in [address] [address] Yaya Zamudio M.D. Secondary Malignant Neoplasm Pelvic Bone (HCC) (Primary Dx) 09/26/2024 1:29 PM SENIOR BUSINESS BROKER - 09/26/2024 4:08 PM SENIOR BUSINESS BROKER Hospital Encounter Department of Radiation Oncology in [address] [address] Yaya Zamudio M.D. Secondary Malignant Neoplasm Pelvic Bone (HCC) (Primary Dx); Primary Malignant Neoplasm Of Prostate (HCC) 09/24/2024 Orders Only Department of Radiation Oncology in [address] [place] [address] Yaya Zamudio M.D. 09/23/2024 Orders Only Department of Radiation Oncology in [place], [place] [address] [place] [address] Yaya Zamudio M.D. Secondary Malignant Neoplasm Pelvic [...] on file Legal Sex Male 11:16 AM SENIOR BUSINESS BROKER Gender Identity Not on file Sexual Orientation [...] PM CDT Appointment Department of Radiology in [place], [place] [address] [place] [address] Yaya Zamudio M.D. [address] [place] [phone] 12/17/2024 1:15 PM CDT Appointment Department of Radiation Oncology in [place], [place] [address] [place] [address] Yaya Zamudio M.D. [address] [place] [phone] Health Maintenance Due Date Last Done Comments [...] DAILY TREATMENT INFORMATION Routine 11/08/2024 3:10 PM SENIOR BUSINESS BROKER ARIA DAILY TREATMENT INFORMATION Routine 11/05/2024 2:00 PM SENIOR BUSINESS BROKER ARIA DAILY TREATMENT INFORMATION Routine 11/01/2024 2:48 PM SENIOR BUSINESS BROKER ARIA DAILY TREATMENT INFORMATION Routine 10/29/2024 3:11 PM SENIOR BUSINESS BROKER ARIA DAILY TREATMENT INFORMATION Routine 10/25/2024 3:24 PM SENIOR BUSINESS BROKER INITIAL RAD ONC TREATMENT PLANNING CT SIMULATION Routine 10/18/2024 11:00 AM SENIOR BUSINESS BROKER Primary Osteoarthritis Knee Right ARIA COURSE COMPLETE TREATMENT INFORMATION Routine 10/18/2024 10:45 AM SENIOR BUSINESS BROKER ARIA DAILY TREATMENT INFORMATION Routine 10/18/2024 10:45 AM SENIOR BUSINESS BROKER ARIA DAILY TREATMENT INFORMATION Routine 10/16/2024 2:28 PM SENIOR BUSINESS BROKER ARIA DAILY TREATMENT INFORMATION Routine 10/16/2024 1:50 PM SENIOR BUSINESS BROKER OUTSIDE DX SKELETAL Routine 10/16/2024 1 1:10 AM SENIOR BUSINESS BROKER ARIA DAILY TREATMENT INFORMATION Routine 10/14/2024 3:03 PM SENIOR BUSINESS BROKER ARIA DAILY TREATMENT INFORMATION Routine 10/11/2024 2:20 PM SENIOR BUSINESS BROKER ARIA DAILY TREATMENT INFORMATION Routine 10/09/2024 3:31 PM SENIOR BUSINESS BROKER ARIA DAILY TREATMENT INFORMATION Routine 10/07/2024 2:08 PM SENIOR BUSINESS BROKER OUTSIDE MR BODY Routine 09/27/2024 10:15 AM SENIOR BUSINESS BROKER INITIAL RAD ONC TREATMENT PLANNING CT SIMULATION Routine 09/27/2024 9:00 AM SENIOR BUSINESS BROKER Secondary Malignant Neoplasm Pelvic Bone (HCC) from Last 3 Months Results * Initial Rad Onc Treatment Planning CT Simulation (12/09/2024 1:30 PM CDT) Only the most recent of3 resultswithin the time period is included. [facility] - 12/09/2024 1:30 PM CDT [...] Elapsed Days 18 HERNANDEZ ARIA Reference Point [id number] nee HERNANDEZ ARIA Dosage Given to Date cGy 300 HERNANDEZ ARIA Plan ID [id number] HERNANDEZ ARIA Fractions Treated to Date 6 HERNANDEZ ARIA Planned Total Fractions 6 HERNANDEZ ARIA Prescribed Dose Per Fraction 50 HERNANDEZ ARIA Prescription Dose in cGy 300 HERNANDEZ ARIA Plan Primary Reference Point [id number] nee HERNANDEZ ARIA 11/12/2024 2:22 PM CDT [...] Elapsed Days 18 HERNANDEZ ARIA Reference Point [id number] nee HERNANDEZ ARIA Dosage Given to Date cGy 300 HERNANDEZ ARIA Session Dosage Given 50 HERNANDEZ ARIA Plan ID [id number] HERNANDEZ ARIA Fractions Treated to Date 6 DAVID HUGHES Planned Total Fractions 6 HERNANDEZ ELLEN Prescribed Dose Per Fraction 50 [place] ELLEN Prescription Dose in cGy 300 DAVID HUGHES Plan Primary Reference Point [id number] nee DAVID HUGHES 11/12/2024 2:22 PM CDT us Provider Not In System RADIATION ONCOLOGY ORDERA BLES Final Result DAVID HUGHES na * Outside DX Skeletal (10/16/2024 11:10 AM SENIOR BUSINESS BROKER) 10/17/2024 7:13 AM SENIOR BUSINESS BROKER Addenda Addendum by ADITU SAS, Outside on 10/17/2024 7:13 AM SENIOR BUSINESS BROKER BELOW REPORT RECEIVED BY [facility] ON 10/18/2024 07:46:03 [id number] For Patients: As a result of the [...] Fabien Casper RELEASED BY JHONATHAN Addendum by ADITU SAS, Outside on 10/17/2024 7:13 AM SENIOR BUSINESS BROKER BELOW REPORT RECEIVED BY [facility] ON 10/18/2024 07:45:33 [id number] For Patients: As a result of the [...] JHONATHAN Narrative IMAGING - 10/18/2024 7:58 AM SENIOR BUSINESS BROKER This order has been created and auto-finalized [...] Provider Not In System IMG DIAGNOSTIC IMAGING [place] OCEDURES Edited Result - Final Performing Organization Address City/[facility]/ZIP Co de Phone Number IMAGING NA * MR pelvis wo/w con-Outside MR Body (09/27/2024 10:15 AM SENIOR BUSINESS BROKER) 09/27/2024 10:1 2 AM SENIOR BUSINESS BROKER Narrative [facility] - 09/27/2024 12:27 PM SENIOR BUSINESS BROKER This order has been created and auto-finalized [...] [facility] NA from Last 3 Months Insurance [facility]
--- OUTSIDE RECORDS SUMMARY | 2024-12-10 16:55 | XMS_ITS | Encounter Summary ---
Author Organization [facility] Address [address] [place] [address] Care Team Providers Care Grease Refining Supervisor Name Role Phone Unavailable Primary Care Provider Unavailabl e Encounter Details Date Type Department Care Team (Late st Contact Info) Description 10/14/2024 Orders Only Department of Radiation Oncology in [place], [place] [address] [place] [phone] Yaya Zamudio M.D. 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 [address] [place] [phone] 12/17/2024 1:15 PM CDT Appointment Department of Radiation Oncology in [place], [place] [address] [place] [address] Yaya Zamudio M.D. [address] [place] [address] documented as of this encounter Visit Diagnoses Not on filedocumented in this encounter
[2024-12-10 16:57] LABS: C Reactive Protein* 3.6 mg/dL (0.5-1.0)
--- OUTSIDE RECORDS SUMMARY | 2024-12-10 16:57 | XMS_ITS | Clinical Summary ---
Author Organization [facility] Address [address] [place] [address] Care Team Providers Care Hand Deicer Element Winder Name Role Phone Irish Guzman MD Unavailable + Maico Goetz MD Unavailable Unavailable Adria Valentine MD Primary Care Provider [phone] Baljit Maya MD Unavailable [phone] Nurses, Advanced Heart Failure Unavailable + Allergies Active Allergy Reactions Criticality Noted Date Comments Cocaine 11/29/2007 Blood pressure became elevated Cultivated Crop Pollen-[place] Runny Nose 05/17/2022 Feathers Runny Nose 05/17/2022 [...] for flares. 30 day supply. Active glucosam-chondroi o-R-oadopvowy 500-400-2-0.33 mg cap Take by mouth. 0 [...] neoplasm of prostate 09/07/2007 10/08/2019 Overview (09/07/2007): [place] 7 Unspecified sleep apnea 09/07/200712/2019 Congestive heart failure 12/2019 Encounters Date Type Department Care Team Description 12/10/2024 Nurse Triage [facility] [address] [place] [address] Adria Valentine MD Call back (Patient behavior) 12/05/[address] [address] Kemal Boyer MD Questions (Not getting sleep) 11/27/[address] [address] Kemal Boyer MD 11/14/[address] [address] Adria Valentine MD Refill Request (Furosemide) 11/08/2024 1:35 PM BABY SITTER Office Visit [address] [address] Adria Valentine MD Follow Up; Fatigue (Sleeping troubles); Ear Problem (ears feel plugged. both sides, mostly left ) 11/08/2024 Travel 10/23/2024 11:00 AM BABY SITTER Office Visit [address] [address] Kemal Boyer MD Sleep Follow-up 10/23/2024 Travel 10/22/2024 Orders Only [address] [address] Kemal Boyer MD 1 scan: (1-Ord) [employer], PSG REPORT, 09/18/2024 10/16/2024 11:30 AM BABY SITTER Ancillary Procedure [address] [address] 10/16/2024 Travel 10/11/2024 Transcribe Orders Customer [facility] [phone] Yaya Zamudio MD 10/10/2024 Refill [facility] [address] [place] [address] Adria Valentine MD Refill Request (Furosemide) 09/27/2024 Orders Only [facility] Scanner 1 scan: (1-Ord) [facility], MR PELVIS WWO CONTRAST, 09/27/2024 09/27/2024 Orders Only [facility] Scanner 1 scan: (1-Ord) [place], CHEST 1V PORTABLE, 09/27/2024 09/26/2024 12:20 PM BABY SITTER Office Visit [facility] [address] [place] [address] Adria Valentine MD Diabetes 09/26/2024 Travel 09/23/2024 Telephone [facility] [address] [place] [address] Kemal Boyer MD Questions (daridorexant 25 mg tab) 09/23/2024 Orders Only [facility] [address] [place] [address] Kemal Boyer MD <No scans attached> 09/23/2024 Telephone [facility] [address] [place] [address] Kemal Boyer MD Results (sleep study) 09/19/2024 Telephone [facility] [address] [place] [address] Kemal Boyer MD Prescription for Belsomra 09/18/2024 9:40 PM BABY SITTER Procedure Only [facility] [address] [place] [address] Kemal Boyer MD 09/18/2024 Orders Only [facility] [address] [place] [address] Baljit Maya MD <No scans attached> 09/12/2024 11:30 AM BABY SITTER Office Visit [facility] [address] [place] [address] Kemal Boyer MD Sleep Follow-up 09/12/2024 Telephone [facility] [address] [place] [address] Chico Leggett MD Questions (injections ) 09/12/2024 Travel from Last 3 Months Immunizations Immunization Administration Dates Next Due Pneumococcal Poly,23-Valent (Pneumovax) 05/05/20 09 Td (Age >=7 Years) 12/19/2003 Family History Medical History Relation Name Comments Heart Disease Brother Claudy CABG Heart Disease Father Efrem failure Diabetes Maternal Grandmother Cancer Mother Kandice lung Heart Disease Paternal Grandfather CA--70 s Cancer Paternal Grandmother leukemi a Anesthesia [...] on file Legal Sex Male 6:05 AM BABY SITTER Gender Identity Not on file Sexual Orientation Not on file 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 Not on file Not on file Not on file Not on file Not on file Not on file Not on file Obstetrics History Last Filed Vital Signs Vital Sign Reading Time Taken Comments Blood Pressure 138/76 11/08/2024 1:35 PM BABY SITTER Pulse 80 11/08/2024 1:35 PM BABY SITTER Temperature 36.3 C (97.4 F) 09/03/2024 1:10 PM BABY SITTER Respiratory Rate 20 03/02/2024 11:20 AM CDT Oxygen Saturation 96% 11/08/2024 1:35 PM BABY SITTER Inhaled Oxygen Concentration - - Weight 98.1 kg (216 lb 4.8 oz) 11/08/2024 1:35 P M BABY SITTER Height 175.5 cm (5' 9.09) 10/23/2024 11:[address] Body Mass Index 31.86 10/23/2024 11:04 AM BABY SITTER Plan of Treatment Upcoming Encounters Date Type Department Care Team (Late st Contact Info) Description 12/12/2024 11:15 AM CDT Office Visit [address] [address] Franklin Carlson MD [address] [place] [address] 12/16/2024 1:25 PM CDT Office Visit [facility] [address] [place] [address] Adria Valentine MD [address] [place] [address] 01/06/2025 1:00 PM CDT Office Visit [facility] [address] [place] [address] Kemal Boyer MD [address] [place] [address] 01/29/2025 11:00 AM CDT Office Visit [facility] [address] [place] [address] Kemal Boyer MD [address] [place] [address] Health Maintenance Due Date Last Done Comments [...] 3 VIEWS RIGHT Routine 10/16/2024 11:18 AM BABY SITTER Pain in right knee SCAN-MRI INTERPRETATION 09/27/2024 12:00 AM BABY SITTER SCAN-RADIOLOGY REPORT 09/27/2024 12:00 AM BABY SITTER BASIC METABOLIC PANEL Routine 09/26/2024 12:21 PM BABY SITTER S/P CABG x 3 Chronic systolic heart failure (HC) BASIC METABOLIC PANEL Routine 09/26/2024 12:20 PM BABY SITTER Ischemic cardiomyopathy HEMOGLOBIN A1C MONITORING (POCT) Routine 09/26/2024 12:19 PM BABY SITTER Type 2 diabetes mellitus without complication, without long-term current use of insulin (HC) PRO-BNP Routine 09/26/2024 12:19 PM BABY SITTER Ischemic cardiomyopathy SLEEP STUDY PER PROTOCOL Routine 09/18/2024 12:00 AM BABY SITTER VI, 01/24/2005, AHI 94 from Last 3 Months Results * XR KNEE 3 VIEWS RIGHT (10/16/2024 11:18 AM BABY SITTER) Anatomical Region Laterality Modality KNEES, KNEE R Computed Radiogr aphy 10/17/2024 7:13 AM BABY SITTER Impressions 10/17/2024 7:13 AM BABY SITTER Osteoarthritis, as above Dictated by Fabien Casper MD @ 10/17/2024 7:13:18 AM (Electronically Signed) Narrative 10/17/2024 7:13 AM BABY SITTER For Patients: As a result of the [...] Result * SCAN-RADIOLOGY REPORT (09/27/2024 12:00 AM BABY SITTER) Anatomical Region Laterality Modality Other us Scanner OTHER Final Result * SCAN-MRI INTERPRETATION (09/27/2024 12:00 AM BABY SITTER) Anatomical Region Laterality Modality Other us Scanner OTHER Final Result * (ABNORMAL) BASIC METABOLIC PANEL (09/26/2024 12:21 PM BABY SITTER) Only the most recent of2 resultswithin the time period is included. Pathologist [facility] GLUCOSE 205(H) 65 - 99 mg/dL [facility] Comment: Fasting reference interval For someone without known diabetes, a glucose value >125 mg/dL indicates that they may have diabetes and this should be confirmed with a follow-up test. UREA NITROGEN (BUN) 30(H) 7 - 25 mg/dL [facility] CREATININE 1.49(H) 0.70 - 1.22 [...] BLOOD SPECIMEN / Unknown 09/26/2024 12:21 PM BABY SITTER 09/26/2024 12:22 PM BABY SITTER Maico Feliz MD CHEMISTRY Final Result [facility] [address] [place] [address], [facility] [address] [place] [address] * (ABNORMAL) PRO-BNP (09/26/2024 12:19 PM BABY SITTER) Pathologist [facility] NT PROBNP 531(H) <450 pg/mL [facility] Blood BLOOD SPECIMEN / Unknown 09/26/2024 12:19 PM BABY SITTER 09/26/2024 12:19 PM BABY SITTER Baljit Maya MD SEND OUTS Final Res ult [facility] [place] [address] [place] [address], [facility] [address] [place] [address] * (ABNORMAL) POCT Hemoglobin A1C Monitoring (09/26/2024 12:19 PM BABY SITTER) Pathologist [facility] POC HEMOGLOBIN A1C 7.2(H) <6.0 % OF TOTAL HGB [facility] Comment: Any point of care results exhibiting inconsistency with the patient's clinical status should be repeated using a different testing method. Blood BLOOD SPECIMEN / Unknown 09/26/2024 12:19 PM BABY SITTER 09/26/2024 12:20 PM BABY SITTER Adria Valentine MD CHEMISTRY Final Resu lt Performing Organization Address City/[facility]/ZIP Co de Phone Number [facility] [address] [place] [address], [facility] [address] [place] [address] * SLEEP STUDY PER PROTOCOL (09/18/2024 12:00 AM BABY SITTER) Kemal Boyer MD SLEEP CENTER Final Result from Last 3 Months Insurance [place] BLUE HB ONLY MEDICARE PPS [place] BLUE MR PB ONLY [place] BLUE HB ONLY MEDICARE PART B HB ONLY MEDICARE PART A HB ONLY Advance Directives Documents on File Type Date Recorded Patient International First Officer Expl anation Healthcare Directive 12/15/2011 HEALTH CARE DIRECTIVE, [facility], 12/12/11 * Full Code (Latest Code Status on File) Date Activated Date Inactivated Comments 01/16/2017 6:12 PM 2017 4:15 PM * Full Code Date Activated Date Inactivated Comments 01/11/2017 2:56 PM 01/16/2017 6:12 PM * Full Code Date Activated Date Inactivated Comments 01/11/2017 10:59 AM 01/11/2017 2:56 PM Care Teams Hand Deicer Element Winder Relationship Specialty Start Date End Date Adria Valentine MD [address] [place] [address] PCP - General Family Practice 01/07/14 Irish Guzman MD [address] [place] [address] Dermatology 06/24/11 Maico Geotz MD [address] [place] [address] Ophthalmology Surgery 10/26/12 Baljit Maya MD [address] [place] [address] Cardiovascular Disease 03/06/23 Nurses, Advanced Heart Failure [address] [place] [address] Advanced Heart Failure/Transplant Card 03/06/23
--- OUTSIDE RECORDS SUMMARY | 2024-12-10 16:57 | XMS_ITS | Encounter Summary ---
Author Organization [facility] Address [address] [place] [address] Care Team Providers Care Windows Systems Admin Name Role Phone Unavailable Primary Care Provider Unavailabl e Reason for Referral * Outpatient (Routine) - Closed Specialty Diagnoses / Procedures Referred By Citlali valero Referred To Contact Radiation Oncology Yaya Zamudio M.D. [address] [place] [address] Phone: tel: fax: Yaya Zamudio M.D. [address] [place] [address] Phone: tel: fax: Referral ID Status Reason Start Date Expiration Date Visits Re quested Visits Authorized [id number] Closed 11/05/2024 05/07/2026 1 1 Scheduling Instructions Please schedule phone follow-up with Dr. Zamudio on either December 03 or . Thank you! CE COORDINATOR RECEPTIONIST * Radiation Therapy (Routine) - Authorized Specialty Diagnoses / Procedures Referred By Jeffac t Referred To Contact Diagnoses Secondary Malignant Neoplasm Pelvic Bone (HCC) Procedures Management Visit Yaya Zamudio M.D. [address] [place] [address] Phone: tel: fax: [facility] Region Referral ID Status Reason Start Date Expiration Date V isits Requested Visits Authorized [id number] Authorized 09/23/2024 12/24/2025 10 10 CE COORDINATOR RECEPTIONIST Reason for Visit * Radiation Therapy (Routine) - Authorized Specialty Diagnoses / Procedures Referred By Contac t Referred To Contact Diagnoses Secondary Malignant Neoplasm Pelvic Bone (HCC) Procedures Management Visit Yaya Zamudio M.D. [address] [place] [address] Phone: tel: fax: [facility] Referral ID Status Reason Start Date Expiration Date V isits Requested Visits Authorized [id number] Authorized 09/23/2024 12/24/2025 10 10 Encounter Details Date Type Department Care Team (Latest Contact Info) Description 11/05/2024 1:33 PM OFFICE COORDINATOR RECEPTIONIST - 11/05/2024 5:39 PM OFFICE COORDINATOR RECEPTIONIST Hospital Encounter Department of Radiation Oncology in [place], [place] [address] [place] [phone] Yaya Zamudio M.D. [address] [place] [address] Secondary Malignant Neoplasm Pelvic Bone (HCC) Social History Tobacco Use Types Packs/Day Years Used Date Smoking Tobacco: Never Assessed Dental Answer Date Recorded Dental: Regular Dentist Unknown 10/12/19 23 Sex and Gender Information Value Date Recorded Sex Assigned at Not on file Legal Sex Male 11:16 AM OFFICE COORDINATOR RECEPTIONIST Gender Identity Not on file Sexual Orientation Not on file documented as of this encounter Last Filed Vital Signs Vital Sign Reading Time Taken Comments Blood Pressure 127/54 11/05/2024 2:15 PM OFFICE COORDINATOR RECEPTIONIST Pulse 92 11/05/2024 2:15 PM OFFICE COORDINATOR RECEPTIONIST Temperature 36.1 C (96.9 F) 11/05/2024 2:15 PM OFFICE COORDINATOR RECEPTIONIST Respiratory Rate - - Oxygen Saturation - - Inhaled Oxygen Concentration - - Weight 97.1 kg (214 lb 1.1 oz) 11/05/2024 2:15 P M OFFICE COORDINATOR RECEPTIONIST Height - - Body Mass Index - [...] Bone (HCC) SUPERVISED BY: Yaya Zamudio M.D. ([id number]) HISTORY OF PRESENT ILLNESS Mr. Hermann Garrett is an 84 y.o. male with metastatic prostate cancer currently undergoing radiation therapy to the right knee. Treatment Course: 4xKnee Plan ID Fractions Dose / Fraction (cGy) Dose Treated (cGy) Dose Planned (cGy) First Treatment Last Treatment Elapsed Days [id number] 50 200 300 10/25/2024 11/05/2024 11 Course [...] Common Hereditary Cancers Panel (47 genes) via [employer] (56 total genes analyzed). See test report [...] 09/28/2023) Site: Bone Fractions: 1 Technique: 3D PIPE FINISHER Dose: 800 cGy Goal: Palliative Planned Treatment [...] and moderate left neural foraminal stenosis, with pxid-[id number]-right lateral recess stenosis, and potential impingement of [...] by: Cassandra Cordon R.N. 11/05/2024 2:17 PM OFFICE COORDINATOR RECEPTIONIST I saw and evaluated the patient and [...] by: Yaya Zamudio M.D. 11/05/2024 5:39 PM OFFICE COORDINATOR RECEPTIONIST [facility] [address] [place] [address] CE COORDINATOR RECEPTIONIST documented in this encounter Miscellaneous Notes * Addendum Note - Radha Aquino, C.N.A. - 11/05/2024 2:15 PM CSTEncounter addended by: Radha Aquino C.NAndrew on: 11/06/2024 6:56 AM Actions taken: Letter saved CE COORDINATOR RECEPTIONIST documented in this encounter Plan of Treatment Upcoming Encounters Date Type Department Care Team (Late st Contact Info) Description 12/11/2024 2:30 PM CDT Appointment Department of Radiology in [place], [place] [address], [place] [address] Yyaa Zamudio M.D. [address] [place] [address] 12/17/2024 1:15 PM CDT Appointment Department of Radiation Oncology in [place], [place] [address] [place] [phone] Yaya Zamudio M.D. [address] [place] [address] Scheduled Orders Name Type Priority Associated Diagnoses [...]
--- OUTSIDE RECORDS SUMMARY | 2024-12-10 16:57 | XMS_ITS | Encounter Summary ---
Author Organization [facility] Address [address] [place] [address] Care Team Providers Care E Commerce Merchandising Coordinator Name Role Phone Unavailable Primary Care Provider Unavailabl e Reason for Referral * Medication Prior Authorization - Pending Review Specialty Diagnoses / Procedures Referred By Citlali t Referred To Contact Diagnoses Secondary Malignant Neoplasm Bone (HCC) Yaya Zamudio M.D. [address] [place] [address] Phone: tel: fax: Referral ID Status Reason Start Date Expiration Date V isits Requested Visits Authorized [id number] Pending Review 1 1 Encounter Details Date Type Department Care Team (Late st Contact Info) Description 12/10/2024 Clinical Communication Department of Radiation Oncology in [address] [address] Efraín Cordon, R.N. Social History Tobacco Use Types Packs/Day Years Used Date Smoking Tobacco: Never Assessed Dental Answer Date Recorded Dental: Regular Dentist Unknown 10/12/19 23 Sex and Gender Information Value Date Recorded Sex Assigned at Not on file Legal Sex Male 11:16 AM POWER GENERATION TECHNICIAN Gender Identity Not on file Sexual [...] care is clear moving forward. LEEROY Trujillo Tunas Radiation Oncology documented in this encounter Plan of Treatment Upcoming Encounters Date Type Department Care Team (Late st Contact Info) Description 12/11/2024 2:30 PM CDT Appointment Department of Radiology in [place], [place] [address] [address] Yaya Zamudio M.D. [address] [place] [phone] 12/17/2024 1:15 PM CDT Appointment Department of Radiation Oncology in [place], [place] [address] [place] [address] Yaya Zamudio M.D. [address] [place] [address] documented as of this encounter Visit Diagnoses Diagnosis Secondary Malignant Neoplasm Bone (HCC)- Primary documented in this encounter
--- OUTSIDE RECORDS SUMMARY | 2024-12-10 16:57 | XMS_ITS | Encounter Summary ---
Author Organization [facility] Address [address] [place] [address] Care Team Providers Care Surgical Instrument Technician Name Role Phone Unavailable Primary Care Provider Unavailabl e Encounter Details Date Type Department Care Team (Late st Contact Info) Description 11/12/2024 2:04 PM CDT Hospital Encounter Department of Radiation Oncology in [place], [place] [address] [place] [phone] Peg Price M.D. [address] [place] [phone] Yaya Zamudio M.D. [address] [place] [phone] Social History Tobacco Use Types Packs/Day Years Used Date Smoking Tobacco: Never Assessed Dental Answer Date Recorded Dental: Regular Dentist Unknown 10/12/19 23 Sex and Gender Information Value Date Recorded Sex Assigned at Not on file Legal Sex Male 11:16 AM LOGISTICS ENGINEERING MANAGER Gender Identity Not on file Sexual Orientation Not on file documented as of this encounter Plan of Treatment Upcoming Encounters Date Type Department Care Team (Late st Contact Info) Description 12/11/2024 2:30 PM CDT Appointment Department of Radiology in [place], [place] [address] [place] [phone] Yaya Zamudio M.D. [address] [place] [address] 12/17/2024 1:15 PM CDT Appointment Department of Radiation Oncology in [place], [place] [address] [place] [phone] Yaya Zamudio M.D. [address] [place] [phone] documented as of this encounter Visit Diagnoses Not on filedocumented in this encounter
--- OUTSIDE RECORDS SUMMARY | 2024-12-10 16:57 | XMS_ITS | Encounter Summary ---
Author Organization [facility] Address [address] [place] [address] Care Team Providers Care Outboard Motor Inspector Name Role Phone Unavailable Primary Care Provider Unavailabl e Encounter Details Date Type Department Care Team (Latest Contact Info) Description 10/29/2024 2:49 PM HOSPITALITY MANAGER - 10/29/2024 11:59 PM [facility] Hospital Encounter Department of Radiation Oncology in [place], [place] [address] [place] [address] Peg Price M.D. [address] [place] [phone] Yaya Zamudio M.D. [address] [place] [phone] Discharge Disposition: Home or Self Care Social History Tobacco Use Types Packs/Day Years Used Date Smoking Tobacco: Never Assessed Dental Answer Date Recorded Dental: Regular Dentist Unknown 10/12/19 23 Sex and Gender Information Value Date Recorded Sex Assigned at Not on file Legal Sex Male 11:16 AM HOSPITALITY MANAGER Gender Identity Not on file Sexual [...] PM CDT Appointment Department of Radiology in [place], [place] [address] [place] [phone] Yaya Zamudio M.D. [address] [place] [address] 12/17/2024 1:15 PM CDT Appointment Department of Radiation Oncology in [place], [place] [address] [place] [address] Yaya Zamuido M.D. [address] [place] [address] documented as of this encounter Visit Diagnoses Not on filedocumented in this encounter
--- OUTSIDE RECORDS SUMMARY | 2024-12-10 16:57 | XMS_ITS | Encounter Summary ---
Author Organization [facility] Address [address] [place] [address] Care Team Providers Care Half Backer Name Role Phone Unavailable Primary Care Provider Unavailabl e Reason for Referral * Outpatient (Routine) - Closed Specialty Diagnoses / Procedures Referred By Jeffac t Referred To Contact Radiation Oncology Yaya Zamudio M.D. [address] [place] [address] Phone: tel: fax: [facility] Region Referral ID Status Reason Start Date Expiration Date Visits Re quested Visits Authorized [id number] Closed 12/04/2024 06/05/2026 1 1 Scheduling Instructions Sim same day, planning MRI could be the following day * MRI/CAT/PET Scan (Routine) - Authorized Specialty Diagnoses / Procedures Referred By Contac t Referred To Contact Radiology Diagnoses Secondary Malignant Neoplasm Bone (HCC) Procedures MR Lumbar Spine without and with IV Contrast Yaya Zamudio M.D. [address] [place] [address] Phone: tel: fax: [facility] Region Referral ID Status Reason Start Date Expiration Date V isits Requested Visits Authorized [id number] Authorized 12/04/2024 03/06/2026 1 1 * Radiation Therapy (Routine) - Authorized Specialty Diagnoses / Procedures Referred By Contac t Referred To Contact Diagnoses Secondary Malignant Neoplasm Bone (HCC) Procedures Management Visit Yaya Zamudio M.D. [address] [place] [phone] Phone: tel: fax: [facility] Region Referral ID Status Reason Start Date Expiration Date V isits Requested Visits Authorized [id number] Authorized 12/04/2024 03/06/2026 10 10 * Radiation Therapy (Routine) - Authorized Specialty Diagnoses / Procedures Referred By Contac t Referred To Contact Diagnoses Secondary Malignant Neoplasm Bone (HCC) Procedures Prior Auth Rad Tx Yaya Zamudio M.D. [address] [place] [phone] Phone: tel: fax: [facility] Referral ID Status Reason Start Date Expiration Date V isits Requested Visits Authorized [id number] Authorized 12/04/2024 03/06/2026 1 1 * Outpatient (Routine) - Authorized Specialty Diagnoses / Procedures Referred By Contac t Referred To Contact Radiation Oncology Yaya Zamudio M.D. [address] [place] [address] Phone: tel: fax: [facility] Region Referral ID Status Reason Start Date Expiration Date V isits Requested Visits Authorized [id number] Authorized 12/04/2024 06/05/2026 10 10 * Radiation Therapy (Routine) - Authorized Specialty Diagnoses / Procedures Referred By Contac t Referred To Contact Diagnoses Secondary Malignant Neoplasm Bone (HCC) Procedures Management Visit Yaya Zamudio M.D. [address] [place] [phone] Phone: tel: fax: [facility] Region Referral ID Status Reason Start Date Expiration Date V isits Requested Visits Authorized [id number] Authorized 12/04/2024 03/06/2026 10 10 * Radiation Therapy (Routine) - Closed Specialty Diagnoses / Procedures Referred By Contac t Referred To Contact Diagnoses Secondary Malignant Neoplasm Bone (HCC) Procedures Initial Rad Onc Treatment Planning CT Simulation Yaya Zamudio M.D. [address] [place] [address] Phone: tel: fax: [facility] Region Referral ID Status Reason Start Date Expiration Date Visits Re quested Visits Authorized [id number] Closed 12/04/2024 03/06/2026 1 1 * Radiation Therapy (Routine) - Authorized Specialty Diagnoses / Procedures Referred By Contac t Referred To Contact Diagnoses Secondary Malignant Neoplasm Bone (HCC) Procedures Prior Auth Rad Tx Yaya Zamudio M.D. [address] [place] [address] Phone: tel: fax: [facility] Referral ID Status Reason Start Date Expiration Date V isits Requested Visits Authorized [id number] Authorized 12/04/2024 03/06/2026 1 1 * Outpatient (Routine) - Closed Specialty Diagnoses / Procedures Referred By Contac t Referred To Contact Radiation Oncology Yaya Zamudio M.D. [address] [place] [address] Phone: tel: fax: Yaya Zamudio M.D. [address] [place] [address] Phone: tel: fax: Referral ID Status Reason Start Date Expiration Date Visits Re quested Visits Authorized [id number] Closed 11/05/2024 05/07/2026 1 1 Scheduling Instructions Please schedule phone follow-up with Dr. Zamudio on either December 03 or . Thank you! Reason for Visit * Outpatient (Routine) - Closed Specialty Diagnoses / Procedures Referred By Citlali t Referred To Contact Radiation Oncology Yaya Zamudio M.D. [address] [place] [address] Phone: tel: fax: Yaya Zamudio M.D. [address] [place] [address] Phone: tel: fax: Referral ID Status Reason Start Date Expiration Date Visits Re quested Visits Authorized [id number] Closed 11/05/2024 05/07/2026 1 1 Encounter Details Date Type Department Care Team (Latest Contact Info) Description 12/04/2024 12:45 PM CDT - 12/04/2024 2:09 PM CDT Hospital Encounter Department of Radiation Oncology in [place], [place] [address] [place] [address] Yaya Zamudio M.D. 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 - 12/04/2024 1:00 PM CDT SUBJECTIVE REASON FOR VISIT 1. Secondary Malignant Neoplasm Pelvic Bone (HCC) 2. Primary Osteoarthritis Knee Right [id number]-FACE PHONE VISIT This visit was performed by [...] of the prostate gland demonstrated prostatic adenocarcinoma, [place] grade 3, 4; score 7. Tumor focally [...] Common Hereditary Cancers Panel (47 genes) via [employer] (56 total genes analyzed). See test report [...] and the left ischial tuberosity Technique: 3D HEAD SAWYER AUTOMATIC Dose: 800 cGy Fractions: 1 Goal: Palliative [...] and moderate left neural foraminal stenosis, with ruxu-typxsrl-uznv-right lateral recess stenosis, and potential impingement of [...] Yaya Zamudio M.D. 12/04/24 1:35 PM CDT [facility] [place] documented in this encounter Plan of Treatment Upcoming Encounters Date Type Department Care Team (Late st Contact Info) Description 12/11/2024 2:30 PM CDT Appointment Department of Radiology in [place], [place] [address] [place] [address] Yaya Zamudio M.D. [address] [place] [address] 12/17/2024 1:15 PM CDT Appointment Department of Radiation Oncology in [place], [place] [address] [place] [phone] Yaya Zamudio M.D. [address] [place] [address] Scheduled Orders Name Type Priority Associated Diagnoses [...]
--- OUTSIDE RECORDS SUMMARY | 2024-12-10 16:57 | XMS_ITS | Encounter Summary ---
Author Organization [facility] Address [address] [place] [address] Care Team Providers Care Metal Organ Pipe Maker Name Role Phone Unavailable Primary Care Provider Unavailabl e Encounter Details Date Type Department Care Team (Latest Contact Info) Description 11/05/2024 1:33 PM UPSETTER SETTER UP - 11/05/2024 11:59 PM [facility] Hospital Encounter Department of Radiation Oncology in [place], [place] [address] [place] [phone] Peg Price M.D. [address] [place] [phone] Yaya Zamudio M.D. [address] [place] [phone] Discharge Disposition: Home or Self Care Social History Tobacco Use Types Packs/Day Years Used Date Smoking Tobacco: Never Assessed Dental Answer Date Recorded Dental: Regular Dentist Unknown 10/12/19 23 Sex and Gender Information Value Date Recorded Sex Assigned at Not on file Legal Sex Male 11:16 AM UPSETTER SETTER UP Gender Identity Not on file Sexual Orientation [...] PM CDT Appointment Department of Radiology in [place], [place] [address] [place] [phone] Yaya Zamudio M.D. [address] [place] [address] 12/17/2024 1:15 PM CDT Appointment Department of Radiation Oncology in [place], [place] [address] [place] [address] Yaya Zamudio M.D. [address] [place] [address] documented as of this encounter Visit Diagnoses Not on filedocumented in this encounter
--- OUTSIDE RECORDS SUMMARY | 2024-12-10 16:57 | XMS_ITS | Encounter Summary ---
Author Organization [facility] Address [address] [place] [address] Care Team Providers Care Registered Physical Therapist Name Role Phone Unavailable Primary Care Provider Unavailabl e Reason for Referral * Outpatient (Routine) - Closed Specialty Diagnoses / Procedures Referred By Jeffac t Referred To Contact Radiation Oncology Yaya Zamudio M.D. [address] [place] [address] Phone: tel: [facility] Region Referral ID Status Reason Start Date Expiration Date Visits Re quested Visits Authorized [id number] Closed 12/04/2024 06/05/2026 1 1 Scheduling Instructions Sim same day, planning MRI could be the following day Reason for Visit * Outpatient (Routine) - Closed Specialty Diagnoses / Procedures Referred By Contac t Referred To Contact Radiation Oncology Yaya Zamudio M.D. [address] [place] [address] Phone: tel: [facility] Region Referral ID Status Reason Start Date Expiration Date Visits Re quested Visits Authorized [id number] Closed 12/04/2024 06/05/2026 1 1 Encounter Details Date Type Department Care Team (Latest Contact Info) Description 12/09/2024 12:38 PM CDT - 12/09/2024 12:51 PM CDT Hospital Encounter Department of Radiation Oncology in [place], [place] [address] [place] [phone] Yaya Zamudio M.D. 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 See test report [...] and the left ischial tuberosity Technique: 3D BULLET ASSEMBLY PRESS OPERATOR Dose: 800 cGy Fractions: 1 Goal: [...] and moderate left neural foraminal stenosis, with xjef-scgygmv-xzkz-right lateral recess stenosis, and potential impingement of [...] simulation today and a planning MRI at [facility] tomorrow. We will endeavor to begin treatment on Tuesday, December 17, 2024. The patient verbalized satisfaction with this plan. I have spent 27 minutes caring for this patient including xpaz-mi-lfah and wdr-hgbb-ce-face time. Consent Discussed the risks, benefits, alternatives, and the necessity of other members of the healthcare team participating in the procedure. All questions answered and consent given. Signed by: Yaya Zamudio M.D. 12/09/24 4:03 PM CDT [facility] Radiation Therapy [facility] documented in this encounter Miscellaneous Notes * Addendum Note - Radha Aquino C.N.A. - 12/09/2024 12:51 PM CDTEncounter addended by: Radha Aquino C.N.A. on: 12/10/2024 7:05 AM Actions taken: Letter saved documented in this encounter Plan of Treatment Upcoming Encounters Date Type Department Care Team (Late st Contact Info) Description 12/11/2024 2:30 PM CDT Appointment Department of Radiology in [place], [place] [address] [phone] Yaya Zamudio M.D. [address] [place] [address] 12/17/2024 1:15 PM CDT Appointment Department of Radiation Oncology in [place], [place] [address] [place] [phone] Yaya Zamudio M.D. [address] [place] [address] Scheduled Referrals Name Type Priority Associated Diagnoses Order Schedule Radiation Oncology office visit (clinic) Outpatient Referral Routine Once for 1 Occurrences starting 12/09/2024 until 12/09/2024 documented as of this encounter Visit Diagnoses Diagnosis Secondary Malignant Neoplasm Bone (HCC)- Primary documented in this encounter
--- OUTSIDE RECORDS SUMMARY | 2024-12-10 16:57 | XMS_ITS | Encounter Summary ---
Author Organization [facility] Address [address] [place] [address] Care Team Providers Care Blockmason Name Role Phone Unavailable Primary Care Provider Unavailabl e Encounter Details Date Type Department Care Team (Latest Contact Info) Description 11/01/2024 2:20 PM SHIPPING AGENT - 11/01/2024 11:59 PM [facility] Hospital Encounter Department of Radiation Oncology in [place], [place] [address] [place] [phone] Peg Price M.D. [address] [place] [phone] Yaya Zamudio M.D. [address] [place] [phone] Discharge Disposition: Home or Self Care Social History Tobacco Use Types Packs/Day Years Used Date Smoking Tobacco: Never Assessed Dental Answer Date Recorded Dental: Regular Dentist Unknown 10/12/19 23 Sex and Gender Information Value Date Recorded Sex Assigned at Not on file Legal Sex Male 11:16 AM SHIPPING AGENT Gender Identity Not on file Sexual Orientation [...] PM CDT Appointment Department of Radiology in [place], [place] [address] [place] [phone] Yaya Zamudio M.D. [address] [place] [address] 12/17/2024 1:15 PM CDT Appointment Department of Radiation Oncology in [place], [place] [address] [place] [address] Yaya Zamudio M.D. [address] [place] [address] documented as of this encounter Visit Diagnoses Not on filedocumented in this encounter
--- OUTSIDE RECORDS SUMMARY | 2024-12-10 16:57 | XMS_ITS | Encounter Summary ---
Author Organization [facility] Address [address] [place] [address] Care Team Providers Care Marine Engineer Name Role Phone Unavailable Primary Care Provider Unavailabl e Encounter Details Date Type Department Care Team (Late st Contact Info) Description 11/12/2024 Documentation Department of Radiation Oncology in [place], [place] [address] [place] [address] Yaya Zamudio M.D. 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 ([phone]) Treatment Intent: Palliative Concomitant Therapy: None Single Plan Treatment Course: 4xKnee Plan ID Fractions Dose / Fraction (cGy) Dose Treated (cGy) Dose Planned (cGy) First Treatment Last Treatment Elapsed Days [id number] 50 300 300 10/25/2024 11/12/2024 18 Course [...] Cassandra Cordon R.N., 11/12/2024 3:40 PM CDT [facility] Radiation Therapy [facility] [address] [place] [address] Cosigned by Yaya Zamudio M.D. at 11/18/2024 1:01 PM CDT documented in this encounter Plan of Treatment Upcoming Encounters Date Type Department Care Team (Late st Contact Info) Description 12/11/2024 2:30 PM CDT Appointment Department of Radiology in [place], [place] [address] [place], [place] [phone] Yaya Zamudio M.D. [address] [place] [phone] 12/17/2024 1:15 PM CDT Appointment Department of Radiation Oncology in [place], [place] [address] [place] [address] Yaya Zamudio M.D. [address] [place] [phone] documented as of this encounter Visit Diagnoses Not on filedocumented in this encounter
--- OUTSIDE RECORDS SUMMARY | 2024-12-10 16:57 | XMS_ITS | Encounter Summary ---
Author Organization [facility] Address [address] [place] [address] Care Team Providers Care Sap Ariba Consultant Name Role Phone Unavailable Primary Care Provider Unavailabl e Encounter Details Date Type Department Care Team (Late st Contact Info) Description 12/10/2024 Clinical Communication Department of Radiation Oncology in [place], [place] [address] [place] [address] Yaya Zamudio M.D. 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 Pharmacy to send the prescription to: [facility] in [place] Patient preferences for being notified when prescription is sent to the pharmacy: The patient does not wish to be notified. documented in this encounter Plan of Treatment Upcoming Encounters Date Type Department Care Team (Late st Contact Info) Description 12/11/2024 2:30 PM CDT Appointment Department of Radiology in [place], [place] [address], [place] [address] Yaya Zamudio M.D. [address] [place] [address] 12/17/2024 1:15 PM CDT Appointment Department of Radiation Oncology in [place], [place] [address] [place] [phone] Yaya Zamudio M.D. [address] [place] [phone] documented as of this encounter Visit Diagnoses Not on filedocumented in this encounter
--- OUTSIDE RECORDS SUMMARY | 2024-12-10 16:57 | XMS_ITS | Encounter Summary ---
Author Organization [facility] Address [address] [place] [address] Care Team Providers Care Forest Economics Professor Name Role Phone Unavailable Primary Care Provider Unavailabl e Encounter Details Date Type Department Care Team (Latest Contact Info) Description 11/08/2024 2:35 PM CUSTOMER SUCCESS REPRESENTATIVE - 11/08/2024 11:59 PM [facility] Hospital Encounter Department of Radiation Oncology in [place], [place] [address] [place] [phone] Peg Price M.D. [address] [place] [phone] Yaya Zamudio M.D. [address] [place] [phone] Discharge Disposition: Home or Self Care Social History Tobacco Use Types Packs/Day Years Used Date Smoking Tobacco: Never Assessed Dental Answer Date Recorded Dental: Regular Dentist Unknown 10/12/19 23 Sex and Gender Information Value Date Recorded Sex Assigned at Not on file Legal Sex Male 11:16 AM CUSTOMER SUCCESS REPRESENTATIVE Gender Identity Not on file Sexual [...] PM CDT Appointment Department of Radiology in [place], [place] [address] [place] [phone] Yaya Zamudio M.D. [address] [place] [address] 12/17/2024 1:15 PM CDT Appointment Department of Radiation Oncology in [place], [place] [address] [place] [address] Yaya Zamudio M.D. [address] [place] [address] documented as of this encounter Visit Diagnoses Not on filedocumented in this encounter
[2024-12-10 16:59] LABS: Calcium* 12.2 mg/dL (8.4-10.6)
[2024-12-10 18:30] LABS: Albumin* 4.4 g/dL (3.3-5.0)
[2024-12-10] MEDS: 0.9 % SODIUM CHLORIDE 1000 ml 1,000 ML IV (18:36)
[2024-12-10 19:30] VITALS: BP 113/84; PULSE 100; RESP 18
[2024-12-10 20:30] VITALS: BP 131/63; PULSE 106; RESP 20; TEMP 36.1; O2SAT 95; BMI 29.1
--- NOTE | 2024-12-10 20:39 | P.IMHP_ITS ---
Assessment and Plan Assessment and plan (1) Hemorrhagic cerebrovascular accident (CVA): Problem comment: -small 1 cm hemorrhage within the left posterior frontal centrum semiovale -correlation with symptoms difficult. likely in the last few days. -repeat with noncon head CT (ER went to MRI as initial study) shows the prior CT, there has been interval development of a small chronic appearing lacunar infarct in the left frontal centrum semiovale which corresponds with the finding on MRI. No sign of acute hemorrhage. No other acute intracranial findings. Status: Acute (2) Prostate cancer metastatic to multiple sites: Problem comment: -widely metastatic to bone; PSA rising. Pt is having increasing weakness, mobility issues; only drives in the local setting; oncology did discuss hospice generally at the last office meeting. ? -pT2b Nx Mx, Adonis 3+4 = 7, S/P RRP, per Dr. Henry 07/02/01 -on Apalutamide daily, Eligard [id number], Xgeva Q90 days -Completed RT to bilateral solomon, left ischium, right pelvis, and then right knee 11/12/2024. ongoing EBRT to lumbar spine. Status: Chronic (3) Hypercalcemia: Problem comment: -new finding on admission tonight. 12.3; normal albumin. ICAL 1.4 -malignancy related -IV fluids but wary of fluid overload -Zoledronate IV x 1 Status: Acute (4) Insomnia: Problem comment: - longstanding problem for the patient; followed by PCP and sleep medicine - not using CPAP - Patient was not able to afford belsomra - He has tried remelteon, mirtazapine, zolpidem without effect - It is unclear if this is anxiety/depression/pain or all the above. - will start with scheduled tylenol, no nsaid b/c of head bleed, small dose of klonopin hs and celexa daily and will start a low dose fentanyl duragesic. Status: Acute (5) Cancer associated pain: Problem comment: - He has widespread back and hip pain - currently getting EBRT with Dr. Zamudio/pascual onc - schedule Tylenol. place fentanyl Duragesic. - additional therapies small dose of klonopin with celexa for anxiety. Status: Acute (6) Diabetes mellitus type 2 in obese: Problem comment: - last A1C 7.05 Sep 2024 - accuchecks and SSI - holding metformin Status: Acute (7) Obstructive sleep apnea on CPAP: Problem comment: Has fairly severe sleep apnea. He reports very poor sleep and chronic daytime sleepiness and fatigue. Recent adjustments to pressures on CPAP have been done. He has not been compliant with CPAP. Status: Chronic (8) Essential hypertension: Problem comment: -soft blood pressures tonight. I cut the losartan in 09/05 as well as the coreg. I kept the diuretics the same. Status: Chronic Hospitalist- H&P: HPI History of Present Illness Date Seen: 12/10/24 Chief complaint: Confusion Narrative: ADMISSION HISTORY AND PHYSICAL - HOSPITALIST Chief Complaint: weakness, restless, mild confusion HPI: Erv is brought in by his this evening. She is concerned that he is getting weaker, a little more confused and more restless. Curve is 84 years old and has widely metastatic prostate cancer to the bone. He is actively being treated with EBRT, hormonal therapies. He has CAD, Diabetes, chronic insomnia, severe VI. She specifically details an argument that they had about the patient thinking she had deleted emails that she knew nothing about. No recent falls, no recent fevers or chills. He has seen Sleep Medicine, his primary care and Oncology and rad Onc all in recent weeks. In the ER he had labs drawn and brain MRI. This showed an acute focus of likely acute/subacute hemorrhage within the left posterior frontal centrum semiovale. No specific focal findings on physical exam. The ER doc was concerned about brain metastasis as the reason for ordering the MRI. He does have new hypercalcemia tonight. 12.3 with a normal albumin. He was given a L of fluid in the ED. his urine showed moderate casts, trace ketones but otherwise no evidence of infection. ER COURSE: He was given 1 L bolus, MRI. ER physician did speak with covering and lining supervisor secondary to the bleed. Crinkling Machine Operator thought this was an appropriate transfer, however likely would just be observation and repeat scanning. The family declined transfer. CODE STATUS: Full code EMERGENCY CONTACT PLAN: Brenda Garrett Rel To Pat Cell I've updated the PFSH, medications and allergies in the Expanse tabs. INVESTIGATIONS: LABS/MICRO/ECG/IMAGING I have reviewed all the images and labs. There is no elevated white blood cell count. His hemoglobin is at his baseline. His blood gas is at his baseline. His lactate was normal. His ionized calcium was 1.3, 12.2 was his total serum calcium and his albumin was 4.4 CRP 3.6 Recent increase in his PSA from 5.49 to 11.1 since September of 2024 REVIEW OF SYSTEMS: 12-point ROS completed with patient and negative unless otherwise stated in HPI or below. PHYSICAL EXAM: CONSTITUTIONAL: Fairly comfortable, restless a bit. Wants to sit in his chair and not the recliner. GENERAL: Well-developed and above ideal body weight, in no respiratory distress. VITAL SIGNS: see record. HEENT: Sclerae are anicteric. No petechiae. CARDIAC: rhythm is regular. There is no S3 or rub. No harsh murmurs. Extremities show trace edema with symmetrical pulses. PULM: good air entry with no wheeze. NEURO: Speech is fluent. A brief neurologic exam is negative. SKIN: No rashes, petechiae, concerning changes PSYCHIATRIC: Euthymic. ADMIT TO MEDSURG: FLOOR CARE DVT: SCDs GI: PO intake Time spent: Today I spent 75 minutes seeing the patient, discussing the patient with ER staff, reviewing Expanse and EPIC notes/diagnostics, discussing the care plan with our care time that includes social work, PT/OT, pharmacy, RT, assisted and documenting my impressions and plan in the medical record. MEDICAL NECESSITY FOR HOSPITALIZATION Anticipated midnights in the hospital: 2 Admitting diagnosis: Acute cerebrovascular accident, hemorrhagic. Hypercalcemia. Metastatic prostate cancer Risk of morbidity and mortality: high Acuity is characterized as high and reflected in: Expansion of current bleed, electrolyte abnormalities, agitation and pain management This patient will require hospital services as outlined in the assessment and plan in order to stabilize and be safely discharged to a lower level of care. Because of the risk and acuity as described above, this patient cannot be managed at a lower level of care. LENGTH OF STAY: 2 IP ? Anticipated LOS>2 midnights due to acuity of clinical presentation requiring inpatient level of care [facility] Medical History (Updated 12/10/24 @ 23:21 by Kaila Maldonado MD) Metastasis to bone ?C79.51 - Secondary malignant neoplasm of bone (ICD-10) (HFpEF) heart failure with preserved ejection fraction ?I50.30 - Unspecified diastolic (congestive) heart failure (ICD-10) IPMN (intraductal papillary mucinous neoplasm) ?D49.0 - Neoplasm of unspecified behavior of digestive system (ICD-10) Insomnia ?G47.00 - Insomnia, unspecified (ICD-10) Former smoker, stopped smoking in distant past ?Z87.891 - Personal history of nicotine dependence (ICD-10) Obesity (BMI 30.0-34.9) ?E66.9 - Obesity, unspecified (ICD-10) Allergic rhinitis ?J30.9 - Allergic rhinitis, unspecified (ICD-10) Rhinitis medicamentosa ?J31.0 - Chronic rhinitis (ICD-10) ?T48.5X5A - Adverse effect of other qyxe-[id number]-[id number] drugs, initial encounter (ICD-10) Diabetes mellitus type 2 in obese ?E11.69 - Type 2 diabetes mellitus with other specified complication (ICD-10) ?E66.9 - Obesity, unspecified (ICD-10) History of atrial fibrillation ?Z86.79 - Personal history of other diseases of the circulatory system (ICD- 10) Obstructive sleep apnea on CPAP ?G47.33 - Obstructive sleep apnea (adult) (pediatric) (ICD-10) Colon polyps ?K63.5 - Polyp of colon (ICD-10) Mixed hyperlipidemia ?E78.2 - Mixed hyperlipidemia (ICD-10) Essential hypertension ?I10 - Essential (primary) hypertension (ICD-10) Low back pain ?M54.50 - Low back pain, unspecified (ICD-10) Right hip pain ?M25.551 - Pain in right hip (ICD-10) Hydronephrosis, bilateral ?N13.30 - Unspecified hydronephrosis (ICD-10) Surgical History History of vasectomy ?Z98.52 - Vasectomy status (ICD-10) History of radical prostatectomy ?Z90.79 - Acquired absence of other genital organ(s) (ICD-10) History of ankle surgery ?Z98.890 - Other specified postprocedural states (ICD-10) S/P hip replacement ?Z96.649 - Presence of unspecified artificial hip joint (ICD-10) H/O colonoscopy with polypectomy ?Z98.890 - Other specified postprocedural states (ICD-10) ?Z86.010 - Personal history of colonic polyps (ICD-10) Status post coronary artery bypass graft ?Z95.1 - Presence of aortocoronary bypass graft (ICD-10) Family History Mother Lung cancer Paternal Grandmother Leukemia Maternal Grandmother Diabetes Brother Heart disease Social History Narrative: for 62 years. Lives with , Brenda, whom he designates as his power of insurance attorney for health should that be required. Desires full resuscitation in event of cardiopulmonary demise. Primary care physician is Dr. Adria Valentine. What is your current living situation?: I presently have a place to live Problems where you live: no known problems Problems where you live details: N/A In the past 12 months, utilities in danger of being shut off: no In past 12 months, lack of transportation kept you from medical appts, meetings, work, or getting things needed for daily living: no In the past 12 mos, have been you worried that your food would run out before you had money to buy more?: never true In the past 12 mos, the food you bought just didn't last and you didn't have money to buy more?: never true Highest level of school completed/degree received: 12th grade, no diploma Smoking Status: Former smoker What tobacco products do you use: cigarettes Smoking quit date/years: >15 years ago Do you use any of these nicotine containing products: None Second hand tobacco smoke exposure: No How often do you have a drink containing alcohol: monthly or less Alcohol type: beer How many standard drinks containing alcohol do you have on a typical day: 1 or 2 How often do you have six or more drinks on one occasion: Never AUDIT-C Alcohol total score: 1 Non-prescribed substance use: denies use Caffeine: No How often does anyone, including family, friends and others, physically hurt you : never How often does anyone, including family, friends and others, insult or talk down to you: never How often does anyone, including family, friends and others, threaten you with harm: never How often does anyone, including family, friends and others, scream or curse at you: never service: No Meds Home Medications and Allergies Home Medications ?Medication ?Instructions ?Recorded ?Confirmed ?Type losartan 100 mg tablet 100 mg PO DAILY 03/14/22 11/28/24 History metformin 1,000 mg tablet 1,000 mg PO BID 05/11/22 11/28/24 History multivitamin 1 tab PO QAM 05/11/22 11/28/24 History calcium 600 mg (as 1 tab PO BID 07/13/22 10/14/24 History carbonate)-vitamin D3 10 mcg (400 unit) tablet (Calcium with Vitamin D) spironolactone 25 mg tablet 25 mg PO QAM 10/05/22 11/28/24 History carvedilol 12.5 mg tablet 12.5 mg PO BID 07/02/23 11/28/24 History cinnamon bark 500 mg capsule 500 mg PO BID 07/02/23 11/28/24 History glucosamine-chondroitin 250 mg-200 2 tab PO DAILY 07/02/23 11/28/24 History mg tablet (Osteo Bi-Flex) denosumab 120 mg/1.7 mL (70 mg/mL) 120 mg subcut Q90D 07/03/23 11/28/24 History subcutaneous solution (Xgeva) leuprolide acetate (6 month) 45 mg 45 mg subcut [id number] 07/03/23 11/28/24 History (6 month) subcutaneous syringe (Eligard) magnesium oxide 400 mg PO DAILY 10/16/23 11/28/24 History acetaminophen 500 mg tablet 1,000 mg PO Q6H PRN 01/30/24 11/28/24 History (Tylenol Extra Strength) fexofenadine 60 mg tablet (Taya 60 mg PO HS 02/22/24 11/28/24 History Allergy) apalutamide 60 mg tablet 240 mg PO DAILY 08/22/24 11/28/24 History fluticasone propionate 50 1 spray intranasal HS 08/22/24 11/28/24 History mcg/actuation nasal spray,suspension (Allergy Relief (fluticasone)) rosuvastatin 20 mg tablet 20 mg PO HS 08/22/24 11/28/24 History diphenhydramine HCl 25 mg capsule 50 mg PO HS PRN 10/14/24 11/28/24 History (Banophen) Allergies Allergy/AdvReac Type Severity Reaction Status Date / Time feathers Allergy Verified 12/05/24 10:29 house dust Allergy Verified 12/05/24 10:29 cocaine AdvReac Severe hypertensive Verified 12/05/24 10:37 crisis Influenza Virus Vaccines AdvReac Intermediate Headache Verified 12/05/24 10:29 cigarette smoke AdvReac Unknown Verified 12/05/24 10:37 grain dust Allergy Uncoded 11/28/24 13:48 Exam Const: Vital Signs, click to edit/add: Vital Signs - 24 hr 12/10/24 14:39 12/10/24 19:30 Temperature 97.4 F L Pulse Rate [Pulse Oximeter] 107 H 100 Respiratory Rate 22 18 Blood Pressure [Ri ght Upper Arm] 127/77 113/84 Pulse Oximetry 92 Oxygen Delivery Me thod Room Air Hospitalist - H&P: Result Labs Labs: Short CBC 12/10/24 Range/Units 16:20 WBC 8.74 (4.50-11.00) K/uL Hgb 10.6 L (13.5-17.5) gm/dL Hct 32.8 L (37.0-53.0) % Plt Count 317 (140-440) K/uL BMP 12/10/24 16:20 Sodium 137 Potassium 4.5 Chloride 99 Carbon Dioxide 28 BUN 30 Creatinine 1.2 Glucose 139 H Calcium 12.2 H* Liver Function 12/10/24 Range/Units 16:20 Albumin 4.4 (3.3-5.0) g/dL Urine 12/10/24 Range/Units 16:05 Urine Color Yellow (Yellow) Urine Appearance Clear (Clear) Urine pH 5.5 (5.0-8.5) Ur Specific Bloomer 1.020 (1.000-1.030) Urine Protein Negative (Negative) Urine Glucose (UA) Negative (Negative)
[2024-12-10 21:31] LABS: HCO3 VBG 25 mmol/L (21-28); Lactate* 1.4 mmol/L (0.5-1.9); PCO2 VBG 37 mmHG (40-50); PO2 VBG 78.1 mmHG (25-47); pH VBG 7.432 (7.32-7.43)
[2024-12-10] MEDS: 0.9 % SODIUM CHLORIDE 1000 ml 1,000 ML 150 ML IV (21:48)
[2024-12-10] MEDS: SODIUM CHLORIDE 0.9 % (FLUSH) 10 ML SYRINGE 5 ML IVF (21:48)
[2024-12-10] MEDS: clonazePAM 0.5 MG TABLET PO (21:48)
[2024-12-10] MEDS: ACETAMINOPHEN 650 MG TABLET ER 1300 MG PO (21:50)
--- NOTE | 2024-12-10 22:00 | CRLHL7_ITS ---
For Patients: As a result of the Century Cures Act, medical imaging exams and procedure reports are released immediately into your electronic medical record. You may view this report before your referring provider. If you have questions, please contact your health care provider. INDICATION: Follow-up bleed. COMPARISON: Earlier same day MRI brain. CT head 08/01/2024. TECHNIQUE: CT of the head without IV contrast. Coronal and sagittal reconstructions. FINDINGS: Brain: Since the prior CT, there is a new 0.7 cm hypodense focus in the left frontal centrum semiovale which corresponds with the finding on MRI (series 2 image 35). This has the appearance of a chronic lacunar infarct. Additional old lacunar infarcts in the bilateral basal ganglia. No intracranial hemorrhage, abnormal extra-axial fluid collection, or evidence of acute infarct. No mass effect or midline shift. Mild generalized cerebral and cerebellar volume loss with associated ex vacuo dilation of the lateral ventricles. Mild chronic small vessel ischemic disease. Skull base and calvarium: The visualized paranasal sinuses and mastoid air cells are clear. The visualized orbits are grossly unremarkable. No acute fracture identified. Soft tissues: Unremarkable. IMPRESSION: 1. Since the prior CT, there has been interval development of a small chronic appearing lacunar infarct in the left frontal centrum semiovale which corresponds with the finding on MRI. No sign of acute hemorrhage. No other acute intracranial findings. 2. Generalized parenchymal volume loss and mild chronic small vessel ischemic disease. Please note that all CT scans at this facility use dose modulation, iterative reconstruction, and/or weight-based dosing when appropriate to reduce radiation dose to as low as reasonably achievable. Dictated by Gracy Oneill MD @ 12/10/2024 10:40:39 PM (Electronically Signed)
[2024-12-10] MEDS: fentaNYL 12 mcg/hr PATCH 1 PATCH TRANSDERMA (22:50)
[2024-12-10] MEDS: ZOLEDRONIC ACID 4 MG in 0.9 % SODIUM CHLORIDE 100 ml 100 ML 420 MG IVPB (22:52)
[2024-12-11] VITALS (11 sets, daily range): BP systolic 125–149; BP diastolic 54–73; PULSE 76–104; RESP 16–20; TEMP 36–36.6; O2SAT 91–94
[2024-12-11] MEDS: 0.9 % SODIUM CHLORIDE 1000 ml 1,000 ML 150 ML IV ×3 (04:35→18:20)
[2024-12-11] MEDS: ACETAMINOPHEN 650 MG TABLET ER 1300 MG PO ×3 (05:29→22:22)
--- NOTE | 2024-12-11 06:33 | PC.NURSE ---
end of shift [id number]: A&O w/ some periodic confusion but easily reorientated. quite restless this morning moving from chair to bed frequently. Ambulated in feliz w/ staff x2. VSS. Denies pain. Fentanyl patch on left outer shoulder. Using call light appropriately.
[2024-12-11 06:46] LABS: Hematocrit 30.9 % (37.0-53.0); Mean Corpuscular HGB Conc 32 gm/dL (32-36); Mean Corpuscular Hemoglobin 30 pg (26-34); Mean Corpuscular Volume 94 fL (80-100); Platelet Count* 269 K/uL (140-440); White Blood Count* 7.73 K/uL (4.50-11.00)
[2024-12-11 06:56] LABS: Slide Review Reflex No
[2024-12-11 07:09] LABS: Albumin* 4.1 g/dL (3.3-5.0); Chloride* 102 mmol/L (96-114); Potassium* 3.8 mmol/L (3.6-5.1); Sodium* 137 mmol/L (135-149)
[2024-12-11 07:12] LABS: Anion Gap 10 mEq/L (7-15); Blood Urea Nitrogen* 25 mg/dL (7-30); Calcium* 11.2 mg/dL (8.4-10.6); Carbon Dioxide* 25 mmol/L (20-32); Est. Creatinine Clearance* 54.99; Estimated Glomerular Filt Rate 74 ml/min; Glucose* 108 mg/dL (60-115); Phosphorus* 2.6 mg/dL (2.5-4.5)
[2024-12-11] MEDS: MAGNESIUM OXIDE 400 MG TABLET PO (08:41)
[2024-12-11] MEDS: CITALOPRAM HYDROBROMIDE 20 MG TABLET 10 MG PO (08:41)
[2024-12-11] MEDS: carvediloL 6.25 MG TABLET PO ×2 (08:41→22:22)
[2024-12-11] MEDS: SPIRONOLACTONE 25 MG TABLET PO (08:41)
[2024-12-11] MEDS: FUROSEMIDE 20 MG TABLET 60 MG PO (08:41)
[2024-12-11] MEDS: LOSARTAN POTASSIUM 50 MG TABLET PO (08:41)
--- NOTE | 2024-12-11 10:45 | NUTR.NU ---
RDN with nutrition screen related to positive MST score and potential recent weight loss. Pt admitted for possible CVA, failing at home. History of prostate cancer with mets and currently receiving radiation. Per hospitalist, goals of care talk today with patient. Not appropriate for nutrition visit at this time. RDN will continue to monitor and attempt to visit at later date if appropriate.
--- NOTE | 2024-12-11 14:50 | PM.IMPN1 ---
Assessment and Plan Assessment and plan (1) Hemorrhagic cerebrovascular accident (CVA): Problem comment: -small 1 cm hemorrhage within the left posterior frontal centrum semiovale -correlation with symptoms difficult. likely in the last few days. -repeat with noncon head CT (ER went to MRI as initial study) shows the prior CT, there has been interval development of a small chronic appearing lacunar infarct in the left frontal centrum semiovale which corresponds with the finding on MRI. No sign of acute hemorrhage. No other acute intracranial findings. Status: Acute (2) Hypercalcemia: Problem comment: -new finding on admission tonight. 12.2; normal albumin. ICAL 1.4 -malignancy related -IV fluids but wary of fluid overload. Extra furosemide today to prevent heart failure exacerbation -Zoledronate IV x 1 Status: Acute (3) Prostate cancer metastatic to multiple sites: Problem comment: -widely metastatic to bone; PSA rising. Pt is having increasing weakness, mobility issues; only drives in the local setting; oncology did discuss hospice generally at the last office meeting. ? -pT2b Nx Mx, Adonis 3+4 = 7, S/P RRP, per Dr. Henry 07/02/01 -on Apalutamide daily, Eligard [id number], Xgeva Q90 days -Completed RT to bilateral solomon, left ischium, right pelvis, and then right knee 11/12/2024. ongoing EBRT to lumbar spine. Patient is looking forward to ongoing radiation therapy. Needs MRI of his spine to stage for this. This require special technique and can be done in [place]. Scheduled for today but will be postponed till Monday. Discussed with Dr. Zamudio Status: Chronic (4) Cancer associated pain: Problem comment: - He has widespread back and hip pain - currently getting EBRT with Dr. Zamudio/rad onc - schedule Tylenol. place fentanyl patch 12 mcg. - additional therapies small dose of klonopin with celexa for anxiety. Status: Acute (5) Insomnia: Problem comment: - longstanding problem for the patient; followed by PCP and sleep medicine - not using CPAP - Patient was not able to afford belsomra - He has tried remelteon, mirtazapine, zolpidem without effect - It is unclear if this is anxiety/depression/pain or all the above. - will start with scheduled tylenol, no nsaid b/c of head bleed, small dose of klonopin hs and celexa daily and will start a low dose fentanyl duragesic. Patient is at high risk for falls with his chronic debility and the addition of opiates or benzos. Status: Acute (6) Diabetes mellitus type 2 in obese: Problem comment: - last A1C 7.05 Sep 2024 - accuchecks and SSI - holding metformin Status: Acute (7) Obstructive sleep apnea on CPAP: Problem comment: Has fairly severe sleep apnea. He reports very poor sleep and chronic daytime sleepiness and fatigue. Recent adjustments to pressures on CPAP have been done. He has not been compliant with CPAP. Status: Chronic (8) CAD (coronary artery disease): Problem comment: -s/p 3V CABG in 2016 Status: Acute (9) (HFpEF) heart failure with preserved ejection fraction: Problem comment: - previous TTE 04/2024 below, will update given change in status - on BB, Losartan, Spironolactone as GDMT Final Impressions: 1. Normal LV size, mildly increased wall thickness, normal global systolic function with an estimated EF of 55 - 60%. 2. Entire apex is abnormal. 3. Echo contrast was administered to enhance visualization of all left ventricular segments. 4. Right ventricular cavity size is moderately enlarged, global systolic RV function is mildly reduced. 5. Normal left atrium size. 6. The aortic valve is sclerotic, no stenosis and trivial regurgitation. 7. The mitral valve is mild mitral annular calcification (posterior), trace mitral regurgitation. 8. Tricuspid valve is normal. 9. No pericardial effusion. Status: Acute Plan Patient admitted to the hospital for management of his stroke and hypercalcemia related to his cancer diagnosis. Will do ongoing assessment to determine whether he can return home with his to function independently. Palliative care discussion is initiated. Total Time Spent Total Time Spent: Total time spent today is 60 minutes in review of outside records, coordination of care, discussion with patient and other providers about ongoing evaluation management of these multiple problems above. Subjective Date Seen: 12/11/24 Interval history: HPI: Jose Carlos is brought in by his this evening. She is concerned that he is getting weaker, a little more confused and more restless. Curve is 84 years old and has widely metastatic prostate cancer to the bone. He is actively being treated with EBRT, hormonal therapies. He has CAD, Diabetes, chronic insomnia, severe VI. She specifically details an argument that they had about the patient thinking she had deleted emails that she knew nothing about. No recent falls, no recent fevers or chills. He has seen Sleep Medicine, his primary care and Oncology and rad Onc all in recent weeks. In the ER he had labs drawn and brain MRI. This showed an acute focus of likely acute/subacute hemorrhage within the left posterior frontal centrum semiovale. No specific focal findings on physical exam. The ER doc was concerned about brain metastasis as the reason for ordering the MRI. He does have new hypercalcemia tonight. 12.3 with a normal albumin. He was given a L of fluid in the ED. his urine showed moderate casts, trace ketones but otherwise no evidence of infection. ER COURSE: He was given 1 L bolus, MRI. ER physician did speak with electronics engineering technician secondary to the bleed. [employer]ed Products As[employer] thought this was an appropriate transfer, however likely would just be observation and repeat scanning. The family declined transfer. Repeat scanning showed no progression of the bleed. Patient was treated with IV fluids, zoledronic acid, fentanyl 12 mcg patch. Overnight his calcium went from 12.2-11.2. He tells me his main concern is that he is prominently fatigue. His presentation in the emergency room was about his insomnia primarily. He has been evaluated by his primary care doctor for this. Nothing has really worked for this. He does sleep a lot during the day and then does not sleep well at night. He has sleep apnea but does not tolerate his CPAP due to a remote history of a broken nose (May 2024) with irritation of the mask on the bridge of his nose. He reports feeling weak and says he does have some fatigue. His notes that his mental status has changed recently. Exam Narrative: Exam Narrative: He is alert and appears in no distress. He is tired appearing however. Oropharynx with small airway. Neck is supple without mass or adenopathy. Respirations are clear to auscultation. Cardiovascular: S1, S2, regular rate and rhythm. Abdomen: Bowel sounds active. Abdomen is soft without tenderness or mass. Extremities without edema. No rash. Const: Vital Signs, click to edit/add: Vital Signs - 24 hr 12/10/24 19:30 12/10/24 20:30 12/11/24 00:01 Temperature 97.0 F L 97.5 F L Pulse Rate Pulse Rate [Left P ulse Oximeter] 106 H 104 H Pulse Rate [Pulse Oximeter] 100 Respiratory Rate 18 20 16 Blood Pressure [Le ft Arm] 131/63 145/73 H Blood Pressure [Ri ght Upper Arm] 113/84 Pulse Oximetry 95 92 Oxygen Delivery Me thod Room Air Room Air 12/11/24 00:05 12/11/24 00:09 12/11/24 02:50 Temperature 97.3 F L Pulse Rate 99 Pulse Rate [Left P ulse Oximeter] 100 Pulse Rate [Pulse Oximeter] Respiratory Rate 20 Blood Pressure [Le ft Arm] 139/66 Blood Pressure [Ri ght Upper Arm] Pulse Oximetry 92 92 Oxygen Delivery Mo thod Room Air 12/11/24 07:52 12/11/24 07:52 12/11/24 09:48 Temperature 97.9 F Pulse Rate 87 Pulse Rate [Left P ulse Oximeter] 99 Pulse Rate [Pulse Oximeter] Respiratory Rate 16 Blood Pressure [Le ft Arm] 133/54 L Blood Pressure [Ri ght Upper Arm] Pulse Oximetry 94 94 Oxygen Delivery Mo thod Room Air 12/11/24 11:02 Temperature 97.8 F Pulse Rate Pulse Rate [Left P ulse Oximeter] 92 Pulse Rate [Pulse Oximeter] Respiratory Rate 18 Blood Pressure [Le ft Arm] 125/62 Blood Pressure [Ri ght Upper Arm] Pulse Oximetry 94 [facility] Documenting provider has reviewed patient's vital signs: yes Labs Labs: Laboratory Results - last 24 hr 12/10/24 12/10/24 12/10/24 16:05 16:20 18:21 WBC 8.74 RBC 3.54 L Hgb 10.6 L Hct 32.8 L MCV 93 MCH 30 MCHC 32 RDW Coeff of Abrahan 15.0 Plt Count 317 Neut % (Auto) 81.4 H Lymph % (Auto) 9.5 L [place] % (Auto) 7.3 Eos % (Auto) 0.6 Baso % (Auto) 0.3 Neut # (Auto) 7.10 H Lymph # (Auto) 0.80 L [place] # (Auto) 0.60 Eos # (Auto) 0.05 Baso # (Auto) 0.03 Abs Immat Gran (auto) 0.08 Imm/Tot Granulo (auto) 0.9 VBG pH VBG pCO2 VBG pO2 VBG HCO3 Sodium 137 Potassium 4.5 Chloride 99 Carbon Dioxide 28 Anion Gap 10 BUN 30 Creatinine 1.2 Estimated Creat Clear 45.82 Estimated GFR 60 Glucose 139 H Lactate Calcium 12.2 H* Ionized Calcium Juan C Phosphorus Magnesium C-Reactive Protein 3.6 H Albumin 4.4 TSH Urine Color Yellow Urine Appearance Clear Urine pH 5.5 Ur Specific [place] 1.020 Urine Protein Negative Urine Glucose (UA) Negative Urine Ketones Trace A Urine Blood Negative Urine Nitrite Negative Urine Bilirubin Negative Urine Urobilinogen 0.2 Ur Leukocyte Esterase Negative Urine RBC 0-2 Urine WBC 0-2 Ur Squamous Epith Cells Few Urine Bacteria None Hyaline Casts Moderate A Lab Acknowledgement Test Added 12/10/24 12/11/24 21:20 05:57 WBC 7.73 RBC 3.30 L Hgb 10.0 L Hct 30.9 L MCV 94 MCH 30 MCHC 32 RDW Coeff of [place]rahan Plt Count 269 Neut % (Auto) Lymph % (Auto) [place] % (Auto) Eos % (Auto) Baso % (Auto) Neut # (Auto) Lymph # (Auto) [place] # (Auto) Eos # (Auto) Baso # (Auto) Abs Immat Gran (auto) Imm/Tot Granulo (auto) VBG pH 7.432 H VBG pCO2 37 L VBG pO2 78.1 H VBG HCO3 25 Sodium 137 Potassium 3.8 Chloride 102 Carbon Dioxide 25 Anion Gap 10 BUN 25 Creatinine 1.0 Estimated Creat Clear 54.99 Estimated GFR 74 Glucose 108 Lactate 1.4 Calcium 11.2 H Ionized Calcium Juan C 1.40 H Phosphorus 2.6 Magnesium 2.0 C-Reactive Protein Albumin 4.1 TSH 1.950 Urine Color Urine Appearance Urine pH Ur Specific [place] Urine Protein Urine Glucose (UA) Urine Ketones Urine Blood Urine Nitrite Urine Bilirubin Urine Urobilinogen Ur Leukocyte Esterase Urine RBC Urine WBC Ur Squamous Epith Cells Urine Bacteria Hyaline Casts Lab Acknowledgement
[2024-12-11] MEDS: FUROSEMIDE 10 MG/ML inj 20 MG IVP (17:24)
[2024-12-11] MEDS: POTASSIUM BICARB 25 MEQ EFFERVESCENT TAB PO (17:24)
[2024-12-11] MEDS: SODIUM CHLORIDE 0.9 % (FLUSH) 10 ML SYRINGE 5 ML IVF (22:22)
[2024-12-12] MEDS: 0.9 % SODIUM CHLORIDE 1000 ml 1,000 ML 150 ML IV (00:53)
[2024-12-12] MEDS: clonazePAM 0.5 MG TABLET PO (01:40)
[2024-12-12 03:20] VITALS: BP 132/62; PULSE 85; RESP 20; TEMP 36.1; O2SAT 97
[2024-12-12] MEDS: ACETAMINOPHEN 650 MG TABLET ER 1300 MG PO (06:31)
[2024-12-12 07:00] VITALS: BP 137/71; PULSE 95; RESP 18; TEMP 36.3; O2SAT 94
[2024-12-12 07:12] LABS: Chloride* 105 mmol/L (96-114)
[2024-12-12 07:13] LABS: Potassium* 3.6 mmol/L (3.6-5.1); Sodium* 138 mmol/L (135-149)
[2024-12-12 07:15] LABS: Blood Urea Nitrogen* 17 mg/dL (7-30); Creatinine* 0.9 mg/dL (0.5-1.5); Est. Creatinine Clearance* 54.99; Estimated Glomerular Filt Rate 84 ml/min
[2024-12-12 07:16] LABS: Anion Gap 8 mEq/L (7-15); Calcium* 9.4 mg/dL (8.4-10.6); Carbon Dioxide* 25 mmol/L (20-32); Glucose* 113 mg/dL (60-115)
--- NOTE | 2024-12-12 07:19 | PC.NURSE ---
Pt alert and oriented with periods of confusion and vitally stable. Pt states being unable to sleep, becoming impulsive. Bed alarms in use, provided low stimulus environment, pt unable to rest throughout shift. Prn given with poor result. Reeducated personalization specialist light use. Pt 1a with walker and gait belt though needs cueing. Pt now in chair, alarm on. ?
--- NOTE | 2024-12-12 07:20 | PC.NURSE ---
Pt alert and oriented with periods of confusion and vitally stable. Pt states being unable to sleep, becoming impulsive. Bed alarms in use, provided low stimulus environment, pt unable to rest throughout shift. Prn given with poor result. Reeducated geographic information systems analyst light use. Pt 1a with walker and gait belt though needs cueing. Pt now in chair, alarm on. ?
[2024-12-12] MEDS: MAGNESIUM OXIDE 400 MG TABLET PO (08:27)
[2024-12-12] MEDS: carvediloL 6.25 MG TABLET PO (08:27)
[2024-12-12] MEDS: LOSARTAN POTASSIUM 50 MG TABLET PO (08:28)
[2024-12-12] MEDS: SPIRONOLACTONE 25 MG TABLET PO (08:28)
[2024-12-12] MEDS: CITALOPRAM HYDROBROMIDE 20 MG TABLET 10 MG PO (08:28)
[2024-12-12] MEDS: SODIUM CHLORIDE 0.9 % (FLUSH) 10 ML SYRINGE 5 ML IVF (08:28)
[2024-12-12] MEDS: FUROSEMIDE 20 MG TABLET 60 MG PO (08:29)
--- NOTE | 2024-12-12 10:49 | PC.NURSE ---
Patient was discharged home with . Has a follow up appointment with [facility] today at 1530. [facility] is going to work him in this morning since he is already here. [facility] will make a lab appointment for 1 week out for a BMP per request of Dr. York. understands the discharge plan and has no further questions at this time.
--- NOTE | 2024-12-12 11:35 | P.DS_ITS ---
DS: Providers Provider Date Seen: 12/12/24 Date of admission: 12/10/24 20:39 Primary care physician: Adria Valentine MD Admitting Clinician: Kaila Maldonado MD Attending Physician on discharge: Adams York MD Date of Discharge: 12/12/24 DS: Diagnosis Discharge Diagnosis (1) Hemorrhagic cerebrovascular accident (CVA): Status: Acute Problem details: -small 1 cm hemorrhage within the left posterior frontal centrum semiovale -correlation with symptoms difficult. likely in the last few days. -repeat with noncon head CT (ER went to MRI as initial study) shows the prior CT, there has been interval development of a small chronic appearing lacunar infarct in the left frontal centrum semiovale which corresponds with the finding on MRI. No sign of acute hemorrhage. No other acute intracranial findings. (2) Hypercalcemia: Status: Acute Problem details: -new finding on admission tonight. Calcium 12.2 on admission and 9.4 on discharge. -malignancy related -IV fluids but wary of fluid overload. Extra furosemide today to prevent heart failure exacerbation -Zoledronate IV x 1 Outpatient follow-up to check calcium and basic metabolic panel. 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 Uncertain of the time frame when this would developed. (3) Prostate cancer metastatic to multiple sites: Status: Chronic Problem details: Pending further radiation therapy with [facility]. (4) Cancer associated pain: Status: Acute Problem details: - He has widespread back and hip pain - currently getting EBRT with Dr. Zamudio/rad onc - schedule Tylenol. During his hospital stay he had a fentanyl patch 12 micrograms/hour. Unclear ho w much helped for his pain he got from this but he was having significant issues with sedation which raise concerns for him not being able to manage ADLs at home so it was discontinued (5) Insomnia: Status: Acute Problem details: Reviewed past records. Multiple medications have been tried. He is sleeping quite a bit during the day. Not using CPAP. A poor candidate for anything that causes sedation. This would put him at high risk for falls. (6) Diabetes mellitus type 2 in obese: Status: Acute Problem details: - last A1C 7.05 Sep 2024 - accuchecks and SSI (7) Obstructive sleep apnea on CPAP: Status: Chronic Problem details: Has fairly severe sleep apnea. He reports very poor sleep and chronic daytime sleepiness and fatigue. Recent adjustments to pressures on CPAP have been done. He has not been compliant with CPAP. (8) CAD (coronary artery disease): Status: Acute Problem details: -s/p 3V CABG in 2017 (9) (HFpEF) heart failure with preserved ejection fraction: Status: Acute Problem details: - previous TTE 04/2024 below, will update given change in status - on BB, Losartan, Spironolactone as GDMT Final Impressions: 1. Normal LV size, mildly increased wall thickness, normal global systolic function with an estimated EF of 55 - 60%. 2. Entire apex is abnormal. 3. Echo contrast was administered to enhance visualization of all left ventricular segments. 4. Right ventricular cavity size is moderately enlarged, global systolic RV function is mildly reduced. 5. Normal left atrium size. 6. The aortic valve is sclerotic, no stenosis and trivial regurgitation. 7. The mitral valve is mild mitral annular calcification (posterior), trace mitral regurgitation. 8. Tricuspid valve is normal. 9. No pericardial effusion. DS: Summary Hospital Course Hospital Course: Jose Carlos is brought in by his this evening. She is concerned that he is getting weaker, a little more confused and more restless. Curve is 84 years old and has widely metastatic prostate cancer to the bone. He is actively being treated with EBRT, hormonal therapies. He has CAD, Diabetes, chronic insomnia, severe VI. She specifically details an argument that they had about the patient thinking she had deleted emails that she knew nothing about. No recent falls, no recent fevers or chills. He has seen Sleep Medicine, his primary care and Oncology and rad Onc all in recent weeks. In the ER he had labs drawn and brain MRI. This showed an acute focus of likely acute/subacute hemorrhage within the left posterior frontal centrum semiovale. No specific focal findings on physical exam. The ER doc was concerned about brain metastasis as the reason for ordering the MRI. He does have new hypercalcemia tonight. 12.3 with a normal albumin. He was given a L of fluid in the ED. his urine showed moderate casts, trace ketones but otherwise no lindsey dence of infection. ER COURSE: He was given 1 L bolus, MRI. ER physician did speak with channeling machine runner secondary to the bleed. [employer] thought this was an appropriate transfer, however likely would just be observation and repeat scanning. The family declined transfer. Repeat scanning showed no progression of the bleed. Patient was treated with IV fluids, zoledronic acid, fentanyl 12 mcg patch. Overnight his calcium went from 12.2-11.2. He tells me his main concern is that he is prominently fatigue. His presentation in the emergency room was about his insomnia primarily. He has been evaluated by his primary care doctor for this. Nothing has really worked for this. He does sleep a lot during the day and then does not sleep well at night. He has sleep apnea but does not tolerate his CPAP due to a remote history of a broken nose (May 2024) with irritation of the mask on the bridge of his nose. He reports feeling weak and says he does have some fatigue. His notes that his mental status has changed recently. Patient reports doing fairly well today. He still tired, fatigued and weak. He is able to walk with therapy with a walker but without requiring assistance. He has been able to eat though he reports a decreased appetite. His bowels are working. Status at Discharge Functional status at discharge: uses cane/walker Overall status at discharge: patient is progressing back to baseline Time Spent with Patient Time attestation: Total time spent providing and/or coordinating discharge services: 40 minutes Time spent: Greater than 30 minutes Exam Narrative: Exam Narrative: He is alert and appears in no distress. He is oriented to his circumstances. Respirations are clear to auscultation. Cardiovascular: S1, S2, regular rate and rhythm. Abdomen: Bowel sounds active. Abdomen is soft without tenderness or mass. Extremities without edema. Const: Vital Signs, click to edit/add: Vital Signs - 24 hr 12/11/24 16:16 12/11/24 16:16 12/11/24 17:14 Temperature 96.8 F L Pulse Rate 83 Pulse Rate [Left P ulse Oximeter] 76 Respiratory Rate 16 Blood Pressure [Le ft Arm] 130/71 Pulse Oximetry 94 94 Oxygen Delivery Me thod Room Air 12/11/24 19:00 12/11/24 23:00 12/11/24 23:00 Temperature 97.9 F 97.6 F Pulse Rate Pulse Rate [Left P ulse Oximeter] 92 96 Respiratory Rate 16 18 Blood Pressure [Le ft Arm] 128/61 149/72 H Pulse Oximetry 91 91 93 Oxygen Delivery Me thod Room Air Room Air 12/11/24 23:00 12/11/24 23:00 12/12/24 03:20 Temperature 97.0 F L Pulse Rate 91 Pulse Rate [Left P ulse Oximeter] 96 85 Respiratory Rate 18 20 Blood Pressure [Le ft Arm] 132/62 Pulse Oximetry 97 Oxygen Delivery Me thod Room Air 12/12/24 07:00 12/12/24 07:00 Temperature 97.3 F L Pulse Rate Pulse Rate [Left P ulse Oximeter] 95 Respiratory Rate 18 Blood Pressure [Le ft Arm] 137/71 Pulse Oximetry 94 94 Oxygen Delivery Me thod Room Air Documenting provider has reviewed patient's vital signs: yes DS: Data Data Completed and Pending Labs on day of discharge: Labs from last 24 hours 12/12/24 05:52 Sodium 138 Potassium 3.6 Chloride 105 Carbon Dioxide 25 Anion Gap 8 BUN 17 Creatinine 0.9 Estimated Creat Clear 54.99 Estimated GFR 84 Glucose 113 Calcium 9.4 Imaging MR Brain: Radiologist's impression: INDICATION: Confusion. TECHNIQUE: Brain MRI without contrast. COMPARISON: Head CT from 08/01/2024. Brain MRI from 01/28/2022. FINDINGS: No evidence of acute ischemia. No evidence of acute or chronic intracranial blood products. 1 centimeter focus of left posterior frontal centrum semiovale susceptibility artifact and T2 hypointense signal, likely reflecting area of hemorrhage. Chronic lacunar infarcts within the right putamen and left caudothalamic groove. Patchy FLAIR hyperintensities within the supratentorial white matter, typical for chronic microvascular ischemic change. Moderate generalized parenchymal volume loss. No mass effect or herniation. No hydrocephalus or extra-axial collections. The pituitary gland, parasellar structures and optic chiasm are normal. Posterior fossa is normal. All the major intracranial vascular structures demonstrate normal flow-related signal. The orbital contents are normal. No calvarial or skull base marrow replacing process. No obstructive sinus disease. No extracranial soft tissue findings. IMPRESSION: 1. A small 1 centimeter focus of hemorrhage within the left posterior frontal centrum semiovale. New since prior exams and likely acute to subacute. 2. No evidence of acute ischemia. 3. Mild chronic microvascular ischemic changes and several chronic lacunar infarcts. 4. Moderate generalized parenchymal volume loss. Dictated by Say Concepcion MD @ 12/10/2024 6:36:[address] scan - head: Radiologist's impression: INDICATION: Follow-up bleed. COMPARISON: Earlier same day MRI brain. CT head 08/01/2024. TECHNIQUE: CT of the head without IV contrast. Coronal and sagittal reconstructions. FINDINGS: Brain: Since the prior CT, there is a new 0.7 cm hypodense focus in the left frontal centrum semiovale which corresponds with the finding on MRI (series 2 image 35). This has the appearance of a chronic lacunar infarct. Additional old lacunar infarcts in the bilateral basal ganglia. No intracranial hemorrhage, abnormal extra-axial fluid collection, or evidence of acute infarct. No mass effect or midline shift. Mild generalized cerebral and cerebellar volume loss with associated ex vacuo dilation of the lateral ventricles. Mild chronic small vessel ischemic disease. Skull base and calvarium: The visualized paranasal sinuses and mastoid air cells are clear. The visualized orbits are grossly unremarkable. No acute fracture identified. Soft tissues: Unremarkable. IMPRESSION: 1. Since the prior CT, there has been interval development of a small chronic appearing lacunar infarct in the left frontal centrum semiovale which corresponds with the finding on MRI. No sign of acute hemorrhage. No other acute intracranial findings. 2. Generalized parenchymal volume loss and mild chronic small vessel ischemic disease. Please note that all CT scans at this facility use dose modulation, iterative reconstruction, and/or weight-based dosing when appropriate to reduce radiation dose to as low as reasonably achievable. Dictated by Gracy Oneill MD @ 12/10/2024 10:40:39 PM Discharge Plan Discharge Disposition: Home w/ Parent or Adult Date of Admission: 12/10/24 20:39 Attending Provider on Discharge: Fabien York Primary Care Provider: Adria Valentine Condition: Stable Anticipated Discharge Date/Time: 12/12/24 10:00 Discharge Medications: New duloxetine [Cymbalta] 20 mg capsule,delayed release(DR/EC) 20 mg PO DAILY Qty: 30 2RF Continued multivitamin Tablet 1 tab PO QAM acetaminophen [Tylenol Extra Strength] 500 mg tablet 1,000 mg PO Q6H PRN Rx Instructions: TAKES 2 TABS IN THE EVENING OFTEN AND SOMETIMES 3 TABLETS, UNSURE OF STRENGHT OF TABLET mecobalamin (vitamin B12) 1,000 mcg tablet,chewable 1,000 mcg PO QDAY Qty: 90 1RF losartan 100 mg tablet 100 mg PO DAILY metformin 1,000 mg tablet 1,000 mg PO BID Rx Instructions: with meals carvedilol 12.5 mg tablet 12.5 mg PO BID glucosamine-chondroitin [Osteo Bi-Flex] 250-200 mg tablet 2 tab PO DAILY Rx Instructions: give after food/meal cinnamon bark 500 mg capsule 500 mg PO BID Eligard (6 month) 45 mg syringe 45 mg subcut [id number] Xgeva 120 mg/1.7 mL (70 mg/mL) solution 120 mg subcut Q90D magnesium oxide 400 mg magnesium tablet 400 mg PO DAILY fexofenadine [Taya Allergy] 60 mg tablet 60 mg PO HS spironolactone 25 mg tablet 25 mg PO QAM apalutamide 60 mg tablet 240 mg PO DAILY fluticasone propionate [Allergy Relief (fluticasone)] 50 mcg/actuation spray,s uspension 1 spray intranasal HS PRN Rx Instructions: administer into each nostril furosemide 20 mg Tablet 60 mg PO DAILY Qty: 90 0RF diphenhydramine HCl [Banophen] 25 mg capsule 50 mg PO HS PRN rosuvastatin 40 mg tablet 40 mg PO HS Discontinued calcium carbonate-vitamin D3 [Calcium with Vitamin D] 600 mg-10 mcg (400 unit) tablet 1 tab PO BID Discharge Orders: Discharge Order (Routine); Ordered 12/12/24 Ordered By: Fabien York Patient Education: Duloxetine (By mouth), Prostate Cancer (GEN), Hypercalcemia (DC), Stroke (DC) Activity Level: Activity as Tolerated and Use Walker Discharge Diet: Regular Follow Up Appointments: [facility] [Provider Group] - 12/12/24 3:00 pm (Have a follow up appointment at 3pm today than follow up in a week. Basic metabolic panel next week) Adria Valentine MD [Primary Care Provider] - Forms: TalkTo Info Instructions
== END 2024-12-12 10:52 | disposition home or self-care (01) | DRG 65 ==
LOC: ED 20:14 → MEDSURG 20:30
PROVIDERS: Family Medicine; Admitting Provider Family Medicine; Emergency Provider Family Medicine; PCP Surgery; Visit Provider Family Medicine
DX: I61.9 Nontraumatic intracerebral hemorrhage, unspecified (principal); C79.51 Secondary malignant neoplasm of bone; I50.30 Unspecified diastolic (congestive) heart failure; I50.32 Chronic diastolic (congestive) heart failure; R41.89 Other symptoms and signs involving cognitive functions and awareness; I10 Essential (primary) hypertension; C61 Malignant neoplasm of prostate; E83.52 Hypercalcemia; G47.00 Insomnia, unspecified; G89.3 Neoplasm related pain (acute) (chronic); E11.9 Type 2 diabetes mellitus without complications; Z79.84 Long term (current) use of oral hypoglycemic drugs; G47.33 Obstructive sleep apnea (adult) (pediatric); Z87.891 Personal history of nicotine dependence; E66.9 Obesity, unspecified; Z68.29 Body mass index [BMI] 29.0-29.9, adult; Z99.89 Dependence on other enabling machines and devices; E78.2 Mixed hyperlipidemia; D49.0 Neoplasm of unspecified behavior of digestive system; I25.10 Atherosclerotic heart disease of native coronary artery without angina pectoris
CPT/HCPCS: 36415; 70450; 70551; 80048; 80069; 81001; 82040; 82330; 82803; 82962; 83605; 83735; 84443; 85025; 85027; 86140; 93005; 97112; 97116; 97161; 97166; 97535; 99284; 99285; 99291; A9270; J1938; J3489; J7030

== ENCOUNTER 2024-12-12 07:42 | Outpatient (RCR) | payer MEDICARE, BC, SELFPAY ==
--- NOTE | 2024-07-23 10:28 | ONC.NURNOTE ---
Received referral from [facility] for patient to be seen by Dr. Jacobson. Nutrition Helper reached out to their office and asked if needs to be seen earlier than planned at 09/16/2023. He is currently treated and seen every 3 months. integrated marketing specialist will reach out to PA to check and will call back if needs to be seen prior to this with rationale.
--- NOTE | 2024-07-25 10:00 | ONC.NURNOTE ---
called [employer] at [phone] to clarify what steps are needed for re-enrollment for [employer] in 2024 [employer] has received 2 different instructions from the [employer] Coil Tester at and from the PAP per PAP- since Hermann was enrolled in May- he is automatically approved for 2024 as long as he still meets the income eligibility requirements(which he does)( less than 300% PFL) check writer salesperson spoke with Anthony from PAP no further action will be done at this time [employer] said he needs to be re-enrolled- but she may not have known he was enrolled initially after May 10 2024
--- NOTE | 2024-07-25 13:06 | URNOTE ---
Request received for authorization for Shivam ([id number]). Prior authorization is not required as services are based on medical necessity and follow Medicare guidelines.
[2024-07-30 13:58] LABS: Calcium* 9.3 mg/dL (8.4-10.6); Creatinine* 1.3 mg/dL (0.5-1.5); Estimated Glomerular Filt Rate 54 ml/min
[2024-07-30 14:12] VITALS: BP 166/83; PULSE 90; RESP 16; TEMP 36.4; O2SAT 92
[2024-07-30] MEDS: DENOSUMAB 120 MG inj SUBCUT (14:24)
[2024-07-30 14:27] LABS: Albumin* 4.1 g/dL (3.3-5.0)
[2024-07-30 14:28] LABS: Chloride* 103 mmol/L (96-114); Potassium* 4.3 mmol/L (3.6-5.1); Sodium* 138 mmol/L (135-149)
[2024-07-30 14:30] LABS: Anion Gap 10 mEq/L (7-15); Aspartate Amino Transferase* 19 U/L (12-35); Bilirubin Total* 0.1 mg/dL (0.1-1.5); Carbon Dioxide* 25 mmol/L (20-32); Creatinine* 1.3 mg/dL (0.5-1.5); Estimated Glomerular Filt Rate 54 ml/min; Total Protein* 7.1 g/dL (6.0-8.3)
[2024-07-30 14:31] LABS: Alanine Aminotransferase* 14 U/L (4-50); Alkaline Phosphatase* 88 U/L (40-150); Basophils Absolute Auto 0.04 K/uL (0.00-0.30); Basophils Percent Auto 0.6 % (0.0-3.0); Blood Urea Nitrogen* 22 mg/dL (7-30); Calcium* 9.2 mg/dL (8.4-10.6); Eosinophils Absolute Auto 0.29 K/uL (0.00-0.50); Eosinophils Percent Auto 4.6 % (0.0-7.0); Glucose* 194 mg/dL (60-115); Hematocrit 34.6 % (37.0-53.0); Hemoglobin* 11.5 gm/dL (13.5-17.5); Immature Granulocytes Abs Auto 0.03 K/uL (0.00-0.30); Immature Granulocytes Pct Auto 0.5 %; Lymphocytes Percent Auto 15.8 % (20-44); Mean Corpuscular HGB Conc 33 gm/dL (32-36); Mean Corpuscular Hemoglobin 31 pg (26-34); Mean Corpuscular Volume 95 fL (80-100); Monocytes Percent Auto 11.4 % (0.0-11.0); Neutrophils Absolute Auto 4.19 K/uL (1.7-7.0); Neutrophils Percent Auto 67.1 % (42.0-72.0); Platelet Count* 233 K/uL (140-440); RDW Coefficient of Variation % 14.6 % (11.5-15.5); Red Blood Count 3.66 m/uL (4.30-5.90); White Blood Count* 6.25 K/uL (4.50-11.00)
[2024-07-30 15:02] LABS: PSA Diagnostic* 2.46 ng/mL (0.10-4.00)
[2024-07-30 15:11] LABS: Slide Review Reflex No
[2024-09-16 14:37] LABS: PSA Diagnostic* 5.49 ng/mL (0.10-4.00)
[2024-10-14 10:17] LABS: Basophils Absolute Auto 0.01 K/uL (0.00-0.30); Basophils Percent Auto 0.2 % (0.0-3.0); Eosinophils Percent Auto 1.9 % (0.0-7.0); Hematocrit 32.9 % (37.0-53.0); Hemoglobin* 10.6 gm/dL (13.5-17.5); Immature Granulocytes Abs Auto 0.03 K/uL (0.00-0.30); Immature Granulocytes Pct Auto 0.6 %; Lymphocytes Percent Auto 12.5 % (20-44); Mean Corpuscular HGB Conc 32 gm/dL (32-36); Mean Corpuscular Hemoglobin 30 pg (26-34); Mean Corpuscular Volume 94 fL (80-100); Monocytes Percent Auto 9.5 % (0.0-11.0); Neutrophils Percent Auto 75.3 % (42.0-72.0); Platelet Count* 205 K/uL (140-440); RDW Coefficient of Variation % 14.3 % (11.5-15.5); Red Blood Count 3.49 m/uL (4.30-5.90); White Blood Count* 5.26 K/uL (4.50-11.00)
[2024-10-14 10:39] LABS: Albumin* 4.2 g/dL (3.3-5.0); Chloride* 101 mmol/L (96-114); Sodium* 138 mmol/L (135-149)
[2024-10-14 10:40] LABS: Potassium* 4.3 mmol/L (3.6-5.1)
[2024-10-14 10:42] LABS: Alkaline Phosphatase* 179 U/L (40-150); Anion Gap 7 mEq/L (7-15); Aspartate Amino Transferase* 29 U/L (12-35); Bilirubin Total* 0.3 mg/dL (0.1-1.5); Blood Urea Nitrogen* 19 mg/dL (7-30); Carbon Dioxide* 30 mmol/L (20-32); Creatinine* 1.1 mg/dL (0.5-1.5); Est. Creatinine Clearance* 49.99; Estimated Glomerular Filt Rate 66 ml/min; Glucose* 147 mg/dL (60-115)
[2024-10-14 10:43] LABS: Alanine Aminotransferase* 14 U/L (4-50); Calcium* 9.2 mg/dL (8.4-10.6)
[2024-10-14 11:02] LABS: Slide Review Reflex No
[2024-10-14 11:07] LABS: PSA Diagnostic* 6.69 ng/mL (0.10-4.00)
--- NOTE | 2024-10-23 15:41 | ONC.NURNOTE ---
Poultry Barn Manager called [facility] to set up MD appt and labs at the end of November, message was left for him to call back and to be scheduled on 11/28/24 with Rebeca.
[2024-11-28 13:36] LABS: Basophils Absolute Auto 0.03 K/uL (0.00-0.30); Basophils Percent Auto 0.4 % (0.0-3.0); Eosinophils Absolute Auto 0.08 K/uL (0.00-0.50); Hematocrit 30.1 % (37.0-53.0); Hemoglobin* 9.7 gm/dL (13.5-17.5); Immature Granulocytes Abs Auto 0.06 K/uL (0.00-0.30); Immature Granulocytes Pct Auto 0.7 %; Lymphocytes Percent Auto 10.8 % (20-44); Mean Corpuscular HGB Conc 32 gm/dL (32-36); Mean Corpuscular Hemoglobin 30 pg (26-34); Mean Corpuscular Volume 93 fL (80-100); Monocytes Percent Auto 9.3 % (0.0-11.0); Neutrophils Percent Auto 77.8 % (42.0-72.0); Platelet Count* 324 K/uL (140-440); RDW Coefficient of Variation % 14.8 % (11.5-15.5); Red Blood Count 3.25 m/uL (4.30-5.90); White Blood Count* 8.16 K/uL (4.50-11.00)
[2024-11-28 13:42] LABS: Slide Review Reflex No
[2024-11-28 13:50] LABS: Albumin* 4.2 g/dL (3.3-5.0); Chloride* 97 mmol/L (96-114); Sodium* 138 mmol/L (135-149)
[2024-11-28 13:53] LABS: Alanine Aminotransferase* 19 U/L (4-50); Alkaline Phosphatase* 228 U/L (40-150); Anion Gap 9 mEq/L (7-15); Aspartate Amino Transferase* 45 U/L (12-35); Bilirubin Total* 0.4 mg/dL (0.1-1.5); Blood Urea Nitrogen* 23 mg/dL (7-30); Carbon Dioxide* 32 mmol/L (20-32); Creatinine* 1.2 mg/dL (0.5-1.5); Est. Creatinine Clearance* 44.33; Estimated Glomerular Filt Rate 60 ml/min; Total Protein* 7.4 g/dL (6.0-8.3)
[2024-11-28 13:54] LABS: Calcium* 10.3 mg/dL (8.4-10.6); Glucose* 146 mg/dL (60-115)
--- NOTE | 2024-12-13 15:17 | PC.SOCIAL ---
Social work consult/late entry: On 12/12/24, this psychosocial rehabilitation counselor left a message with pt's , Melissa, to follow-up with her about resources. Pt discharged home with his from the hospital on the morning of 12/12/24 and this psychosocial rehabilitation counselor was asked to follow-up with the pt's by staff at the [facility]. Per staff at the [facility], pt's may be interested in resources for respite care, as she is the pt's primary caregiver. yarn worker has not heard back from the yet and can try reaching back out to the again next week. Social work to follow-up as needed.
== END 2025-01-26 23:59 | disposition home or self-care (01) ==
LOC: CCIC 07:42
PROVIDERS: Internal Medicine Hematology & Oncology; PCP Surgery; Referring Provider Surgery; Visit Provider Physician Assistant
DX: C61 Malignant neoplasm of prostate (principal); C79.51 Secondary malignant neoplasm of bone; G89.3 Neoplasm related pain (acute) (chronic); E83.52 Hypercalcemia; Z86.73 Personal history of transient ischemic attack (TIA), and cerebral infarction without residual deficits; I10 Essential (primary) hypertension; G47.00 Insomnia, unspecified; Z87.891 Personal history of nicotine dependence
CPT/HCPCS: 36415; 80053; 82310; 82565; 84153; 85025; 96372; 96401; 96402; 99214; 99215; G0463; J0897; J9217